=== PATIENT | male | born 1950 | race Caucasian/White ===

== ENCOUNTER 2018-01-01 08:24 | Day surgery (SDC) | payer OTHER ==
[~2018-01-01] VITALS: Ht 175.3 cm; Wt 87.3 kg
[~2018-01-01 08:24] MED LIST: LANSO15 PO
[2018-01-01 08:43] VITALS: BP 142/82; PULSE 63; RESP 20; TEMP 97.6; O2SAT 97
[2018-01-01] MEDS ORDERED: ceFAZolin 2 GM PREMIX 50 ML - implanted port/tunneled catheter insertion IV SCH (09:00)
[2018-01-01] MEDS ORDERED: SODIUM CHLORIDE 0.9% 1000 ML IV SCH (09:00)
[2018-01-01] MEDS ORDERED: VANCOMYCIN 1000 MG/NS 250 ML - implanted port/tunneled catheter IV SCH ×2 (09:00)
[2018-01-01] MEDS ORDERED: POVIDONE IODINE 5% (ANTISEPSIS KIT) 4 APPLICATIONS EACH NARE SCH (09:00)
[2018-01-01] MEDS ORDERED: CHLORHEXIDINE GLUCONATE 2 % 1 PACK (2 CLOTHS) TOPICAL SCH (09:00)
[2018-01-01] MEDS ORDERED: NAPR250T4 PO (09:07)
[2018-01-01] MEDS ORDERED: DEXT1LIQ15 PO (09:07)
[2018-01-01] MEDS ORDERED: HYDR1SOL20 PO (09:07)
[2018-01-01] MEDS ORDERED: NEXI20CA PO (09:07)
[2018-01-01] MEDS ORDERED: SIMV40TA PO (09:07)
[2018-01-01] MEDS ORDERED: BENZ100 PO (09:07)
[2018-01-01] MEDS ORDERED: fentaNYL CITRATE 250 MCG/5 ML AMP ONE (11:08)
[2018-01-01] MEDS ORDERED: MIDAZOLAM HCL 2 MG/2 ML VIAL ONE ×2 (11:08)
[2018-01-01 12:05] VITALS: BP 129/83; PULSE 63; RESP 20; TEMP 97.5; O2SAT 94
[2018-01-01 12:20] VITALS: BP 122/85; PULSE 62; RESP 20; O2SAT 93
[2018-01-01] MEDS ORDERED: SODIUM CHLORIDE 0.9% FLUSH 10 ML FLUSH IVF PRN (12:45)
--- NOTE | 2018-01-01 12:48 | PD.RAD ---
Post Procedure Progress Note Pre Procedure Diagnosis: (1) Lung cancer Post Procedure Diagnosis: (1) Lung cancer Procedure Date: Jan 01, 2018 Supervising Radiologist: Dao Castillo Proceduralist/Assist: RT Tamera(R)() Estimated blood loss: none Anesthesia: Local, Conscious Sedation Plan of Activity Patient to Unit: ROPU Patient Condition: Good See PACS Report for procedural detail/treatment Central Venous Access Device Procedure 1 Right Internal Jugular Infusaport Placement single lumen [place]: 8 Dao Castillo MD Jan 01, 2018 12:48
[2018-01-01 12:50] VITALS: BP 128/87; PULSE 57; RESP 20; O2SAT 95
[2018-01-01 13:20] VITALS: BP 128/83; PULSE 63; RESP 20; O2SAT 95
--- NOTE | 2018-01-01 13:24 | RADRPT ---
EXAM DATE/TIME: 01/01/2018 12:22 [facility] COMPARISON: No previous studies available for comparison. INDICATIONS : Patient with a histry of lung cancer needs [id number] MEDICAL HISTORY : Hypercholestermia GERD Anxiety Hemorrhoids SURGICAL HISTORY : Cataract removal Vasectomy ENCOUNTER: Initial ACUITY: 2 months PAIN SCORE: 0/10 FLUORO TIME: 1.2 minutes IMAGE SERIES: 1 SEDATION TIME: 30 minutes ACCESS: Right internal jugular vein SEDATION: 1.) 2 mg midazolam (Versed) IV 2.) 150 mcg fentanyl (Sublimaze) IV Prophylactic antibiotics were administered with appropriate pre-procedure timing. Vancomycin within 2 hours of procedure, Ancef (or alternative) within 1 hour of procedure. DEVICE: 1. 8 Citizen Of [place] single lumen [id number] PROCEDURE : 1. Continuous pulse oximetry and EKG monitoring. 2. Intravenous conscious sedation. 3. Ultrasound guidance for venous access. 4. Fluoroscopic guided implantable central venous port placement. The patient was placed supine. The neck was prepped in sterile fashion. Full sterile technique was u sed, including cap, mask, sterile gloves and gown, and a large sterile sheet. Hand hygiene and 2% ch lorhexidine Betadine was utilized per protocol for cutaneous antisepsis with appropriate dry time for site. Sterile gel and sterile probe cover were utilized for ultrasound guidance. The skin and sub cutaneous tissues were infiltrated with local anesthetic solution. Under direct ultrasound guidance, central venous access was accomplished in the targeted vessel. The ultrasound images depicting access guidance were stored and saved to PACS for permanent record. A s ubcutaneous pocket was created using blunt dissection. The port was introduced to the pocket. The c atheter tubing was fed through a subcutaneous tunnel to the venotomy site. The catheter tubing was c ut to a suitable length and then was introduced through a valved Peel-Away sheath and positioned with catheter tubing tip at the cavo-atrial junction level. The pocket incision was closed with subcutic ular Vicryl suture. Steri-Strips were applied. The port was flushed and locked with heparin solutio n per protocol. Sterile dressing was applied to the site. The patient tolerated the procedure well. Conscious sedation was performed with the prescribed dosages and duration as above in the presence of an independent trained radiology nurse to assist in the monitoring of the patient. EKG and oximetry remained stable throughout the procedure. The patient tolerated the procedure well and there were no complications. The patient was sent to post anesthesia recovery in stable condition. CONCLUSION: Uncomplicated ultrasound and fluoroscopic guided implanted central venous port catheter placement as described in detail above. An 8 Citizen Of [place] Power port was placed. Dao Castillo MD on January 01, 2018 at 13:22 Board Certified Radiologist. This report was verified electronically.
[2018-01-01 13:50] VITALS: BP 126/79; PULSE 58; RESP 20; O2SAT 95
== END 2018-01-01 14:20 | disposition home or self-care (01) ==
LOC: HROP 08:24 → HRIP 08:32 → HROP 14:20
PROVIDERS: ATTEND Internal Medicine
DX: Z45.2 Encounter for adjustment and management of vascular access device (principal); C34.90 Malignant neoplasm of unspecified part of unspecified bronchus or lung; K21.9 Gastro-esophageal reflux disease without esophagitis; F41.9 Anxiety disorder, unspecified; E78.00 Pure hypercholesterolemia, unspecified
CPT/HCPCS: 36561; 76937; 77001; 99152; 99153; C1788; J0690; J1642; J2250; J3010; J3370; J7030; J7050

== ENCOUNTER 2018-03-27 10:09 | Inpatient (IN) | payer OTHER, MEDICARE ==
[2018-03-27] VITALS (9 sets, daily range): BP systolic 105–127; BP diastolic 68–83; PULSE 74–115; RESP 16–18; TEMP 97.8–98.1; O2SAT 95–100
[~2018-03-27] VITALS: Ht 175.3 cm; Wt 69.5 kg
[~2018-03-27 10:09] MED LIST changes: +BENZ100 PO; +DEXT1LIQ15 PO; +HYDR1SOL20 PO; -LANSO15 PO; +NAPR250T4 PO; +NEXI20CA PO; +SIMV40TA PO
[2018-03-27] MEDS ORDERED: IOHEXOL 350 MG/ML 10 ML VIAL (for RAD DIAG) IVCONTRAST ONE (10:10)
[2018-03-27] MEDS ORDERED: OXYC-395 PO (10:28)
[2018-03-27] MEDS ORDERED: SODIUM CHLORIDE 0.9% FLUSH 10 ML FLUSH IVF PRN (10:30)
[2018-03-27] MEDS ORDERED: ASPIRIN 81 MG CHEW TAB PO ONE (10:30)
[2018-03-27] MEDS ORDERED: SODIUM CHLORID 0.9% 500 ML INJ 500 ML IV ONE (10:30)
--- NOTE | 2018-03-27 10:50 | PD ---
HPI Chief Complaint: Chest Pain Time Seen by Provider: 10:15 Travel History International Travel<30 days: No Contact w/Intl Traveler<30days: No Traveled to known affect area: No History of Present Illness HPI The patient is a 67-year-old male who presents to the emergency department for chest pain and shortness of breath. The patient was receiving radiation therapy earlier today when he developed chest pain, shortness of breath, and elevated heart rate. The patient states his symptoms started yesterday, have been intermittent, with no alleviating or exacerbating factors. He does complain of intermittent substernal sharp chest pain with shortness of breath without any nausea, vomiting, or diaphoresis. The patient was diagnosed with non-small cell lung carcinoma in November 2017 and has undergone 4 rounds of chemotherapy, last round of chemotherapy was last . The patient is followed by his medical oncologist, Dr. Driscoll. He is also followed by his radiation oncologist, Dr. Martin. The patient's primary physician is Dr. Star Unger. The patient denies any history of pulmonary embolism, DVT, recent surgery, recent hospitalizations, or recent prolonged travel. The patient does have a remote history of tobacco use, quit 20 years ago. Patient denies any known history of coronary artery disease, hypertension, or hyperlipidemia. No history of diabetes. The patient was noted to be in SVT at the oncology building, had an IV established by EMS and the patient was administered 1 dose of adenosine which brought his heart rate down from the 150s to the 120s. PFSH Past Medical History Cancer: Yes (LUNG W/METS) High Cholesterol: Yes Diminished Hearing: Yes Respiratory: Yes (LUNG CA) Immunizations Current: Yes Past Surgical History Eye Surgery: Yes (CATARACT) Genitourinary Surgery: Yes (vasectomy) Social History Alcohol Use: No Tobacco Use: No Substance Use: No Allergies-Medications (Allergen,Severity, Reaction): Coded Allergies: No Known Allergies (Verified Allergy, Unknown, 03/27/18) Reported Meds & Prescriptions Reported Meds & Active Scripts Active Reported Dexamethasone 4 Mg Tab 4 Mg PO BID Zantac (Ranitidine HCl) 300 Mg Tab 300 Mg PO HS Megestrol Liq (Megestrol Acetate) 40 Mg/Ml Susp 800 Mg PO DAILY Folic Acid 1 Mg Tablet 1 Mg PO DAILY Magic Mouthwash Adult Liq (Multi-Ingredient Mouthwash/Gargle) 120 Ml Susp 5-10 Ml SWISH-SWAL ACHS Each 5mL contains: Nystatin 200,000units, Diphenhydramine 4.25mg, Viscous Lidocaine 10mg, Sandoval syrup 0.8 mL Oxycodone (Oxycodone HCl) 5 Mg Tab 5 Mg PO Q4H PRN Nexium (Esomeprazole DR) 20 Mg Capdr 20 Mg PO DAILY Review of Systems Except as stated in HPI: all other systems reviewed are Neg General / Constitutional: No: Fever HENT: No: Lightheadedness Cardiovascular: Positive: Chest Pain or Discomfort, Tachycardia, No: Diaphoresis Respiratory: Positive: Shortness of Breath Gastrointestinal: No: Nausea, Vomiting, Abdominal Pain Musculoskeletal: No: Weakness, Edema Neurologic: No: Dizziness Physical Exam Narrative GENERAL: Awake, alert, pleasant 67-year-old male who appears his stated age and is in no acute respiratory distress. SKIN: Focused skin assessment warm/dry. HEAD: Atraumatic. Normocephalic. EYES: No injection or drainage. ENT: No nasal bleeding or discharge. Mucous membranes pink and moist. NECK: Trachea midline. No JVD. CARDIOVASCULAR: Regular, tachycardic with a heart rate in the 120s. Port in place right chest wall. RESPIRATORY: No accessory muscle use. Clear to auscultation. Breath sounds equal bilaterally. GASTROINTESTINAL: Abdomen soft, non-tender, nondistended. No rebound tenderness. MUSCULOSKELETAL: No obvious deformities. No clubbing. No cyanosis. No edema. Calves are soft bilaterally. NEUROLOGICAL: Awake and alert. No obvious cranial nerve deficits. Motor grossly within normal limits. Normal speech. PSYCHIATRIC: Appropriate mood and affect; insight and judgment normal. Data Data Last Documented VS Vital Signs Date Time Temp Pulse Resp B/P (MAP) Pulse Ox O2 Delivery O2 Flow Rate FiO2 03/27/18 10:34 109 16 115/74 (88) 99 Nasal Cannula 2.00 Orders Orders Electrocardiogram (03/27/18 10:24) B-Type Natriuretic Peptide (03/27/18 10:24) Ckmb (Isoenzyme) Profile (03/27/18 10:24) Complete Blood Count With Diff (03/27/18 10:24) Comprehensive Metabolic Panel (03/27/18 10:24) Magnesium (Mg) (03/27/18 10:24) Prothrombin Time / Inr (Pt) (03/27/18 10:24) Act Partial Throm Time (Ptt) (03/27/18 10:24) Troponin I (03/27/18 10:24) Lipase (03/27/18 10:24) Ecg Monitoring (03/27/18 10:24) Bilateral Bp Monitoring (03/27/18 10:24) Iv Access Insert/Monitor (03/27/18 10:24) Oximetry (03/27/18 10:24) Oxygen Administration (03/27/18 10:24) Aspirin Chew (Aspirin Chew) (03/27/18 10:30) Sodium Chloride 0.9% Flush (Ns Flush) (03/27/18 10:30) Sodium Chlorid 0.9% 500 Ml Inj (Ns 500 M (03/27/18 10:30) Ct Pulmonary Angiogram (03/27/18 10:24) Chest, Pa & Lat (03/27/18 10:24) Lactic Acid (03/27/18 10:24) Iohexol 350 Inj (Omnipaque 350 Inj) (03/27/18 10:10) Heparin Inj (Heparin Inj) (03/27/18 12:59) Heparin Inj (Heparin Inj) (03/27/18 19:00) Heparin Inj (Heparin Inj) (03/27/18 19:00) Heparin-D5w 25,000 U/250 Ml (Heparin-D5w (03/27/18 13:00) Act Partial Throm Time (Ptt) (03/27/18 12:59) Cbc No Diff, Includes Plts (03/27/18 12:59) Cbc No Diff, Includes Plts (03/30/18 06:00) Act Partial Throm Time (Ptt) (03/27/18 19:59) Occult Blood (Hemoccult) Stool (03/27/18 12:59) Admit Order (Ed Use Only) (03/27/18 13:39) Labs Laboratory Tests Test 03/27/18 10:20 03/27/18 10:40 White Blood Count 5.2 TH/MM3 Red Blood Count 3.99 MIL/MM3 Hemoglobin 11.6 GM/DL Hematocrit 33.3 % Mean Corpuscular Volume 83.4 FL Mean Corpuscular Hemoglobin 29.1 PG Mean Corpuscular Hemoglobin Concent 34.8 % Red Cell Distribution Width 20.5 % Platelet Count 99 TH/MM3 Mean Platelet Volume 7.8 FL Neutrophils (%) (Auto) 85.2 % Lymphocytes (%) (Auto) 2.3 % Monocytes (%) (Auto) 10.7 % Eosinophils (%) (Auto) 1.6 % Basophils (%) (Auto) 0.2 % Neutrophils # (Auto) 4.4 TH/MM3 Lymphocytes # (Auto) 0.1 TH/MM3 Monocytes # (Auto) 0.6 TH/MM3 Eosinophils # (Auto) 0.1 TH/MM3 Basophils # (Auto) 0.0 TH/MM3 CBC Comment AUTO DIFF Differential Comment AUTO DIFF CONFIRMED Platelet Estimate LOW Platelet Morphology Comment NORMAL Prothrombin Time 10.7 SEC Prothromb Time International Ratio 1.1 RATIO Activated Partial Thromboplast Time 24.4 SEC Blood Urea Nitrogen 14 MG/DL Creatinine 1.01 MG/DL Random Glucose 124 MG/DL Total Protein 6.5 GM/DL Albumin 2.9 GM/DL Calcium Level 7.9 MG/DL Magnesium Level 1.6 MG/DL Alkaline Phosphatase 79 U/L Aspartate Amino Transf (AST/SGOT) 33 U/L Alanine Aminotransferase (ALT/SGPT) 34 U/L Total Bilirubin 1.5 MG/DL Sodium Level 132 MEQ/L Potassium Level 3.9 MEQ/L Chloride Level 98 MEQ/L Carbon Dioxide Level 22.5 MEQ/L Anion Gap 12 MEQ/L Estimat Glomerular Filtration Rate 74 ML/MIN Total Creatine Kinase 48 U/L Troponin I LESS THAN 0.02 NG/ML B-Type Natriuretic Peptide 36 PG/ML Lipase 191 U/L Lactic Acid Level 1.2 mmol/L MDM Medical Decision Making Medical Screen Exam Complete: Yes Emergency Medical Condition: Yes Medical Record Reviewed: Yes Interpretation(s) EKG reveals sinus tachycardia with premature supraventricular complex. Heart rate 120. Last Impressions Chest X-Ray 03/27/18 1024 Signed Impressions: Service Date/Time: Tuesday, March 27, 2018 11:07 - CONCLUSION: There is left upper lobe and left lung base consolidation. Patient is currently scheduled for chest CT which will further characterize this finding. Dao Gamez MD CT Angiography 03/27/18 1024 Signed Impressions: Service Date/Time: Tuesday, March 27, 2018 12:19 - CONCLUSION: 1. Right lower lobe pulmonary embolism. 2. Large soft tissue mass in the left hilar region consistent with the known primary bronchogenic carcinoma. 3. Consolidation in the right lower lobe. Claudy Morrison MD Laboratory Tests Test 03/27/18 10:20 03/27/18 10:40 White Blood Count 5.2 TH/MM3 Red Blood Count 3.99 MIL/MM3 Hemoglobin 11.6 GM/DL Hematocrit 33.3 % Mean Corpuscular Volume 83.4 FL Mean Corpuscular Hemoglobin 29.1 PG Mean Corpuscular Hemoglobin Concent 34.8 % Red Cell Distribution Width 20.5 % Platelet Count 99 TH/MM3 Mean Platelet Volume 7.8 FL Neutrophils (%) (Auto) 85.2 % Lymphocytes (%) (Auto) 2.3 % Monocytes (%) (Auto) 10.7 % Eosinophils (%) (Auto) 1.6 % Basophils (%) (Auto) 0.2 % Neutrophils # (Auto) 4.4 TH/MM3 Lymphocytes # (Auto) 0.1 TH/MM3 Monocytes # (Auto) 0.6 TH/MM3 Eosinophils # (Auto) 0.1 TH/MM3 Basophils # (Auto) 0.0 TH/MM3 CBC Comment AUTO DIFF Differential Comment AUTO DIFF CONFIRMED Platelet Estimate LOW Platelet Morphology Comment NORMAL Prothrombin Time 10.7 SEC Prothromb Time International Ratio 1.1 RATIO Activated Partial Thromboplast Time 24.4 SEC Blood Urea Nitrogen 14 MG/DL Creatinine 1.01 MG/DL Random Glucose 124 MG/DL Total Protein 6.5 GM/DL Albumin 2.9 GM/DL Calcium Level 7.9 MG/DL Magnesium Level 1.6 MG/DL Alkaline Phosphatase 79 U/L Aspartate Amino Transf (AST/SGOT) 33 U/L Alanine Aminotransferase (ALT/SGPT) 34 U/L Total Bilirubin 1.5 MG/DL Sodium Level 132 MEQ/L Potassium Level 3.9 MEQ/L Chloride Level 98 MEQ/L Carbon Dioxide Level 22.5 MEQ/L Anion Gap 12 MEQ/L Estimat Glomerular Filtration Rate 74 ML/MIN Total Creatine Kinase 48 U/L Troponin I LESS THAN 0.02 NG/ML B-Type Natriuretic Peptide 36 PG/ML Lipase 191 U/L Lactic Acid Level 1.2 mmol/L Differential Diagnosis Differential diagnosis includes SVT, arrhythmia, electrolyte abnormality, pulmonary embolism, dehydration, sirs, sepsis. Narrative Course IV was established, labs are drawn and sent, and the patient was placed on cardiac telemetry monitoring and continuous pulse oximetry monitoring. EKG was ordered and interpreted. Chest x-ray was obtained. CT pulmonary angiogram was ordered to rule out pulmonary embolism with tachycardia, shortness of breath, and chest pain. The patient was administered IV fluids. Chest x-ray reveals mass in her pneumonia in the left upper lobe. Laboratory evaluation otherwise is unremarkable. However, the patient is tachycardic with pleuritic pain and shortness of breath, therefore, CT pulmonary angiogram was ordered. CT pulmonary angiogram was positive, the patient may have right ventricular strain as he does have elevated heart rate just with talking and moving in the bed. Therefore, the patient will be admitted to [facility], may benefit from echocardiogram and if there is significant right ventricular strain, eventually IV TPA. I discussed the patient with Dr. Fowler who agrees with admission. Critical Care Narrative Aggregate critical care time was 35 minutes. Time to perform other separately billable procedures was not included in the critical care time. My time did not include minutes spent treating any other patients simultaneously or on activities that did not directly contribute to the patient's treatment. The services I provided to this patient were to treat and/or prevent clinically significant deterioration that could result in: Anoxia, hypoxia, arrhythmia, right ventricular strain, . I provided critical care services requiring my management, as noted below: Chart data review, documentation time, medication orders and management, vital sign assessments/reviewing monitor data, ordering and reviewing lab tests, ordering and interpreting/reviewing x-rays and diagnostic studies, care of the patient and discussion of the patient with the admitting physicians. Physician Communication Physician Communication The patient has [employer], therefore, [facility] were paged for admission. I discussed the patient with Dr. Fowler who agrees with admission to [facility]. Diagnosis Primary Impression: Pulmonary embolism Qualified Codes: I26.99 - Other pulmonary embolism without acute cor pulmonale Admitting Information Admitting Physician Requests: Admit Condition: Stable Farzad Angeles MD March 27, 2018 10:50
--- NOTE | 2018-03-27 11:23 | RADRPT ---
EXAM DATE/TIME: 03/27/2018 11:07 [facility] COMPARISON: CT SIMULATION, March 01, 2018, 13:40. INDICATIONS : Shortness of breath and cough. MEDICAL HISTORY : Carcinoma, lung. SURGICAL HISTORY : Infusaport. ENCOUNTER: Initial ACUITY: 1 day PAIN SCORE: 0/10 LOCATION: Bilateral chest FINDINGS: Frontal and lateral views of the chest demonstrates a normal size cardiac silhouette. Right chest wal l [id number] is present with distal tip in the right atrium. There is a left upper lobe parenchyma l opacity and mild left lung base anterior brachial opacity. No pleural effusion or pneumothorax is i dentified. The bones and soft tissues demonstrate no acute finding. There are degenerative changes of the thoracic spine. CONCLUSION: There is left upper lobe and left lung base consolidation. Patient is currently scheduled for chest C T which will further characterize this finding. Dao Gamez MD on March 27, 2018 at 11:20 Board Certified Radiologist. This report was verified electronically.
[2018-03-27 11:24] LABS: AUTOMATED NEUTROPHIL # 4.4 TH/MM3 (1.8-7.7); BASOPHIL % 0.2 % (0.0-2.0); EOSINOPHIL # 0.1 TH/MM3 (0-0.4); EOSINOPHIL % 1.6 % (0.0-4.0); HEMATOCRIT 33.3 % (39.0-51.0); HEMOGLOBIN 11.6 GM/DL (13.0-17.0); LYMPH % 2.3 % (9.0-44.0); LYMPHOCYTE # 0.1 TH/MM3 (1.0-4.8); MEAN CELL VOLUME 83.4 FL (80.0-100.0); MEAN CORPUSCULAR HEMOGLOBIN 29.1 PG (27.0-34.0); MEAN CORPUSCULAR HGB CONC 34.8 % (32.0-36.0); MEAN PLATELET VOLUME 7.8 FL (7.0-11.0); MONO % 10.7 % (0.0-8.0); MONOCYTE # 0.6 TH/MM3 (0-0.9); NEUT % 85.2 % (16.0-70.0); PLATELET COUNT 99 TH/MM3 (150-450); RED BLOOD COUNT 3.99 MIL/MM3 (4.50-5.90); RED CELL DISTRIBUTION WIDTH 20.5 % (11.6-17.2); WHITE BLOOD COUNT 5.2 TH/MM3 (4.0-11.0)
[2018-03-27 11:26] LABS: INTERNATIONAL NORMALIZED RATIO 1.1 RATIO; PROTHROMBIN TIME - PATIENT 10.7 SEC (9.8-11.6)
[2018-03-27 11:48] LABS: ALBUMIN 2.9 GM/DL (3.4-5.0); AST (GOT) 33 U/L (15-37); BICARBONATE 22.5 MEQ/L (21.0-32.0); BLOOD UREA NITROGEN 14 MG/DL (7-18); CALCIUM 7.9 MG/DL (8.5-10.1); CHLORIDE 98 MEQ/L (98-107); CREATININE 1.01 MG/DL (0.60-1.30); GLOMERULAR FILTRATION RATE 74 ML/MIN (>89); GLUCOSE,RANDOM 124 MG/DL (74-106); MAGNESIUM 1.6 MG/DL (1.5-2.5); SODIUM (NA) 132 MEQ/L (136-145)
[2018-03-27 11:49] LABS: ALT (GPT) 34 U/L (12-78)
[2018-03-27 11:52] LABS: ALKALINE PHOSPHATASE 79 U/L (45-117); TOTAL BILIRUBIN ADULT 1.5 MG/DL (0.2-1.0); TOTAL PROTEIN 6.5 GM/DL (6.4-8.2); TROPONIN I LESS THAN 0.02 NG/ML (0.02-0.05)
[2018-03-27] MEDS ORDERED: FOLI1TAB6 PO (12:16)
[2018-03-27] MEDS ORDERED: DEXA4TAB PO (12:16)
[2018-03-27] MEDS ORDERED: OXYC-392 PO (12:16)
[2018-03-27] MEDS ORDERED: MAGICADU2 SWISH-SWAL (12:16)
[2018-03-27] MEDS ORDERED: ZANT300T PO (12:16)
[2018-03-27] MEDS ORDERED: MEGE40SU PO (12:16)
--- NOTE | 2018-03-27 12:54 | RADRPT ---
EXAM DATE/TIME: 03/27/2018 12:19 [facility] COMPARISON: CHEST PA & LAT, March 27, 2018, 11:07. INDICATIONS : Abnormal heart rate, chest pressure IV CONTRAST: 50 cc Omnipaque 350 (iohexol) IV RADIATION DOSE: 9.69 CTDIvol (mGy) MEDICAL HISTORY : Carcinoma, lung. SURGICAL HISTORY : None. ENCOUNTER: Initial ACUITY: 2 days PAIN SCALE: 0/10 LOCATION: chest TECHNIQUE: Volumetric scanning of the chest was performed using a pulmonary embolism protocol MIP images were re constructed. Using automated exposure control and adjustment of the mA and/or kV according to patien t size, radiation dose was kept as low as reasonably achievable to obtain optimal diagnostic quality images. DICOM format image data is available electronically for review and comparison. Follow-up recommendations for detected pulmonary nodules are based at a minimum on nodule size and pa tient risk factors according to Fleischner Society Guidelines. FINDINGS: PULMONARY ARTERIES: There are multiple filling defects in the left lower lobe pulmonary arteries. LUNGS: There is no pneumothorax . There is a large mass in the left perihilar region extending into the upp er lobe and lingula measuring up to 5.9 x 4.5 x 6.8 cm. This attenuates one of the right upper lobe p ulmonary arteries. Infiltrate is present in the right lower lobe. PLEURAE: There is no pleural thickening or pleural effusion. MEDIASTINUM: There is good visualization of the great vessels of the middle mediastinum. No evidence of mediastin al or hilar adenopathy/mass. MUSCULOSKELETAL: Within normal limits for patient age. MISCELLANEOUS: The visualized upper abdominal organs demonstrate no acute abnormality. CONCLUSION: 1. Right lower lobe pulmonary embolism. 2. Large soft tissue mass in the left hilar region consistent with the known primary bronchogenic car cinoma. 3. Consolidation in the right lower lobe. Claudy Morrison MD on March 27, 2018 at 12:46 Board Certified Radiologist. This report was verified electronically.
[2018-03-27] MEDS ORDERED: HEPARIN - 10,000 UNITS/ML IV ADDITIVE IV PUSH STA (12:59)
[2018-03-27] MEDS ORDERED: SODIUM CHLORIDE 0.9% FLUSH 10 ML FLUSH IV FLUSH PRN (13:45)
--- NOTE | 2018-03-27 13:59 | HHI.HP ---
HPI Service [facility] Primary Care Physician Bassam Unger M.D. 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 He follows with Dr. Driscoll and Dr. Martin. The patient was receiving chemotherapy treatment in the oncology clinic when he is shortness of breath got worse. EMS report he was in SVT and was given 1 dose of adenosine. On my evaluation in the emergency room, heart rate is in the 90s. He reports feeling better at rest. Workup in the emergency room revealed a right lower lobe pulmonary embolus. He has been started on a heparin drip. He denies any chest pressure. He does report a history of a small area of metastases in his brain that was treated with radiation. He does have a persistent and chronic cough. Denies any fevers or chills. He denies any calf pain. Review of Systems Constitutional: DENIES: Fever, Chills Respiratory: COMPLAINS OF: Cough, Shortness of breath, DENIES: Hemoptysis Cardiovascular: COMPLAINS OF: Dyspnea on Exertion, DENIES: Syncope Gastrointestinal: DENIES: Nausea, Vomiting Neurologic: DENIES: Abnormal gait, Headache Except as stated in HPI: all other systems reviewed are Neg Past Family Social History Past Medical History Metastatic lung adenocarcinoma to the spine and brain. Hyperlipidemia GERD Past Surgical History Lung biopsy Reported Medications Reported Meds & Active Scripts Active Reported Dexamethasone 4 Mg Tab 4 Mg PO BID Zantac (Ranitidine HCl) 300 Mg Tab 300 Mg PO HS Megestrol Liq (Megestrol Acetate) 40 Mg/Ml Susp 800 Mg PO DAILY Folic Acid 1 Mg Tablet 1 Mg PO DAILY Magic Mouthwash Adult Liq (Multi-Ingredient Mouthwash/Gargle) 120 Ml Susp 5-10 Ml SWISH-SWAL ACHS Each 5mL contains: Nystatin 200,000units, Diphenhydramine 4.25mg, Viscous Lidocaine 10mg, Sandoval syrup 0.8 mL Oxycodone (Oxycodone HCl) 5 Mg Tab 5 Mg PO Q4H PRN Nexium (Esomeprazole DR) 20 Mg Capdr 20 Mg PO DAILY Allergies: Coded Allergies: No Known Allergies (Verified Allergy, Unknown, 03/27/18) Family History Reviewed and is noncontributory. Social History Ex-smoker. Quit smoking about 15 years ago. He does drink alcohol occasionally. Denies illicit drug use. Physical Exam Vital Signs Vital Signs Date Time Temp Pulse Resp B/P (MAP) Pulse Ox O2 Delivery O2 Flow Rate FiO2 03/27/18 13:48 88 16 105/70 (82) 98 Nasal Cannula 2.00 03/27/18 10:34 109 16 115/74 (88) 99 Nasal Cannula 2.00 03/27/18 10:34 99 Nasal Cannula 2.00 03/27/18 10:34 109 16 127/83 (98) 99 Nasal Cannula 2.00 115/74 (88) 03/27/18 10:29 112 18 99 Nasal Cannula 2.00 03/27/18 10:23 115 18 127/83 (98) 99 Physical Exam GENERAL: This is a well-nourished, well-developed patient, in no acute distress. SKIN: No rashes, ecchymoses or lesions. Cool and dry. HEAD: Atraumatic. Normocephalic. No temporal or scalp tenderness. EYES: Pupils equal round and reactive. Extraocular motions intact. No scleral icterus. No injection or drainage. ENT: Nose without bleeding, purulent drainage or septal hematoma. Throat without erythema, tonsillar hypertrophy or exudate. Uvula midline. Airway patent. NECK: Trachea midline. No JVD or lymphadenopathy. Supple, nontender, no meningeal signs. CARDIOVASCULAR: Regular rate and rhythm without murmurs, gallops, or rubs. RESPIRATORY: Clear to auscultation. Breath sounds equal bilaterally. No wheezes , rales, or rhonchi. GASTROINTESTINAL: Abdomen soft, non-tender, nondistended. No hepato-splenomegaly , or palpable masses. No guarding. MUSCULOSKELETAL: Extremities without clubbing, cyanosis, or edema. No joint tenderness, effusion, or edema noted. No calf tenderness. Negative Homans sign bilaterally. NEUROLOGICAL: Awake and alert. Cranial nerves II through XII intact. Motor and sensory grossly within normal limits. Five out of 5 muscle strength in all muscle groups. Normal speech. Laboratory Laboratory Tests Test 03/27/18 10:20 03/27/18 10:40 White Blood Count 5.2 Red Blood Count 3.99 Hemoglobin 11.6 Hematocrit 33.3 Mean Corpuscular Volume 83.4 Mean Corpuscular Hemoglobin 29.1 Mean Corpuscular Hemoglobin Concent 34.8 Red Cell Distribution Width 20.5 Platelet Count 99 Mean Platelet Volume 7.8 Neutrophils (%) (Auto) 85.2 Lymphocytes (%) (Auto) 2.3 Monocytes (%) (Auto) 10.7 Eosinophils (%) (Auto) 1.6 Basophils (%) (Auto) 0.2 Neutrophils # (Auto) 4.4 Lymphocytes # (Auto) 0.1 Monocytes # (Auto) 0.6 Eosinophils # (Auto) 0.1 Basophils # (Auto) 0.0 CBC Comment AUTO DIFF Differential Comment AUTO DIFF CONFIRMED Platelet Estimate LOW Platelet Morphology Comment NORMAL Prothrombin Time 10.7 Prothromb Time International Ratio 1.1 Activated Partial Thromboplast Time 24.4 Blood Urea Nitrogen 14 Creatinine 1.01 Random Glucose 124 Total Protein 6.5 Albumin 2.9 Calcium Level 7.9 Magnesium Level 1.6 Alkaline Phosphatase 79 Aspartate Amino Transf (AST/SGOT) 33 Alanine Aminotransferase (ALT/SGPT) 34 Total Bilirubin 1.5 Sodium Level 132 Potassium Level 3.9 Chloride Level 98 Carbon Dioxide Level 22.5 Anion Gap 12 Estimat Glomerular Filtration Rate 74 Total Creatine Kinase 48 Troponin I LESS THAN 0.02 B-Type Natriuretic Peptide 36 Lipase 191 Lactic Acid Level 1.2 Result Diagram: 03/27/18 1020 03/27/18 1020 Imaging Last Impressions Chest X-Ray 03/27/18 1024 Signed Impressions: Service Date/Time: Tuesday, March 27, 2018 11:07 - CONCLUSION: There is left upper lobe and left lung base consolidation. Patient is currently scheduled for chest CT which will further characterize this finding. Dao Gamez MD CT Angiography 03/27/18 1024 Signed Impressions: Service Date/Time: Tuesday, March 27, 2018 12:19 - CONCLUSION: 1. Right lower lobe pulmonary embolism. 2. Large soft tissue mass in the left hilar region consistent with the known primary bronchogenic carcinoma. 3. Consolidation in the right lower lobe. MD Suad Bhat VTE Risk Assessment Caprini VTE Risk Assessment: Mod/High Risk (score >= 2) Caprini Risk Assessment Model Point Value = 1 Point Value = 2 Point Value = 3 Point Value = 5 Age 41-60 Minor surgery BMI > 25 kg/m2 Swollen legs Varicose veins or History of unexplained or recurrent spontaneous Oral contraceptives or hormone replacement Sepsis (< 1 month) Serious lung disease, including pneumonia (< 1 month) Abnormal pulmonary function Acute myocardial infarction Congestive heart failure (< 1 month) History of inflammatory bowel disease Medical patient at bed rest Age 61-74 Arthroscopic surgery Major open surgery (> 45 min) Laparoscopic surgery (> 45 min) Malignancy Confined to bed (> 72 hours) Immobilizing plaster cast Central venous access Age >= 75 History of VTE Family history of VTE Factor V Leiden Prothrombin [id number] Lupus anticoagulant Anticardiolipin antibodies Elevated serum homocysteine Heparin-induced thrombocytopenia Other congenital or acquired thrombophilia Stroke (< 1 month) Elective arthroplasty Hip, pelvis, or leg fracture Acute spinal cord injury (< 1 month) Prophylaxis Regimen Total Risk Factor Score Risk Level Prophylaxis Regimen 0-1 Low Early ambulation 2 Moderate Order ONE of the following: *Sequential Compression Device (SCD) *Heparin 5000 units SQ BID 3-4 Higher Order ONE of the following medications: *Heparin 5000 units SQ TID *Enoxaparin/Lovenox 40 mg SQ daily (WT < 150 kg, CrCl > 30 mL/min) *Enoxaparin/Lovenox 30 mg SQ daily (WT < 150 kg, CrCl > 10-29 mL/min) *Enoxaparin/Lovenox 30 mg SQ BID (WT < 150 kg, CrCl > 30 mL/min) AND/OR *Sequential Compression Device (SCD) 5 or more Highest Order ONE of the following medications: *Heparin 5000 units SQ TID (Preferred with Epidurals) *Enoxaparin/Lovenox 40 mg SQ daily (WT < 150 kg, CrCl > 30 mL/min) *Enoxaparin/Lovenox 30 mg SQ daily (WT < 150 kg, CrCl > 10-29 mL/min) *Enoxaparin/Lovenox 30 mg SQ BID (WT < 150 kg, CrCl > 30 mL/min) AND *Sequential Compression Device (SCD) Assessment and Plan Problem List: (1) Pulmonary embolism ICD Code: I26.99 - Other pulmonary embolism without acute cor pulmonale Status: Acute Plan: Patient has known lung cancer. Has been started on heparin drip. Continue Will obtain stat echocardiogram to rule out heart strain. Vital signs so far stable since he received adenosine. Further plans based on echocardiogram results. I am not convinced that he will need TPA at this time. Consult hematology/oncology Check lower extremity Doppler to rule out DVT. (2) SVT (supraventricular tachycardia) ICD Code: I47.1 - Supraventricular tachycardia Plan: Likely provoked by PE. Status post 1 dose of adenosine. Heart rate better controlled. Start low-dose Cardizem 30 mg every 6 hours. Monitor on telemetry. (3) Adenocarcinoma, lung ICD Code: C34.90 - Malignant neoplasm of unspecified part of unspecified bronchus or lung Plan: With metastatic to the spine and brain. Status post radiation. Receiving chemotherapy. Consult patient's oncologist. (4) GERD (gastroesophageal reflux disease) ICD Code: K21.9 - Gastro-esophageal reflux disease without esophagitis Plan: Continue antireflux medications. Assessment and Plan Admit to [facility]. Level 3 admit. Physician Certification 2 Midnight Certification Type: Admission for Inpatient Services Order for Inpatient Services The services are ordered in accordance with Medicare regulations or non- Medicare payer requirements, as applicable. In the case of services not specified as inpatient-only, they are appropriately provided as inpatient services in accordance with the 2-midnight benchmark. Estimated LOS (days): 4 days is the estimated time the patient will need to remain in the hospital, assuming treatment plan goals are met and no additional complications. Post-Hospital Plan: Not yet determined Problem Qualifiers (1) Pulmonary embolism: Qualified Codes: I26.99 - Other pulmonary embolism without acute cor pulmonale Gloria Fowler MD March 27, 2018 13:59
[2018-03-27] MEDS ORDERED: HEPARIN SODIUM - SQ 10,000 UNITS/ML VIAL ONE (14:18)
[2018-03-27] MEDS: HEPARIN-D5W 25,000 U/250 ML 250 ML IV PRN (14:28)
--- NOTE | 2018-03-27 15:20 | RADRPT ---
EXAM DATE/TIME: 03/27/2018 14:51 [facility] COMPARISON: No previous studies available for comparison. INDICATIONS : Bilateral leg swelling. MEDICAL HISTORY : Carcinoma, lung. Hearing loss. Metastaic cancer. SURGICAL HISTORY : Bilateral cataract surgery. Vasectomy. ENCOUNTER: Initial ACUITY: 1 day PAIN SCORE: 1/10 LOCATION: Bilateral legs. TECHNIQUE: Venous ultrasound of the left and right leg was performed from the inguinal ligament to the proximal calf. Real-time, color Doppler and spectral tracing, compression and augmentation techniques were us ed. FINDINGS: RIGHT LEG: There is normal compressibility of the deep venous system from the inguinal region to the proximal ca lf. No echogenic clot is seen in the lumen of the common femoral, femoral, popliteal, and posterior tibial veins. There is a normal response of the venous system to proximal and distal augmentation an d respiration. LEFT LEG: There is normal compressibility of the deep venous system from the inguinal region to the proximal ca lf. No echogenic clot is seen in the lumen of the common femoral, femoral, popliteal, and posterior tibial veins. There is a normal response of the venous system to proximal and distal augmentation an d respiration. CONCLUSION: 1. Negative for deep venous thrombosis bilateral lower extremity. Cody Muller MD on March 27, 2018 at 15:17 Board Certified Radiologist. This report was verified electronically.
--- NOTE | 2018-03-27 16:10 | ECHRPT ---
Indication: PULM EMBOLI CONCLUSIONS Normal left ventricular size. Mild concentric left ventricular hypertrophy. The left ventricular systolic function is normal with an estimated ejection fraction in the range of 55-60%. No regional wall motion abnormalities are present. Odtma-ri-qssu mitral valve regurgitation. There is trace tricuspid valve regurgitation. The estimated pulmonary arterial pressure is 23 mmHg. BP: 105 / 70 HR: 88 Rhythm: Sinus MEASUREMENTS (Male / Female) Normal Values Technical Quality:Fair 2D ECHO LV Diastolic Diameter PLAX 4.3 cm 4.2 - 5.9 / 3.9 - 5.3 cm LV Systolic Diameter PLAX 2.6 cm IVS Diastolic Thickness 1.1 cm 0.6 - 1.0 / 0.6 - 0.9 cm LVPW Diastolic Thickness 1.1 cm 0.6 - 1.0 / 0.6 - 0.9 cm LV Relative Wall Thickness 0.5 RV Internal Dim ED PLAX 2.0 cm LVOT Diameter 2.3 cm Aortic Root Diameter 3.6 cm LA Systolic Diameter LX 3.0 cm 3.0 - 4.0 / 2.7 - 3.8 cm M-MODE AV Cusp Separation MM 2.1 cm DOPPLER AV Peak Velocity 102.0 cm/s AV Peak Gradient 4.2 mmHg AV Mean Gradient 2.0 mmHg AV Velocity Time Integral 17.4 cm LVOT Peak Velocity 63.2 cm/s LVOT Peak Gradient 1.6 mmHg LVOT Velocity Time Integral 11.5 cm AV Area Cont Eq vti 2.7 cm AV Area Cont Eq pk 2.6 cm Mitral E Point Velocity 42.9 cm/s Mitral A Point Velocity 66.1 cm/s Mitral E to A Ratio 0.6 LV E' Lateral Velocity 11.0 cm/s Mitral E to LV E' Lateral Ratio 3.9 LV E' Septal Velocity 5.1 cm/s Mitral E to LV E' Septal Ratio 8.5 TR Peak Velocity 185.0 cm/s TR Peak Gradient 13.7 mmHg Right Atrial Pressure 10.0 mmHg Pulmonary Artery Systolic Pressu 23.7 mmHg Right Ventricular Systolic Press 23.7 mmHg PV Peak Velocity 81.2 cm/s PV Peak Gradient 2.6 mmHg FINDINGS LEFT VENTRICLE Normal left ventricular size. Mild concentric left ventricular hypertrophy. The left ventricular systolic function is normal with an estimated ejection fraction in the range of 55-60%. No regional wall motion abnormalities are present. RIGHT VENTRICLE Normal right ventricular size and systolic function. LEFT ATRIUM The left atrial size is normal. RIGHT ATRIUM The right atrial size is normal. ATRIAL SEPTUM The interatrial septum not well visualized. AORTA The aortic root and proximal ascending aorta are not well visualized. MITRAL VALVE Fpvzi-zk-[id number] mitral valve regurgitation. AORTIC VALVE Trileaflet aortic valve. No aortic valve stenosis or regurgitation. TRICUSPID VALVE There is trace tricuspid valve regurgitation. The estimated pulmonary arterial pressure is 23 mmHg. PULMONARY VALVE Trivial pulmonary valve regurgitation. VESSELS The inferior vena cava was not well visualized. PERICARDIUM No pericardial effusion. Lee Wyatt MD (Electronically Signed) Final Date:27 Mar 2018 16:09
[2018-03-27] MEDS: DILTIAZEM HCL 30 MG TAB PO SCH (16:48)
[2018-03-27] MEDS ORDERED: HEPARIN SODIUM - IV 10,000 UNITS/10 ML VIAL IV PRN (19:00)
[2018-03-27] MEDS ORDERED: HEPARIN - 10,000 UNITS/ML IV ADDITIVE IV PRN (19:00)
[2018-03-27] MEDS: DEXAMETHASONE 4 MG TAB PO SCH (20:39)
[2018-03-27] MEDS: FAMOTIDINE 20 MG TAB PO SCH (20:39)
[2018-03-27] MEDS: SODIUM CHLORIDE 0.9% FLUSH 10 ML FLUSH IV FLUSH SCH (20:45)
--- NOTE | 2018-03-27 20:48 | RADONCENDT ---
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, T3, N0, M1b, G3 Primary C34.92 - Malignant neoplasm of unspecified part of left bronchus or lung, Diagnosed 11/2017 (Active) , Secondary R05 - Cough, Diagnosed 12/27/2017 (Active) , Secondary R52 - Pain, unspecified, Diagnosed 01/10/2018 (Active) , Diagnosis Confirmed: Suspected Diagnosis Date: 02/26/2018 Diagnosis Laterality: Method of Diagnosis: Unknown PRESCRIPTION AND TREATMENT: Rt Pelvis (Plan ID - Rt Pelvis C1) - Rx Dose 2,000cGy (Status - Treatment Approved) - T_LSpine (Plan ID - T3-T8 c2a) - Rx Dose 3,000cGy (Status - Treatment Approved) - T_LSpine (Plan ID - T12-L1 c2b) - Rx Dose 3,000cGy (Status - Treatment Approved) - SRS 2018-02 (Plan ID - Iso frontal) - Rx Dose 2,000cGy (Status - Treatment Approved) - PLAN FRACTIONS AND DATES: Course: Rt Pelvis Plan IDFractionsFirst TreatmentLast TreatmentExpected End of TreatmentRt Pelvis C15 / 54/3/ Course: SRS 2017- Plan IDFractionsFirst TreatmentLast TreatmentExpected End of TreatmentIso frontal1 / 1 Course: T_LSpine Plan IDFractionsFirst TreatmentLast TreatmentExpected End of [id number] c2b10 T3-T8 c2a10 / TREATED PLANS: Course: Rt Pelvis Plan IDEnergyFractionsDose per Fraction (cGy)Dose Correction (cGy)Total Dose Delivered (cGy)Elapsed DaysRt Pelvis C115X5 / [id number] Course: SRS 2018-02 Plan IDEnergyFractionsDose per Fraction (cGy)Dose Correction (cGy)Total Dose Delivered (cGy)Elapsed DaysIso [id number] / [id number] Course: T_LSpine Plan IDEnergyFractionsDose per Fraction (cGy)Dose Correction (cGy)Total Dose Delivered (cGy)Elapsed [id number] [id number] / [id number] / [id number] TOLERANCE: SLIGHT DIFFICULTY SWALLOWING FOLLOW UP PLAN: 3 MONTHS Jose Crouch MD 03/27/2018 8:48:12 PM This report was verified electronicallyThis report was verified electronically
[2018-03-27 21:13] LABS: HEMATOCRIT 29.3 % (39.0-51.0); HEMOGLOBIN 10.4 GM/DL (13.0-17.0); MEAN CORPUSCULAR HEMOGLOBIN 29.4 PG (27.0-34.0); MEAN CORPUSCULAR HGB CONC 35.4 % (32.0-36.0); MEAN PLATELET VOLUME 7.7 FL (7.0-11.0); PLATELET COUNT 91 TH/MM3 (150-450); RED BLOOD COUNT 3.53 MIL/MM3 (4.50-5.90); RED CELL DISTRIBUTION WIDTH 20.4 % (11.6-17.2); WHITE BLOOD COUNT 3.7 TH/MM3 (4.0-11.0)
--- NOTE | 2018-03-27 21:18 | RC ---
cc: Jose Crouch MD, Alvaro R MD Khan, Awais M MD Patel, Kashyap DATE OF SERVICE: 03/27/2018 DIAGNOSIS: Metastatic lung carcinoma. STAGE: Stage IV. HISTORY OF PRESENT ILLNESS: This is a 67-year-old male well known to me as he has been treated to the brain for palliative radiation therapy as well as to the spine. The patient had his last radiation therapy to the spine today. On evaluation, the patient was noted to have increased shortness of breath, which the patient admits what happened since yesterday. The patient also did not feel well. On physical exam, the patient was noted to have decreased ventilatory inspiratory effort which was equal and bilateral. Heart was irregular in rate and rhythm. As a result of the condition, [facility] was called and the patient was transferred to the ER where he was evaluated and admitted. The patient was noted to have SVT as well as a pulmonary embolism. A consult has been placed for continuation of care. SUBJECTIVE: The patient says he feels much better since being admitted to the hospital. At the time of evaluation, the patient denied any cough. He says his shortness of breath had improved dramatically as well. The patient denied any neurological changes. No bone pain. Denies any side effects, complications related to radiotherapy. PHYSICAL EXAMINATION: GENERAL: The patient was alert and oriented x3 in acute distress and discomfort at time of evaluation. LUNGS: Clear to auscultation bilaterally with improved ventilatory respiratory effort. HEART: Regular rate and rhythm at this present time. ABDOMEN: Palpation of abdominal cavity reveals no hepatosplenomegaly, no or pain elicited. NECK: Palpation of bilateral neck reveals no lymph nodes. EXTREMITIES: No lower extremity edema detected. NEUROLOGIC: No neurological deficit suspected Cognitive function preserved. SKIN: No rash. RADIOLOGY: CT of the chest 03/27/2018. Impression: Right lower lobe pulmonary embolism. Large soft tissue mass in the left hilar region consistent with a known primary bronchogenic carcinoma. Consolidation in the right lower lobe. ASSESSMENT AND PLAN: A 67-year-old white male with aggressive metastatic lung carcinoma, status post palliative radiotherapy to the brain and to the spine as previously described. Patient with no side effects or complications related to radiotherapy. The patient being evaluated for continuation of care. I advised the patient and his that I will wait for discharge. At the present time, there is no emergent need for radiation therapy. He will be seen for followup in the outpatient setting. The patient is doing much better since admission. They were advised if I could be of any further assistance to please let me know. Otherwise, we will proceed as above. MD HELENA Calero/ , 08:45 PM , 09:17 PM MTDLobito
[2018-03-28] VITALS (12 sets, daily range): BP systolic 91–120; BP diastolic 58–75; PULSE 58–84; RESP 16–21; TEMP 97.5–98.3; O2SAT 98–100
[2018-03-28] MEDS: DILTIAZEM HCL 30 MG TAB PO SCH ×5 (01:46→23:30)
[2018-03-28 06:50] LABS: HEMATOCRIT 27.6 % (39.0-51.0); HEMOGLOBIN 9.7 GM/DL (13.0-17.0); MEAN CORPUSCULAR HEMOGLOBIN 29.3 PG (27.0-34.0); MEAN CORPUSCULAR HGB CONC 35.3 % (32.0-36.0); MEAN PLATELET VOLUME 7.9 FL (7.0-11.0); PLATELET COUNT 88 TH/MM3 (150-450); RED BLOOD COUNT 3.32 MIL/MM3 (4.50-5.90); RED CELL DISTRIBUTION WIDTH 20.7 % (11.6-17.2); WHITE BLOOD COUNT 3.2 TH/MM3 (4.0-11.0)
[2018-03-28 07:12] LABS: BICARBONATE 23.8 MEQ/L (21.0-32.0); CALCIUM 7.9 MG/DL (8.5-10.1); CREATININE 0.68 MG/DL (0.60-1.30)
[2018-03-28] MEDS: PANTOPRAZOLE SOD 20 MG DELAYED RELEASE TAB PO SCH (08:29)
[2018-03-28] MEDS: SODIUM CHLORIDE 0.9% FLUSH 10 ML FLUSH IV FLUSH SCH ×2 (08:29→20:07)
[2018-03-28] MEDS: FOLIC ACID 1 MG TAB PO SCH (08:29)
[2018-03-28] MEDS: FAMOTIDINE 20 MG TAB PO SCH ×2 (08:29→20:07)
[2018-03-28] MEDS: MEGESTROL ACETATE SUSP 400 MG/10 ML CUP PO SCH (08:29)
[2018-03-28] MEDS: DEXAMETHASONE 4 MG TAB PO SCH ×2 (08:29→20:06)
--- NOTE | 2018-03-28 08:51 | EKG ---
Date Performed: 03/27/2018 Time Performed: 10:19:12 PTAGE: 67 years EKG: SINUS TACHYCARDIA WITH FREQUENT SUPRAVENTRICULAR PREMATURE COMPLEXES ABNORMAL RHYTHM ECG NO PREVIOUS TRACING DOCTOR: Gus Bradshaw Interpretating Date/Time 03/28/2018 08:47:15
[2018-03-28] MEDS: HEPARIN-D5W 25,000 U/250 ML 250 ML IV PRN (09:48)
--- NOTE | 2018-03-28 10:08 | MB ---
cc: Gus Bradshaw MD DATE: 03/28/2018 REASON FOR CONSULTATION: Evaluation and treatment of SVT. HISTORY OF PRESENT ILLNESS: This is a 67-year-old man who had developed rapid heartbeat and abrupt onset of shortness of breath. This was yesterday morning. He was found to have SVT and he converted to sinus rhythm with IV adenosine. He is now on diltiazem. The patient has been diagnosed with a lower lobe pulmonary embolism. He also has metastatic lung cancer, well delineated in his records. The patient denies any acute complaints at the time that I am seeing him. PAST MEDICAL HISTORY: Notable for metastatic lung cancer to the adrenal glands, spine and brain, treated with radiation therapy and chemo. He has no prior history of heart disease. He has hyperlipidemia and gastroesophageal reflux disease. MEDICATIONS: Charted. He has been put on diltiazem 30 q.6 hours. ALLERGIES: NONE KNOWN. FAMILY HISTORY: Noncontributory. SOCIAL HISTORY: Quit smoking 15 years ago. PHYSICAL EXAMINATION: GENERAL: Well-developed, well-nourished man who is alert and oriented. VITAL SIGNS: Charted. HEENT: Unremarkable. NECK: No JVD or bruits. CHEST: Clear. CARDIAC: S1, S2. Regular rate and rhythm. No murmurs or gallops. ABDOMEN: Soft. EXTREMITIES: Reveal no peripheral edema. DIAGNOSTIC STUDIES: His EKG here showed a sinus tachycardia at 120, with atrial premature beats. No acute ST-T wave changes. CT scan results are noted. Troponin was less than 0.02 when measured yesterday. IMPRESSION: Paroxysmal supraventricular tachycardia, now on oral diltiazem. RECOMMENDATIONS: Continue diltiazem. He is on a fairly low dose, but runs a low blood pressure. As long as this keeps him out of SVT, I would continue it. Please call if there are any questions. I will be available as needed. MD MAIA Starks/TYLER , 09:51 AM , 10:07 AM
--- NOTE | 2018-03-28 10:22 | HHI.PR ---
Subjective Remarks Patient was evaluated earlier this morning Patient states that his shortness of breath is improved. He does complain of some chest pain which is chronic for him due to his cancer but says "not cardiac pain". He denies any nausea or vomiting. Eating breakfast. Objective Vitals Vital Signs Date Time Temp Pulse Resp B/P (MAP) Pulse Ox O2 Delivery O2 Flow Rate FiO2 03/28/18 08:00 63 03/28/18 06:00 58 03/28/18 04:00 98.0 84 120/58 (78) 100 03/28/18 04:00 84 03/28/18 02:00 68 03/28/18 00:00 79 03/28/18 00:00 98.2 79 109/69 (82) 98 03/27/18 22:45 100 21 03/27/18 22:00 74 03/27/18 21:44 16 03/27/18 20:00 91 03/27/18 20:00 97.8 91 120/68 (85) 99 03/27/18 18:00 96 03/27/18 16:00 98.1 86 106/71 (83) 95 03/27/18 16:00 86 03/27/18 15:09 03/27/18 14:29 97 Nasal Cannula 2.00 03/27/18 13:48 88 16 105/70 (82) 98 Nasal Cannula 2.00 03/27/18 10:34 109 16 115/74 (88) 99 Nasal Cannula 2.00 03/27/18 10:34 99 Nasal Cannula 2.00 03/27/18 10:34 109 16 127/83 (98) 99 Nasal Cannula 2.00 115/74 (88) 03/27/18 10:29 112 18 99 Nasal Cannula 2.00 03/27/18 10:23 115 18 127/83 (98) 99 I/O 03/27/18 03/27/18 03/27/18 03/28/18 03/28/18 03/28/18 07:00 15:00 23:00 07:00 15:00 23:00 Intake Total 500 ml 260 ml 240 ml Output Total 425 ml 550 ml Balance 500 ml -165 ml -310 ml Intake Oral 260 ml 240 ml IV Total 500 ml Output Urine Total 425 ml 550 ml # Voids 1 # Bowel Movements 0 0 Result Diagram: 03/28/18 0451 03/28/18 0457 Imaging Last Impressions Chest X-Ray 03/27/18 1024 Signed Impressions: Service Date/Time: Tuesday, March 27, 2018 11:07 - CONCLUSION: There is left upper lobe and left lung base consolidation. Patient is currently scheduled for chest CT which will further characterize this finding. Dao Gamez MD CT Angiography 03/27/18 1024 Signed Impressions: Service Date/Time: Tuesday, March 27, 2018 12:19 - CONCLUSION: 1. Right lower lobe pulmonary embolism. 2. Large soft tissue mass in the left hilar region consistent with the known primary bronchogenic carcinoma. 3. Consolidation in the right lower lobe. Claudy Morrison MD Lower Extremity Ultrasound 03/27/18 0000 Signed Impressions: Service Date/Time: Tuesday, March 27, 2018 14:51 - CONCLUSION: 1. Negative for deep venous thrombosis bilateral lower extremity. Cody Muller MD Objective Remarks GENERAL: Sitting up in bed eating breakfast CARDIOVASCULAR: Regular rate and rhythm without murmurs RESPIRATORY: Clear to auscultation. Breath sounds equal bilaterally. No wheezes GASTROINTESTINAL: Abdomen soft, non-tender, nondistended. MUSCULOSKELETAL: Extremities without edema. Moves extremities A/P Problem List: (1) Pulmonary embolism ICD Code: I26.99 - Other pulmonary embolism without acute cor pulmonale Status: Acute (2) SVT (supraventricular tachycardia) ICD Code: I47.1 - Supraventricular tachycardia (3) Adenocarcinoma, lung ICD Code: C34.90 - Malignant neoplasm of unspecified part of unspecified bronchus or lung (4) GERD (gastroesophageal reflux disease) ICD Code: K21.9 - Gastro-esophageal reflux disease without esophagitis Assessment and Plan (1) Pulmonary embolism Patient has known lung cancer. Has been started on heparin drip. Continue. Hematology has been consulted and will defer choice of po anticoagulation recommendation to hematology echocardiogram shows EF of 55-60%. Normal pulmonary artery pressure. Vital signs so far stable lower extremity Doppler negative for DVT. (2) SVT (supraventricular tachycardia) Likely provoked by PE. Status post 1 dose of adenosine however per RN apparently patient converted on his own. Heart rate better controlled. on low-dose Cardizem 30 mg every 6 hours. Monitor on telemetry. Cardiology has been consulted for further recommendations. Dr. Bradshaw evaluated the patient and recommends continuing the Cardizem for now. 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 Status post radiation. Receiving chemotherapy. Oncology consult (4) GERD (gastroesophageal reflux disease) Continue antireflux medications. Discharge Planning Transferred to oncology floor. Problem Qualifiers (1) Pulmonary embolism: Qualified Codes: I26.99 - Other pulmonary embolism without acute cor pulmonale Mirtha Hardin MD March 28, 2018 10:22
[2018-03-29] VITALS (12 sets, daily range): BP systolic 103–123; BP diastolic 60–75; PULSE 55–79; RESP 14–20; TEMP 97.3–98.3; O2SAT 98–100
[2018-03-29] MEDS: DILTIAZEM HCL 30 MG TAB PO SCH ×4 (06:31→23:55)
[2018-03-29 07:15] LABS: BASOPHIL % 0.4 % (0.0-2.0); EOSINOPHIL % 0.1 % (0.0-4.0); HEMATOCRIT 27.5 % (39.0-51.0); HEMOGLOBIN 9.9 GM/DL (13.0-17.0); LYMPH % 1.4 % (9.0-44.0); LYMPHOCYTE # 0.1 TH/MM3 (1.0-4.8); MEAN CELL VOLUME 82.6 FL (80.0-100.0); MEAN CORPUSCULAR HEMOGLOBIN 29.6 PG (27.0-34.0); MEAN CORPUSCULAR HGB CONC 35.8 % (32.0-36.0); MEAN PLATELET VOLUME 8.4 FL (7.0-11.0); MONO % 4.9 % (0.0-8.0); MONOCYTE # 0.3 TH/MM3 (0-0.9); NEUT % 93.2 % (16.0-70.0); PLATELET COUNT 100 TH/MM3 (150-450); RED BLOOD COUNT 3.33 MIL/MM3 (4.50-5.90); RED CELL DISTRIBUTION WIDTH 20.1 % (11.6-17.2); WHITE BLOOD COUNT 5.3 TH/MM3 (4.0-11.0)
[2018-03-29 07:35] LABS: BICARBONATE 23.6 MEQ/L (21.0-32.0); CALCIUM 8.3 MG/DL (8.5-10.1); CREATININE 0.59 MG/DL (0.60-1.30)
[2018-03-29] MEDS: DEXAMETHASONE 4 MG TAB PO SCH ×2 (08:10→21:44)
[2018-03-29] MEDS: FOLIC ACID 1 MG TAB PO SCH (08:10)
[2018-03-29] MEDS: SODIUM CHLORIDE 0.9% FLUSH 10 ML FLUSH IV FLUSH SCH ×2 (08:11→21:44)
[2018-03-29] MEDS: FAMOTIDINE 20 MG TAB PO SCH ×2 (08:11→21:44)
[2018-03-29] MEDS: PANTOPRAZOLE SOD 20 MG DELAYED RELEASE TAB PO SCH (08:11)
[2018-03-29] MEDS: MEGESTROL ACETATE SUSP 400 MG/10 ML CUP PO SCH (08:11)
[2018-03-29] MEDS: HEPARIN-D5W 25,000 U/250 ML 250 ML IV PRN (08:44)
--- NOTE | 2018-03-29 11:13 | HHI.PR ---
Subjective Remarks Patient complains of some shortness of breath however he is eating well on room air. He also has some cough nonproductive. No fever or chills. Denies having any chest pain. No nausea vomiting no diarrhea or constipation. Objective Vitals Vital Signs Date Time Temp Pulse Resp B/P (MAP) Pulse Ox O2 Delivery O2 Flow Rate FiO2 03/29/18 10:23 97.3 63 18 113/66 (82) 100 03/29/18 08:00 68 03/29/18 08:00 97.5 55 14 103/66 (78) 98 03/29/18 06:00 57 03/29/18 04:00 62 03/29/18 04:00 98.3 62 18 109/60 (76) 100 03/29/18 02:00 68 03/29/18 00:30 18 03/29/18 00:00 98.0 64 18 117/67 (84) 100 03/29/18 00:00 64 03/28/18 22:00 67 03/28/18 20:00 97.8 72 16 117/75 (89) 100 03/28/18 20:00 72 03/28/18 18:00 67 03/28/18 16:00 98.3 59 18 97/62 (74) 98 03/28/18 16:00 59 03/28/18 14:00 64 03/28/18 12:00 65 03/28/18 12:00 97.6 65 21 117/70 (86) 100 I/O 03/28/18 03/28/18 03/28/18 03/29/18 03/29/18 03/29/18 07:00 15:00 23:00 07:00 15:00 23:00 Intake Total 240 ml 425 ml 240 ml 250 ml Output Total 550 ml 700 ml 800 ml Balance -310 ml -275 ml -560 ml 250 ml Intake Oral 240 ml 425 ml 240 ml IV Total 250 ml Output Urine Total 550 ml 700 ml 800 ml # Bowel Movements 0 0 0 Result Diagram: 03/29/18 0440 03/29/18 0440 Imaging Last Impressions Chest X-Ray 03/27/18 1024 Signed Impressions: Service Date/Time: Tuesday, March 27, 2018 11:07 - CONCLUSION: There is left upper lobe and left lung base consolidation. Patient is currently scheduled for chest CT which will further characterize this finding. Dao Gamez MD CT Angiography 03/27/18 1024 Signed Impressions: Service Date/Time: Tuesday, March 27, 2018 12:19 - CONCLUSION: 1. Right lower lobe pulmonary embolism. 2. Large soft tissue mass in the left hilar region consistent with the known primary bronchogenic carcinoma. 3. Consolidation in the right lower lobe. Claudy Morrison MD Lower Extremity Ultrasound 03/27/18 0000 Signed Impressions: Service Date/Time: Tuesday, March 27, 2018 14:51 - CONCLUSION: 1. Negative for deep venous thrombosis bilateral lower extremity. Cody Muller MD Objective Remarks GENERAL: Sitting up in bed eating breakfast CARDIOVASCULAR: Regular rate and rhythm without murmurs RESPIRATORY: Clear to auscultation. Breath sounds equal bilaterally. No wheezes GASTROINTESTINAL: Abdomen soft, non-tender, nondistended. MUSCULOSKELETAL: Extremities without edema. Moves extremities A/P Problem List: (1) Pulmonary embolism ICD Code: I26.99 - Other pulmonary embolism without acute cor pulmonale Status: Acute (2) SVT (supraventricular tachycardia) ICD Code: I47.1 - Supraventricular tachycardia (3) Adenocarcinoma, lung ICD Code: C34.90 - Malignant neoplasm of unspecified part of unspecified bronchus or lung (4) GERD (gastroesophageal reflux disease) ICD Code: K21.9 - Gastro-esophageal reflux disease without esophagitis Assessment and Plan Pulmonary embolism Patient has known lung cancer. Has been started on heparin drip. Continue. Hematology has been consulted and will defer choice of po anticoagulation recommendation to hematology echocardiogram shows EF of 55-60%. Normal pulmonary artery pressure. Vital signs so far stable lower extremity Doppler negative for DVT. SVT (supraventricular tachycardia) Likely provoked by PE. Status post 1 dose of adenosine however per RN apparently patient converted on his own. Heart rate better controlled. on low-dose Cardizem 30 mg every 6 hours. Monitor on telemetry. Cardiology has been consulted for further recommendations. Dr. Bradshaw evaluated the patient and recommends continuing the Cardizem for now. 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 Status post radiation. Receiving chemotherapy. Oncology consult GERD (gastroesophageal reflux disease) Continue antireflux medications. Discharge Planning pending improvement and clearance by consultants. Problem Qualifiers (1) Pulmonary embolism: Qualified Codes: I26.99 - Other pulmonary embolism without acute cor pulmonale Anita Haas MD March 29, 2018 11:13
[2018-03-29] MEDS: ENOXAPARIN SODIUM 60 MG/0.6 ML SYRINGE SQ SCH (21:43)
[2018-03-30] VITALS: BP 124/80; PULSE 70; RESP 18; TEMP 98; O2SAT 98
--- NOTE | 2018-03-30 00:09 | MB ---
cc: Phan Driscoll MD DATE: 03/29/2018 REASON FOR CONSULTATION: The patient with a history of stage IV lung cancer, who presents with dyspnea and was found to have pulmonary embolism. HISTORY OF PRESENT ILLNESS: This is a 67-year-old male with a history of stage IV lung adenocarcinoma. He has metastasis to the adrenal gland and vertebral mass. He has also had brain METS. He is currently being treated with carboplatin and Alimta. This is a poorly differentiated adenocarcinoma. The patient has been tolerating his treatments without any major complications. His disease is PDL negative, negative, EGFR negative and ALK fusion negative. He now presents to the emergency room with increasing shortness of breath. He was brought to the emergency room via EMS. He was found to have a tachycardia with SVT. He was given 1 dose of adenosine with good response. In the emergency room, a CT angiogram of the chest was obtained, which showed a right lower lobe pulmonary embolism. The patient was started on heparin GTT. Doppler ultrasound of the lower extremities did not show any evidence of DVT. The patient reports significant improvement in his symptoms today. He is sitting up and eating his lunch. He denies any chest pain. No heart palpitations. No lower extremity edema or pain. REVIEW OF SYSTEMS: A comprehensive review of system was completed, which is negative except as stated in the HPI. 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 PAST SURGICAL HISTORY: History of lung biopsy. FAMILY HISTORY: Reviewed and is noncontributory to this admission. SOCIAL HISTORY: He is an ex-smoker, quit smoking 15 years ago. He rarely drinks alcohol. No illicit drug use. MEDICATIONS: Heparin GTT Folic acid 1 mg p.o. daily, Megace 800 mg p.o. daily, pantoprazole 20 mg p.o. daily, dexamethasone 4 mg p.o. b.i.d., 20 mg p.o. b.i.d., diltiazem 30 mg p.o. every 6 hours p.r.n., oxycodone 5 mg p.o. every 4 hours p.r.n. ALLERGIES: NO KNOWN DRUG ALLERGIES. PHYSICAL EXAMINATION: VITAL SIGNS: Blood pressure is 125/75, pulse is 60, temperature is 97.6, O2 saturations 100% on room air. GENERAL: Well-developed, well-nourished male, in no apparent distress. HEENT: Pupils equal, round, reactive to light. EOMI. No thrush or lesions. NECK: Supple. No JVD, no bruits, no lymphadenopathy. CHEST: Clear to auscultation bilaterally. HEART: S1, S2. Regular rate and rhythm. ABDOMEN: Soft, nontender, nondistended. Bowel sounds are present. EXTREMITIES: Without any edema, , cyanosis. SKIN: Without any petechial lesions or bruises. NEUROLOGIC: No focal deficits. PSYCHIATRIC: Mood and affect is appropriate. LABORATORY DATA: WBC 5.3, hemoglobin 9.9, MCV 82.6, platelet count is 100. Serum chemistry, sodium 136, potassium 2.9, chloride 102, BUN is 19, creatinine is 0.59, calcium is 8.3. IMAGING: CT angiogram, as well as chest x-ray was reviewed. Lower extremity Doppler ultrasound was also reviewed. ASSESSMENT AND PLAN: This is a 67-year-old male who has a diagnosis of poorly differentiated lung adenocarcinoma with metastasis to vertebral spine, as well as to the brain. He is currently being treated with carboplatin and Alimta. He has received radiation treatments to the brain, as well as to the spine. He now presents with acute dyspnea and was found to have pulmonary embolism based on a CT angiogram. 1. Pulmonary embolism involving the right lower lobe. Based on the CT angiogram, this has occurred in the setting of underlying malignancy. I would recommend transitioning to Lovenox. This is a preferred agent for anticoagulation in patients with malignancy. I discussed this with the patient at length. We will give him instructions how to self inject Lovenox. I would discontinue Megace since it can cause DVT and PE. 2. Anemia with a hemoglobin of 9.9, MCV is 82.6. This is secondary to chemotherapy. We will continue to monitor. If hemoglobin drops below 8.5, we will transfuse him 1 unit of packed red blood cells. 3. Thrombocytopenia secondary to chemotherapy. He is asymptomatic, no evidence of bleeding. Platelet count is 100,000. 4. Stage IV lung adenocarcinoma. The patient is scheduled to undergo PET scan outpatient for restaging purposes. Further management will continue outpatient. 5. If the patient remains stable tomorrow, he can be discharged from the hospital. He will have outpatient followup with me in 1 week. MD SHAKIRA Davila/PAULO , 11:39 PM , 12:08 AM
[2018-03-30 04:00] VITALS: BP 106/60; PULSE 73; PULSE 76; RESP 18; TEMP 98.3; O2SAT 98
[2018-03-30] MEDS: DILTIAZEM HCL 30 MG TAB PO SCH ×2 (04:35→13:13)
--- NOTE | 2018-03-30 08:02 | HHI.PR ---
Subjective Remarks In nad, no sob cp, sating well on room air. No fever or chills. No n/v/d/c. Objective Vitals Vital Signs Date Time Temp Pulse Resp B/P (MAP) Pulse Ox O2 Delivery O2 Flow Rate FiO2 03/30/18 04:00 73 03/30/18 04:00 98.3 76 18 106/60 (75) 98 03/30/18 00:00 70 03/30/18 00:00 98.0 70 18 124/80 (95) 98 03/29/18 20:35 100 03/29/18 20:00 97.8 68 20 123/73 (90) 99 03/29/18 20:00 72 03/29/18 18:34 79 03/29/18 17:30 73 03/29/18 16:23 97.6 62 16 120/75 (90) 100 03/29/18 13:53 71 03/29/18 10:23 97.3 63 18 113/66 (82) 100 I/O 03/29/18 03/29/18 03/29/18 03/30/18 03/30/18 03/30/18 07:00 15:00 23:00 07:00 15:00 23:00 Intake Total 240 ml 250 ml 798 ml 600 ml Output Total 800 ml 400 ml 1000 ml Balance -560 ml 250 ml 398 ml -400 ml Intake Oral 240 ml 720 ml 600 ml IV Total 250 ml 78 ml Output Urine Total 800 ml 400 ml 1000 ml # Bowel Movements 0 1 Result Diagram: 03/29/18 0440 03/29/18 0440 Imaging Last Impressions Chest X-Ray 03/27/18 1024 Signed Impressions: Service Date/Time: Tuesday, March 27, 2018 11:07 - CONCLUSION: There is left upper lobe and left lung base consolidation. Patient is currently scheduled for chest CT which will further characterize this finding. Dao Gamez MD CT Angiography 03/27/18 1024 Signed Impressions: Service Date/Time: Tuesday, March 27, 2018 12:19 - CONCLUSION: 1. Right lower lobe pulmonary embolism. 2. Large soft tissue mass in the left hilar region consistent with the known primary bronchogenic carcinoma. 3. Consolidation in the right lower lobe. Claudy Morrison MD Lower Extremity Ultrasound 03/27/18 0000 Signed Impressions: Service Date/Time: Tuesday, March 27, 2018 14:51 - CONCLUSION: 1. Negative for deep venous thrombosis bilateral lower extremity. Cody Muller MD Objective Remarks GENERAL: Sitting up in bed eating breakfast CARDIOVASCULAR: Regular rate and rhythm without murmurs RESPIRATORY: Clear to auscultation. Breath sounds equal bilaterally. No wheezes GASTROINTESTINAL: Abdomen soft, non-tender, nondistended. MUSCULOSKELETAL: Extremities without edema. Moves extremities A/P Problem List: (1) Pulmonary embolism ICD Code: I26.99 - Other pulmonary embolism without acute cor pulmonale Status: Acute (2) SVT (supraventricular tachycardia) ICD Code: I47.1 - Supraventricular tachycardia (3) Adenocarcinoma, lung ICD Code: C34.90 - Malignant neoplasm of unspecified part of unspecified bronchus or lung (4) GERD (gastroesophageal reflux disease) ICD Code: K21.9 - Gastro-esophageal reflux disease without esophagitis Assessment and Plan Pulmonary embolism Patient has known lung cancer. Has been started on heparin drip. Continue. Hematology has been consulted and will defer choice of po anticoagulation recommendation to hematology echocardiogram shows EF of 55-60%. Normal pulmonary artery pressure. Vital signs so far stable lower extremity Doppler negative for DVT. Per Dr Driscoll patient with h/o adeno ca lung and now with PE patient needs lovenox at DC 60 mg bid SQ SVT (supraventricular tachycardia) Likely provoked by PE. Status post 1 dose of adenosine however per RN apparently patient converted on his own. Heart rate better controlled. on low-dose Cardizem 30 mg every 6 hours. Monitor on telemetry. Cardiology has been consulted for further recommendations. Dr. Bradshaw evaluated the patient and recommends continuing the Cardizem for now. 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 Status post radiation. Receiving chemotherapy. Oncology consult GERD (gastroesophageal reflux disease) Continue antireflux medications. Discharge Planning Improved significantly. DC home in stable condition to follow up as OP with PCP and consultants. Problem Qualifiers (1) Pulmonary embolism: Qualified Codes: I26.99 - Other pulmonary embolism without acute cor pulmonale Anita Haas MD March 30, 2018 08:02
[2018-03-30] MEDS ORDERED: ENOX60P SQ (08:05)
[2018-03-30] MEDS ORDERED: DILT1TAB12 PO (08:05)
--- NOTE | 2018-03-30 08:05 | HHI.DS ---
Discharge Summary Admission Date March 27, 2018 at 13:42 Discharge Date: March 30, 2018 Admitting Diagnosis Pulmonary embolism rule out right ventricular strain (1) Pulmonary embolism ICD Code: I26.99 - Other pulmonary embolism without acute cor pulmonale Status: Acute (2) SVT (supraventricular tachycardia) ICD Code: I47.1 - Supraventricular tachycardia (3) Adenocarcinoma, lung ICD Code: C34.90 - Malignant neoplasm of unspecified part of unspecified bronchus or lung (4) GERD (gastroesophageal reflux disease) ICD Code: K21.9 - Gastro-esophageal reflux disease without esophagitis Procedures none Brief History - From Admission 67-year-old male with a medical history significant for stage IV lung adenocarcinoma with metastatic cyst to the adrenal gland, spine, and brain treated with radiation therapy and systemic chemotherapy who presented to the hospital with worsening shortness of breath. He follows with Dr. Driscoll and Dr. Martin. The patient was receiving chemotherapy treatment in the oncology clinic when he is shortness of breath got worse. EMS report he was in SVT and was given 1 dose of adenosine. On my evaluation in the emergency room, heart rate is in the 90s. He reports feeling better at rest. Workup in the emergency room revealed a right lower lobe pulmonary embolus. He has been started on a heparin drip. He denies any chest pressure. He does report a history of a small area of metastases in his brain that was treated with radiation. He does have a persistent and chronic cough. Denies any fevers or chills. He denies any calf pain. CBC/BMP: 03/29/18 0440 03/29/18 0440 Significant Findings Laboratory Tests Test 03/27/18 10:20 03/27/18 10:40 03/27/18 16:40 03/27/18 20:17 Red Blood Count 3.99 MIL/MM3 (4.50-5.90) 3.53 MIL/MM3 (4.50-5.90) Hemoglobin 11.6 GM/DL (13.0-17.0) 10.4 GM/DL (13.0-17.0) Hematocrit 33.3 % (39.0-51.0) 29.3 % (39.0-51.0) Red Cell Distribution Width 20.5 % (11.6-17.2) 20.4 % (11.6-17.2) Platelet Count 99 TH/MM3 (150-450) 91 TH/MM3 (150-450) Neutrophils (%) (Auto) 85.2 % (16.0-70.0) Lymphocytes (%) (Auto) 2.3 % (9.0-44.0) Monocytes (%) (Auto) 10.7 % (0.0-8.0) Lymphocytes # (Auto) 0.1 TH/MM3 (1.0-4.8) Platelet Estimate LOW (NORMAL) Random Glucose 124 MG/DL (74-106) Albumin 2.9 GM/DL (3.4-5.0) Calcium Level 7.9 MG/DL (8.5-10.1) Total Bilirubin 1.5 MG/DL (0.2-1.0) Sodium Level 132 MEQ/L (136-145) Estimat Glomerular Filtration Rate 74 ML/MIN (>89) Troponin I LESS THAN 0.02 NG/ML White Blood Count 3.7 TH/MM3 (4.0-11.0) Activated Partial Thromboplast Time 85.3 SEC (24.3-30.1) Test 03/28/18 04:51 03/28/18 04:57 03/28/18 12:29 03/29/18 04:40 White Blood Count 3.2 TH/MM3 (4.0-11.0) Red Blood Count 3.32 MIL/MM3 (4.50-5.90) 3.33 MIL/MM3 (4.50-5.90) Hemoglobin 9.7 GM/DL (13.0-17.0) 9.9 GM/DL (13.0-17.0) Hematocrit 27.6 % (39.0-51.0) 27.5 % (39.0-51.0) Red Cell Distribution Width 20.7 % (11.6-17.2) 20.1 % (11.6-17.2) Platelet Count 88 TH/MM3 (150-450) 100 TH/MM3 (150-450) Activated Partial Thromboplast Time 57.7 SEC (24.3-30.1) 48.6 SEC (24.3-30.1) Random Glucose 166 MG/DL (74-106) 178 MG/DL (74-106) Calcium Level 7.9 MG/DL (8.5-10.1) 8.3 MG/DL (8.5-10.1) Neutrophils (%) (Auto) 93.2 % (16.0-70.0) Lymphocytes (%) (Auto) 1.4 % (9.0-44.0) Lymphocytes # (Auto) 0.1 TH/MM3 (1.0-4.8) Blood Urea Nitrogen 19 MG/DL (7-18) Creatinine 0.59 MG/DL (0.60-1.30) Test 03/29/18 11:02 03/29/18 19:03 Activated Partial Thromboplast Time 35.0 SEC (24.3-30.1) 43.3 SEC (24.3-30.1) Imaging Last Impressions Chest X-Ray 03/27/18 1024 Signed Impressions: Service Date/Time: Tuesday, March 27, 2018 11:07 - CONCLUSION: There is left upper lobe and left lung base consolidation. Patient is currently scheduled for chest CT which will further characterize this finding. Dao Gamez MD CT Angiography 03/27/18 1024 Signed Impressions: Service Date/Time: Tuesday, March 27, 2018 12:19 - CONCLUSION: 1. Right lower lobe pulmonary embolism. 2. Large soft tissue mass in the left hilar region consistent with the known primary bronchogenic carcinoma. 3. Consolidation in the right lower lobe. Claudy Morrison MD Lower Extremity Ultrasound 03/27/18 0000 Signed Impressions: Service Date/Time: Tuesday, March 27, 2018 14:51 - CONCLUSION: 1. Negative for deep venous thrombosis bilateral lower extremity. Cody Muller MD PE at Discharge GENERAL: Sitting up in bed eating breakfast CARDIOVASCULAR: Regular rate and rhythm without murmurs RESPIRATORY: Clear to auscultation. Breath sounds equal bilaterally. No wheezes GASTROINTESTINAL: Abdomen soft, non-tender, nondistended. MUSCULOSKELETAL: Extremities without edema. Moves extremities Hospital Course Pulmonary embolism Patient has known lung cancer. Has been started on heparin drip. Continue. Hematology has been consulted and will defer choice of po anticoagulation recommendation to hematology echocardiogram shows EF of 55-60%. Normal pulmonary artery pressure. Vital signs so far stable lower extremity Doppler negative for DVT. Per Dr Driscoll patient with h/o adeno ca lung and now with PE patient needs lovenox at DC 60 mg bid SQ SVT (supraventricular tachycardia) Likely provoked by PE. Status post 1 dose of adenosine however per RN apparently patient converted on his own. Heart rate better controlled. on low-dose Cardizem 30 mg every 6 hours. Monitor on telemetry. Cardiology has been consulted for further recommendations. Dr. Bradshaw evaluated the patient and recommends continuing the Cardizem for now. 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 Status post radiation. Receiving chemotherapy. Oncology consult GERD (gastroesophageal reflux disease) Continue antireflux medications. Discharge Planning Improved significantly. DC home in stable condition to follow up as OP with PCP and consultants. Pt Condition on Discharge: Stable Discharge Disposition: Discharge Home Discharge Time: > 30 minutes Discharge Instructions DIET: Follow Instructions for: Heart Healthy Diet Activities you can perform: Regular-No Restrictions Follow up Referrals: Oncology - 1 Week with Phan Driscoll MD PCP Follow-up - 2-3 Days New Medications: Diltiazem ER 24 HR (Cardizem LA) 120 Mg Vicky 120 MG PO DAILY for svt, #30 TAB 0 Refills Enoxaparin Inj (Lovenox Inj) 60 Mg/0.6 Ml Syr 60 MG SQ Q12H for Blood Clot Prevention, #60 INJECTION Continued Medications: Dexamethasone (Dexamethasone) 4 Mg Tab 4 MG PO BID, #60 TAB [address] (Nexium) 20 Mg Capdr 20 MG PO DAILY, CAP 0 Refills Folic Acid (Folic Acid) 1 Mg Tablet 1 MG PO DAILY for Nutritional Supplement Megestrol Liq (Megestrol Liq) 40 Mg/Ml Susp 800 MG PO DAILY, #240 ML 0 Refills Ilkqzhpf-Qgnvvdkytmawihk-Xcnbovmph Liq (Magic Mouthwash Adult Liq) 120 Ml Susp 5-10 ML SWISH-SWAL ACHS for Mouth sores, #120 ML 0 Refills Each 5mL contains: Nystatin 200,000units, Diphenhydramine 4.25mg, Viscous Lidocaine 10mg, Sandoval syrup 0.8 mL Oxycodone (Oxycodone) 5 Mg Tab 5 MG PO Q4H PRN for PAIN, TAB 0 Refills Ranitidine (Zantac) 300 Mg Tab 300 MG PO HS for Reflux, TAB 0 Refills Anita Haas MD March 30, 2018 08:05
[2018-03-30 08:20] VITALS: PULSE 79
[2018-03-30 08:30] VITALS: BP 130/69; PULSE 62; RESP 18; TEMP 97.7; O2SAT 99
[2018-03-30] MEDS: SODIUM CHLORIDE 0.9% FLUSH 10 ML FLUSH IV FLUSH SCH (09:00)
[2018-03-30] MEDS: PANTOPRAZOLE SOD 20 MG DELAYED RELEASE TAB PO SCH (10:19)
[2018-03-30] MEDS: DEXAMETHASONE 4 MG TAB PO SCH (10:20)
[2018-03-30] MEDS: FAMOTIDINE 20 MG TAB PO SCH (10:20)
[2018-03-30] MEDS: FOLIC ACID 1 MG TAB PO SCH (10:20)
[2018-03-30] MEDS: ENOXAPARIN SODIUM 60 MG/0.6 ML SYRINGE SQ SCH (10:20)
[2018-03-30] MEDS: MEGESTROL ACETATE SUSP 400 MG/10 ML CUP PO SCH (10:22)
[2018-03-30 12:00] VITALS: BP 118/64; PULSE 70; RESP 18; TEMP 97.8; O2SAT 99
[2018-03-30 12:20] VITALS: PULSE 70
[2018-03-30] MEDS ORDERED: NYSTAT/DIPHENHY/LIDO MOUTHWASH (Adult) 120ML SWISH-SWAL SCH (13:00)
--- NOTE | 2018-03-30 13:38 | PD.ONC.PN ---
Subjective Subjective Remarks Afebrile Pt walking around his room in no obvious distress Looking forward to going home States he has feels comfortable giving himself the Lovenox injections Objective Data Date Time Temp Pulse Resp B/P (MAP) Pulse Ox O2 Delivery O2 Flow Rate FiO2 03/30/18 08:30 97.7 62 18 130/69 (89) 99 03/30/18 04:00 73 03/30/18 04:00 98.3 76 18 106/60 (75) 98 03/30/18 00:00 70 03/30/18 00:00 98.0 70 18 124/80 (95) 98 03/29/18 20:35 100 03/29/18 20:00 97.8 68 20 123/73 (90) 99 03/29/18 20:00 72 03/29/18 18:34 79 03/29/18 17:30 73 03/29/18 16:23 97.6 62 16 120/75 (90) 100 03/29/18 13:53 71 03/30/18 03/30/18 03/30/18 07:00 15:00 23:00 Intake Total 600 ml Output Total 1000 ml Balance -400 ml Result Diagram: 03/29/18 0440 03/29/18 0440 Laboratory Results Laboratory Tests Test 03/29/18 19:03 Activated Partial Thromboplast Time 43.3 SEC Administered Medications Medications (Trade) Dose Ordered Sig/Gigi Route PRN Reason Start Time Stop Time Status Last Admin Dose Admin Sodium Chloride (NS Flush) 2 ml UNSCH PRN IVF FLUSH AFTER USING IV ACCESS 03/27/18 10:30 03/27/18 10:42 Sodium Chloride (NS Flush) 2 ml BID IV FLUSH 03/27/18 21:00 03/30/18 09:00 Dexamethasone (Decadron) 4 mg BID PO 03/27/18 21:00 03/30/18 10:20 Folic Acid (Folate) 1 mg DAILY PO 03/28/18 09:00 03/30/18 10:20 Megestrol Acetate (Megace Liq) 800 mg DAILY PO 03/28/18 09:00 03/30/18 10:22 Oxycodone HCl (Roxicodone) 5 mg Q4H PRN PO PAIN 3-10 03/27/18 14:00 03/28/18 23:30 Pantoprazole Sodium (Protonix) 20 mg DAILY PO 03/28/18 09:00 03/30/18 10:19 Famotidine (Pepcid) 20 mg BID PO 03/27/18 21:00 03/30/18 10:20 Diltiazem HCl (Cardizem) 30 mg Q6HR PO 03/27/18 16:00 03/30/18 13:13 Enoxaparin Sodium (Lovenox Inj) 60 mg Q12H SQ 03/29/18 21:00 03/30/18 10:20 Multi-Ingredient Mouthwash/Gargle (Magic Mouthwash Adult Liq) 10 ml QID SWISH-SWAL 03/30/18 13:00 03/30/18 13:14 Objective Remarks GENERAL: Older male, walking around his room in no obvious distress SKIN: Warm and dry. HEAD: Normocephalic. EYES: No scleral icterus. No injection or drainage. NECK: Supple, trachea midline. No JVD or lymphadenopathy. CARDIOVASCULAR: Regular rate and rhythm without murmurs. RESPIRATORY: Clear posteriorly. Breathing unlabored with light ambulation. GASTROINTESTINAL: Abdomen soft, non-tender, nondistended. EXTREMITIES: No cyanosis, or edema. MUSCULOSKELETAL: Adequate muscle tone. NEUROLOGICAL: No obvious focal deficit. Awake, alert, and oriented x3. Assessment/Plan Problem List: (1) Pulmonary embolism ICD Codes: I26.99 - Other pulmonary embolism without acute cor pulmonale Status: Acute Plan: --Patient will be discharged home on 60 mg Lovenox twice daily (2) Adenocarcinoma, lung ICD Codes: C34.90 - Malignant neoplasm of unspecified part of unspecified bronchus or lung Assessment 67-year-old male with a history of lung adenocarcinoma admitted with shortness of breath found to have a pulmonary embolus Plan 1. Continue Lovenox injections at home 2. Discussed with patient he can call [facility] to reschedule his CAT scans that he missed 3. Follow-up in the clinic as scheduled on April 04 Attending Statement The exam, history, and the medical decision-making described in the above note were completed with the assistance of the mid-level provider. I reviewed and agree with the findings presented. I attest that I had a [id number] encounter with the patient on the same day, and personally performed and documented my assessment and findings in the medical record ok to d/c home with lovenox 60 mg bid f/u in clinic next wed in PO Problem Qualifiers (1) Pulmonary embolism: Qualified Codes: I26.99 - Other pulmonary embolism without acute cor pulmonale Leilani Zazueta March 30, 2018 13:38 Phan Driscoll MD March 30, 2018 21:25
[2018-03-30] MEDS ORDERED: XARE20TA PO (18:15)
[2018-03-30] MEDS ORDERED: XARE15TA PO (18:15)
== END 2018-03-30 14:52 | disposition home or self-care (01) | DRG 176 ==
LOC: NEPC 10:09 → NEDA 13:42 → HIME 15:45 → HCIN 03-29 09:56
PROVIDERS: ADMIT Hospitalist; ATTEND Hospitalist
DX: I26.99 Other pulmonary embolism without acute cor pulmonale (principal); C79.31 Secondary malignant neoplasm of brain; C79.51 Secondary malignant neoplasm of bone; C79.70 Secondary malignant neoplasm of unspecified adrenal gland; D69.59 Other secondary thrombocytopenia; I47.1 Supraventricular tachycardia; C34.92 Malignant neoplasm of unspecified part of left bronchus or lung; D64.81 Anemia due to antineoplastic chemotherapy; K21.9 Gastro-esophageal reflux disease without esophagitis; R07.9 Chest pain, unspecified; T45.1X5A Adverse effect of antineoplastic and immunosuppressive drugs, initial encounter; E78.5 Hyperlipidemia, unspecified; Z92.3 Personal history of irradiation; Z87.891 Personal history of nicotine dependence
CPT/HCPCS: 71046; 71275; 80048; 80053; 82550; 83605; 83690; 83735; 83880; 84484; 85025; 85027; 85610; 85730; 87641; 93005; 93306; 93970; 96360; J1644; J1650; J7040; J8540; Q9967

== ENCOUNTER 2018-04-26 15:25 | Inpatient (IN) | payer OTHER, MEDICARE ==
[2018-04-26] VITALS (15 sets, daily range): BP systolic 71–166; BP diastolic 46–97; PULSE 103–198; RESP 17–32; TEMP 98; O2SAT 89–100
[~2018-04-26] VITALS: Ht 172.7 cm; Wt 98.5 kg
[~2018-04-26 15:25] MED LIST changes: -BENZ100 PO; +DEXA4TAB PO; -DEXT1LIQ15 PO; +DILT1TAB12 PO; +ENOX60P SQ; +FOLI1TAB6 PO; -HYDR1SOL20 PO; +MAGICADU2 SWISH-SWAL; +MEGE40SU PO; -NAPR250T4 PO; +OXYC-392 PO; -SIMV40TA PO; +ZANT300T PO
[2018-04-26] MEDS ORDERED: ETOMIDATE 40 MG/20 ML VIAL ONE (15:42)
[2018-04-26] MEDS ORDERED: SODIUM CHLORIDE 0.9% FLUSH 10 ML FLUSH IVF PRN (16:00)
[2018-04-26] MEDS ORDERED: SUCCINYLCHOLINE CHLORIDE 200 MG/10 ML VIAL IV PUSH ONE (16:00)
[2018-04-26] MEDS ORDERED: ETOMIDATE 20 MG/10 ML VIAL IVP ONE (16:00)
[2018-04-26] MEDS ORDERED: PROPOFOL 500 MG/50 ML INJ 50 ML ONE (16:02)
[2018-04-26] MEDS ORDERED: PROPOFOL 1000 MG/100 ML INJ 100 ML IV PRN ×2 (16:15→17:45)
--- NOTE | 2018-04-26 16:27 | RADRPT ---
EXAM DATE: 04/26/2018 4:06 PM EDT AGE/SEX: 67 years / Male INDICATIONS: Post intubation CLINICAL DATA: This is the patient's initial encounter. Patient reports that signs and symptoms have been present for 1 day and indicates a pain score of Nonresponsive. MEDICAL/SURGICAL HISTORY: . metastatic lung cancer None. COMPARISON: [facility], CHEST PA & LAT, 03/27/2018. . FINDINGS: Stable right IJ [id number]. Patient has been intubated with ETT at the level of the clavicles. The re is a suction type NG tube in the stomach. Improved aeration of the left lung with persistent resid ual airspace disease in the left upper lobe. Progression of hazy opacities in the right mid to lower lung zones. Cardiothymic contours are stable. Remainder of the exam is unchanged.. CONCLUSION: 1. ETT and NGT in good position. 2. Improved aeration in the left upper lung zone. 3. Progressing airspace disease in the right mid to lower lung zones. Electronically signed by: Jude Sanchez MD 04/26/2018 4:26 PM EDT
--- NOTE | 2018-04-26 16:44 | PD ---
HPI Chief Complaint: Cardiac Complaint Time Seen by Provider: 15:32 Travel History International Travel<30 days: No Contact w/Intl Traveler<30days: No Traveled to known affect area: No History of Present Illness HPI This patient arrives critically ill. Paramedics found him with A. fib with RVR with a rate of 228 and a blood pressure of 50 systolic. He underwent cardioversion. He arrived 100% nonrebreather but still hypoxic. He is in sinus rhythm with ectopic beats. He complains of shortness of breath. Denies chest pain or productive cough or fever. Symptoms are severe. Duration 1 day. no Alleviating factors. No exacerbating factors. Patient was picked up at oncology Center and was about to get a chemotherapy dose for his lung cancer. PFSH Past Medical History Cancer: Yes (LUNG W/METS) Cardiovascular Problems: Yes High Cholesterol: Yes Chemotherapy: Yes Chest Pain: Yes Diminished Hearing: Yes Endocrine: No GERD: Yes (Barretts Esophagus ) Genitourinary: No Immune Disorder: No Musculoskeletal: No Neurologic: No Psychiatric: No Reproductive: No Respiratory: Yes (lung ca) Immunizations Current: Yes Radiation Therapy: Yes Past Surgical History Eye Surgery: Yes (CATARACT) Genitourinary Surgery: Yes (vasectomy) Social History Alcohol Use: No Tobacco Use: No Substance Use: No Allergies-Medications (Allergen,Severity, Reaction): Coded Allergies: No Known Allergies (Verified Allergy, Unknown, 04/26/18) Reported Meds & Prescriptions Reported Meds & Active Scripts Active Cardizem LA (Diltiazem ER 24 HR) 120 Mg Vicky 120 Mg PO DAILY Lovenox Inj (Enoxaparin Sodium) 60 Mg/0.6 Ml Syr 60 Mg SQ Q12H Reported Dexamethasone 4 Mg Tab 4 Mg PO BID Zantac (Ranitidine HCl) 300 Mg Tab 300 Mg PO HS Folic Acid 1 Mg Tablet 1 Mg PO DAILY Magic Mouthwash Adult Liq (Multi-Ingredient Mouthwash/Gargle) 120 Ml Susp 5-10 Ml SWISH-SWAL ACHS Each 5mL contains: Nystatin 200,000units, Diphenhydramine 4.25mg, Viscous Lidocaine 10mg, Sandoval syrup 0.8 mL Oxycodone (Oxycodone HCl) 5 Mg Tab 5 Mg PO Q4H PRN Nexium (Esomeprazole DR) 20 Mg Capdr 20 Mg PO DAILY Review of Systems General / Constitutional: No: Fever Eyes: No: Visual changes HENT: No: Headaches Cardiovascular: Positive: Palpitations, Irregular Rhythm, Tachycardia, No: Chest Pain or Discomfort Respiratory: Positive: Shortness of Breath Gastrointestinal: No: Abdominal Pain Genitourinary: No: Dysuria Musculoskeletal: Positive: Weakness, No: Pain Skin: No Rash Neurologic: Positive: Weakness Psychiatric: No: Depression Endocrine: No: Polydipsia Hematologic/Lymphatic: No: Easy Bruising Physical Exam Narrative GENERAL: Well-nourished, well-developed patient in profound respiratory distress. SKIN: Focused skin assessment reveals no rash and nodules. Skin is Warm and dry. HEAD: Atraumatic. Normocephalic. EYES: Pupils equal and round. No scleral icterus. No injection or drainage. ENT: No nasal bleeding or discharge. Mucous membranes pink and moist. NECK: Trachea midline. No JVD. CARDIOVASCULAR: Regular rate and rhythm with frequent ectopic beats. No murmur appreciated. Tachycardic at 120 RESPIRATORY: Positive accessory muscle use. Diminished breath sounds throughout with some rhonchi and wheeze. Breath sounds equal bilaterally. GASTROINTESTINAL: Abdomen soft, non-tender, nondistended. Hepatic and splenic margins not palpable. MUSCULOSKELETAL: No obvious deformities. No clubbing. No cyanosis. No edema. NEUROLOGICAL: Awake and alert. No obvious cranial nerve deficits. Motor grossly within normal limits. Normal speech. PSYCHIATRIC: Appropriate mood and affect; insight and judgment reasonable . Data Data Last Documented VS Vital Signs Date Time Temp Pulse Resp B/P (MAP) Pulse Ox O2 Delivery O2 Flow Rate FiO2 04/26/18 16:00 95 100 04/26/18 15:47 Ventilator 04/26/18 15:31 98.0 128 32 125/70 (88) Orders Orders Etomidate Inj (Amidate Inj) (04/26/18 15:42) Chest, Single Ap (04/26/18 ) Arterial Blood Gas (Abg) (04/26/18 15:52) Ecg Monitoring (04/26/18 15:52) Iv Access Insert/Monitor (04/26/18 15:52) Ng Gastric Tube Insert/Monitor (04/26/18 15:52) Urinary Catheter Insert/Apply (04/26/18 15:52) Oximetry (04/26/18 15:52) Oxygen Administration (04/26/18 15:52) Etomidate Inj (Amidate Inj) (04/26/18 16:00) Succinylcholine Inj (Quelicin Inj) (04/26/18 16:00) Sodium Chloride 0.9% Flush (Ns Flush) (04/26/18 16:00) Restraints Non-Violent ADI.Q3H (04/26/18 15:52) Electrocardiogram (04/26/18 ) Complete Blood Count With Diff (04/26/18 15:54) Comprehensive Metabolic Panel (04/26/18 15:54) Troponin I (04/26/18 15:54) Ckmb (Isoenzyme) Profile (04/26/18 15:54) Prothrombin Time / Inr (Pt) (04/26/18 15:54) Act Partial Throm Time (Ptt) (04/26/18 15:54) Propofol 500 Mg/50 Ml Inj (Diprivan 500 (04/26/18 16:02) Propofol 1000 Mg/100 Ml Inj (Diprivan 10 (04/26/18 16:15) Sodium Chlor 0.9% 1000 Ml Inj (Ns 1000 M (04/26/18 16:45) Albuterol-Ipratropium Neb (Duoneb Neb) (04/26/18 16:45) CKMB (04/26/18 16:00) CKMB% (04/26/18 16:00) Admit Order (Ed Use Only) (04/26/18 17:21) Labs Laboratory Tests Test 04/26/18 14:28 04/26/18 16:00 Blood Gas Puncture Site RT RADIAL Blood Gas Patient Temperature 98.6 Blood Gas HCO3 16 mmol/L Blood Gas Base Excess -7.6 mmol/L Blood Gas Oxygen Saturation 88 % Arterial Blood pH 7.40 Arterial Blood Partial Pressure CO2 27 mmHg Arterial Blood Partial Pressure O2 60 mmHG Arterial Blood Oxygen Content 15.3 Vol % Arterial Blood Carboxyhemoglobin 1.2 % Arterial Blood Methemoglobin 0.9 % Blood Gas Hemoglobin 12.4 G/DL Oxygen Delivery Device VENTILATOR Blood Gas Ventilator Setting 14/500/+5/100% Blood Gas Inspired Oxygen 100 % White Blood Count 0.5 TH/MM3 Red Blood Count 4.06 MIL/MM3 Hemoglobin 12.6 GM/DL Hematocrit 37.3 % Mean Corpuscular Volume 91.9 FL Mean Corpuscular Hemoglobin 30.9 PG Mean Corpuscular Hemoglobin Concent 33.6 % Red Cell Distribution Width 23.9 % Platelet Count 66 TH/MM3 Mean Platelet Volume 8.9 FL Neutrophils (%) (Auto) 88.7 % Lymphocytes (%) (Auto) 4.7 % Monocytes (%) (Auto) 5.9 % Eosinophils (%) (Auto) 0.3 % Basophils (%) (Auto) 0.4 % Neutrophils # (Auto) 0.5 TH/MM3 Lymphocytes # (Auto) 0.0 TH/MM3 Monocytes # (Auto) 0.0 TH/MM3 Eosinophils # (Auto) 0.0 TH/MM3 Basophils # (Auto) 0.0 TH/MM3 CBC Comment AUTO DIFF Differential Total Cells Counted 50 Neutrophils % (Manual) 66 % Band Neutrophils % 22 % Lymphocytes % 4 % Monocytes % 2 % Neutrophils # (Manual) 0.5 TH/MM3 Metamyelocytes 6 % Nucleated Red Blood Cells 2 /100 WBC Differential Comment FINAL DIFF MANUAL Platelet Estimate LOW Platelet Morphology Comment NORMAL Ovalocytes 1+ Keratocytes OCC Prothrombin Time 11.0 SEC Prothromb Time International Ratio 1.1 RATIO Activated Partial Thromboplast Time 26.6 SEC Blood Urea Nitrogen 30 MG/DL Creatinine 1.27 MG/DL Random Glucose 338 MG/DL Total Protein 5.6 GM/DL Albumin 2.8 GM/DL Calcium Level 8.2 MG/DL Alkaline Phosphatase 65 U/L Aspartate Amino Transf (AST/SGOT) 28 U/L Alanine Aminotransferase (ALT/SGPT) 89 U/L Total Bilirubin 0.9 MG/DL Sodium Level 138 MEQ/L Potassium Level 4.3 MEQ/L Chloride Level 100 MEQ/L Carbon Dioxide Level 17.6 MEQ/L Anion Gap 20 MEQ/L Estimat Glomerular Filtration Rate 57 ML/MIN Total Creatine Kinase 112 U/L Creatine Kinase MB 3.9 NG/ML Troponin I 0.11 NG/ML [facility] Medical Decision Making Medical Screen Exam Complete: Yes Emergency Medical Condition: Yes Medical Record Reviewed: Yes Differential Diagnosis Pneumonia, pneumothorax, pulmonary edema, PE Narrative Course I have reviewed the patient's electronic medical record. Patient was seen here March 27 and diagnosed with PE. Patient is critically ill. He desires full code and ventilation if need be After the risks and benefits were discussed the following procedure was performed: INTUBATION: The patient was put in optimal position for the procedure. Rapid sequence intubation was initiated by me using 20 milligrams of etomidate IV and 100 milligrams of succinylcholine IV. The patient was intubated with a 7.5 cuffed endotracheal tube. Tube placement was confirmed by visualization of the tube and balloon passing through the cords, capnometry and subsequent chest x- ray. Breath sounds were equal and well aerated bilaterally postintubation. No breath sounds over stomach. Patient tolerated procedure well. I started him on drip for sedation Extensive workup was ordered I reviewed his chest x-ray Given the profound distress and hypoxia I have ordered a CTA of the chest. Multiple IVs placed and IV fluid given and IV antibiotics given Patient is neutropenic on chemotherapy, has no fever now I reviewed the case with internal consultant Dr. Dias who will admit Critical Care Narrative Aggregate critical care time was 80 minutes. Time to perform other separately billable procedures was not included in the critical care time. My time did not include minutes spent treating any other patients simultaneously or on activities that did not directly contribute to the patient's treatment. The services I provided to this patient were to treat and/or prevent clinically significant deterioration that could result in: Cardiopulmonary arrest, complete respiratory collapse, cardiac arrhythmia I provided critical care services requiring my management, as noted below: Chart data review, documentation time, medication orders and management, vital sign assessments/reviewing monitor data, ordering and reviewing lab tests, ordering and interpreting/reviewing x-rays and diagnostic studies, care of the patient and discussion of the patient with the admitting physicians. Diagnosis Primary Impression: Acute respiratory failure with hypoxia Additional Impression: Atrial fibrillation with RVR Admitting Information Admitting Physician Requests: Myles Akers MD April 26, 2018 16:44
[2018-04-26] MEDS ORDERED: RESP: ALBUTEROL 2.5 MG/IPRATROPIUM 0.5 MG NEB (SCH) NEB ONE (16:45)
[2018-04-26] MEDS ORDERED: SODIUM CHLOR 0.9% 1000 ML INJ 1,000 ML IV ONE ×2 (16:45→17:30)
[2018-04-26 16:46] LABS: AUTOMATED NEUTROPHIL # 0.5 TH/MM3 (1.8-7.7); BASOPHIL % 0.4 % (0.0-2.0); EOSINOPHIL % 0.3 % (0.0-4.0); HEMATOCRIT 37.3 % (39.0-51.0); HEMOGLOBIN 12.6 GM/DL (13.0-17.0); LYMPH % 4.7 % (9.0-44.0); MEAN CELL VOLUME 91.9 FL (80.0-100.0); MEAN CORPUSCULAR HEMOGLOBIN 30.9 PG (27.0-34.0); MEAN CORPUSCULAR HGB CONC 33.6 % (32.0-36.0); MEAN PLATELET VOLUME 8.9 FL (7.0-11.0); MONO % 5.9 % (0.0-8.0); NEUT % 88.7 % (16.0-70.0); PLATELET COUNT 66 TH/MM3 (150-450); RED BLOOD COUNT 4.06 MIL/MM3 (4.50-5.90); RED CELL DISTRIBUTION WIDTH 23.9 % (11.6-17.2); WHITE BLOOD COUNT 0.5 TH/MM3 (4.0-11.0)
[2018-04-26 16:50] LABS: INTERNATIONAL NORMALIZED RATIO 1.1 RATIO
[2018-04-26 16:59] LABS: ALT (GPT) 89 U/L (12-78)
[2018-04-26 17:10] LABS: ALBUMIN 2.8 GM/DL (3.4-5.0); ALKALINE PHOSPHATASE 65 U/L (45-117); AST (GOT) 28 U/L (15-37); BICARBONATE 17.6 MEQ/L (21.0-32.0); BLOOD UREA NITROGEN 30 MG/DL (7-18); CALCIUM 8.2 MG/DL (8.5-10.1); CHLORIDE 100 MEQ/L (98-107); CREATININE 1.27 MG/DL (0.60-1.30); GLOMERULAR FILTRATION RATE 57 ML/MIN (>89); GLUCOSE,RANDOM 338 MG/DL (74-106); SODIUM (NA) 138 MEQ/L (136-145); TOTAL BILIRUBIN ADULT 0.9 MG/DL (0.2-1.0); TOTAL PROTEIN 5.6 GM/DL (6.4-8.2); TROPONIN I 0.11 NG/ML (0.02-0.05)
[2018-04-26 17:23] LABS: BANDS 22 % (0-6); CORRECTED NUCLEATED RBC 2 /100 WBC (0-0); LYMPHOCYTES 4 % (9-44); METAMYELOCYTES 6 % (0-1); MONOCYTES 2 % (0-8); NUCLEATED RED BLOOD CELL 1 (0-0); POLYS (SEG NEUTROPHILS) 66 % (16-70)
[2018-04-26 17:25] LABS: KERATOCYTES OCC (NORMAL); OVALOCYTES 1+ (NORMAL)
[2018-04-26] MEDS ORDERED: PIPERACIL-TAZO 3.375 GM PREMIX 50 ML IV ONE (17:30)
[2018-04-26] MEDS ORDERED: VANCOMYCIN INJ 1,000 MG in SODIUM CHLOR 0.9% 250 ML INJ 250 ML IV ONE (17:30)
[2018-04-26 17:36] LABS: NEUTROPHIL # MANUAL DIFF 0.5 TH/MM3 (1.8-7.7)
[2018-04-26] MEDS ORDERED: NURSING INFORMATION XX SCH (17:45)
[2018-04-26] MEDS ORDERED: fentaNYL DRIP 250 ML IV PRN ×2 (17:45→20:45)
[2018-04-26] MEDS ORDERED: SODIUM CHLORIDE 0.9% FLUSH 10 ML FLUSH IV FLUSH PRN (17:45)
[2018-04-26] MEDS ORDERED: DEXTROSE 50% IN WATER 50 ML VIAL(D50) IV PRN (17:45)
[2018-04-26] MEDS ORDERED: CHLORHEXIDINE GLUCONATE 2 % 1 PACK (2 CLOTHS) TOP PRN (17:45)
[2018-04-26] MEDS ORDERED: ACETAMINOPHEN 325 MG TAB PO PRN (17:45)
[2018-04-26] MEDS ORDERED: GLUCAGON 1 MG/ML VIAL IM/SQ PRN (17:45)
[2018-04-26] MEDS ORDERED: Vancomycin Consult Pharmacy 1 EA OTHER SCH (18:00)
[2018-04-26] MEDS ORDERED: VANCOMYCIN INJ 2,000 MG in SODIUM CHLORID 0.9% 500 ML INJ 500 ML IV ONE (18:15)
[2018-04-26] MEDS: SODIUM CHLOR 0.9% 1000 ML INJ 1,000 ML IV SCH ×2 (18:19→22:23)
[2018-04-26] MEDS ORDERED: TERBUTALINE INJ 1 MG/ML AMP SQ PRN ×2 (19:00→22:00)
--- NOTE | 2018-04-26 19:01 | HHI.HP ---
HPI Service Critical Care Medicine Primary Care Physician Bassam Unger M.D. 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 Patient was picked up at oncology Center and was about to get a chemotherapy dose for his lung cancer. Paramedics found him in A. fib with RVR with a rate of 228 and a blood pressure of 50 systolic. He underwent cardioversion. He arrived to emergency department on 100% nonrebreather but remained hypoxemic. The rhythm in the emergency department was a sinus with occasional ectopic beats. The patient was complaining of shortness of breath and despite of high oxygen delivery he remained severely hypoxemic. He was intubated by ED attending for an acute hypoxemic respiratory failure. Denies chest pain or productive cough or fever. 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 Hyperlipidemia GERD Past Surgical History Lung biopsy Reported Medications Reported Meds & Active Scripts Active Cardizem LA (Diltiazem ER 24 HR) 120 Mg Vicky 120 Mg PO DAILY Lovenox Inj (Enoxaparin Sodium) 60 Mg/0.6 Ml Syr 60 Mg SQ Q12H Reported Dexamethasone 4 Mg Tab 4 Mg PO BID Zantac (Ranitidine HCl) 300 Mg Tab 300 Mg PO HS Folic Acid 1 Mg Tablet 1 Mg PO DAILY Magic Mouthwash Adult Liq (Multi-Ingredient Mouthwash/Gargle) 120 Ml Susp 5-10 Ml SWISH-SWAL ACHS Each 5mL contains: Nystatin 200,000units, Diphenhydramine 4.25mg, Viscous Lidocaine 10mg, Sandoval syrup 0.8 mL Oxycodone (Oxycodone HCl) 5 Mg Tab 5 Mg PO Q4H PRN Nexium (Esomeprazole DR) 20 Mg Capdr 20 Mg PO DAILY Active Ordered Medications Current Medications Medications (Trade) Dose Ordered Sig/Gigi Route PRN Reason Start Time Stop Time Status Last Admin Dose Admin Sodium Chloride (NS Flush) 2 ml UNSCH PRN IVF FLUSH AFTER USING IV ACCESS 04/26/18 16:00 Sodium Chloride 1,000 ml @ 125 mls/hr Q8H IV 04/26/18 18:00 04/26/18 18:19 Sodium Chloride (NS Flush) 2 ml UNSCH PRN IV FLUSH FLUSH AFTER USING IV ACCESS 04/26/18 17:45 Sodium Chloride (NS Flush) 2 ml BID IV FLUSH 04/26/18 21:00 Acetaminophen (Tylenol) 650 mg Q6H PRN PO PAIN 1-10 AND/OR FEVER >101F 04/26/18 17:45 Albuterol/ Ipratropium (Duoneb Neb) 1 ampule Q6HR NEB NEB 04/26/18 22:00 Albuterol/ Ipratropium (Duoneb Neb) 1 ampule Q4HR NEB PRN INH SHORTNESS OF BREATH 04/26/18 17:45 Chlorhexidine Gluconate (Peridex 0.12% Liq) 15 ml BID@08,20 MT 04/26/18 20:00 Famotidine (Pepcid Inj) 20 mg Q12HR IV PUSH 04/26/18 21:00 Miscellaneous Information ([facility] Nursing Information) 1 [id number] XX 04/26/18 17:45 Chlorhexidine Gluconate (Chlorhexidine 2% Cloth) 3 pack Taper DAILY@04 TOP 04/27/18 04:00 04/23/19 03:59 Chlorhexidine Gluconate (Chlorhexidine 2% Cloth) 3 pack UNSCH PRN TOP HYGIENIC CARE 04/26/18 17:45 Propofol 100 ml @ 2.25 mls/hr TITRATE PRN IV SEDATION 04/26/18 17:45 Fentanyl Citrate 250 ml @ 5 mls/hr TITRATE PRN IV SEDATION 04/26/18 17:45 Insulin Aspart (NovoLOG SUPPLEMENTAL SCALE) 1 Q4HR SQ 04/26/18 20:00 Dextrose (D50w (Vial) Inj) 25 ml UNSCH PRN IV HYPOGLYCEMIA-SEE COMMENTS 04/26/18 17:45 Glucagon (Glucagon Inj) 1 mg UNSCH PRN IM/SQ HYPOGLYCEMIA-SEE COMMENTS 04/26/18 17:45 Piperacillin Sod/ Tazobactam Sod 100 ml @ 200 mls/hr Q6H IV 04/27/18 00:00 Pharmacy Profile Note 0 ml @ 0 mls/hr UNSCH OTHER 04/26/18 18:00 Vancomycin HCl 2000 mg/Sodium Chloride 520 ml @ 250 mls/hr ONCE ONCE IV 04/26/18 18:15 04/26/18 20:19 Norepinephrine Bitartrate 250 ml TITRATE PRN IV Blood pressure management 04/26/18 19:00 UNV Terbutaline Sulfate (Brethine Inj) 1 mg UNSCH PRN SQ For Extravasation 04/26/18 19:00 UNV Family History No family history significant of lung cancer Social History Ex-smoker. Quit smoking about 15 years ago. He does drink alcohol occasionally. Denies illicit drug use. Physical Exam Vital Signs Vital Signs Date Time Temp Pulse Resp B/P (MAP) Pulse Ox O2 Delivery O2 Flow Rate FiO2 04/26/18 16:00 95 100 04/26/18 15:47 94 Ventilator 100 04/26/18 15:31 98.0 128 32 125/70 (88) 89 Laboratory Laboratory Tests Test 04/26/18 14:28 04/26/18 16:00 04/26/18 18:30 Blood Gas Puncture Site RT RADIAL Blood Gas Patient Temperature 98.6 Blood Gas HCO3 16 Blood Gas Base Excess -7.6 Blood Gas Oxygen Saturation 88 Arterial Blood pH 7.40 Arterial Blood Partial Pressure CO2 27 Arterial Blood Partial Pressure O2 60 Arterial Blood Oxygen Content 15.3 Arterial Blood Carboxyhemoglobin 1.2 Arterial Blood Methemoglobin 0.9 Blood Gas Hemoglobin 12.4 Oxygen Delivery Device VENTILATOR Blood Gas Ventilator Setting 14/500/+5/100% Blood Gas Inspired Oxygen 100 White Blood Count 0.5 Red Blood Count 4.06 Hemoglobin 12.6 Hematocrit 37.3 Mean Corpuscular Volume 91.9 Mean Corpuscular Hemoglobin 30.9 Mean Corpuscular Hemoglobin Concent 33.6 Red Cell Distribution Width 23.9 Platelet Count 66 Mean Platelet Volume 8.9 Neutrophils (%) (Auto) 88.7 Lymphocytes (%) (Auto) 4.7 Monocytes (%) (Auto) 5.9 Eosinophils (%) (Auto) 0.3 Basophils (%) (Auto) 0.4 Neutrophils # (Auto) 0.5 Lymphocytes # (Auto) 0.0 Monocytes # (Auto) 0.0 Eosinophils # (Auto) 0.0 Basophils # (Auto) 0.0 CBC Comment AUTO DIFF Differential Total Cells Counted 50 Neutrophils % (Manual) 66 Band Neutrophils % 22 Lymphocytes % 4 Monocytes % 2 Neutrophils # (Manual) 0.5 Metamyelocytes 6 Nucleated Red Blood Cells 2 Differential Comment FINAL DIFF MANUAL Platelet Estimate LOW Platelet Morphology Comment NORMAL Ovalocytes 1+ Keratocytes OCC Prothrombin Time 11.0 Prothromb Time International Ratio 1.1 Activated Partial Thromboplast Time 26.6 Blood Urea Nitrogen 30 Creatinine 1.27 Random Glucose 338 Total Protein 5.6 Albumin 2.8 Calcium Level 8.2 Alkaline Phosphatase 65 Aspartate Amino Transf (AST/SGOT) 28 Alanine Aminotransferase (ALT/SGPT) 89 Total Bilirubin 0.9 Sodium Level 138 Potassium Level 4.3 Chloride Level 100 Carbon Dioxide Level 17.6 Anion Gap 20 Estimat Glomerular Filtration Rate 57 Total Creatine Kinase 112 Creatine Kinase MB 3.9 Troponin I 0.11 Date/Time Source Procedure Growth Status 04/26/18 18:30 Blood Peripheral Aerobic Blood Culture Pending Received 04/26/18 18:30 Blood Peripheral Anaerobic Blood Culture Pending Received Result Diagram: 04/26/18 1600 04/26/18 1600 Caprini VTE Risk Assessment Caprini VTE Risk Assessment: Mod/High Risk (score >= 2) Caprini Risk Assessment Model Point Value = 1 Point Value = 2 Point Value = 3 Point Value = 5 Age 41-60 Minor surgery BMI > 25 kg/m2 Swollen legs Varicose veins or History of unexplained or recurrent spontaneous Oral contraceptives or hormone replacement Sepsis (< 1 month) Serious lung disease, including pneumonia (< 1 month) Abnormal pulmonary function Acute myocardial infarction Congestive heart failure (< 1 month) History of inflammatory bowel disease Medical patient at bed rest Age 61-74 Arthroscopic surgery Major open surgery (> 45 min) Laparoscopic surgery (> 45 min) Malignancy Confined to bed (> 72 hours) Immobilizing plaster cast Central venous access Age >= 75 History of VTE Family history of VTE Factor V Leiden Prothrombin [id number] Lupus anticoagulant Anticardiolipin antibodies Elevated serum homocysteine Heparin-induced thrombocytopenia Other congenital or acquired thrombophilia Stroke (< 1 month) Elective arthroplasty Hip, pelvis, or leg fracture Acute spinal cord injury (< 1 month) Prophylaxis Regimen Total Risk Factor Score Risk Level Prophylaxis Regimen 0-1 Low Early ambulation 2 Moderate Order ONE of the following: *Sequential Compression Device (SCD) *Heparin 5000 units SQ BID 3-4 Higher Order ONE of the following medications: *Heparin 5000 units SQ TID *Enoxaparin/Lovenox 40 mg SQ daily (WT < 150 kg, CrCl > 30 mL/min) *Enoxaparin/Lovenox 30 mg SQ daily (WT < 150 kg, CrCl > 10-29 mL/min) *Enoxaparin/Lovenox 30 mg SQ BID (WT < 150 kg, CrCl > 30 mL/min) AND/OR *Sequential Compression Device (SCD) 5 or more Highest Order ONE of the following medications: *Heparin 5000 units SQ TID (Preferred with Epidurals) *Enoxaparin/Lovenox 40 mg SQ daily (WT < 150 kg, CrCl > 30 mL/min) *Enoxaparin/Lovenox 30 mg SQ daily (WT < 150 kg, CrCl > 10-29 mL/min) *Enoxaparin/Lovenox 30 mg SQ BID (WT < 150 kg, CrCl > 30 mL/min) AND *Sequential Compression Device (SCD) Assessment and Plan Assessment and Plan Respiratory failure -Severe sepsis -Broad-spectrum antibiotic -Panculture -Follow-up cultures and de-escalate per sensitivity -Vent bundle -Spontaneous breathing trials when hemodynamically improve Hypertension -Due to above -Aggressive IV fluid resuscitation -Levophed as needed to keep MAP above 65 Rapid A. fib with RVR -Status post successful cardioversion -Telemetry -Treat underlying sepsis Dyslipidemia -Resume home meds when appropriate Metastatic lung adenocarcinoma -Oncology consultation Hyperglycemia -Insulin sliding scale DVT GI prophylaxis -Rupert's and SCDs -Lovenox -IV Pepcid Critical Care: The total critical care time was 35 minutes. Time to perform other separately billable procedures was not included in the critical care time. Henok Castellon MD April 26, 2018 19:01
[2018-04-26 19:14] LABS: TROPONIN I 0.13 NG/ML (0.02-0.05)
[2018-04-26] MEDS: NOREPINEPHRINE-DEXTROSE DRIP 250 ML IV PRN (19:17)
[2018-04-26] MEDS ORDERED: FUROSEMIDE 20 MG/2 ML VIAL IV PUSH ONE (19:30)
[2018-04-26] MEDS: INSULIN ASPART SUPPLEMENTAL SCALE SQ SCH (20:00)
[2018-04-26] MEDS: CHLORHEXIDINE 0.12% (ORAL KIT) 15 ML CUP MT SCH (20:00)
[2018-04-26] MEDS ORDERED: IOHEXOL 350 MG/ML 10 ML VIAL (for RAD DIAG) IVCONTRAST ONE (20:07)
--- NOTE | 2018-04-26 20:11 | RADRPT ---
EXAM DATE: 04/26/2018 8:05 PM EDT AGE/SEX: 67 years / Male INDICATIONS: Syncopal episode, chemotherapy patient. Follow up metastatic disease. CLINICAL DATA: This is the patient's initial encounter. Patient reports that signs and symptoms have been present for 1 day and indicates a pain score of Nonresponsive. MEDICAL/SURGICAL HISTORY: Carcinoma, lung. Metastatic disease. Non-responsive. RADIATION DOSE: 29.18 CTDI (mGy) COMPARISON: [facility], MR BRAIN W AND W/O CONTRAST, 02/19/2018. [facility], MR BRAIN W AND W/O CONTRAST, 04/06. . TECHNIQUE: CT of the head without contrast. Using automated exposure control and adjustment of the mA and/or kV according to patient size, radiation dose was kept as low as reasonably achievable to ob tain optimal diagnostic quality images. FINDINGS: Cerebrum: There is mild generalized atrophy and ventricles are normal given the degree of atrophy. M ild periventricular white matter change is present. No midline shift, mass lesion, hemorrhage or acu te infarction. No extraaxial fluid collections are seen. The small enhancing lesions documented on t he prior outside MRI are too small to be visible with noncontrast CT imaging. Posterior Fossa: The cerebellum and brainstem demonstrate no acute abnormality. The 4th ventricle is midline. The cerebellopontine angle is within normal limits. Extracranial: The visualized sinuses are clear. Patient is intubated. Skull: The calvaria is intact. No skull fracture. CONCLUSION: 1. No acute intracranial abnormality is identified. The small enhancing lesions documented on the ou tside contrast enhanced brain MRI are too small to be visible with noncontrast CT imaging. 2. Chronic findings include mild generalized atrophy. Electronically signed by: Dao Gamez MD 04/26/2018 8:10 PM EDT
--- NOTE | 2018-04-26 20:14 | RADRPT ---
EXAM DATE: 04/26/2018 8:07 PM EDT AGE/SEX: 67 years / Male INDICATIONS: Syncopal episode, weakness following chemotherapy today. CLINICAL DATA: This is the patient's initial encounter. Patient reports that signs and symptoms have been present for 1 day and indicates a pain score of Nonresponsive. MEDICAL/SURGICAL HISTORY: Carcinoma, lung. Metastatic disease. Non-responsive. RADIATION DOSE: 10.62 CTDI (mGy) COMPARISON: CT pulmonary angiogram 03/27/2018. TECHNIQUE: Volumetric scanning was performed using a multi-row detector CT scanner during bolus infu sergio of 65 ml Omnipaque 350 (iohexol) nonionic water-soluble contrast as a single exam dose. The alejandro a was post processed with a variety of visualization algorithms including full volume maximum intensi ty projection and sliding thin slab reformation. Using automated exposure control and adjustment of the mA and/or kV according to patient size, radiation dose was kept as low as reasonably achievable t o obtain optimal diagnostic quality images. FINDINGS: Pulmonary Arteries: No filling defects are seen in the pulmonary arteries out to the subsegmental ve ssels. The left and right pulmonary arteries are normal in diameter. The previously seen thrombus wi thin the interlobar pulmonary artery on the right extending into the basilar segmental branches is no longer present. These vessels are free of thrombus. The left upper lobe pulmonary mass compresses th e left upper lobe pulmonary artery. This is unchanged. Lung: Significant consolidation is seen throughout the entire right lower lobe with relative sparing of the anterior basilar segment. This is a new finding from the prior study. There are some air bron chograms noted. The left upper lobe pulmonary mass is again seen and unchanged.. Effusion: None. Mediastinum: No evidence of mediastinal or hilar adenopathy. Other: The axilla is unremarkable. CONCLUSION: 1. The previously seen right-sided pulmonary embolus has resolved. No emboli seen on the current exa m. 2. Diffuse consolidation throughout the entire right lower lobe with sparing of the anterior basilar segment. This is a new finding. Infectious etiology suspected. 3. Left upper lobe pulmonary mass. Electronically signed by: Cody Orta MD 04/26/2018 8:13 PM EDT
[2018-04-26 20:35] LABS: LACTIC ACID SEPSIS PROTOCOL 5.2 mmol/L (0.4-2.0)
[2018-04-26] MEDS: DEXAMETHASONE 4 MG TAB PO SCH (21:00)
[2018-04-26] MEDS ORDERED: ADENOSINE IV SOLN 3 MG/ML 2 ML VIAL ONE (21:59)
[2018-04-26] MEDS ORDERED: ADENOSINE IV SOLN 3 MG/ML 2 ML VIAL IV PUSH ONE ×2 (22:00)
[2018-04-26] MEDS ORDERED: DIGOXIN 0.5 MG/2 ML VIAL IV PUSH ONE (22:00)
[2018-04-26] MEDS: RESP: ALBUTEROL 2.5 MG/IPRATROPIUM 0.5 MG NEB (SCH) NEB (22:00)
[2018-04-26] MEDS: PHENYLEPHRINE INJ 40 MG in DEXTROSE 5% IN WATE 500 ML INJ 496 ML IV PRN ×2 (22:22)
[2018-04-26] MEDS: SODIUM CHLORIDE 0.9% FLUSH 10 ML FLUSH IV FLUSH SCH (22:23)
[2018-04-26] MEDS ORDERED: MIDAZOLAM HCL 5 MG/ML VIAL (1 ML) ONE (22:24)
[2018-04-26] MEDS ORDERED: ALBUMIN 5% INJ 500 ML IV ONE (22:30)
[2018-04-26] MEDS ORDERED: ESMOLOL DRIP INJ PREMIX 250 ML IV PRN (22:30)
[2018-04-26] MEDS: PIPERACIL-TAZO 4.5 GM PREMIX 100 ML IV SCH (23:34)
[2018-04-26] MEDS: FAMOTIDINE 20 MG/2 ML VIAL IV PUSH SCH (23:35)
[2018-04-27] VITALS (19 sets, daily range): BP systolic 77–113; BP diastolic 49–80; PULSE 94–119; RESP 16–22; TEMP 97.9–100.3; O2SAT 92–100
[2018-04-27 00:56] LABS: TROPONIN I 0.27 NG/ML (0.02-0.05)
[2018-04-27] MEDS: INSULIN ASPART SUPPLEMENTAL SCALE SQ SCH ×6 (04:00→20:00)
[2018-04-27] MEDS: CHLORHEXIDINE GLUCONATE 2 % 1 PACK (2 CLOTHS) TOP SCH (04:00)
[2018-04-27] MEDS: PHENYLEPHRINE INJ 40 MG in DEXTROSE 5% IN WATE 500 ML INJ 496 ML IV PRN ×4 (04:11→06:44)
[2018-04-27] MEDS: RESP: ALBUTEROL 2.5 MG/IPRATROPIUM 0.5 MG NEB (SCH) NEB ×4 (04:38→20:22)
[2018-04-27] MEDS: PIPERACIL-TAZO 4.5 GM PREMIX 100 ML IV SCH ×2 (05:03→11:05)
[2018-04-27] MEDS: NOREPINEPHRINE-DEXTROSE DRIP 250 ML IV PRN ×5 (07:30→20:16)
[2018-04-27] MEDS ORDERED: LORazepam 2 MG/ML VIAL ONE (08:10)
[2018-04-27 08:11] LABS: HEMATOCRIT 31.7 % (39.0-51.0); HEMOGLOBIN 10.8 GM/DL (13.0-17.0); MEAN CELL VOLUME 92.2 FL (80.0-100.0); MEAN CORPUSCULAR HEMOGLOBIN 31.3 PG (27.0-34.0); PLATELET COUNT 42 TH/MM3 (150-450); RED BLOOD COUNT 3.43 MIL/MM3 (4.50-5.90); WHITE BLOOD COUNT 0.2 TH/MM3 (4.0-11.0)
[2018-04-27] MEDS ORDERED: SODIUM CHLOR 0.9% 1000 ML INJ 1,000 ML IV ONE (08:15)
[2018-04-27 08:31] LABS: HEMATOCRIT 26.6 % (39.0-51.0); HEMOGLOBIN 9.2 GM/DL (13.0-17.0); MEAN CELL VOLUME 91.3 FL (80.0-100.0); MEAN CORPUSCULAR HEMOGLOBIN 31.5 PG (27.0-34.0); MEAN CORPUSCULAR HGB CONC 34.5 % (32.0-36.0); MEAN PLATELET VOLUME 8.5 FL (7.0-11.0); PLATELET COUNT 41 TH/MM3 (150-450); RED BLOOD COUNT 2.91 MIL/MM3 (4.50-5.90); RED CELL DISTRIBUTION WIDTH 23.5 % (11.6-17.2); WHITE BLOOD COUNT 0.2 TH/MM3 (4.0-11.0)
[2018-04-27] MEDS: VASOPRESSIN INJ 40 UNITS in DEXTROSE 5% IN WATER 100ML INJ 98 ML IV SCH ×4 (08:33→23:00)
[2018-04-27 08:34] LABS: ALBUMIN 2.4 GM/DL (3.4-5.0); BICARBONATE 16.5 MEQ/L (21.0-32.0); CALCIUM 6.2 MG/DL (8.5-10.1); CREATININE 1.08 MG/DL (0.60-1.30); TOTAL BILIRUBIN ADULT 0.8 MG/DL (0.2-1.0); TOTAL PROTEIN 4.6 GM/DL (6.4-8.2)
[2018-04-27] MEDS ORDERED: TERBUTALINE INJ 1 MG/ML AMP SQ PRN (08:45)
[2018-04-27] MEDS ORDERED: DIGOXIN 0.5 MG/2 ML VIAL IV PUSH STA (08:45)
[2018-04-27 08:59] LABS: CALCIUM-PROTEIN CORRECTED 7.4 MG/DL (8.5-10.1)
[2018-04-27] MEDS: FOLIC ACID 1 MG TAB PO SCH (09:00)
[2018-04-27] MEDS: DEXAMETHASONE 4 MG TAB PO SCH (09:00)
[2018-04-27] MEDS: ENOXAPARIN SODIUM 60 MG/0.6 ML SYRINGE SQ SCH ×2 (09:11→21:00)
[2018-04-27] MEDS: FAMOTIDINE 20 MG/2 ML VIAL IV PUSH SCH ×2 (09:12→20:16)
[2018-04-27] MEDS: SODIUM CHLORIDE 0.9% FLUSH 10 ML FLUSH IV FLUSH SCH ×2 (09:12→20:16)
[2018-04-27] MEDS: CHLORHEXIDINE 0.12% (ORAL KIT) 15 ML CUP MT SCH ×2 (09:12→20:17)
[2018-04-27] MEDS: SODIUM CHLOR 0.9% 1000 ML INJ 1,000 ML IV SCH (09:13)
[2018-04-27] MEDS: HYDROCORTISONE SOD SUCCINATE 100 MG VIAL IV PUSH SCH ×3 (09:15→20:16)
[2018-04-27] MEDS: PHENYLEPHRINE INJ 160 MG in DEXTROSE 5% IN WATE 500 ML INJ 484 ML IV PRN ×6 (09:17→20:17)
[2018-04-27 09:31] LABS: BANDS 60 % (0-6); CALCIUM 5.9 MG/DL (8.5-10.1); CORRECTED NUCLEATED RBC 20 /100 WBC (0-0); CREATININE 1.1 MG/DL (0.60-1.30); LYMPHOCYTES 20 % (9-44); MAGNESIUM 1.1 MG/DL (1.5-2.5); METAMYELOCYTES 10 % (0-1); MYELOCYTES 5 % (0-0); NUCLEATED RED BLOOD CELL 4 (0-0); PHOSPHORUS 3.6 MG/DL (2.5-4.9); POLYS (SEG NEUTROPHILS) 5 % (16-70); TOTAL BILIRUBIN ADULT 0.8 MG/DL (0.2-1.0)
[2018-04-27 09:34] LABS: ACANTHOCYTES OCC (NORMAL); DOHLE BODIES PRESENT (NONE SEEN); NEUTROPHIL # MANUAL DIFF 0.2 TH/MM3 (1.8-7.7)
[2018-04-27 09:35] LABS: CALCIUM-PROTEIN CORRECTED 7.4 MG/DL (8.5-10.1)
[2018-04-27] MEDS ORDERED: VECURONIUM BROMIDE 10 MG VIAL IV PUSH ONE (09:45)
[2018-04-27 09:46] LABS: BANDS 45 % (0-6); CORRECTED NUCLEATED RBC 5 /100 WBC (0-0); LYMPHOCYTES 5 % (9-44); METAMYELOCYTES 10 % (0-1); MYELOCYTES 15 % (0-0); NUCLEATED RED BLOOD CELL 1 (0-0); POLYS (SEG NEUTROPHILS) 25 % (16-70)
[2018-04-27 09:47] LABS: ACANTHOCYTES 1+ (NORMAL); DOHLE BODIES PRESENT (NONE SEEN); NEUTROPHIL # MANUAL DIFF 0.2 TH/MM3 (1.8-7.7); OVALOCYTES 1+ (NORMAL)
[2018-04-27 09:58] LABS: AMORPHOUS SEDIMENT, URINE RARE; BACTERIA, URINE MANY /hpf; BILIRUBIN, URINE NEG (NEG); BLOOD, URINE SMALL (NEG); GLUCOSE,URINE TRACE mg/dL (NEG); KETONE, URINE NEG (NEG); MUCUS URINE FEW /lpf (OCC); NITRITE,URINE NEG (NEG); PH, URINE 5.5 (5.0-8.5); URINE COLOR YELLOW (YELLW/STRAW); URINE LEUKOCYTE ESTERASE NEG (NEG)
[2018-04-27] MEDS: SODIUM BICARBONATE 8.4% INJ 150 MEQ in WATER STERILE FOR INJ 850 ML IV SCH ×2 (10:54→18:16)
--- NOTE | 2018-04-27 10:57 | HHI.CCPN ---
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 Patient was picked up at oncology Center and was about to get a chemotherapy dose for his lung cancer. Paramedics found him in A. fib with RVR with a rate of 228 and a blood pressure of 50 systolic. He underwent cardioversion. He arrived to emergency department on 100% nonrebreather but remained hypoxemic. The rhythm in the emergency department was a sinus with occasional ectopic beats. The patient was complaining of shortness of breath and despite of high oxygen delivery he remained severely hypoxemic. He was intubated by ED attending for an acute hypoxemic respiratory failure. Denies chest pain or productive cough or fever. 04/27: Sedated, orally intubated on mechanical ventilation. Had runs of SVT/ rapid A. fib last night from which he was cardioverted. Hypotensive on pressors. Objective Vital Signs Date Time Temp Pulse Resp B/P (MAP) Pulse Ox O2 Delivery O2 Flow Rate FiO2 04/27/18 10:18 93 70 04/27/18 10:00 111 04/27/18 09:17 88/56 04/27/18 08:00 99.8 19 04/26/18 19:00 Ventilator Intake and Output 04/27/18 04/27/18 04/28/18 08:00 16:00 00:00 Intake Total 1884 ml 2500 ml Output Total 550 ml Balance 1334 ml 2500 ml Result Diagram: 04/27/18 0744 04/27/18 0744 Other Results Laboratory Tests Test 04/26/18 14:28 Blood Gas Puncture Site RT RADIAL Blood Gas Patient Temperature 98.6 Blood Gas HCO3 16 mmol/L (22-26) Blood Gas Base Excess -7.6 mmol/L (-2-2) Blood Gas Oxygen Saturation 88 % (90-100) Arterial Blood pH 7.40 (7.380-7.420) Arterial Blood Partial Pressure CO2 27 mmHg (38-42) Arterial Blood Partial Pressure O2 60 mmHG (61-120) Arterial Blood Oxygen Content 15.3 Vol % (12.0-20.0) Arterial Blood Carboxyhemoglobin 1.2 % (0-4) Arterial Blood Methemoglobin 0.9 % (0-2) Blood Gas Hemoglobin 12.4 G/DL (12.0-16.0) Oxygen Delivery Device VENTILATOR Blood Gas Ventilator Setting 14/500/+5/100% Blood Gas Inspired Oxygen 100 % Objective Remarks HEENT/ Neuro: Sedated, orally intubated, Pallor present, no icterus, tongue/ mucosa moist Neck: No JVD Chest/Pulm: on mech vent, good air entry decreased over right lung field, no wheezing or crackles. Scattered rhonchi CVS: S1-S2 regular, no murmur GI/abdomen: soft, nontender, bowel sounds sluggish Extremities: warm bilaterally, no edema A/P Assessment and Plan Respiratory failure -Neutropenic sepsis -Broad-spectrum antibiotic. On IV vancomycin/Zosyn. Added micafungin for antifungal coverage. -Consult ID -Panculture -Follow-up cultures and de-escalate per sensitivity -Vent bundle -Spontaneous breathing trials when hemodynamically improve Hypotension -Suspect septic shock/neutropenic sepsis -Due to above -Aggressive IV fluid resuscitation -Levophed/Barrett-Synephrine as needed to keep MAP above 65 -Added low-dose vasopressin gtt., stress dose steroids with hydrocortisone 100 mg IV every 8 hourly. Hold p.o. Decadron -Add bicarb drip for metabolic/lactic acidosis Rapid A. fib with RVR -Status post successful cardioversion -Telemetry -Treat underlying sepsis -Cardiology consulted Dyslipidemia -Resume home meds when appropriate Metastatic lung adenocarcinoma with brain/bone metastases -Oncology consultation Neutropenia Thrombocytopenia -Possibly secondary to metastatic CA, chemotherapy, sepsis -Deferred to oncology regarding using Neulasta Hyperglycemia -Insulin sliding scale DVT GI prophylaxis -Rupert's and SCDs -Lovenox -IV Pepcid Discussed with patient's daughter at bedside regarding critical condition and plan of care and she voiced understanding and was agreeable. Critical Care: The total critical care time was 35 minutes. Time to perform other separately billable procedures was not included in the critical care time. Franco Dias MD Apr 27, 2018 10:57
[2018-04-27] MEDS: MAGNESIUM SULFATE 1 GM PREMIX 100 ML IV SCH ×2 (11:30→12:20)
[2018-04-27] MEDS: MICAFUNGIN INJ 150 MG in SODIUM CHLORIDE 0.9% INJ 100 ML IV SCH (11:49)
--- NOTE | 2018-04-27 13:48 | PD.CONS ---
Consult Service Palliative Care Consult Requested By Dr. Cristy Dias Primary Care Physician Bassam Unger M.D. Reason for Consultation a. To assist with evaluation and management of symptoms including: Shortness of breath, debility b. To assist medical decision maker(s) with: better understanding of current medical conditions; weighing benefits/burdens of medical treatment options; making medical treatment decisions. HPI History of Present Illness Mr. 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 Patient was brought by paramedics on 04/26/18 from an oncology center where he was about to receive chemotherapy for his lung cancer. When paramedics arrived patient was in atrial fibrillation with RVR with a rate of 228 and systolic blood pressure in the 50s. Patient was also found to be hyperglycemic with blood glucose in the 600s. Patient underwent cardioversion and was placed on 100% nonrebreather. Upon arrival to the emergency room patient was found to be hypoxic. Code status was addressed in the ER, per documentation patient expressed that he wanted to be a full code and wants to be intubated if need be. Patient was initially diagnosed with poorly differentiated adenocarcinoma of the lung in November 2017. Patient was seen by Dr. Driscoll in December, at that time patient appeared to have metastatic disease to the bone and was referred to radiation oncology. PET scan results showed stage V lung adenocarcinoma with metastatic disease to the left adrenals, bulky lymphadenopathy and lytic lesions involving the right iliac vein, left posterior L2 vertebral body, anterior L1 vertebral body, right blair-lateral T12 vertebral body, right posterior T11 vertebral body, with distraction of the posterior right cortex and right T9 vertebral body. Patient was treated with carboplatin and Alimta. Patient was recently started on Keytruda. Per family patient has received radiation to the brain and follow-up MRI showed 4 new brain lesions and there were discussions of starting salvage radiation therapy to the brain. ER course: * Vital signs: Temperature 98.0, pulse 128, respirations 32, blood pressure 125/ 70, O2 saturation 95% * Laboratory workup revealed WBC 0.5, hemoglobin 12.6, hematocrit 37.3, platelet count 66, sodium 138, potassium 4.3, BUN/creatinine 30/1.27, lactic acid 5.2, calcium 8.2, AST 28, ALT 89, troponin 0 0.11, total protein 5.6, albumin 2.8, PT 11.0, INR 1.6. * Chest x-ray revealed progressing airspace disease in the right mid to lower lung sounds. * Head CT revealed no acute intracranial abnormality. Chronic findings include mild generalized atrophy * CT angiography revealed diffuse consolidation throughout the entire right lower lobe with sparing of the anterior basilar segment, infectious etiology suspected and left upper lobe pulmonary mass. * Urinalysis negative * Blood cultures collected-preliminary results showing no growth in 24 hours * EKG showed sinus rhythm with occasional ectopic beats. * Patient intubated in the ER. * Patient admitted for further evaluation and treatment under the critical care management physician Infectious disease Dr. Hensley consulted on 04/26/18 for evaluation and management of patient with neutropenic septic shock. Oncology Dr. Driscoll consulted to evaluate and manage patient with stage IV lung cancer with brain metastasis in neutropenic septic shock. Palliative care consulted to assist with symptom management and establishment of goals of care. Chest x-ray today revealing interval increase in opacity in the left upper lobe and right lung base and right costophrenic angle blunted consistent with an effusion. Patient seen and examined in MICU in the presence of his significant other Sophiagregory Adamson. Patient is intubated on mechanical ventilation and sedated sedated. Vent settings currently PRVC/AC 16/550/IT 1.0 S/8/70% with O2 saturation in the low 90s. Respiratory therapist just increased PEEP to 12 per physician orders. Patient is currently on Levophed infusion at 12 mcg/min, vasopressin infusion at 0.04 U/min, Barrett-Synephrine infusion at 300 mcg/min and fentanyl infusion at 100 mcg/hr. patient's current blood pressure on left radial arterial line is 104/59, heart rate 103. Cardiac output 5.2 and cardiac index 2.9. Obtained psychosocial, past medical history and events leading to this hospitalization. Discussed at length patient's trajectory of decline since he was diagnosed with cancer in November 2017. Patient`s significant other Sophia does not remember patient is ever completing advanced directives but requested that we call his oncologist's office to check. Telephone call to Dr. Driscoll's office and patient never completed advanced directives with them. Patient has 3 adult children, 2 daughters and 1 son- Dez Perez Jr and Belén Hines. Explained to Sophia, that according to [place] statute, patient's adult children will save as his healthcare proxys and that they have a choice to opt out if they do not want to participate in decision-making. 3 separate phone calls to all 3 children, updated them on patient's current medical status. Expressed concern regarding patient's current condition in relation to his medical history. Explained to all 3 children that patient is critically ill at this time. Addressed code status with all 3 children separately, discussed complications, limitations and benefits of CPR and they all elected full code at this time. They all want aggressive treatment at this time. Belén and Ambika expressed that they know that their father would not want to live if he is in " a vegetative state". Patient`s daughters mentioned that if patient would end up in a vegetative state, then they may reconsider the code status. Explained to them that unfortunately medical team is not able to determine how patient will do until after they have been resuscitated the patient. Encouraged all 3 children to continue discussions regarding decisions they may be faced with in the near future. Patient`s significant other expressed concern regarding how patient has been progressively declining despite the fact that he was responding to chemotherapy, that if patient is to be resuscitated he most likely will not do very well. Case discussed with Dr. Dias. Patient`s respiratory status worsening and will be transferred to a Roto-Prone bed. . Function/Cognitive Trajectory Patient was diagnosed with stage IV adenocarcinoma of the lung and he has been hospitalized 5 times since December,.Per his significant other, Sophia, patient has been progressively declining since December when he started radiation and chemotherapy. Patient has lost approximately 46 pounds in a 3 months period. Patient his had increased fatigue and and weakness. He has required assistance with most of his ADLs. Patient has been very weak and on the day he was hospitalized, his significant other had to find a walker for him to use for ambulation. Patient has been recently having difficulty with getting in and out of the care per his significant other. Per significant other, he has had problems recently with oral thrush and leukocytosis, nausea, pain and severe lower extremity weakness. . Review of Systems ROS Limitations: Intubated Constitutional: COMPLAINS OF: Fatigue, Weight loss, Generalized weakness Eyes: DENIES: Eye inflammation Ears, nose, mouth, throat: DENIES: Nasal discharge Respiratory: COMPLAINS OF: Cough, Shortness of breath Cardiovascular: DENIES: Lower Extremity Edema Gastrointestinal: DENIES: Bloody stools, Constipation, Nausea, Vomiting Musculoskeletal: COMPLAINS OF: Back pain Hematologic/Lymphatics: COMPLAINS OF: Bruising Psychiatric: DENIES: Agitation Other ROS: Review of system obtained from EMR, significant other and clinical observation . Past Family Social History Coded Allergies: No Known Allergies (Verified Allergy, Unknown, 04/26/18) Past Medical History Poorly differentiated adenocarcinoma of the lung Anxiety Hypercholesterolemia Hyperlipidemia Gastroesophageal reflux disease Hemorrhoids . Past Surgical History Cataract removal Left upper lung biopsy 2018 Vasectomy Port placement . Reported Medications Cardizem LA (Diltiazem ER 24 HR) 120 Mg Vicky 120 Mg PO DAILY Lovenox Inj (Enoxaparin Sodium) 60 Mg/0.6 Ml Syr 60 Mg SQ Q12H Dexamethasone 4 Mg Tab 4 Mg PO BID Zantac (Ranitidine HCl) 300 Mg Tab 300 Mg PO HS Folic Acid 1 Mg Tablet 1 Mg PO DAILY Magic Mouthwash Adult Liq (Multi-Ingredient Mouthwash/Gargle) 120 Ml Susp 5-10 Ml SWISH-SWAL ACHS Oxycodone (Oxycodone HCl) 5 Mg Tab 5 Mg PO Q4H PRN Nexium (Esomeprazole DR) 20 Mg Capdr 20 Mg PO DAILY . Current Medications Medications (Trade) Dose Ordered Sig/Gigi Route Start Time Stop Time Status Last Admin (NS Flush) 2 ml UNSCH PRN IV FLUSH 04/26/18 17:45 (NS Flush) 2 ml BID IV FLUSH 04/26/18 21:00 04/27/18 09:12 (Tylenol) 650 mg Q6H PRN PO 04/26/18 17:45 (Duoneb Neb) 1 ampule Q6HR NEB NEB 04/26/18 22:00 04/27/18 10:17 (Duoneb Neb) 1 ampule Q4HR NEB PRN INH 04/26/18 17:45 (Peridex 0.12% Liq) 15 ml BID@08,20 MT 04/26/18 20:00 04/27/18 09:12 (Pepcid Inj) 20 mg Q12HR IV PUSH 04/26/18 21:00 04/27/18 09:12 ([facility] 1 Q361D XX 04/26/18 17:45 (Chlorhexidine 2% Cloth) 3 pack Taper DAILY@04 TOP 04/27/18 04:00 04/23/19 03:59 04/27/18 04:00 (Chlorhexidine 2% Cloth) 3 pack UNSCH PRN TOP 04/26/18 17:45 Propofol 100 ml @ 2.25 mls/hr TITRATE PRN IV 04/26/18 17:45 (NovoLOG SUPPLEMENTAL SCALE) 1 Q4HR SQ 04/26/18 20:00 04/27/18 11:05 (D50w (Vial) Inj) 25 ml UNSCH PRN IV 04/26/18 17:45 (Glucagon Inj) 1 mg UNSCH PRN IM/SQ 04/26/18 17:45 Piperacillin Sod/ Tazobactam Sod 100 ml @ 200 mls/hr Q6H IV 04/27/18 00:00 04/27/18 11:05 Pharmacy Profile Note 0 ml @ 0 mls/hr UNSCH OTHER 04/26/18 18:00 Norepinephrine Bitartrate 250 ml @ 7.5 mls/hr TITRATE PRN IV 04/26/18 19:00 04/27/18 11:06 (Decadron) 4 mg BID PO 04/26/18 21:00 Future Hold (Lovenox Inj) 60 mg Q12HR SQ 04/26/18 19:15 04/27/18 09:11 (Folate) 1 mg DAILY PO 04/27/18 09:00 Fentanyl Citrate 250 ml @ 5 mls/hr TITRATE PRN IV 04/26/18 20:45 04/26/18 20:44 Esmolol HCl/ Sodium Chloride 250 ml @ 22.5 mls/hr TITRATE PRN IV 04/26/18 22:30 04/26/18 22:39 (SoluCORTEF INJ) 100 mg Q8HR IV PUSH 04/27/18 08:45 04/27/18 09:15 Vasopressin 40 units/Dextrose 100 ml @ 6 mls/hr [id number] IV 04/27/18 08:33 04/27/18 08:33 Phenylephrine HCl 160 mg/Dextrose 500 ml @ 7.5 mls/hr TITRATE PRN IV 04/27/18 08:45 04/27/18 11:06 (Brethine Inj) 1 mg UNSCH PRN SQ 04/27/18 08:45 Vancomycin HCl 1250 mg/Sodium Chloride 262.5 ml @ 262.5 mls/ hr Q18H IV 04/28/18 00:00 ([facility] Ordered Lab Info) SPECIFIC LAB TO BE ... ONCE ONCE .XX 04/29/18 11:45 04/29/18 11:46 Sodium Bicarbonate 150 meq/Sterile Water 1,000 ml @ 150 mls/hr Q6H40M IV 04/27/18 12:00 04/27/18 10:54 Micafungin Sodium 150 mg/Sodium Chloride 100 ml @ 100 mls/hr Q24H IV 04/27/18 12:00 04/27/18 11:49 Family History Mother- in the 80s from heart failure Father is still living-he is in his 90s-he has history of cataracts . Substance Use Tobacco: History of smoking greater than 25 pack years. Quit 15 years ago. Alcohol: Drinks alcohol occasionally. Prescription med abuse: None reported Illicits: None reported . Psychosocial History Patient was born in [place], [place] and he lived most of his life in [place]. Patient moved to [place] in 2006. Patient has been 4 times and 3 times. His fourth many years ago. Patient has a significant other, whom he has lived with for the past 27 years. Patient his 3 adult children, 2 daughters and 1 son, Dez Perez Jr and Belén Hines. 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 Patient to use to wake for [employer] until beginning of 2016. He was recently working part-time in [place] [employer] until November 2016. No experience. . Spiritual/Cultural Factors Patient is [place] . Living Will: Never completed Health Care Surrogate: Never completed Durable Power of Wool Broker: Never completed Health Care Surrogate(s): All 3 children want to save is healthcare proxy's Daughter-Ambika MartiKrixo-[phone] Son-Dez Fang Jr-[phone] Daughter- Belén Hines- [phone] . Family/friends goals: Family hoping that patient will get better, they all want aggressive treatment. . Ethical and Legal Issues None identified at this time . Physical Exam Vital Signs Date Time Temp Pulse Resp B/P (MAP) Pulse Ox O2 Delivery O2 Flow Rate FiO2 04/27/18 11:06 106 108/53 04/27/18 11:06 106 108/53 04/27/18 11:00 107 108/65 (79) 113/55 (74) 04/27/18 10:18 93 70 04/27/18 10:00 111 04/27/18 09:17 118 88/56 04/27/18 08:33 118 81/52 04/27/18 08:15 118 89/51 04/27/18 08:00 99.8 119 19 86/49 (61) 95 04/27/18 08:00 119 04/27/18 08:00 90 04/27/18 07:30 117 66/49 04/27/18 07:00 116 82/46 04/27/18 06:44 111 64/46 04/27/18 06:20 116 91/57 04/27/18 06:15 119 86/55 04/27/18 06:05 118 81/58 04/27/18 06:00 119 04/27/18 06:00 119 91/60 04/27/18 05:00 115 87/54 04/27/18 04:37 100 90 04/27/18 04:11 113 96/60 04/27/18 04:00 95 04/27/18 04:00 99.6 115 22 108/69 (82) 100 04/27/18 04:00 100 04/27/18 02:40 96 79/52 04/27/18 02:40 96 79/52 04/27/18 02:35 96 79/52 04/27/18 02:30 96 84/54 18 02:25 96 77/59 04/27/18 02:20 96 77/50 04/27/18 02:10 96 79/52 04/27/18 02:00 95 76/52 04/27/18 02:00 95 04/27/18 01:50 94 77/51 04/27/18 01:42 100.3 94 20 77/50 (59) 95 04/27/18 01:40 94 77/50 04/27/18 01:30 94 79/54 04/27/18 01:15 94 79/54 04/27/18 01:00 96 79/53 04/27/18 00:39 99 100 04/27/18 00:00 100 04/27/18 00:00 101 04/26/18 22:39 115 100/54 04/26/18 22:22 223 97/55 04/26/18 22:00 198 04/26/18 20:15 100 100 04/26/18 20:15 107 14 86/53 (64) 95 04/26/18 20:15 109 04/26/18 20:15 100 04/26/18 20:00 100 100 04/26/18 19:28 103 18 80/54 (63) 97 04/26/18 19:17 108 75/53 04/26/18 19:00 106 18 71/51 (58) 99 Ventilator 100 04/26/18 18:45 106 18 75/52 (60) 98 Ventilator 100 04/26/18 18:30 114 26 85/56 (66) 90 Ventilator 100 04/26/18 18:15 108 17 74/46 (55) 94 Ventilator 100 04/26/18 17:45 108 21 97/73 (81) 97 Ventilator 100 04/26/18 17:15 104 24 95/55 (68) 99 Ventilator 100 04/26/18 16:45 120 27 96/60 (72) 90 Ventilator 100 04/26/18 16:23 122 32 166/68 (100) 96 Ventilator 100 04/26/18 16:11 123 18 153/97 (115) 95 Ventilator 100 04/26/18 16:00 95 100 04/26/18 15:47 94 Ventilator 100 04/26/18 15:31 98.0 128 32 125/70 (88) 89 04/27/18 04/28/18 19:00 07:00 Intake Total 3477 ml Balance 3477 ml IV Total 3477 ml Exam CONSTITUTIONAL/GENERAL: This is an adequately nourished patient intubated and sedated TUBES/LINES/DRAINS: ETT, Parrish catheter, SCDs, bilateral upper extremity soft restraints, PIV, OG tube, [id number] right chest wall accessed SKIN: No jaundice, rashes, or lesions. Ecchymoses on upper extremities. Dry scabs to bilateral knees. Skin cool to touch. Not diaphoretic. HEAD: Atraumatic. Normocephalic. EYES: Pupils equal and round and reactive. Extraocular motions intact. No scleral icterus. Fundi not examined. ENT: Unable to assess hearing. No drainage noted to both nares. Moist oral mucosa. ETT in place NECK: Trachea midline. Supple, nontender. CARDIOVASCULAR: Irregular rhythm, heart rate 103. no murmur, no JVD. Peripheral pulses symmetric. RESPIRATORY/CHEST: Symmetric, unlabored respirations. Diminished breath sounds in the bases. No wheezes, rales, or rhonchi. GASTROINTESTINAL: Abdomen soft, non-tender, nondistended. Hypoactive bowel sounds. Old G-tube clamped GENITOURINARY: Without palpable bladder distension. Parrish catheter in place. MUSCULOSKELETAL: Extremities without clubbing, cyanosis, or edema. No joint tenderness or effusion noted. No calf tenderness. No mottling or clubbing. NEUROLOGICAL: Intubated, sedated, currently on fentanyl infusion PSYCHIATRIC: Unable to assess at this time. Diagnostic Tests Laboratory Laboratory Tests Test 04/26/18 14:28 04/26/18 16:00 04/26/18 18:30 04/26/18 19:11 Blood Gas Puncture Site RT RADIAL Blood Gas Patient Temperature 98.6 Blood Gas HCO3 16 mmol/L (22-26) Blood Gas Base Excess -7.6 mmol/L (-2-2) Blood Gas Oxygen Saturation 88 % (90-100) Arterial Blood pH 7.40 (7.380-7.420) Arterial Blood Partial Pressure CO2 27 mmHg (38-42) Arterial Blood Partial Pressure O2 60 mmHG (61-120) Arterial Blood Oxygen Content 15.3 Vol % (12.0-20.0) Arterial Blood Carboxyhemoglobin 1.2 % (0-4) Arterial Blood Methemoglobin 0.9 % (0-2) Blood Gas Hemoglobin 12.4 G/DL (12.0-16.0) Oxygen Delivery Device VENTILATOR Blood Gas Ventilator Setting 14/500/+5/100% Blood Gas Inspired Oxygen 100 % White Blood Count 0.5 TH/MM3 (4.0-11.0) Red Blood Count 4.06 MIL/MM3 (4.50-5.90) Hemoglobin 12.6 GM/DL (13.0-17.0) Hematocrit 37.3 % (39.0-51.0) Mean Corpuscular Volume 91.9 FL (80.0-100.0) Mean Corpuscular Hemoglobin 30.9 PG (27.0-34.0) Mean Corpuscular Hemoglobin Concent 33.6 % (32.0-36.0) Red Cell Distribution Width 23.9 % (11.6-17.2) Platelet Count 66 TH/MM3 (150-450) Mean Platelet Volume 8.9 FL (7.0-11.0) Neutrophils (%) (Auto) 88.7 % (16.0-70.0) Lymphocytes (%) (Auto) 4.7 % (9.0-44.0) Monocytes (%) (Auto) 5.9 % (0.0-8.0) Eosinophils (%) (Auto) 0.3 % (0.0-4.0) Basophils (%) (Auto) 0.4 % (0.0-2.0) Neutrophils # (Auto) 0.5 TH/MM3 (1.8-7.7) Lymphocytes # (Auto) 0.0 TH/MM3 (1.0-4.8) Monocytes # (Auto) 0.0 TH/MM3 (0-0.9) Eosinophils # (Auto) 0.0 TH/MM3 (0-0.4) Basophils # (Auto) 0.0 TH/MM3 (0-0.2) CBC Comment AUTO DIFF Differential Total Cells Counted 50 Neutrophils % (Manual) 66 % (16-70) Band Neutrophils % 22 % (0-6) Lymphocytes % 4 % (9-44) Monocytes % 2 % (0-8) Neutrophils # (Manual) 0.5 TH/MM3 (1.8-7.7) Metamyelocytes 6 % (0-1) Nucleated Red Blood Cells 2 /100 WBC (0-0) Differential Comment FINAL DIFF MANUAL Platelet Estimate LOW (NORMAL) Platelet Morphology Comment NORMAL (NORMAL) Ovalocytes 1+ (NORMAL) Keratocytes OCC (NORMAL) Prothrombin Time 11.0 SEC (9.8-11.6) Prothromb Time International Ratio 1.1 RATIO Activated Partial Thromboplast Time 26.6 SEC (24.3-30.1) Blood Urea Nitrogen 30 MG/DL (7-18) Creatinine 1.27 MG/DL (0.60-1.30) Random Glucose 338 MG/DL (74-106) Total Protein 5.6 GM/DL (6.4-8.2) Albumin 2.8 GM/DL (3.4-5.0) Calcium Level 8.2 MG/DL (8.5-10.1) Alkaline Phosphatase 65 U/L (45-117) Aspartate Amino Transf (AST/SGOT) 28 U/L (15-37) Alanine Aminotransferase (ALT/SGPT) 89 U/L (12-78) Total Bilirubin 0.9 MG/DL (0.2-1.0) Sodium Level 138 MEQ/L (136-145) Potassium Level 4.3 MEQ/L (3.5-5.1) Chloride Level 100 MEQ/L (98-107) Carbon Dioxide Level 17.6 MEQ/L (21.0-32.0) Anion Gap 20 MEQ/L (5-15) Estimat Glomerular Filtration Rate 57 ML/MIN (>89) Total Creatine Kinase 112 U/L (39-308) 87 U/L (39-308) Creatine Kinase MB 3.9 NG/ML (0.5-3.6) Troponin I 0.11 NG/ML (0.02-0.05) 0.13 NG/ML (0.02-0.05) Lactic Acid Level 5.2 mmol/L (0.4-2.0) Test 04/26/18 20:30 04/26/18 21:35 04/27/18 00:15 04/27/18 06:33 Nasal Screen MRSA (PCR) MRSA NOT DETECTED (NOT Lactic Acid Level 5.4 mmol/L (0.4-2.0) Total Creatine Kinase 106 U/L (39-308) Troponin I 0.27 NG/ML (0.02-0.05) White Blood Count 0.2 TH/MM3 (4.0-11.0) Red Blood Count 3.43 MIL/MM3 (4.50-5.90) Hemoglobin 10.8 GM/DL (13.0-17.0) Hematocrit 31.7 % (39.0-51.0) Mean Corpuscular Volume 92.2 FL (80.0-100.0) Mean Corpuscular Hemoglobin 31.3 PG (27.0-34.0) Mean Corpuscular Hemoglobin Concent 34.0 % (32.0-36.0) Red Cell Distribution Width 24.0 % (11.6-17.2) Platelet Count 42 TH/MM3 (150-450) Mean Platelet Volume 9.0 FL (7.0-11.0) CBC Comment AUTO DIFF Differential Total Cells Counted 20 Neutrophils % (Manual) 25 % (16-70) Band Neutrophils % 45 % (0-6) Lymphocytes % 5 % (9-44) Neutrophils # (Manual) 0.2 TH/MM3 (1.8-7.7) Metamyelocytes 10 % (0-1) Myelocytes 15 % (0-0) Nucleated Red Blood Cells 5 /100 WBC (0-0) Differential Comment FINAL DIFF MANUAL Dohle Bodies PRESENT (NONE SEEN) Platelet Estimate LOW (NORMAL) Platelet Morphology Comment NORMAL (NORMAL) Ovalocytes 1+ (NORMAL) Acanthocytes 1+ (NORMAL) Hematology Comments Blood Urea Nitrogen 25 MG/DL (7-18) Creatinine 1.08 MG/DL (0.60-1.30) Random Glucose 185 MG/DL (74-106) Total Protein 4.6 GM/DL (6.4-8.2) Albumin 2.4 GM/DL (3.4-5.0) Calcium Level 6.2 MG/DL (8.5-10.1) Alkaline Phosphatase 37 U/L (45-117) Aspartate Amino Transf (AST/SGOT) 28 U/L (15-37) Alanine Aminotransferase (ALT/SGPT) 52 U/L (12-78) Total Bilirubin 0.8 MG/DL (0.2-1.0) Sodium Level 141 MEQ/L (136-145) Potassium Level 3.8 MEQ/L (3.5-5.1) Chloride Level 110 MEQ/L (98-107) Carbon Dioxide Level 16.5 MEQ/L (21.0-32.0) Anion Gap 15 MEQ/L (5-15) Estimat Glomerular Filtration Rate 69 ML/MIN (>89) Protein Corrected Calcium 7.4 MG/DL (8.5-10.1) Test 04/27/18 07:44 04/27/18 08:30 White Blood Count 0.2 TH/MM3 (4.0-11.0) Red Blood Count 2.91 MIL/MM3 (4.50-5.90) Hemoglobin 9.2 GM/DL (13.0-17.0) Hematocrit 26.6 % (39.0-51.0) Mean Corpuscular Volume 91.3 FL (80.0-100.0) Mean Corpuscular Hemoglobin 31.5 PG (27.0-34.0) Mean Corpuscular Hemoglobin Concent 34.5 % (32.0-36.0) Red Cell Distribution Width 23.5 % (11.6-17.2) Platelet Count 41 TH/MM3 (150-450) Mean Platelet Volume 8.5 FL (7.0-11.0) CBC Comment AUTO DIFF Differential Total Cells Counted 20 Neutrophils % (Manual) 5 % (16-70) Band Neutrophils % 60 % (0-6) Lymphocytes % 20 % (9-44) Neutrophils # (Manual) 0.2 TH/MM3 (1.8-7.7) Metamyelocytes 10 % (0-1) Myelocytes 5 % (0-0) Nucleated Red Blood Cells 20 /100 WBC (0-0) Differential Comment FINAL DIFF MANUAL Dohle Bodies PRESENT (NONE SEEN) Platelet Estimate LOW (NORMAL) Platelet Morphology Comment NORMAL (NORMAL) Acanthocytes OCC (NORMAL) Blood Urea Nitrogen 27 MG/DL (7-18) Creatinine 1.10 MG/DL (0.60-1.30) Random Glucose 221 MG/DL (74-106) Total Protein 4.0 GM/DL (6.4-8.2) Albumin 2.0 GM/DL (3.4-5.0) Calcium Level 5.9 MG/DL (8.5-10.1) Phosphorus Level 3.6 MG/DL (2.5-4.9) Magnesium Level 1.1 MG/DL (1.5-2.5) Alkaline Phosphatase 33 U/L (45-117) Aspartate Amino Transf (AST/SGOT) 27 U/L (15-37) Alanine Aminotransferase (ALT/SGPT) 48 U/L (12-78) Total Bilirubin 0.8 MG/DL (0.2-1.0) Sodium Level 139 MEQ/L (136-145) Potassium Level 4.4 MEQ/L (3.5-5.1) Chloride Level 109 MEQ/L (98-107) Carbon Dioxide Level 14.0 MEQ/L (21.0-32.0) Anion Gap 16 MEQ/L (5-15) Estimat Glomerular Filtration Rate 67 ML/MIN (>89) Lactic Acid Level 4.4 mmol/L (0.4-2.0) Protein Corrected Calcium 7.4 MG/DL (8.5-10.1) Urine Color YELLOW (YELLW/STRAW) Urine Turbidity CLOUDY (CLEAR) Urine pH 5.5 (5.0-8.5) Urine Specific Clyde 1.037 (1.002-1.035) Urine Protein 30 mg/dL (NEG-TRACE) Urine Glucose (UA) TRACE mg/dL (NEG) Urine Ketones NEG mg/dL (NEG) Urine Occult Blood SMALL (NEG) Urine Nitrite NEG (NEG) Urine Bilirubin NEG (NEG) Urine Urobilinogen LESS THAN 2.0 MG/DL (LESS Urine Leukocyte Esterase NEG (NEG) Urine RBC 5 /hpf (0-3) Urine WBC 2 /hpf (0-5) Urine Amorphous Sediment RARE Urine Bacteria MANY /hpf (NONE) Urine Mucus FEW /lpf (OCC) Microscopic Urinalysis Comment CATH Result Diagram: 04/27/18 0744 04/27/18 0744 Microbiology Microbiology Date/Time Source Procedure Growth Status 04/26/18 18:30 Blood Peripheral Aerobic Blood Culture - Preliminary NO GROWTH IN 1 DAY Resulted 04/26/18 18:30 Blood Peripheral Anaerobic Blood Culture - Preliminary NO GROWTH IN 1 DAY Resulted 04/26/18 18:25 Blood Peripheral Aerobic Blood Culture - Preliminary NO GROWTH IN 1 DAY Resulted 04/26/18 18:25 Blood Peripheral Anaerobic Blood Culture - Preliminary NO GROWTH IN 1 DAY Resulted 04/27/18 08:34 Sputum Endotracheal Gram Stain Pending Received 04/27/18 08:34 Sputum Endotracheal Sputum Culture Pending Received Imaging Last Impressions Head CT 04/26/18 0000 Signed Impressions: CONCLUSION: 1. No acute intracranial abnormality is identified. The small enhancing lesion s documented on the outside contrast enhanced brain MRI are too small to be vis ible with noncontrast CT imaging. 2. Chronic findings include mild generalized atrophy. Chest X-Ray 04/26/18 0000 Signed Impressions: CONCLUSION: 1. ETT and NGT in good position. 2. Improved aeration in the left upper lung zone. 3. Progressing airspace disease in the right mid to lower lung zones. CT Angiography 04/26/18 0000 Signed Impressions: CONCLUSION: 1. The previously seen right-sided pulmonary embolus has resolved. No emboli s een on the current exam. 2. Diffuse consolidation throughout the entire right lower lobe with sparing o f the anterior basilar segment. This is a new finding. Infectious etiology susp ected. 3. Left upper lobe pulmonary mass. Procedures 04/26/18-intubation . Patient/Family Conference Family Conference Location: Bedside, Consult Room, Telephone Issues Discussed: * Palliative care role, purpose, approach * Additional medical, psychosocial, and spiritual history * Patients general health, functional status, and cognitive changes in the months leading up to the current hospitalization * Patient/family understanding of the current medical problems * Patient/family understanding of prognosis * Patients goals of care as best understood from advance directives and/or conversations and/or values * Current medical treatment options and benefits/burdens of those options * Likely scenarios comparing ongoing aggressive care with a transition to comfort measures only * Questions answered to the best of my ability * Palliative care contact information provided Assessment and Plan Disease Oriented Problem List: (1) Acute respiratory failure with hypoxia (2) Pneumonia (3) Adenocarcinoma, lung (4) Atrial fibrillation with RVR (5) GERD (gastroesophageal reflux disease) Symptom Scale: (1) Shortness of breath 0-10 Scale: Unable to quantify Comment: Patient has history of lung adenocarcinoma. Chest x-ray showing pneumonia. Currently intubated . 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 (3) Debility 0-10 Scale: Unable to quantify Comment: Progressive. . Pertinent Non-Medical Issues Psychosocial: Patient was born in [place], [place] and he lived most of his life in [place]. Patient moved to [place] in 2006. Patient has been 4 times and 3 times. His fourth many years ago. Patient has a significant other, whom he has lived with for the past 27 years. Patient his 3 adult children, 2 daughters and 1 son, Ambika Kaia Dez Fang Jr and Belén Hines. 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 Patient to use to wake for [employer] until beginning of 2016. He was recently working part-time in [place] [employer] until November 2016. No experience. Spiritual: Patient is [place] Legal: Patient never completed advanced directives Ethical issues impacting care: No issues identified at this time. . Important Contacts Daughter-Ambika MartiCqzvi-[phone] Son-Dez Leoncio TalleyOz-[phone] Daughter- Belén Hines- [phone] Stepdaughter-Maryjane Mooney- [phone] Significant other-Sayda Adamson-[phone] . Prognosis Mr. 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 Patient was brought by paramedics on 04/26/18 from an oncology center where he was about to receive chemotherapy for his lung cancer. When paramedics arrived patient was in atrial fibrillation with RVR with a rate of 228 and systolic blood pressure in the 50s. Patient was also found to be hyperglycemic with blood glucose in the 600s. Patient underwent cardioversion and was placed on 100% nonrebreather. Upon arrival to the emergency room patient was found to be hypoxic and was intubated and placed on mechanical ventilation. Patient is currently in neutropenic shock. Given multiple ongoing comorbidities, patient remains at very high risk for further complications and decline. . Code Status: Full Code Plan PLAN: Legal decision maker: Patient is currently intubated on mechanical ventilation and sedated. According to [facility] statute, patient's adult children, Ambika Kaia Dezmanuel Fang Jr and Belén Hines who will save is his healthcare proxys. Goals: Aggressive CODE STATUS: Full code Patient has 3 adult children, 2 daughters and 1 son- Ambika KaiaStepanmanuel Fang Jr and Belén Hines. 3 separate phone calls to all 3 children, updated them on patient's current medical status. Expressed concern regarding patient's current condition in relation to his medical history. Explained to all 3 children that patient is critically ill at this time. Addressed code status with all 3 children separately, discussed complications, limitations and benefits of CPR and they all elected full code at this time. They all want aggressive treatment at this time. Belén and Ambika expressed that they know that their father would not want to live if he is in "a vegetative state". Patient`s daughters mentioned that if patient would end up in a vegetative state , then they may reconsider the code status. Explained to them that unfortunately medical team is not able to determine how patient will do until after they have been resuscitated the patient. Encouraged all 3 children to continue discussions regarding decisions they may be faced with in the near future. Patient`s significant other expressed concern regarding how patient has been progressively declining despite the fact that he was responding to chemotherapy, that if patient is to be resuscitated he most likely will not do very well. SYMPTOMS: * Shortness of breath: Patient has stage IV adenocarcinoma of the lung. Chest x -ray 04/27/18 showing worsening pneumonia. Patient is currently on a PEEP of 12 and FiO2 70% with O2 saturation in the low 90s. [facility] started patient on Flolan and planning on transferring patient onto a Roto prone bed. Patient is on antibiotics, duo nebs. * Pain: Patient has stage IV adenocarcinoma of the lung with metastasis to the bone and brain. Patient currently receiving radiation therapy to the spine. Patient is currently on fentanyl infusion at 100 mcg/hour * Debility: Progressive. According to family, patient has been progressively deteriorating in the past few months. Per his significant other, he has significantly showed decline in his physical condition since he started chemotherapy and radiation therapy. He has been very weak and has had x 2 falls in the past 2 months due to weakness. Patient has been spending more time sleeping due to fatigue and has required assistance with his ADLs in the past couple of months. Patient started to ambulate with a walker on the day 04/26/18. If goals remain aggressive patient may benefit from PT, OT therapy. Palliative care will continue to follow the patient during hospital course as condition evolves, to assist patient/decision-maker with understanding of their medical conditions, weighing benefits/burdens of treatment options, for clarification of goals of treatment. Additionally will assist with any symptoms of palliative concern Thank you for the opportunity to participate in the care of Mr. Fang. Attestation To help prompt me to consider important information that might be impacting today's encounter and assessment, information from prior notes written by myself or my colleagues may have been "brought forward" into today's note. My signature on this note, however, is an attestation that I personally performed the exam, history, and/or decision-making noted today, and, unless otherwise indicated, the interactions with patient, family, and staff as well as the review of records all occurred today. I also attest that the listed assessment and stated plan reflect my best clinical judgment today based on the combination of historical information, prior notes, and today's exam/ interactions. When time spent is documented, it refers only to time spent today by the signer, or if indicated, combined time spent today by collaborating physician/nurse practitioner. Narayan Jeff Apr 27, 2018 13:48
--- NOTE | 2018-04-27 14:48 | EKG ---
Date Performed: 04/26/2018 Time Performed: 15:34:40 PTAGE: 67 years EKG: SINUS TACHYCARDIA WITH SHORT MI INTERVAL WITH OCCASIONAL SUPRAVENTRICULAR PREMATURE COMPLEX ES NONSPECIFIC ST & T-WAVE ABNORMALITY ABNORMAL RHYTHM ECG Compared to PREVIOUS TRACING , nonspecific changes are slightly more prominent. PREVIOUS TRACIN03/27/2018 10.19.12 DOCTOR: Chucho Wise Interpretating Date/Time 04/27/2018 14:47:53
[2018-04-27] MEDS: FILGRASTIM 480 MCG/1.6 ML VIAL SQ SCH (15:05)
[2018-04-27] MEDS: EPOPROSTENOL NEB SOLUTION 20 NG/KG/MIN 100 ML NEB SCH ×2 (15:05)
--- NOTE | 2018-04-27 15:37 | PD.CONS ---
History of Present Illness Service Infectious Disease Consult Requested By Dr Ajit Dias Reason for Consult Evaluate patient with sepsis, shock and neutropenia Primary Care Physician Bassam Unger M.D. Diagnoses: History of Present Illness Patient seen and examined. records reviewed. Patient is a 67-year-old male with underlying metastatic lung cancer, adenocarcinoma, with metastases to the spine in the brain, brought into the hospital for evaluation of shortness of breath. He apparently was in the oncology center, and was scheduled to get chemotherapy when he became really short of breath. Paramedics was called and he was found to be in atrial fibrillation with RVR, and he was hypotensive. He underwent cardioversion, and remained hypoxic. He has now been intubated, and patient is currently hypotensive on multiple pressors including Barrett-Synephrine, Levophed, and vasopressin. He has had low-grade temps. He is neutropenic. His chest x-ray showing significant infiltrate on the right lung. Patient was recently hospitalized the first week of March and was diagnosed to have pulmonary embolism. He underwent CT on this admission and it showed resolution of the pulmonary embolism. Patient currently is intubated, on sedation, on the vent with FiO2 of 100%. He is currently in atrial fibrillation with a controlled rate. Patient has received vancomycin, Zosyn, and micafungin. I do not have any other information, but there was no mention of any GI or urinary complaints prior to admission. Infectious disease consultation has been requested to evaluate patient with sepsis, shock, and neutropenia from chemotherapy. Review of Systems ROS Limitations: Clinical Condition, Intubated Constitutional: COMPLAINS OF: Fever Respiratory: COMPLAINS OF: Shortness of breath Past Family Social History Allergies: Coded Allergies: No Known Allergies (Verified Allergy, Unknown, 04/26/18) Past Medical History Metastatic lung adenocarcinoma to the spine and brain. Hyperlipidemia GERD PE Past Surgical History Lung biopsy Port placement Active Ordered Medications Current Medications Medications (Trade) Dose Ordered Sig/Gigi Route Start Time Stop Time Status Last Admin (NS Flush) 2 ml UNSCH PRN IV FLUSH 04/26/18 17:45 (NS Flush) 2 ml BID IV FLUSH 04/26/18 21:00 04/27/18 09:12 (Tylenol) 650 mg Q6H PRN PO 04/26/18 17:45 (Duoneb Neb) 1 ampule Q6HR NEB NEB 04/26/18 22:00 04/27/18 14:49 (Duoneb Neb) 1 ampule Q4HR NEB PRN INH 04/26/18 17:45 (Peridex 0.12% Liq) 15 ml BID@08,20 MT 04/26/18 20:00 04/27/18 09:12 (Pepcid Inj) 20 mg Q12HR IV PUSH 04/26/18 21:00 04/27/18 09:12 ([facility] Information) 1 Q361D XX 04/26/18 17:45 (Chlorhexidine 2% Cloth) 3 pack Taper DAILY@04 TOP 04/27/18 04:00 04/23/19 03:59 04/27/18 04:00 (Chlorhexidine 2% Cloth) 3 pack UNSCH PRN TOP 04/26/18 17:45 Propofol 100 ml @ 2.25 mls/hr TITRATE PRN IV 04/26/18 17:45 (NovoLOG SUPPLEMENTAL SCALE) 1 Q4HR SQ 04/26/18 20:00 04/27/18 15:05 (D50w (Vial) Inj) 25 ml UNSCH PRN IV 04/26/18 17:45 (Glucagon Inj) 1 mg UNSCH PRN IM/SQ 04/26/18 17:45 Piperacillin Sod/ Tazobactam Sod 100 ml @ 200 mls/hr Q6H IV 04/27/18 00:00 04/27/18 11:05 Pharmacy Profile Note 0 ml @ 0 mls/hr UNSCH OTHER 04/26/18 18:00 Norepinephrine Bitartrate 250 ml @ 7.5 mls/hr TITRATE PRN IV 04/26/18 19:00 04/27/18 11:06 (Decadron) 4 mg BID PO 04/26/18 21:00 Future Hold (Lovenox Inj) 60 mg Q12HR SQ 04/26/18 19:15 04/27/18 09:11 (Folate) 1 mg DAILY PO 04/27/18 09:00 Fentanyl Citrate 250 ml @ 5 mls/hr TITRATE PRN IV 04/26/18 20:45 04/26/18 20:44 Esmolol HCl/ Sodium Chloride 250 ml @ 22.5 mls/hr TITRATE PRN IV 04/26/18 22:30 04/26/18 22:39 (SoluCORTEF INJ) 100 mg Q8HR IV PUSH 04/27/18 08:45 04/27/18 15:05 Vasopressin 40 units/Dextrose 100 ml @ 6 mls/hr [id number] IV 04/27/18 08:33 04/27/18 08:33 Phenylephrine HCl 160 mg/Dextrose 500 ml @ 7.5 mls/hr TITRATE PRN IV 04/27/18 08:45 04/27/18 11:06 (Brethine Inj) 1 mg UNSCH PRN SQ 04/27/18 08:45 Vancomycin HCl 1250 mg/Sodium Chloride 262.5 ml @ 262.5 mls/ hr Q18H IV 04/28/18 00:00 ([facility] Ordered Lab Info) SPECIFIC LAB TO BE ... ONCE ONCE .XX 04/29/18 11:45 04/29/18 11:46 Sodium Bicarbonate 150 meq/Sterile Water 1,000 ml @ 150 mls/hr Q6H40M IV 04/27/18 12:00 04/27/18 10:54 Micafungin Sodium 150 mg/Sodium Chloride 100 ml @ 100 mls/hr Q24H IV 04/27/18 12:00 04/27/18 11:49 (Neupogen Inj) 480 mcg DAILY@14 SQ 04/27/18 14:00 04/27/18 15:05 Epoprostenol Sodium 35 ml/ Sodium Chloride 100 ml @ 5 mls/hr Q8H NEB 04/27/18 16:00 04/27/18 15:05 Family History Unremarkable Social History Ex-smoker. Quit smoking about 15 years ago. He does drink alcohol occasionally. Denies illicit drug use. Physical Exam Vital Signs Vital Signs Date Time Temp Pulse Resp B/P (MAP) Pulse Ox O2 Delivery O2 Flow Rate FiO2 04/27/18 14:33 90 04/27/18 14:06 93 70 04/27/18 14:00 102 04/27/18 14:00 102 04/27/18 12:00 103 04/27/18 12:00 90 04/27/18 12:00 99.5 103 16 108/66 (80) 92 105/56 (72) 04/27/18 11:06 106 108/53 04/27/18 11:06 106 108/53 04/27/18 11:00 107 108/65 (79) 113/55 (74) 04/27/18 10:18 93 70 04/27/18 10:00 111 04/27/18 09:17 118 88/56 04/27/18 08:33 118 81/52 04/27/18 08:15 118 89/51 04/27/18 08:00 99.8 119 19 86/49 (61) 95 04/27/18 08:00 119 04/27/18 08:00 90 04/27/18 07:30 117 66/49 04/27/18 07:00 116 82/46 04/27/18 06:44 111 64/46 04/27/18 06:20 116 91/57 04/27/18 06:15 119 86/55 04/27/18 06:05 118 81/58 04/27/18 06:00 119 04/27/18 06:00 119 91/60 04/27/18 05:00 115 87/54 04/27/18 04:37 100 90 04/27/18 04:11 113 96/60 04/27/18 04:00 95 04/27/18 04:00 99.6 115 22 108/69 (82) 100 04/27/18 04:00 100 04/27/18 02:40 96 79/52 04/27/18 02:40 96 79/52 04/27/18 02:35 96 79/52 04/27/18 02:30 96 84/54 04/27/18 02:25 96 77/59 04/27/18 02:20 96 77/50 04/27/18 02:10 96 79/52 04/27/18 02:00 95 76/52 04/27/18 02:00 95 04/27/18 01:50 94 77/51 04/27/18 01:42 100.3 94 20 77/50 (59) 95 04/27/18 01:40 94 77/50 04/27/18 01:30 94 79/54 04/27/18 01:15 94 79/54 04/27/18 01:00 96 79/53 04/27/18 00:39 99 100 04/27/18 00:00 100 04/27/18 00:00 101 04/26/18 22:39 115 100/54 04/26/18 22:22 223 97/55 04/26/18 22:00 198 04/26/18 20:15 100 100 04/26/18 20:15 107 14 86/53 (64) 95 04/26/18 20:15 109 04/26/18 20:15 100 04/26/18 20:00 100 100 04/26/18 19:28 103 18 80/54 (63) 97 04/26/18 19:17 108 75/53 04/26/18 19:00 106 18 71/51 (58) 99 Ventilator 100 04/26/18 18:45 106 18 75/52 (60) 98 Ventilator 100 04/26/18 18:30 114 26 85/56 (66) 90 Ventilator 100 04/26/18 18:15 108 17 74/46 (55) 94 Ventilator 100 04/26/18 17:45 108 21 97/73 (81) 97 Ventilator 100 04/26/18 17:15 104 24 95/55 (68) 99 Ventilator 100 04/26/18 16:45 120 27 96/60 (72) 90 Ventilator 100 04/26/18 16:23 122 32 166/68 (100) 96 Ventilator 100 04/26/18 16:11 123 18 153/97 (115) 95 Ventilator 100 04/26/18 16:00 95 100 04/26/18 15:47 94 Ventilator 100 Physical Exam GENERAL: Patient is a well-nourished, well-developed male, sedated on the vent, with mottling of both LE and lower trunk. Not in respiratory distress. SKIN: Cool and dry. Has mottling in BLE, cool feet. Has ecchymoses on his anterior abdominal wall and shoulder area. HEAD: Atraumatic. Normocephalic. No temporal wasting, or tenderness. EYES: [place] conjunctiva. No petechia or hemorrhage. Pupils equal, round and reactive to light. Has beginning scleral edema. No injection or drainage. EARS, NOSE AND THROAT: Nose without bleeding or purulent nasal discharge. He is orally intubated. NECK: Trachea midline. Supple and not tender, no meningeal signs CARDIOVASCULAR: Irregular rate and rhythm. No murmurs, rubs or gallops heard RESPIRATORY: He has diffuse rhonchi bilaterally, seems to be worse on the left than on the right. Decreased breath sounds on the right base. Port looks okay. ABDOMEN: Soft, nondistended, no reaction to deep palpation.. Bowel sounds present and normoactive. No guarding. EXTREMITIES: No clubbing, or edema. Has mottling in both lower extremity especially in the thigh area. Cool feet. NEUROLOGICAL: Sedated, no Babinski or clonus PSYCHIATRIC: Unable to assess LINE: Port no evidence of infection Laboratory Laboratory Tests Test 04/26/18 16:00 04/26/18 18:30 04/26/18 19:11 04/26/18 20:30 White Blood Count 0.5 Red Blood Count 4.06 Hemoglobin 12.6 Hematocrit 37.3 Mean Corpuscular Volume 91.9 Mean Corpuscular Hemoglobin 30.9 Mean Corpuscular Hemoglobin Concent 33.6 Red Cell Distribution Width 23.9 Platelet Count 66 Mean Platelet Volume 8.9 Neutrophils (%) (Auto) 88.7 Lymphocytes (%) (Auto) 4.7 Monocytes (%) (Auto) 5.9 Eosinophils (%) (Auto) 0.3 Basophils (%) (Auto) 0.4 Neutrophils # (Auto) 0.5 Lymphocytes # (Auto) 0.0 Monocytes # (Auto) 0.0 Eosinophils # (Auto) 0.0 Basophils # (Auto) 0.0 CBC Comment AUTO DIFF Differential Total Cells Counted 50 Neutrophils % (Manual) 66 Band Neutrophils % 22 Lymphocytes % 4 Monocytes % 2 Neutrophils # (Manual) 0.5 Metamyelocytes 6 Nucleated Red Blood Cells 2 Differential Comment FINAL DIFF MANUAL Platelet Estimate LOW Platelet Morphology Comment NORMAL Ovalocytes 1+ Keratocytes OCC Prothrombin Time 11.0 Prothromb Time International Ratio 1.1 Activated Partial Thromboplast Time 26.6 Blood Urea Nitrogen 30 Creatinine 1.27 Random Glucose 338 Total Protein 5.6 Albumin 2.8 Calcium Level 8.2 Alkaline Phosphatase 65 Aspartate Amino Transf (AST/SGOT) 28 Alanine Aminotransferase (ALT/SGPT) 89 Total Bilirubin 0.9 Sodium Level 138 Potassium Level 4.3 Chloride Level 100 Carbon Dioxide Level 17.6 Anion Gap 20 Estimat Glomerular Filtration Rate 57 Total Creatine Kinase 112 87 Creatine Kinase MB 3.9 Troponin I 0.11 0.13 Lactic Acid Level 5.2 Nasal Screen MRSA (PCR) MRSA NOT DETECTED Test 04/26/18 21:35 04/27/18 00:15 6/1/18 06:33 04/27/18 07:44 Lactic Acid Level 5.4 4.4 Total Creatine Kinase 106 Troponin I 0.27 White Blood Count 0.2 0.2 Red Blood Count 3.43 2.91 Hemoglobin 10.8 9.2 Hematocrit 31.7 26.6 Mean Corpuscular Volume 92.2 91.3 Mean Corpuscular Hemoglobin 31.3 31.5 Mean Corpuscular Hemoglobin Concent 34.0 34.5 Red Cell Distribution Width 24.0 23.5 Platelet Count 42 41 Mean Platelet Volume 9.0 8.5 CBC Comment AUTO DIFF AUTO DIFF Differential Total Cells Counted 20 20 Neutrophils % (Manual) 25 5 Band Neutrophils % 45 60 Lymphocytes % 5 20 Neutrophils # (Manual) 0.2 0.2 Metamyelocytes 10 10 Myelocytes 15 5 Nucleated Red Blood Cells 5 20 Differential Comment FINAL DIFF MANUAL FINAL DIFF MANUAL Dohle Bodies PRESENT PRESENT Platelet Estimate LOW LOW Platelet Morphology Comment NORMAL NORMAL Ovalocytes 1+ Acanthocytes 1+ OCC Hematology Comments Blood Urea Nitrogen 25 27 Creatinine 1.08 1.10 Random Glucose 185 221 Total Protein 4.6 4.0 Albumin 2.4 2.0 Calcium Level 6.2 5.9 Alkaline Phosphatase 37 33 Aspartate Amino Transf (AST/SGOT) 28 27 Alanine Aminotransferase (ALT/SGPT) 52 48 Total Bilirubin 0.8 0.8 Sodium Level 141 139 Potassium Level 3.8 4.4 Chloride Level 110 109 Carbon Dioxide Level 16.5 14.0 Anion Gap 15 16 Estimat Glomerular Filtration Rate 69 67 Protein Corrected Calcium 7.4 7.4 Phosphorus Level 3.6 Magnesium Level 1.1 Test 04/27/18 08:30 Urine Color YELLOW Urine Turbidity CLOUDY Urine pH 5.5 Urine Specific Hurricane 1.037 Urine Protein 30 Urine Glucose (UA) TRACE Urine Ketones NEG Urine Occult Blood SMALL Urine Nitrite NEG Urine Bilirubin NEG Urine Urobilinogen LESS THAN 2.0 Urine Leukocyte Esterase NEG Urine RBC 5 Urine WBC 2 Urine Amorphous Sediment RARE Urine Bacteria MANY Urine Mucus FEW Microscopic Urinalysis Comment CATH Date/Time Source Procedure Growth Status 04/26/18 18:30 Blood Peripheral Aerobic Blood Culture - Preliminary NO GROWTH IN 1 DAY Resulted 04/26/18 18:30 Blood Peripheral Anaerobic Blood Culture - Preliminary NO GROWTH IN 1 DAY Resulted 04/27/18 08:34 Sputum Endotracheal Gram Stain Pending Received 04/27/18 08:34 Sputum Endotracheal Sputum Culture Pending Received Result Diagram: 04/27/18 0744 04/27/18 0744 Imaging Last Impressions Head CT 04/26/18 0000 Signed Impressions: CONCLUSION: 1. No acute intracranial abnormality is identified. The small enhancing lesion s documented on the outside contrast enhanced brain MRI are too small to be vis ible with noncontrast CT imaging. 2. Chronic findings include mild generalized atrophy. Chest X-Ray 04/26/18 Signed Impressions: CONCLUSION: 1. ETT and NGT in good position. 2. Improved aeration in the left upper lung zone. 3. Progressing airspace disease in the right mid to lower lung zones. CT Angiography 04/26/18 Signed Impressions: CONCLUSION: 1. The previously seen right-sided pulmonary embolus has resolved. No emboli s een on the current exam. 2. Diffuse consolidation throughout the entire right lower lobe with sparing o f the anterior basilar segment. This is a new finding. Infectious etiology susp ected. 3. Left upper lobe pulmonary mass. Assessment and Plan Assessment and Plan IMPRESSION Severe sepsis, present on admission, with severe shock - source PNA, UTI - on 3 pressors - neutropenic post chemo Pneumonia, R UTI Neutropenia post chemo Metastatic lung CA, adeno CA to brain and spine Atrial fib, RVR, S/P cardioversion, has controlled rate RECOMMENDATION Check urine for Legionella and pneumococcal antigen We will also send urine culture Follow cultures and adjust antibiotics Continue vancomycin Continue micafungin Add Zithromax Change Zosyn to meropenem I will adjust antibiotic once cultures are available Patient severely ill, and on multiple pressors Follow temp Follow counts Monitor progress I will follow along with you Thank you for this consultation Discussed Condition With D/W Heather Burroughs MD Apr 27, 2018 15:37
--- NOTE | 2018-04-27 15:48 | RADRPT ---
EXAM DATE: 04/27/2018 3:43 PM EDT AGE/SEX: 67 years / Male INDICATIONS: Shortness of breath. CLINICAL DATA: This is the patient's subsequent encounter. Patient reports that signs and symptoms h ave been present for 1 week and indicates a pain score of Nonresponsive. MEDICAL/SURGICAL HISTORY: Carcinoma, lung. None. COMPARISON: [facility], CHEST SINGLE AP, 04/26/2018. . FINDINGS: A single AP portable semierect view of the chest was obtained. This again demonstrates the endotrache al tube in place with the tip approximately 5 cm above the mone. The nasogastric tube and right-brody ed central venous line remain in place. There is been interval increase in the hazy opacity in the le ft upper lobe and right lung base. The heart size remains within normal limits. The right costophreni c angle appears blunted on the current study which is new. The bony thorax remains intact. CONCLUSION: 1. Interval increase in opacity in the left upper lobe and right lung base. 2. The right costophrenic angle is now blunted consistent with an effusion. Electronically signed by: Claudy Morrsion MD 04/27/2018 3:46 PM EDT
[2018-04-27] MEDS ORDERED: PHARMACY INFORMATION XX PRN (16:00)
[2018-04-27] MEDS ORDERED: ASP: Other exception documentation: ( ) PRN (16:00)
[2018-04-27] MEDS ORDERED: CISATRACURIUM BESYLATE 20 MG/10 ML VIAL IV PUSH ONE (16:45)
[2018-04-27] MEDS: AZITHROMYCIN INJ 500 MG in SODIUM CHLOR 0.9% 250 ML INJ 250 ML IV SCH (17:08)
[2018-04-27] MEDS: MEROPENEM INJ 1,000 MG in SODIUM CHLORIDE 0.9% INJ 100 ML IV SCH (17:08)
[2018-04-27] MEDS: CISATRACURIUM INJ 100 MG in SODIUM CHLOR 0.9% 250 ML INJ 250 ML IV PRN (17:10)
[2018-04-27 17:35] LABS: HEMATOCRIT 29.2 % (39.0-51.0); MEAN CELL VOLUME 92.8 FL (80.0-100.0); MEAN CORPUSCULAR HEMOGLOBIN 31.6 PG (27.0-34.0); MEAN CORPUSCULAR HGB CONC 34.1 % (32.0-36.0); MEAN PLATELET VOLUME 9.3 FL (7.0-11.0); PLATELET COUNT 33 TH/MM3 (150-450); RED BLOOD COUNT 3.15 MIL/MM3 (4.50-5.90); RED CELL DISTRIBUTION WIDTH 23.7 % (11.6-17.2); WHITE BLOOD COUNT 0.2 TH/MM3 (4.0-11.0)
[2018-04-27 17:41] LABS: INTERNATIONAL NORMALIZED RATIO 1.7 RATIO; PROTHROMBIN TIME - PATIENT 16.7 SEC (9.8-11.6)
[2018-04-27] MEDS ORDERED: SODIUM BICARBONATE 8.4% INJ 50 MEQ/50 ML SYR IV PUSH ONE (17:45)
[2018-04-27 17:46] LABS: ALBUMIN 1.8 GM/DL (3.4-5.0); BICARBONATE 16.1 MEQ/L (21.0-32.0); CALCIUM 5.7 MG/DL (8.5-10.1); CREATININE 1.16 MG/DL (0.60-1.30); MAGNESIUM 1.7 MG/DL (1.5-2.5); PHOSPHORUS 5.6 MG/DL (2.5-4.9); TOTAL BILIRUBIN ADULT 1.1 MG/DL (0.2-1.0); TOTAL PROTEIN 4.3 GM/DL (6.4-8.2)
--- NOTE | 2018-04-27 17:50 | RADRPT ---
EXAM DATE: 04/27/2018 5:40 PM EDT AGE/SEX: 67 years / Male INDICATIONS: Right sided central line placement. CLINICAL DATA: This is the patient's initial encounter. Patient reports that signs and symptoms have been present for 1 day and indicates a pain score of Nonresponsive. MEDICAL/SURGICAL HISTORY: Carcinoma, lung. None. COMPARISON: [facility] – [place] CHEST SINGLE AP, 04/27/2018. . FINDINGS: A single AP portable semierect view of the chest was obtained and again demonstrates the endotracheal tube in place with the tip at the level of thoracic inlet. There has been interval placement of a ri t internal jugular central venous line with tip projected over the superior vena cava. There is no pneumothorax. The right subclavian central venous line remains in place. A nasogastric tube is again seen coursing through the esophagus and stomach. Bilateral hazy opacity is noted in both lungs greate st in the left upper lobe and right lung base. The right costophrenic angle remains blunted. CONCLUSION: 1. Interval placement of right internal jugular central venous line with no pneumothorax. 2. Hazy opacity remains in both lungs with apparent right effusion. Electronically signed by: Claudy Morrison MD 04/27/2018 5:49 PM EDT
[2018-04-27] MEDS ORDERED: FUROSEMIDE 20 MG/2 ML VIAL IV PUSH ONE (18:00)
[2018-04-27] MEDS: fentaNYL DRIP 250 ML IV PRN (18:03)
[2018-04-27 18:58] LABS: BANDS 44 % (0-6); CORRECTED NUCLEATED RBC 36 /100 WBC (0-0); LYMPHOCYTES 12 % (9-44); METAMYELOCYTES 20 % (0-1); MONOCYTES 8 % (0-8); MYELOCYTES 4 % (0-0); NUCLEATED RED BLOOD CELL 9 (0-0); POLYS (SEG NEUTROPHILS) 12 % (16-70)
[2018-04-27 18:59] LABS: OVALOCYTES 1+ (NORMAL)
[2018-04-27 19:00] LABS: BURR CELLS 1+ (NORMAL)
[2018-04-27] MEDS ORDERED: ENOXAPARIN SODIUM 40 MG/0.4 ML SYRINGE SQ SCH (19:00)
[2018-04-27] MEDS ORDERED: CALCIUM GLUCONATE INJ 1 GM in SODIUM CHLORIDE 0.9% INJ 100 ML IV ONE (19:00)
[2018-04-27 19:04] LABS: NEUTROPHIL # MANUAL DIFF 0.2 TH/MM3 (1.8-7.7)
--- NOTE | 2018-04-27 19:20 | PD.PROCEDR ---
Central Line Procedure REASON FOR PROCEDURE Central venous access PROCEDURE PERFORMED Central line placement: RIJ vein CONSENT Informed consent for procedure was obtained from family and document on chart. ANESTHESIA Local injection of 1% Lidocaine DESCRIPTION OF THE PROCEDURE The patient was placed in supine, mild Trendelenburg position. The area was exposed and cleansed with ChloraPrep, times two. Large sterile drape was used to cover the patient, with the site exposed, under sterile conditions including cap, face mask, sterile gown, and sterile gloves. On single attempt, the introducer needle was inserted with negative pressure in syringe and venous flash was obtained. The guide wire was then advanced without any restriction and the needle was removed. The dilator was used without any complications. Using Seldinger technique, a 20 cm antimicrobial coated triple-lumen catheter was advanced over the guide wire to a depth of 19 centimeters. The guide wire was removed. All ports were aspirated with dark venous blood return and flushed easily with sterile saline. All ports were capped. Antibiotic disc was placed around central line at puncture site. The central line was secured to the skin with a statlock. The area was bandaged with sterile see-through central line bandage. RADIOLOGICAL DATA Ultrasound guidance was used to locate RIJ vein. COMPLICATIONS: No apparent complications ESTIMATED BLOOD LOSS: Less than 1 cc. Franco Dias MD Apr 27, 2018 19:20
[2018-04-27] MEDS ORDERED: MAGNESIUM SULFATE 1 GM PREMIX 100 ML IV ONE (20:00)
[2018-04-28] VITALS (20 sets, daily range): BP systolic 84–120; BP diastolic 55–87; PULSE 96–108; RESP 6–22; TEMP 96.8–98; O2SAT 94–100
[2018-04-28] MEDS: MEROPENEM INJ 1,000 MG in SODIUM CHLORIDE 0.9% INJ 100 ML IV SCH ×3 (00:02→17:03)
[2018-04-28] MEDS: VANCOMYCIN INJ 1,250 MG in SODIUM CHLOR 0.9% 250 ML INJ 250 ML IV SCH ×2 (00:02→17:27)
[2018-04-28] MEDS: EPOPROSTENOL NEB SOLUTION 20 NG/KG/MIN 100 ML NEB SCH ×6 (00:13→23:52)
[2018-04-28] MEDS: NOREPINEPHRINE-DEXTROSE DRIP 250 ML IV PRN ×6 (00:40→19:17)
[2018-04-28] MEDS: CISATRACURIUM INJ 100 MG in SODIUM CHLOR 0.9% 250 ML INJ 250 ML IV PRN ×3 (01:44→19:16)
[2018-04-28] MEDS: CHLORHEXIDINE GLUCONATE 2 % 1 PACK (2 CLOTHS) TOP SCH (03:09)
[2018-04-28 03:40] LABS: HEMATOCRIT 27.1 % (39.0-51.0); HEMOGLOBIN 9.4 GM/DL (13.0-17.0); MEAN CELL VOLUME 90.7 FL (80.0-100.0); MEAN CORPUSCULAR HEMOGLOBIN 31.4 PG (27.0-34.0); MEAN CORPUSCULAR HGB CONC 34.7 % (32.0-36.0); MEAN PLATELET VOLUME 8.9 FL (7.0-11.0); RED BLOOD COUNT 2.98 MIL/MM3 (4.50-5.90); RED CELL DISTRIBUTION WIDTH 23.7 % (11.6-17.2); WHITE BLOOD COUNT 0.3 TH/MM3 (4.0-11.0)
[2018-04-28 03:50] LABS: PLATELET COUNT 13 TH/MM3 (150-450)
[2018-04-28] MEDS: RESP: ALBUTEROL 2.5 MG/IPRATROPIUM 0.5 MG NEB (SCH) NEB ×4 (03:58→20:58)
[2018-04-28] MEDS: INSULIN ASPART SUPPLEMENTAL SCALE SQ SCH ×5 (04:00→21:21)
[2018-04-28 04:13] LABS: ALBUMIN 1.5 GM/DL (3.4-5.0); BICARBONATE 15.2 MEQ/L (21.0-32.0); CALCIUM 5.7 MG/DL (8.5-10.1); CREATININE 1.31 MG/DL (0.60-1.30); MAGNESIUM 1.8 MG/DL (1.5-2.5); PHOSPHORUS 5.5 MG/DL (2.5-4.9); TOTAL BILIRUBIN ADULT 1.3 MG/DL (0.2-1.0); TOTAL PROTEIN 4.1 GM/DL (6.4-8.2)
[2018-04-28 04:14] LABS: CALCIUM-PROTEIN CORRECTED 7.1 MG/DL (8.5-10.1)
[2018-04-28] MEDS: HYDROCORTISONE SOD SUCCINATE 100 MG VIAL IV PUSH SCH ×3 (04:44→21:21)
[2018-04-28 05:07] LABS: BANDS 28 % (0-6); CORRECTED NUCLEATED RBC 4 /100 WBC (0-0); LYMPHOCYTES 4 % (9-44); MONOCYTES 4 % (0-8); MYELOCYTES 4 % (0-0); NUCLEATED RED BLOOD CELL 1 (0-0); POLYS (SEG NEUTROPHILS) 60 % (16-70)
[2018-04-28 05:08] LABS: DOHLE BODIES PRESENT (NONE SEEN); OVALOCYTES 1+ (NORMAL); TOXIC VACUOLATION PRESENT (NONE SEEN)
[2018-04-28 05:09] LABS: BURR CELLS 1+ (NORMAL)
[2018-04-28] MEDS: PHENYLEPHRINE INJ 160 MG in DEXTROSE 5% IN WATE 500 ML INJ 484 ML IV PRN ×2 (05:21)
[2018-04-28 05:45] LABS: NEUTROPHIL # MANUAL DIFF 0.3 TH/MM3 (1.8-7.7)
[2018-04-28] MEDS ORDERED: FUROSEMIDE 100 MG/10 ML VIAL IV PUSH STA (06:53)
--- NOTE | 2018-04-28 07:28 | RADRPT ---
EXAM DATE: 04/28/2018 7:22 AM EDT AGE/SEX: 67 years / Male INDICATIONS: Shortness of breath and follow up respiratory failure. CLINICAL DATA: This is the patient's subsequent encounter. Patient reports that signs and symptoms h ave been present for 4 - 6 days and indicates a pain score of Nonresponsive. MEDICAL/SURGICAL HISTORY: Non-responsive. Non-responsive. [place] [facility] [place] . FINDINGS: AP semiupright portable view of the chest demonstrates endotracheal tube with the tip just above the level of the clavicles. Recommend advancement 3 cm. There is a right-sided central line with the tip overlying the mid SVC, stable. Stable appearance of right basilar airspace density and bilateral uppe r lobe patchy airspace consolidation. The heart size appears grossly normal. Nasogastric tubing exten ding beyond the imaged portion of the film. CONCLUSION: Stable exam. Recommend advancing the endotracheal tube approximately 3 cm. Electronically signed by: Corinne Meyers MD 04/28/2018 7:27 AM EDT
[2018-04-28] MEDS: FOLIC ACID 1 MG TAB PO SCH (07:52)
[2018-04-28] MEDS: FAMOTIDINE 20 MG/2 ML VIAL IV PUSH SCH ×2 (07:52→21:21)
[2018-04-28] MEDS: MIDAZOLAM 50 MG/50 ML INJ 50 ML IV PRN (07:53)
[2018-04-28] MEDS: CHLORHEXIDINE 0.12% (ORAL KIT) 15 ML CUP MT SCH ×2 (07:54→21:22)
[2018-04-28] MEDS: SODIUM CHLORIDE 0.9% FLUSH 10 ML FLUSH IV FLUSH SCH ×2 (07:54→21:21)
[2018-04-28] MEDS: SODIUM BICARBONATE 8.4% INJ 150 MEQ in WATER STERILE FOR INJ 850 ML IV SCH ×2 (07:54→21:21)
[2018-04-28] MEDS: ENOXAPARIN SODIUM 60 MG/0.6 ML SYRINGE SQ SCH ×2 (07:55→21:00)
[2018-04-28] MEDS ORDERED: SODIUM CHLOR 0.9% 250 ML INJ 250 ML IV ONE (08:45)
[2018-04-28] MEDS ORDERED: SODIUM BICARBONATE 8.4% SOLN 50 MEQ/50 ML VIAL IV ONE (09:15)
--- NOTE | 2018-04-28 09:39 | HHI.CCPN ---
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 Patient was picked up at oncology Center and was about to get a chemotherapy dose for his lung cancer. Paramedics found him in A. fib with RVR with a rate of 228 and a blood pressure of 50 systolic. He underwent cardioversion. He arrived to emergency department on 100% nonrebreather but remained hypoxemic. The rhythm in the emergency department was a sinus with occasional ectopic beats. The patient was complaining of shortness of breath and despite of high oxygen delivery he remained severely hypoxemic. He was intubated by ED attending for an acute hypoxemic respiratory failure. Denies chest pain or productive cough or fever. 04/27: Sedated, orally intubated on mechanical ventilation. Had runs of SVT/ rapid A. fib last night from which he was cardioverted. Hypotensive on pressors. 04/28: Remains sedated, orally intubated on mechanical ventilation on neuromuscular blockade. On Barrett-Synephrine/Levophed/low-dose vasopressin for pressor support. On fentanyl/Nimbex GTT and being started on Versed in preparation for prone ventilation. Platelet count dropped to 13,000. 2 units pheresed platelets ordered. Significantly positive fluid balance. Starting Lasix to attempt to keep an even fluid balance. Continues on inhaled Flolan. Objective Vital Signs Date Time Temp Pulse Resp B/P (MAP) Pulse Ox O2 Delivery O2 Flow Rate FiO2 04/28/18 07:53 107 110/72 04/28/18 07:33 97 80 04/28/18 04:00 97.9 22 04/26/18 19:00 Ventilator Intake and Output 04/28/18 04/28/18 04/29/18 08:00 16:00 00:00 Intake Total 3177.5 ml Output Total 625 ml Balance 2552.5 ml Result Diagram: 04/28/18 0325 04/28/18 0325 Other Results Microbiology Date/Time Source Procedure Growth Status 04/27/18 08:30 Urine Catheterized Urine Legionella Antigen - Final PRESUMPTIVE NEGATIVE FOR LEGIONELLA P... Complete 04/27/18 08:30 Urine Catheterized Urine Streptococcus pneumoniae Antigen (M - Final PRESUMPTIVE NEGATIVE FOR STREPTOCOCCU... Complete Laboratory Tests Test 04/27/18 17:28 04/28/18 05:29 Blood Gas Puncture Site ART LINE JOSEPH Blood Gas Patient Temperature 98.6 98.6 Blood Gas HCO3 15 mmol/L (22-26) 13 mmol/L (22-26) Blood Gas Base Excess -11.8 mmol/L (-2-2) -11.8 mmol/L (-2-2) Blood Gas Oxygen Saturation 89 % (90-100) 95 % (90-100) Arterial Blood pH 7.17 (7.380-7.420) 7.30 (7.380-7.420) Arterial Blood Partial Pressure CO2 44 mmHg (38-42) 28 mmHg (38-42) Arterial Blood Partial Pressure O2 64 mmHg (61-120) 89 mmHg (61-120) Arterial Blood Oxygen Content 12.1 Vol % (12.0-20.0) 15.8 Vol % (12.0-20.0) Arterial Blood Carboxyhemoglobin 0.8 % (0-4) 0.6 % (0-4) Arterial Blood Methemoglobin 1.4 % (0-2) 1.3 % (0-2) Blood Gas Hemoglobin 9.6 G/DL (12.0-16.0) 11.8 G/DL (12.0-16.0) Oxygen Delivery Device VENTILATOR VENT Blood Gas Ventilator Setting SEE COMMENTS Blood Gas Inspired Oxygen 80 % Imaging Last Impressions Chest X-Ray 04/28/18 0000 Signed Impressions: CONCLUSION: Stable exam. Recommend advancing the endotracheal tube approximately [address] 04/26/18 0000 Signed Impressions: CONCLUSION: 1. No acute intracranial abnormality is identified. The small enhancing lesion s documented on the outside contrast enhanced brain MRI are too small to be vis ible with noncontrast CT imaging. 2. Chronic findings include mild generalized atrophy. CT Angiography 04/26/18 0000 Signed Impressions: CONCLUSION: 1. The previously seen right-sided pulmonary embolus has resolved. No emboli s een on the current exam. 2. Diffuse consolidation throughout the entire right lower lobe with sparing o f the anterior basilar segment. This is a new finding. Infectious etiology susp ected. 3. Left upper lobe pulmonary mass. Objective Remarks VEnt: Switched from PRVC to pressure control ventilation inspiratory pressure + 17, PEEP +12, rate 22 FiO2 80%, I time 1 second (I:E 1:1.7) HEENT/ Neuro: Sedated, orally intubated, on neuromuscular blockade pallor present, no icterus, tongue/ mucosa moist. Conjunctival edema noted. Neck: Right IJ central line in place Chest/Pulm: on mech vent, good air entry decreased over right lung field, no wheezing or crackles. Scattered rhonchi CVS: S1-S2 regular, no murmur GI/abdomen: soft, nontender, bowel sounds sluggish Extremities: warm bilaterally, bilateral edema Skin: Areas of ecchymosis over chest and abdominal wall noted. A/P Assessment and Plan Acute Respiratory failure on mechanical ventilation Pneumonia ARDS Neutropenic sepsis -Broad-spectrum antibiotic. On IV vancomycin/Meropenem/azithromycin/ micafungin. -Consulted ID - Dr. Hensley following -Pancultured-all cultures negative so far -Follow-up cultures and de-escalate per sensitivity -On mechanical ventilation. Started on inhaled Flolan on 04/27 for worsening respiratory status. Started on neuromuscular blockade with Pneumovax on 04/27. Being initiated on prone ventilation on 04/28. -Vent bundle -Spontaneous breathing trials following percutaneous nephrostomy placement Hypotension Suspect septic shock/neutropenic sepsis Lactic acidosis -Due to above -s/p Aggressive IV fluid resuscitation, now with significant positive fluid balance and starting Lasix to keep an even fluid balance -Levophed/Barrett-Synephrine as needed to keep MAP above 65 - low-dose vasopressin gtt., stress dose steroids with hydrocortisone 100 mg IV every 8 hourly. Hold p.o. Decadron -bicarb drip @ 75cc/hr for metabolic/lactic acidosis -Flowtrack for hemodynamic monitoring. SVV 9, cardiac index 2.9 SANAZ -Strict intake output, monitor and replete electrolyte, follow BUN/creatinine. Starting Lasix to attempt even fluid balance in the office significantly positive fluid balance over the last 48 hours A. fib with RVR -Status post successful cardioversion -Telemetry -Treat underlying sepsis Dyslipidemia -Resume home meds when appropriate Metastatic lung adenocarcinoma with brain/bone metastases -Oncology consulted and following Neutropenia Thrombocytopenia -Possibly secondary to metastatic CA, chemotherapy, sepsis -On Neulasta -Transfusing 2 units pheresed platelets on 04/28 for worsening thrombocytopenia follow CBC Hyperglycemia -Insulin sliding scale DVT GI prophylaxis -Rupert's and SCDs -Lovenox held due to worsening thrombocytopenia -IV Pepcid Discussed with patient's daughter at bedside on 04/27 regarding critical condition and plan of care and she voiced understanding and was agreeable. Condition remains critical. Palliative care following. Patient remains full CODE STATUS at this time her discussion with family. Critical Care: The total critical care time was 45 minutes. Time to perform other separately billable procedures was not included in the critical care time. Franco Dias MD Apr 28, 2018 09:39
--- NOTE | 2018-04-28 10:34 | PD.ONC.PN ---
Subjective Subjective Remarks Afebrile overnight. Patient intubated, sedated. The critical care nurses are working on getting him into a rotabed. He is on 3 pressors and FiO2 is at 80%. Objective Data Date Time Temp Pulse Resp B/P (MAP) Pulse Ox O2 Delivery O2 Flow Rate FiO2 04/28/18 09:32 96 80 04/28/18 09:32 100 100 04/28/18 07:53 107 110/72 04/28/18 07:33 97 80 04/28/18 06:00 108 04/28/18 05:21 104 118/77 04/28/18 04:06 105 124/79 04/28/18 04:00 104 120/87 (98) 100/73 (82) 04/28/18 04:00 97.9 104 22 120/87 (98) 97 100/73 (82) 04/28/18 04:00 80 04/28/18 04:00 104 04/28/18 03:55 97 80 04/28/18 02:00 101 04/28/18 00:40 100 110/69 04/28/18 00:34 96 80 04/28/18 00:00 102 04/28/18 00:00 97.8 102 22 109/81 (90) 94 105/68 (80) 04/28/18 00:00 80 04/28/18 00:00 102 109/81 (90) 105/68 (80) 04/27/18 23:00 103 105/67 04/27/18 22:00 104 04/27/18 20:23 94 80 04/27/18 20:17 108 106/64 04/27/18 20:16 107 103/63 04/27/18 20:00 109 94/73 (80) 95/60 (72) 04/27/18 20:00 97.9 109 22 94/73 (80) 93 95/60 (72) 04/27/18 20:00 80 04/27/18 20:00 109 04/27/18 19:00 109 90/61 04/27/18 19:00 109 90/61 04/27/18 19:00 109 90/61 04/27/18 18:02 109 86/58 04/27/18 18:00 109 93/63 (73) 84/58 (67) 04/27/18 18:00 109 04/27/18 17:56 109 85/57 04/27/18 17:56 109 85/57 04/27/18 17:55 80 04/27/18 17:43 107 81/54 04/27/18 17:43 107 81/54 18 17:43 107 81/54 04/27/18 17:43 107 81/54 04/27/18 17:43 107 81/54 04/27/18 17:43 107 81/54 04/27/18 17:43 107 81/54 04/27/18 17:43 107 81/54 04/27/18 17:43 108 82/56 04/27/18 17:43 108 82/56 04/27/18 17:43 108 82/56 04/27/18 17:43 108 82/56 04/27/18 17:37 75 04/27/18 17:10 106 105/63 04/27/18 17:00 50 04/27/18 16:50 80 04/27/18 16:00 104 04/27/18 16:00 99.1 104 16 106/80 (89) 99 101/62 (75) 04/27/18 15:57 90 04/27/18 14:45 100 04/27/18 14:33 90 04/27/18 14:06 93 70 04/27/18 14:00 102 04/27/18 14:00 102 04/27/18 12:00 103 04/27/18 12:00 90 04/27/18 12:00 99.5 103 16 108/66 (80) 92 105/56 (72) 04/27/18 11:06 106 108/53 04/27/18 11:06 106 108/53 04/27/18 11:00 107 108/65 (79) 113/55 (74) 04/28/18 04/28/18 04/28/18 07:00 15:00 23:00 Intake Total 3177.5 ml Output Total 625 ml Balance 2552.5 ml Result Diagram: 04/28/18 0325 04/28/18 0325 Laboratory Results Laboratory Tests Test 04/27/18 16:52 04/27/18 17:28 04/28/18 03:24 04/28/18 03:25 White Blood Count 0.2 TH/MM3 0.3 TH/MM3 Red Blood Count 3.15 MIL/MM3 2.98 MIL/MM3 Hemoglobin 10.0 GM/DL 9.4 GM/DL Hematocrit 29.2 % 27.1 % Mean Corpuscular Volume 92.8 FL 90.7 FL Mean Corpuscular Hemoglobin 31.6 PG 31.4 PG Mean Corpuscular Hemoglobin Concent 34.1 % 34.7 % Red Cell Distribution Width 23.7 % 23.7 % Platelet Count 33 TH/MM3 13 TH/MM3 Mean Platelet Volume 9.3 FL 8.9 FL CBC Comment AUTO DIFF AUTO DIFF Differential Total Cells Counted 25 25 Neutrophils % (Manual) 12 % 60 % Band Neutrophils % 44 % 28 % Lymphocytes % 12 % 4 % Monocytes % 8 % 4 % Neutrophils # (Manual) 0.2 TH/MM3 0.3 TH/MM3 Metamyelocytes 20 % Myelocytes 4 % 4 % Nucleated Red Blood Cells 36 /100 WBC 4 /100 WBC Differential Comment FINAL DIFF MANUAL FINAL DIFF MANUAL Platelet Estimate LOW RARE Platelet Morphology Comment NORMAL NORMAL Ovalocytes 1+ 1+ Rome Cells 1+ 1+ Prothrombin Time 16.7 SEC Prothromb Time International Ratio 1.7 RATIO Activated Partial Thromboplast Time 41.7 SEC Fibrinogen 499 mg/dL Blood Urea Nitrogen 28 MG/DL 29 MG/DL Creatinine 1.16 MG/DL 1.31 MG/DL Random Glucose 216 MG/DL 255 MG/DL Total Protein 4.3 GM/DL 4.1 GM/DL Albumin 1.8 GM/DL 1.5 GM/DL Calcium Level 5.7 MG/DL 5.7 MG/DL Phosphorus Level 5.6 MG/DL 5.5 MG/DL Magnesium Level 1.7 MG/DL 1.8 MG/DL Alkaline Phosphatase 48 U/L 61 U/L Aspartate Amino Transf (AST/SGOT) 47 U/L 53 U/L Alanine Aminotransferase (ALT/SGPT) 59 U/L 64 U/L Total Bilirubin 1.1 MG/DL 1.3 MG/DL Sodium Level 135 MEQ/L 131 MEQ/L Potassium Level 4.4 MEQ/L 3.9 MEQ/L Chloride Level 103 MEQ/L 98 MEQ/L Carbon Dioxide Level 16.1 MEQ/L 15.2 MEQ/L Anion Gap 16 MEQ/L 18 MEQ/L Estimat Glomerular Filtration Rate 63 ML/MIN 55 ML/MIN Lactic Acid Level 3.0 mmol/L 3.6 mmol/L Protein Corrected Calcium 7.0 MG/DL 7.1 MG/DL Blood Gas Puncture Site ART LINE Blood Gas Patient Temperature 98.6 Blood Gas HCO3 15 mmol/L Blood Gas Base Excess -11.8 mmol/L Blood Gas Oxygen Saturation 89 % Arterial Blood pH 7.17 Arterial Blood Partial Pressure CO2 44 mmHg Arterial Blood Partial Pressure O2 64 mmHg Arterial Blood Oxygen Content 12.1 Vol % Arterial Blood Carboxyhemoglobin 0.8 % Arterial Blood Methemoglobin 1.4 % Blood Gas Hemoglobin 9.6 G/DL Oxygen Delivery Device VENTILATOR Blood Gas Ventilator Setting Toxic Vacuolation PRESENT Dohle Bodies PRESENT Lipase 27 U/L Test 04/28/18 05:29 Blood Gas Puncture Site JOSEPH Blood Gas Patient Temperature 98.6 Blood Gas HCO3 13 mmol/L Blood Gas Base Excess -11.8 mmol/L Blood Gas Oxygen Saturation 95 % Arterial Blood pH 7.30 Arterial Blood Partial Pressure CO2 28 mmHg Arterial Blood Partial Pressure O2 89 mmHg Arterial Blood Oxygen Content 15.8 Vol % Arterial Blood Carboxyhemoglobin 0.6 % Arterial Blood Methemoglobin 1.3 % Blood Gas Hemoglobin 11.8 G/DL Oxygen Delivery Device VENT Blood Gas Ventilator Setting SEE COMMENTS Blood Gas Inspired Oxygen 80 % Culture Results Microbiology Date/Time Source Procedure Growth Status 04/26/18 18:30 Blood Peripheral Aerobic Blood Culture - Preliminary NO GROWTH IN 1 DAY Resulted 04/26/18 18:30 Blood Peripheral Anaerobic Blood Culture - Preliminary NO GROWTH IN 1 DAY Resulted 04/26/18 18:25 Blood Peripheral Aerobic Blood Culture - Preliminary NO GROWTH IN 1 DAY Resulted 04/26/18 18:25 Blood Peripheral Anaerobic Blood Culture - Preliminary NO GROWTH IN 1 DAY Resulted 04/27/18 08:34 Sputum Endotracheal Gram Stain - Final Resulted 04/27/18 08:34 Sputum Endotracheal Sputum Culture Pending Resulted 04/27/18 08:30 Urine Catheterized Urine Legionella Antigen - Final PRESUMPTIVE NEGATIVE FOR LEGIONELLA P... Complete 04/27/18 08:30 Urine Catheterized Urine Streptococcus pneumoniae Antigen (M - Final PRESUMPTIVE NEGATIVE FOR STREPTOCOCCU... Complete 04/27/18 08:30 Urine Catheterized Urine Urine Culture Pending Received Imaging Studies Last 24 hours Impressions Chest X-Ray 04/28/18 0000 Signed Impressions: CONCLUSION: Stable exam. Recommend advancing the endotracheal tube approximately 3 cm. Administered Medications Medications (Trade) Dose Ordered Sig/Gigi Route PRN Reason Start Time Stop Time Status Last Admin Dose Admin Sodium Chloride (NS Flush) 2 ml BID IV FLUSH 04/26/18 21:00 04/27/18 20:16 Albuterol/ Ipratropium (Duoneb Neb) 1 ampule Q6HR NEB NEB 04/26/18 22:00 04/28/18 07:41 Chlorhexidine Gluconate (Peridex 0.12% Liq) 15 ml BID@08,20 MT 04/26/18 20:00 04/28/18 07:54 Famotidine (Pepcid Inj) 20 mg Q12HR IV PUSH 04/26/18 21:00 04/28/18 07:52 Chlorhexidine Gluconate (Chlorhexidine 2% Cloth) 3 pack Taper DAILY@04 TOP 04/27/18 04:00 04/23/19 03:59 04/28/18 03:09 Insulin Aspart (NovoLOG SUPPLEMENTAL SCALE) 1 Q4HR SQ 04/26/18 20:00 04/28/18 04:00 Enoxaparin Sodium (Lovenox Inj) 60 mg Q12HR SQ 04/26/18 19:15 04/27/18 09:11 Folic Acid (Folate) 1 mg DAILY PO 04/27/18 09:00 04/28/18 07:52 Esmolol HCl/ Sodium Chloride 250 ml @ 22.5 mls/hr TITRATE PRN IV Blood Pressure Management 04/26/18 22:30 Future Hold 04/26/18 22:39 Hydrocortisone Sodium Succinate (SoluCORTEF INJ) 100 mg Q8HR IV PUSH 04/27/18 08:45 04/28/18 04:44 Vasopressin 40 units/Dextrose 100 ml @ 6 mls/hr [id number] IV 04/27/18 08:33 04/27/18 23:00 Phenylephrine HCl 160 mg/Dextrose 500 ml @ 7.5 mls/hr TITRATE PRN IV Blood pressure management 04/27/18 08:45 04/28/18 05:21 Vancomycin HCl 1250 mg/Sodium Chloride 262.5 ml @ 262.5 mls/ hr Q18H IV 04/28/18 00:00 04/28/18 00:02 Sodium Bicarbonate 150 meq/Sterile Water 1,000 ml @ 75 mls/hr [id number] IV 04/27/18 12:00 04/28/18 07:54 Micafungin Sodium 150 mg/Sodium Chloride 100 ml @ 100 mls/hr Q24H IV 04/27/18 12:00 04/27/18 11:49 Filgrastim (Neupogen Inj) 480 mcg DAILY@14 SQ 04/27/18 14:00 04/27/18 15:05 Epoprostenol Sodium 35 ml/ Sodium Chloride 100 ml @ 5 mls/hr Q8H NEB 04/27/18 16:00 04/28/18 00:13 Azithromycin 500 mg/Sodium Chloride 250 ml @ 250 mls/hr Q24H IV 04/27/18 16:00 04/27/18 17:08 Meropenem 1000 mg/ Sodium Chloride 100 ml @ 200 mls/hr Q8H IV 04/27/18 16:00 04/28/18 07:53 Cisatracurium Besylate 100 mg/ Sodium Chloride 260 ml @ 10.6 mls/hr TITRATE PRN IV TOF /04/27/18 16:45 04/28/18 01:44 Norepinephrine Bitartrate 250 ml @ 7.5 mls/hr TITRATE PRN IV Blood pressure management 04/27/18 17:45 04/28/18 07:53 Fentanyl Citrate 250 ml @ 5 mls/hr TITRATE PRN IV SEDATION 04/27/18 17:45 04/27/18 18:03 Midazolam HCl 50 ml @ 2 mls/hr TITRATE PRN IV SEDATION 04/27/18 17:45 04/28/18 07:53 Objective Remarks GENERAL: intubated, sedated male, supine in bed SKIN: Warm and dry. HEAD: Normocephalic. OT intubated. EYES: No injection NECK: Supple, trachea midline. CARDIOVASCULAR: IRR RESPIRATORY: scattered rhonchi. on mechanical ventilation GASTROINTESTINAL: Abdomen soft, non-tender, nondistended. EXTREMITIES: cold extremities. NEUROLOGICAL: intubated, sedated. Assessment/Plan Assessment 67y/o with metastatic lung cancer, admitted with neutropenic fever, critically ill in [facility] [place]. Plan 1. metastatic lung cancer: treated with Keytruda as well as chemotherapy. 2. respiratory failure: CTA showed diffuse consolidation throughout the right lower lobe. patient is being placed in a rota-bed today. continue antibiotics. 3. pancytopenia: continue Neupogen until WBC>5K. monitor hgb and platelets and transfuse as needed to maintain platelet count greater than 20K and hgb >7.5mg/ dL. 4. hold Lovenox Attending Statement The exam, history, and the medical decision-making described in the above note were completed with the assistance of the mid-level provider. I reviewed and agree with the findings presented. I attest that I had a [id number] encounter with the patient on the same day, and personally performed and documented my assessment and findings in the medical record. on maximum support prognosis is poor discussed with Chelsie Heath Apr 28, 2018 10:34 Phan Driscoll MD Apr 29, 2018 08:48
--- NOTE | 2018-04-28 10:45 | MB ---
cc: Phan Driscoll MD DATE: 04/27/2018 REASON FOR CONSULTATION: The patient with stage IV non-small cell lung cancer who presents to the emergency room with dyspnea. CHIEF COMPLAINT: The patient is currently sedated and intubated. HISTORY OF PRESENT ILLNESS: This is a 67-year-old male who has diagnosis of metastatic non-small cell lung cancer with adenocarcinoma histology. He has metastatic disease to the brain. He is currently receiving chemotherapy consisting of carboplatin and Alimta. Recently treatment with immunotherapy was added to his treatment regimen. The patient recently developed new metastatic lesions to the brain. A recent MRI of the brain showed 2 new additional lesions within the deep huang matter of the right cerebral hemisphere. One was located in the head of the caudate nucleus, and the second one within the thalamus. The patient is currently being evaluated by Dr. Martin in radiation oncology for stereotactic radiation to these lesions. The patient has a history of pulmonary embolism and he is currently on Lovenox. The patient presented to the oncology clinic on to receive his chemotherapy. He was found to be significantly hyperglycemic with a glucose in the 500s. He was given insulin and IV fluids. Subsequently, he developed shortness of breath and felt unwell. He also developed rapid heart rate. EMS was called. The patient was found to be in atrial fibrillation with RVR and a rate of 248. He became hypotensive with a systolic blood pressure in the 50s. Repeat check of his blood glucose showed a level in the 600s. The patient underwent cardioversion and he was placed on 100% nonrebreather. He was brought to the emergency room. I am being told that the patient was cardioverted a second time in the emergency room. Labs showed severe neutropenia with a WBC of 0.2, hemoglobin was 10 and a platelet count of 33,000. His anion gap was 16. Chest x-ray on admission showed progressive airspace disease in the right mid lung zones. A CT angiogram was also completed, which did not show any new emboli. The previously seen right-sided pulmonary emboli had completely resolved. There was diffuse consolidation throughout the entire right lung. Left upper lobe pulmonary mass was visualized. The patient is currently on maximum number of vasopressors. He is sedated and he is on mechanical ventilation. His is present at bedside. REVIEW OF SYSTEMS: Could not be completed due to the patient's clinical status. 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 PAST SURGICAL HISTORY: Port placement, cataract removal, left upper lung biopsy, history of vasectomy. FAMILY HISTORY: Noncontributory to this admission, and this was reviewed. SOCIAL HISTORY: He quit smoking 15 years ago. He has more than 25 pack years of smoking history. He occasionally drinks alcohol. No illicit drug use. MEDICATIONS: Lasix 40 mg IV b.i.d., vancomycin 1250 mg q.18 hours IV, norepinephrine, fentanyl drip, azithromycin, meropenem, Neupogen folic acid, Solu-Cortef, vasopressin, GTT, DuoNebs, famotidine, insulin sliding scale, Lovenox 60 q.12 hours. ALLERGIES: NO KNOWN DRUG ALLERGIES. PHYSICAL EXAMINATION: VITAL SIGNS: Blood pressure is 80/54, pulse is in the 100s, O2 saturations are 94% on 8 liters of FiO2. GENERAL: Acutely-ill patient who is currently sedated and intubated. HEENT: Pupils are sluggish. NECK: Supple. No JVD. CHEST: Bilateral coarse sounds. CARDIAC: S1, S2, tachycardic. ABDOMEN: Soft, mildly distended. Bowel sounds are decreased. EXTREMITIES: Without any edema, erythema or cyanosis. SKIN: Without any petechia, lesion or bruises. NEUROLOGIC: The patient is sedated. LYMPH NODE: No lymphadenopathy on exam. LABORATORY DATA: WBC is 0.2, hemoglobin is 10.8, platelet count is 42. Serum chemistries: Sodium 141, potassium 3.8, chloride 110, BUN is 25, creatinine is 1.08, GFR 69. Lactic acid is 5.4, magnesium is 1.1, AST is 27, ALT is 48. BNP is 36. Lipase is 27. IMAGING STUDIES: Reviewed in the EMR and discussed in the HPI. ASSESSMENT AND PLAN: This is a 67-year-old male who has a diagnosis of stage IV non-small cell lung cancer with adenocarcinoma histology. He has metastasis to the brain. He was brought to the emergency room with dyspnea. He is currently in respiratory failure. He is septic. He is hypotensive with multiple pressors on board. 1. Acute respiratory failure with sepsis. The patient's lactic acid was elevated at 5. I agree with maximum support. He is currently on multiple antibiotics. He is on multiple vasopressors. Blood cultures are pending. I had a discussion with his . I did explain to her that given underlying stage IV lung cancer, his prognosis is poor. She wants to continue with full support. 2. Rapid atrial fibrillation with rapid ventricular response. He is status post cardioversion. Cardiology is following this patient. 3. Severe neutropenia. We will start him on daily Neupogen injections. 4. Thrombocytopenia. If his platelet counts drop below 30,000; we will stop Lovenox. Transfuse to keep platelet count greater than 20,000. 5. Anemia. Hemoglobin is 10. We will continue to monitor. 6. Hyperglycemia with anion gap in the 16 range. Agree with current management. Patient is currently on insulin. 7. Stage IV lung adenocarcinoma with brain metastasis. Most recent scans show treatment response in the chest. He does have 2 very small lesions in his brain. No further treatment will be given at this time. Thank you for allowing me to participate in the care of this patient. I will continue to follow this patient along. MD SHAKIRA Davila/TYLER , 09:30 AM , 10:45 AM
[2018-04-28] MEDS ORDERED: CALCIUM GLUCONATE INJ 2 GM in DEXTROSE 5% IN WATER 100ML INJ 100 ML IV ONE ×2 (11:00)
[2018-04-28] MEDS: MICAFUNGIN INJ 150 MG in SODIUM CHLORIDE 0.9% INJ 100 ML IV SCH (11:54)
[2018-04-28] MEDS: FUROSEMIDE 40 MG/4 ML VIAL IV PUSH SCH ×2 (12:21→17:47)
[2018-04-28] MEDS ORDERED: FILGRASTIM INJ 480 MCG in DEXTROSE 5% IN WATER INJ 50 ML IV SCH ×2 (14:00)
[2018-04-28] MEDS: FILGRASTIM 480 MCG/1.6 ML VIAL SQ SCH (14:53)
[2018-04-28 17:01] LABS: HEMATOCRIT 23.3 % (39.0-51.0); MEAN CELL VOLUME 90.4 FL (80.0-100.0); MEAN CORPUSCULAR HEMOGLOBIN 30.9 PG (27.0-34.0); MEAN CORPUSCULAR HGB CONC 34.2 % (32.0-36.0); MEAN PLATELET VOLUME 7.2 FL (7.0-11.0); PLATELET COUNT 27 TH/MM3 (150-450); RED BLOOD COUNT 2.58 MIL/MM3 (4.50-5.90); WHITE BLOOD COUNT 0.2 TH/MM3 (4.0-11.0)
[2018-04-28] MEDS: fentaNYL DRIP 250 ML IV PRN (17:04)
[2018-04-28] MEDS: VASOPRESSIN INJ 40 UNITS in DEXTROSE 5% IN WATER 100ML INJ 98 ML IV SCH ×2 (17:10)
[2018-04-28] MEDS: AZITHROMYCIN INJ 500 MG in SODIUM CHLOR 0.9% 250 ML INJ 250 ML IV SCH (17:27)
[2018-04-28 17:37] LABS: BICARBONATE 18.3 MEQ/L (21.0-32.0); CALCIUM 5.8 MG/DL (8.5-10.1); CREATININE 1.48 MG/DL (0.60-1.30)
[2018-04-28 17:51] LABS: TOTAL PROTEIN 4.2 GM/DL (6.4-8.2)
[2018-04-28 17:59] LABS: CALCIUM-PROTEIN CORRECTED 7.1 MG/DL (8.5-10.1)
[2018-04-29] VITALS (27 sets, daily range): BP systolic 89–125; BP diastolic 51–88; PULSE 90–108; RESP 0–22; TEMP 96.6–99.8; O2SAT 94–100
[2018-04-29] MEDS: MEROPENEM INJ 1,000 MG in SODIUM CHLORIDE 0.9% INJ 100 ML IV SCH ×3 (00:50→17:45)
[2018-04-29] MEDS: MIDAZOLAM 50 MG/50 ML INJ 50 ML IV PRN (00:50)
[2018-04-29] MEDS: NOREPINEPHRINE-DEXTROSE DRIP 250 ML IV PRN ×3 (02:40→19:29)
[2018-04-29] MEDS: CISATRACURIUM INJ 100 MG in SODIUM CHLOR 0.9% 250 ML INJ 250 ML IV PRN ×3 (03:51→20:58)
[2018-04-29] MEDS: INSULIN ASPART SUPPLEMENTAL SCALE SQ SCH ×6 (04:00→20:00)
[2018-04-29] MEDS: RESP: ALBUTEROL 2.5 MG/IPRATROPIUM 0.5 MG NEB (SCH) NEB ×4 (04:54→21:04)
[2018-04-29 05:12] LABS: HEMATOCRIT 21.1 % (39.0-51.0); HEMOGLOBIN 7.5 GM/DL (13.0-17.0); MEAN CELL VOLUME 88.5 FL (80.0-100.0); MEAN CORPUSCULAR HEMOGLOBIN 31.3 PG (27.0-34.0); MEAN CORPUSCULAR HGB CONC 35.4 % (32.0-36.0); MEAN PLATELET VOLUME 8.2 FL (7.0-11.0); RED BLOOD COUNT 2.38 MIL/MM3 (4.50-5.90); WHITE BLOOD COUNT 0.4 TH/MM3 (4.0-11.0)
[2018-04-29 05:48] LABS: ALBUMIN 1.4 GM/DL (3.4-5.0); BICARBONATE 17.4 MEQ/L (21.0-32.0); CALCIUM 5.5 MG/DL (8.5-10.1); CREATININE 1.53 MG/DL (0.60-1.30); MAGNESIUM 1.6 MG/DL (1.5-2.5); PHOSPHORUS 5.3 MG/DL (2.5-4.9); TOTAL BILIRUBIN ADULT 1.5 MG/DL (0.2-1.0); TOTAL PROTEIN 3.9 GM/DL (6.4-8.2)
[2018-04-29 05:51] LABS: PLATELET COUNT 12 TH/MM3 (150-450)
[2018-04-29 05:52] LABS: CALCIUM-PROTEIN CORRECTED 6.9 MG/DL (8.5-10.1)
[2018-04-29] MEDS ORDERED: CALCIUM GLUCONATE INJ 2 GM in SODIUM CHLORIDE 0.9% INJ 100 ML IV ONE (06:00)
[2018-04-29] MEDS: POTASSIUM CHLOR 40 MEQ PREMIX 100 ML IV SCH ×2 (06:00→10:00)
--- NOTE | 2018-04-29 06:05 | RADRPT ---
EXAM DATE: 04/29/2018 6:02 AM EDT AGE/SEX: 67 years / Male INDICATIONS: Shortness of breath, possible pulmonary disease. CLINICAL DATA: This is the patient's subsequent encounter. Patient reports that signs and symptoms h ave been present for 4 - 6 days and indicates a pain score of Nonresponsive. MEDICAL/SURGICAL HISTORY: Carcinoma, lung. Metastatic disease. Non-responsive. COMPARISON: [facility] [place], CHEST SINGLE AP, 04/28/2018. . FINDINGS: The ET tube, NG tube, right internal jugular Aentib-s-Hezs and right internal jugular central line ar e in good position. The heart size is normal. There is increased density at the left upper lung and a t the right base. There is hazy density at the right lung and increased density of the right apex lik lamont from right effusion. Overall, the aeration of the lungs has improved. CONCLUSION: Tubes and lines in good position. Persistent consolidation or atelectasis in the left upper lung and right base. Right effusion. Electronically signed by: Dao Bates MD 04/29/2018 6:04 AM EDT
[2018-04-29] MEDS ORDERED: POTASSIUM CHLOR 20 MEQ PREMIX 100 ML IV PRN ×2 (06:15)
[2018-04-29] MEDS ORDERED: POTASSIUM PHOSPHATE INJ 30 MMOL in SODIUM CHLOR 0.9% 250 ML INJ 250 ML IV PRN (06:15)
[2018-04-29] MEDS ORDERED: MAGNESIUM SULFATE INJ 4 GM in SODIUM CHLORIDE 0.9% INJ 92 ML IV PRN (06:15)
[2018-04-29] MEDS ORDERED: POTASSIUM PHOSPHATE MONOBASIC 500 MG TAB PO/TUBE PRN (06:15)
[2018-04-29] MEDS ORDERED: SODIUM PHOSPHATE INJ 30 MMOL in SODIUM CHLOR 0.9% 250 ML INJ 240 ML IV PRN (06:15)
[2018-04-29] MEDS ORDERED: MAGNESIUM SULFATE 1 GM PREMIX 100 ML IV ONE (06:15)
[2018-04-29] MEDS ORDERED: POTASSIUM CHLORIDE 25 MEQ EFFERVESCENT TAB PO PRN (06:15)
[2018-04-29] MEDS ORDERED: MAGNESIUM OXIDE 400 MG TAB PO PRN (06:15)
[2018-04-29] MEDS ORDERED: MAGNESIUM SULFATE INJ 2 GM in SODIUM CHLORIDE 0.9% INJ 96 ML IV PRN (06:15)
[2018-04-29] MEDS ORDERED: POTASSIUM CHLOR 40 MEQ PREMIX 100 ML IV PRN ×2 (06:15)
[2018-04-29] MEDS ORDERED: POTASSIUM PHOSPHATE MONOBASIC 500 MG TAB PO PRN (06:15)
[2018-04-29] MEDS: HYDROCORTISONE SOD SUCCINATE 100 MG VIAL IV PUSH SCH ×3 (06:28→20:58)
[2018-04-29] MEDS: CHLORHEXIDINE GLUCONATE 2 % 1 PACK (2 CLOTHS) TOP SCH (06:30)
[2018-04-29] MEDS: ENOXAPARIN SODIUM 60 MG/0.6 ML SYRINGE SQ SCH ×2 (07:31→20:59)
[2018-04-29] MEDS: FOLIC ACID 1 MG TAB PO SCH (08:16)
[2018-04-29] MEDS: FAMOTIDINE 20 MG/2 ML VIAL IV PUSH SCH ×2 (08:17→20:58)
[2018-04-29] MEDS: FUROSEMIDE 40 MG/4 ML VIAL IV PUSH SCH ×2 (08:17→17:46)
[2018-04-29] MEDS: CHLORHEXIDINE 0.12% (ORAL KIT) 15 ML CUP MT SCH ×2 (08:18→19:30)
[2018-04-29] MEDS: SODIUM CHLORIDE 0.9% FLUSH 10 ML FLUSH IV FLUSH SCH ×2 (08:18→20:58)
--- NOTE | 2018-04-29 09:21 | PD.ONC.PN ---
Subjective Subjective Remarks Afebrile overnight. patient intubated, sedated and in rotabed. on 2 pressors. Objective Data Date Time Temp Pulse Resp B/P (MAP) Pulse Ox O2 Delivery O2 Flow Rate FiO2 04/29/18 07:55 100 55 04/29/18 06:00 108 04/29/18 06:00 108 22 106/70 (82) 103/53 (70) 04/29/18 05:30 104 101/57 04/29/18 05:00 100 8 102/64 (77) 100 04/29/18 05:00 100 102/64 04/29/18 05:00 100 04/29/18 04:56 100 55 04/29/18 04:30 102 93/59 04/29/18 04:00 104 99/68 (78) 95/52 (66) 04/29/18 04:00 104 04/29/18 04:00 104 95/52 04/29/18 04:00 104 95/52 04/29/18 04:00 104 95/52 04/29/18 04:00 97.4 104 12 99/68 (78) 100 95/52 (66) 04/29/18 04:00 55 04/29/18 03:00 100 0 95/59 (71) 100 04/29/18 03:00 100 04/29/18 03:00 100 95/59 04/29/18 02:40 98 93/58 04/29/18 02:00 98 04/29/18 02:00 98 22 98/73 (81) 91/55 (67) 04/29/18 02:00 98 91/55 04/29/18 02:00 98 91/55 04/29/18 00:00 55 04/29/18 00:00 97.8 99 17 95/72 (80) 96 89/53 (65) 04/29/18 00:00 99 04/29/18 00:00 100 55 04/29/18 00:00 99 89/53 04/29/18 00:00 99 89/53 04/29/18 00:00 99 89/53 04/29/18 00:00 99 95/72 (80) 89/53 (65) 04/28/18 22:00 102 04/28/18 21:00 60 04/28/18 21:00 104 99/61 6/2/18 20:58 100 65 04/28/18 20:00 107 04/28/18 20:00 96.8 107 6 94 102/57 (72) 04/28/18 20:00 65 04/28/18 20:00 107 102/57 04/28/18 20:00 107 102/57 04/28/18 20:00 107 102/57 04/28/18 20:00 107 101/60 (74) 102/57 (72) 04/28/18 19:17 107 103/58 04/28/18 18:00 96 04/28/18 17:10 97 81/53 04/28/18 17:10 97 81/53 04/28/18 16:27 100 65 04/28/18 16:00 102 04/28/18 16:00 97.6 102 22 90/71 (77) 96 85/57 (66) 04/28/18 16:00 106 90/71 (77) 87/57 (67) 04/28/18 16:00 65 04/28/18 14:59 100 65 04/28/18 14:00 102 04/28/18 13:57 65 04/28/18 12:00 97.8 106 22 84/55 (65) 99 111/79 (90) 04/28/18 12:00 106 04/28/18 12:00 106 84/55 (65) 101/69 (80) 04/28/18 11:59 100 75 04/28/18 11:54 105 116/80 04/28/18 11:30 75 04/28/18 10:00 90 04/28/18 10:00 108 04/28/18 09:32 96 80 04/28/18 09:32 100 100 04/29/18 04/29/18 04/29/18 07:00 15:00 23:00 Intake Total 604 ml 100 ml Output Total 350 ml Balance 254 ml 100 ml Result Diagram: 04/29/18 0445 04/29/18 0445 Laboratory Results Laboratory Tests Test 04/28/18 11:07 04/28/18 16:45 04/29/18 04:45 Blood Gas Puncture Site ART LINE Blood Gas Patient Temperature 98.6 Blood Gas HCO3 16 mmol/L Blood Gas Base Excess -10.2 mmol/L Blood Gas Oxygen Saturation 97 % Arterial Blood pH 7.24 Arterial Blood Partial Pressure CO2 39 mmHg Arterial Blood Partial Pressure O2 137 mmHg Arterial Blood Oxygen Content 15.1 Vol % Arterial Blood Carboxyhemoglobin 0.5 % Arterial Blood Methemoglobin 1.2 % Blood Gas Hemoglobin 10.9 G/DL Oxygen Delivery Device VENTILATOR Blood Gas Ventilator Setting Blood Gas Inspired Oxygen 90 % White Blood Count 0.2 TH/MM3 0.4 TH/MM3 Red Blood Count 2.58 MIL/MM3 2.38 MIL/MM3 Hemoglobin 8.0 GM/DL 7.5 GM/DL Hematocrit 23.3 % 21.1 % Mean Corpuscular Volume 90.4 FL 88.5 FL Mean Corpuscular Hemoglobin 30.9 PG 31.3 PG Mean Corpuscular Hemoglobin Concent 34.2 % 35.4 % Red Cell Distribution Width 24.0 % 24.0 % Platelet Count 27 TH/MM3 12 TH/MM3 Mean Platelet Volume 7.2 FL 8.2 FL Blood Urea Nitrogen 32 MG/DL 33 MG/DL Creatinine 1.48 MG/DL 1.53 MG/DL Random Glucose 191 MG/DL 104 MG/DL Total Protein 4.2 GM/DL 3.9 GM/DL Calcium Level 5.8 MG/DL 5.5 MG/DL Sodium Level 129 MEQ/L 127 MEQ/L Potassium Level 3.7 MEQ/L 3.4 MEQ/L Chloride Level 92 MEQ/L 91 MEQ/L Carbon Dioxide Level 18.3 MEQ/L 17.4 MEQ/L Anion Gap 19 MEQ/L 19 MEQ/L Estimat Glomerular Filtration Rate 48 ML/MIN 46 ML/MIN Lactic Acid Level 4.8 mmol/L 4.4 mmol/L Protein Corrected Calcium 7.1 MG/DL 6.9 MG/DL CBC Comment AUTO DIFF Albumin 1.4 GM/DL Phosphorus Level 5.3 MG/DL Magnesium Level 1.6 MG/DL Alkaline Phosphatase 79 U/L Aspartate Amino Transf (AST/SGOT) 46 U/L Alanine Aminotransferase (ALT/SGPT) 60 U/L Total Bilirubin 1.5 MG/DL Culture Results Microbiology Date/Time Source Procedure Growth Status 04/26/18 18:30 Blood Peripheral Aerobic Blood Culture - Preliminary NO GROWTH IN 2 DAYS Resulted 04/26/18 18:30 Blood Peripheral Anaerobic Blood Culture - Preliminary NO GROWTH IN 2 DAYS Resulted 04/26/18 18:25 Blood Peripheral Aerobic Blood Culture - Preliminary NO GROWTH IN 2 DAYS Resulted 04/26/18 18:25 Blood Peripheral Anaerobic Blood Culture - Preliminary NO GROWTH IN 2 DAYS Resulted 04/27/18 08:34 Sputum Endotracheal Gram Stain - Final Resulted 04/27/18 08:34 Sputum Culture - Preliminary Gram Negative Ric Resulted 04/27/18 08:30 Urine Catheterized Urine Legionella Antigen - Final PRESUMPTIVE NEGATIVE FOR LEGIONELLA P... Complete 04/27/18 08:30 Urine Catheterized Urine Streptococcus pneumoniae Antigen (M - Final PRESUMPTIVE NEGATIVE FOR STREPTOCOCCU... Complete 04/27/18 08:30 Urine Catheterized Urine Urine Culture - Preliminary NO GROWTH IN 24 HOURS. Resulted Imaging Studies Last 24 hours Impressions Chest X-Ray 04/29/18 0000 Signed Impressions: CONCLUSION: Tubes and lines in good position. Persistent consolidation or atelectasis in the left upper lung and right base. Right effusion. Administered Medications Medications (Trade) Dose Ordered Sig/Gigi Route PRN Reason Start Time Stop Time Status Last Admin Dose Admin Sodium Chloride (NS Flush) 2 ml BID IV FLUSH 04/26/18 21:00 04/29/18 08:18 Albuterol/ Ipratropium (Duoneb Neb) 1 ampule Q6HR NEB NEB 04/26/18 22:00 04/29/18 08:01 Chlorhexidine Gluconate (Peridex 0.12% Liq) 15 ml BID@08,20 MT 04/26/18 20:00 04/29/18 08:18 Famotidine (Pepcid Inj) 20 mg Q12HR IV PUSH 04/26/18 21:00 04/29/18 08:17 Chlorhexidine Gluconate (Chlorhexidine 2% Cloth) 3 pack Taper DAILY@04 TOP 04/27/18 04:00 04/23/19 03:59 04/29/18 06:30 Insulin Aspart (NovoLOG SUPPLEMENTAL SCALE) 1 Q4HR SQ 04/26/18 20:00 04/28/18 21:21 Enoxaparin Sodium (Lovenox Inj) 60 mg Q12HR SQ 04/26/18 19:15 04/27/18 09:11 Folic Acid (Folate) 1 mg DAILY PO 04/27/18 09:00 04/29/18 08:16 Esmolol HCl/ Sodium Chloride 250 ml @ 22.5 mls/hr TITRATE PRN IV Blood Pressure Management 04/26/18 22:30 Future Hold 04/26/18 22:39 Hydrocortisone Sodium Succinate (SoluCORTEF INJ) 100 mg Q8HR IV PUSH 04/27/18 08:45 04/29/18 06:28 Vasopressin 40 units/Dextrose 100 ml @ 6 mls/hr [id number] IV 04/27/18 08:33 04/28/18 17:10 Phenylephrine HCl 160 mg/Dextrose 500 ml @ 7.5 mls/hr TITRATE PRN IV Blood pressure management 04/27/18 08:45 04/28/18 05:21 Vancomycin HCl 1250 mg/Sodium Chloride 262.5 ml @ 262.5 mls/ hr Q18H IV 04/28/18 00:00 04/28/18 17:27 Sodium Bicarbonate 150 meq/Sterile Water 1,000 ml @ 75 mls/hr [id number] IV 04/27/18 12:00 04/28/18 21:21 Micafungin Sodium 150 mg/Sodium Chloride 100 ml @ 100 mls/hr Q24H IV 04/27/18 12:00 04/28/18 11:54 Filgrastim (Neupogen Inj) 480 mcg DAILY@14 SQ 04/27/18 14:00 04/28/18 14:53 Epoprostenol Sodium 35 ml/ Sodium Chloride 100 ml @ 5 mls/hr Q8H NEB 04/27/18 16:00 04/28/18 23:52 Azithromycin 500 mg/Sodium Chloride 250 ml @ 250 mls/hr Q24H IV 04/27/18 16:00 04/28/18 17:27 Meropenem 1000 mg/ Sodium Chloride 100 ml @ 200 mls/hr Q8H IV 04/27/18 16:00 04/29/18 08:18 Cisatracurium Besylate 100 mg/ Sodium Chloride 260 ml @ 10.6 mls/hr TITRATE PRN IV TOF /04/27/18 16:45 04/29/18 03:51 Norepinephrine Bitartrate 250 ml @ 7.5 mls/hr TITRATE PRN IV Blood pressure management 04/27/18 17:45 04/29/18 02:40 Fentanyl Citrate 250 ml @ 5 mls/hr TITRATE PRN IV SEDATION 04/27/18 17:45 04/28/18 17:04 Midazolam HCl 50 ml @ 2 mls/hr TITRATE PRN IV SEDATION 04/27/18 17:45 04/29/18 00:50 Furosemide (Lasix Inj) 40 mg BID@,18 IV PUSH 04/28/18 12:00 04/29/18 08:17 Potassium Chloride 100 ml @ 25 mls/hr UNSCH PRN IV For Potassium 3.3 - 3.5 mEq/L 04/29/18 06:15 04/29/18 08:17 Objective Remarks GENERAL: intubated, sedated male, prone in rotabed. exam is precluded somewhat by rotabed SKIN: Warm and dry. HEAD: Normocephalic. RESPIRATORY: on mechanical ventilation. posterior keys with scattered rhonchi. EXTREMITIES: cold extremities. NEUROLOGICAL: intubated, sedated. Assessment/Plan Assessment 67y/o with metastatic lung cancer, admitted with neutropenic fever, critically ill in C on pressor support. Plan 1. metastatic lung cancer: s/p treatment with carbo/alimta. recently started on immunotherapy as well. --metastatic brain lesions--[facility] 2. respiratory failure: CTA showed diffuse consolidation throughout the right lower lobe. OT intubated, in rotabed. 3. pancytopenia: continue Neupogen until WBC>5K. monitor hgb and platelets and transfuse as needed to maintain platelet count greater than 20K and hgb >7.5mg/ dL. receiving 2 units platelets today. 4. history of pulmonary embolism: hold Lovenox until platelet count>50K Attending Statement The exam, history, and the medical decision-making described in the above note were completed with the assistance of the mid-level provider. I reviewed and agree with the findings presented. I attest that I had a [id number] encounter with the patient on the same day, and personally performed and documented my assessment and findings in the medical record Platelet transfusion 2units this am on pressors on ventilator supportive care poor prognosis Chelsie Luis Apr 29, 2018 09:21 Phan Driscoll MD Apr 29, 2018 11:21
[2018-04-29] MEDS: EPOPROSTENOL NEB SOLUTION 20 NG/KG/MIN 100 ML NEB SCH ×4 (10:26→19:28)
[2018-04-29] MEDS: SODIUM BICARBONATE 8.4% INJ 150 MEQ in WATER STERILE FOR INJ 850 ML IV SCH ×2 (10:27→20:58)
[2018-04-29 10:55] LABS: BANDS 20 % (0-6); CORRECTED NUCLEATED RBC 4 /100 WBC (0-0); LYMPHOCYTES 4 % (9-44); MONOCYTES 5 % (0-8); MYELOCYTES 3 % (0-0); NUCLEATED RED BLOOD CELL 3 (0-0); POLYS (SEG NEUTROPHILS) 68 % (16-70)
[2018-04-29 10:56] LABS: DOHLE BODIES PRESENT (NONE SEEN)
[2018-04-29 11:06] LABS: NEUTROPHIL # MANUAL DIFF 0.4 TH/MM3 (1.8-7.7)
[2018-04-29] MEDS ORDERED: PHARMACY ORDERED LAB ONE (11:45)
--- NOTE | 2018-04-29 11:45 | HHI.IDPN ---
Subjective Subjective Remarks ID [facility] for Patient is a 67-year-old male with underlying metastatic lung cancer, adenocarcinoma, with metastases to the spine in the brain, brought into the hospital for evaluation of shortness of breath. He apparently was in the oncology center, and was scheduled to get chemotherapy when he became really short of breath. Paramedics was called and he was found to be in atrial fibrillation with RVR, and he was hypotensive. He underwent cardioversion, and remained hypoxic. He has now been intubated, and patient is currently hypotensive on multiple pressors including Barrett-Synephrine, Levophed, and vasopressin. He has had low-grade temps. He is neutropenic. His chest x-ray showing significant infiltrate on the right lung. Patient was recently hospitalized the first week of March and was diagnosed to have pulmonary embolism. He underwent CT on this admission and it showed resolution of the pulmonary embolism. Patient currently is intubated, on sedation, on the vent with FiO2 of 100%. He is currently in atrial fibrillation with a controlled rate. Patient has received vancomycin, Zosyn, and micafungin. I do not have any other information, but there was no mention of any GI or urinary complaints prior to admission. Infectious disease consultation has been requested to evaluate patient with sepsis, shock, and neutropenia from chemotherapy. Overnight events reviewed with RN. On Rotaprone bed. Secretions yellow small to moderate amounts. No fevers but hypothermic. Exam limited but RN reports mottling of skin. On Levophed 7 mics decreased requirements, on lower dose of Vasopressin Receiving platelet transfusion. No obvious bleeding from urine or stool. Some blood noted on suctioning by RN. UO low. No diarrrhea. [place] in while on Rotaprone bed and being flushed. Sedated and paralyzed. Antibiotics Azithro IV Meropenem IV Micafungin IV Vanco IV dosing per pharmacy Lines Line sites ok Port in place not accessed. 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 Hyperlipidemia GERD PE Lung biopsy Port placement Allergies: Coded Allergies: No Known Allergies (Verified Allergy, Unknown, 04/26/18) Objective . Vital Signs Date Time Temp Pulse Resp B/P (MAP) Pulse Ox O2 Delivery O2 Flow Rate FiO2 04/29/18 11:28 103 22 97/56 100 04/29/18 10:26 99 98/56 18 09:55 100 55 618 08:00 55 6/18 08:00 96.6 101 22 105/73 (84) 96/58 (71) 18 08:00 101 105/73 (84) 96/58 (71) 18 07:55 100 55 18 06:00 108 18 06:00 108 22 106/70 (82) 103/53 (70) 04/29/18 05:30 104 101/57 04/29/18 05:00 100 8 102/64 (77) 100 04/29/18 05:00 100 102/64 04/29/18 05:00 100 04/29/18 04:56 100 55 04/29/18 04:30 102 93/59 04/29/18 04:00 104 99/68 (78) 95/52 (66) 04/29/18 04:00 104 04/29/18 04:00 104 95/52 04/29/18 04:00 104 95/52 04/29/18 04:00 104 95/52 04/29/18 04:00 97.4 104 12 99/68 (78) 100 95/52 (66) 04/29/18 04:00 55 04/29/18 03:00 100 0 95/59 (71) 100 04/29/18 03:00 100 18 03:00 100 95/59 18 02:40 98 93/58 18 02:00 98 18 02:00 98 22 98/73 (81) 91/55 (67) 04/29/18 02:00 98 91/55 18 02:00 98 91/55 18 00:00 55 18 00:00 97.8 99 17 95/72 (80) 96 89/53 (65) 04/29/18 00:00 99 18 00:00 100 55 18 00:00 99 89/53 18 00:00 99 89/53 18 00:00 99 89/53 18 00:00 99 95/72 (80) 89/53 (65) 04/28/18 22:00 102 04/28/18 21:00 60 04/28/18 21:00 104 99/61 04/28/18 20:58 100 65 04/28/18 20:00 107 04/28/18 20:00 96.8 107 6 94 102/57 (72) 04/28/18 20:00 65 04/28/18 20:00 107 102/57 04/28/18 20:00 107 102/57 04/28/18 20:00 107 102/57 04/28/18 20:00 107 101/60 (74) 102/57 (72) 04/28/18 19:17 107 103/58 04/28/18 18:00 96 04/28/18 17:10 97 81/53 04/28/18 17:10 97 81/53 04/28/18 16:27 100 65 04/28/18 16:00 102 04/28/18 16:00 97.6 102 22 90/71 (77) 96 85/57 (66) 04/28/18 16:00 106 90/71 (77) 87/57 (67) 04/28/18 16:00 65 04/28/18 14:59 100 65 04/28/18 14:00 102 04/28/18 13:57 65 04/28/18 12:00 97.8 106 22 84/55 (65) 99 111/79 (90) 04/28/18 12:00 106 04/28/18 12:00 106 84/55 (65) 101/69 (80) 04/28/18 11:59 100 75 04/28/18 11:54 105 116/80 04/29/18 04/29/18 04/30/18 15:00 23:00 07:00 Intake Total 110 ml Balance 110 ml IV Total 100 ml Blood Product IV Normal Saline Flush 10 ml . Laboratory Tests Test 04/27/18 16:52 04/28/18 03:25 04/28/18 16:45 04/29/18 04:45 White Blood Count 0.2 TH/MM3 0.3 TH/MM3 0.2 TH/MM3 0.4 TH/MM3 Red Blood Count 3.15 MIL/MM3 2.98 MIL/MM3 2.58 MIL/MM3 2.38 MIL/MM3 Hemoglobin 10.0 GM/DL 9.4 GM/DL 8.0 GM/DL 7.5 GM/DL Hematocrit 29.2 % 27.1 % 23.3 % 21.1 % Mean Corpuscular Volume 92.8 FL 90.7 FL 90.4 FL 88.5 FL Mean Corpuscular Hemoglobin 31.6 PG 31.4 PG 30.9 PG 31.3 PG Mean Corpuscular Hemoglobin Concent 34.1 % 34.7 % 34.2 % 35.4 % Red Cell Distribution Width 23.7 % 23.7 % 24.0 % 24.0 % Platelet Count 33 TH/MM3 13 TH/MM3 27 TH/MM3 12 TH/MM3 Mean Platelet Volume 9.3 FL 8.9 FL 7.2 FL 8.2 FL CBC Comment AUTO DIFF AUTO DIFF AUTO DIFF Differential Total Cells Counted 25 25 75 Neutrophils % (Manual) 12 % 60 % 68 % Band Neutrophils % 44 % 28 % 20 % Lymphocytes % 12 % 4 % 4 % Monocytes % 8 % 4 % 5 % Neutrophils # (Manual) 0.2 TH/MM3 0.3 TH/MM3 0.4 TH/MM3 Metamyelocytes 20 % Myelocytes 4 % 4 % 3 % Nucleated Red Blood Cells 36 /100 WBC 4 /100 WBC 4 /100 WBC Differential Comment FINAL DIFF MANUAL FINAL DIFF MANUAL FINAL DIFF MANUAL Platelet Estimate LOW RARE RARE Platelet Morphology Comment NORMAL NORMAL NORMAL Ovalocytes 1+ 1+ Logan Cells 1+ 1+ Toxic Vacuolation PRESENT Dohle Bodies PRESENT PRESENT Laboratory Tests Test 04/27/18 16:52 04/28/18 03:24 04/28/18 03:25 04/28/18 16:45 Blood Urea Nitrogen 28 MG/DL 29 MG/DL 32 MG/DL Creatinine 1.16 MG/DL 1.31 MG/DL 1.48 MG/DL Random Glucose 216 MG/DL 255 MG/DL 191 MG/DL Total Protein 4.3 GM/DL 4.1 GM/DL 4.2 GM/DL Albumin 1.8 GM/DL 1.5 GM/DL Calcium Level 5.7 MG/DL 5.7 MG/DL 5.8 MG/DL Phosphorus Level 5.6 MG/DL 5.5 MG/DL Magnesium Level 1.7 MG/DL 1.8 MG/DL Alkaline Phosphatase 48 U/L 61 U/L Aspartate Amino Transf (AST/SGOT) 47 U/L 53 U/L Alanine Aminotransferase (ALT/SGPT) 59 U/L 64 U/L Total Bilirubin 1.1 MG/DL 1.3 MG/DL Sodium Level 135 MEQ/L 131 MEQ/L 129 MEQ/L Potassium Level 4.4 MEQ/L 3.9 MEQ/L 3.7 MEQ/L Chloride Level 103 MEQ/L 98 MEQ/L 92 MEQ/L Carbon Dioxide Level 16.1 MEQ/L 15.2 MEQ/L 18.3 MEQ/L Anion Gap 16 MEQ/L 18 MEQ/L 19 MEQ/L Estimat Glomerular Filtration Rate 63 ML/MIN 55 ML/MIN 48 ML/MIN Lactic Acid Level 3.0 mmol/L 3.6 mmol/L 4.8 mmol/L Protein Corrected Calcium 7.0 MG/DL 7.1 MG/DL 7.1 MG/DL Lipase 27 U/L Test 04/29/18 04:45 Blood Urea Nitrogen 33 MG/DL Creatinine 1.53 MG/DL Random Glucose 104 MG/DL Total Protein 3.9 GM/DL Albumin 1.4 GM/DL Calcium Level 5.5 MG/DL Phosphorus Level 5.3 MG/DL Magnesium Level 1.6 MG/DL Alkaline Phosphatase 79 U/L Aspartate Amino Transf (AST/SGOT) 46 U/L Alanine Aminotransferase (ALT/SGPT) 60 U/L Total Bilirubin 1.5 MG/DL Sodium Level 127 MEQ/L Potassium Level 3.4 MEQ/L Chloride Level 91 MEQ/L Carbon Dioxide Level 17.4 MEQ/L Anion Gap 19 MEQ/L Estimat Glomerular Filtration Rate 46 ML/MIN Lactic Acid Level 4.4 mmol/L Protein Corrected Calcium 6.9 MG/DL Microbiology Date/Time Source Procedure Growth Status 04/26/18 18:30 Blood Peripheral Aerobic Blood Culture - Preliminary NO GROWTH IN 3 DAYS Resulted 04/26/18 18:30 Blood Peripheral Anaerobic Blood Culture - Preliminary NO GROWTH IN 3 DAYS Resulted 04/26/18 18:25 Blood Peripheral Aerobic Blood Culture - Preliminary NO GROWTH IN 3 DAYS Resulted 04/26/18 18:25 Blood Peripheral Anaerobic Blood Culture - Preliminary NO GROWTH IN 3 DAYS Resulted 04/27/18 08:34 Sputum Endotracheal Gram Stain - Final Resulted 04/27/18 08:34 Sputum Culture - Preliminary Gram Negative Ric Resulted 04/27/18 08:30 Urine Catheterized Urine Legionella Antigen - Final PRESUMPTIVE NEGATIVE FOR LEGIONELLA P... Complete 04/27/18 08:30 Urine Catheterized Urine Streptococcus pneumoniae Antigen (M - Final PRESUMPTIVE NEGATIVE FOR STREPTOCOCCU... Complete 04/27/18 08:30 Urine Catheterized Urine Urine Culture - Final NO GROWTH IN 48 HOURS. Complete Imaging Last Impressions Chest X-Ray 04/29/18 0000 Signed Impressions: CONCLUSION: Tubes and lines in good position. Persistent consolidation or atelectasis in the left upper lung and right base. Right effusion. Head CT 04/26/18 0000 Signed Impressions: CONCLUSION: 1. No acute intracranial abnormality is identified. The small enhancing lesion s documented on the outside contrast enhanced brain MRI are too small to be vis ible with noncontrast CT imaging. 2. Chronic findings include mild generalized atrophy. CT Angiography 04/26/18 0000 Signed Impressions: CONCLUSION: 1. The previously seen right-sided pulmonary embolus has resolved. No emboli s een on the current exam. 2. Diffuse consolidation throughout the entire right lower lobe with sparing o f the anterior basilar segment. This is a new finding. Infectious etiology susp ected. 3. Left upper lobe pulmonary mass. Physical Exam Exam limited as patient on rotaprone. GENERAL: On Rotaprone not in distress. SKIN: Cool and dry. HEAD: limited EYES: [place] conjunctiva. EARS, NOSE AND THROAT: He is orally intubated. CVS, Abd, Neuro reviewed with RN no new findings. RS: CTA BL, Decreased AE in bases. PSYCHIATRIC: Unable to assess LINE: Port no evidence of infection Assessment & Plan Remarks Severe sepsis, present on admission, with septic shock on 2 pressors but requirements decreasing. Pneumonia, R (CAP, HCAP, Atypical) GNR pneumonia ID susceptibility pending. Acute resp failure on vent. Acute renal failure: sepsis, prerenal, meds Neutropenia post chemo Metastatic lung CA, adeno CA to brain and spine Atrial fib, RVR, S/P cardioversion, has controlled rate RECOMMENDATION Negative urine for Legionella and pneumococcal antigen Continue vancomycin IV follow Cr and UO. Continue micafungin IV (Immunecompromised s.p recent chemo with septic shock) Continue Zithromax IV for now pending ID of Gram negative. Continue Meropenem IV (adjust ABX based on GNR susceptibilities) Consider bronch when stable and if not improving clinically. Patient severely ill, and on multiple pressors Follow temp Follow counts Monitor progress Critically ill. Guarded prognosis. At risk for spontaneous bleed in brain, retroperitoneum etc. ana RN. MAR reviewed. Imaging reviewed and Compared. ana VELASQUEZ MD. ana Tucker in pharmacy to dose based on levels for Vanco as UO decreasing. Cannot use Zyvox due to low platelets or Dapto IV due to PNA. to resume care in am. Olena Dias MD Apr 29, 2018 11:45
[2018-04-29] MEDS: MICAFUNGIN INJ 150 MG in SODIUM CHLORIDE 0.9% INJ 100 ML IV SCH (12:46)
[2018-04-29] MEDS: VANCOMYCIN INJ 1,250 MG in SODIUM CHLOR 0.9% 250 ML INJ 250 ML IV SCH (12:46)
[2018-04-29] MEDS: VASOPRESSIN INJ 40 UNITS in DEXTROSE 5% IN WATER 100ML INJ 98 ML IV SCH ×2 (12:47)
[2018-04-29] MEDS: FILGRASTIM 480 MCG/1.6 ML VIAL SQ SCH (16:14)
--- NOTE | 2018-04-29 16:27 | HHI.CCPN ---
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 Patient was picked up at oncology Center and was about to get a chemotherapy dose for his lung cancer. Paramedics found him in A. fib with RVR with a rate of 228 and a blood pressure of 50 systolic. He underwent cardioversion. He arrived to emergency department on 100% nonrebreather but remained hypoxemic. The rhythm in the emergency department was a sinus with occasional ectopic beats. The patient was complaining of shortness of breath and despite of high oxygen delivery he remained severely hypoxemic. He was intubated by ED attending for an acute hypoxemic respiratory failure. Denies chest pain or productive cough or fever. 04/27: Sedated, orally intubated on mechanical ventilation. Had runs of SVT/ rapid A. fib last night from which he was cardioverted. Hypotensive on pressors. 04/28: Remains sedated, orally intubated on mechanical ventilation on neuromuscular blockade. On Barrett-Synephrine/Levophed/low-dose vasopressin for pressor support. On fentanyl/Nimbex GTT and being started on Versed in preparation for prone ventilation. Platelet count dropped to 13,000. 2 units pheresed platelets ordered. Significantly positive fluid balance. Starting Lasix to attempt to keep an even fluid balance. Continues on inhaled Flolan. 04/29: remains in shock on vasopressors. prone. fio2 slightly improved. remains pancytopenic. Objective Vital Signs Date Time Temp Pulse Resp B/P (MAP) Pulse Ox O2 Delivery O2 Flow Rate FiO2 04/29/18 13:31 100 55 04/29/18 13:12 96.9 100 22 107/59 04/26/18 19:00 Ventilator Intake and Output 04/29/18 04/29/18 04/29/18 07:59 15:59 23:59 Intake Total 604 ml 436 ml Output Total 350 ml Balance 254 ml 436 ml Result Diagram: 04/29/18 0445 04/29/18 0445 Other Results Microbiology Date/Time Source Procedure Growth Status 04/27/18 08:30 Urine Catheterized Urine Legionella Antigen - Final PRESUMPTIVE NEGATIVE FOR LEGIONELLA P... Complete 04/27/18 08:30 Urine Catheterized Urine Streptococcus pneumoniae Antigen (M - Final PRESUMPTIVE NEGATIVE FOR STREPTOCOCCU... Complete 04/27/18 08:30 Urine Catheterized Urine Urine Culture - Final NO GROWTH IN 48 HOURS. Complete Laboratory Tests Test 04/29/18 10:05 Blood Gas Puncture Site ART LINE Blood Gas Patient Temperature 98.6 Blood Gas HCO3 20 mmol/L (22-26) Blood Gas Base Excess -3.4 mmol/L (-2-2) Blood Gas Oxygen Saturation 97 % (90-100) Arterial Blood pH 7.43 (7.380-7.420) Arterial Blood Partial Pressure CO2 31 mmHg (38-42) Arterial Blood Partial Pressure O2 162 mmHg (61-120) Arterial Blood Oxygen Content 12.9 Vol % (12.0-20.0) Arterial Blood Carboxyhemoglobin 0.9 % (0-4) Arterial Blood Methemoglobin 1.3 % (0-2) Blood Gas Hemoglobin 9.2 G/DL (12.0-16.0) Oxygen Delivery Device VENTILATOR Blood Gas Ventilator Setting PC/AC Blood Gas Inspired Oxygen 55 % Imaging Last Impressions Chest X-Ray 04/28/18 0000 Signed Impressions: CONCLUSION: Stable exam. Recommend advancing the endotracheal tube approximately [address] 04/26/18 0000 Signed Impressions: CONCLUSION: 1. No acute intracranial abnormality is identified. The small enhancing lesion s documented on the outside contrast enhanced brain MRI are too small to be vis ible with noncontrast CT imaging. 2. Chronic findings include mild generalized atrophy. CT Angiography 04/26/18 0000 Signed Impressions: CONCLUSION: 1. The previously seen right-sided pulmonary embolus has resolved. No emboli s een on the current exam. 2. Diffuse consolidation throughout the entire right lower lobe with sparing o f the anterior basilar segment. This is a new finding. Infectious etiology susp ected. 3. Left upper lobe pulmonary mass. Objective Remarks Vent: PC/AC, PEEP +14, rate 22 FiO2 50%, prone therapy, inhaled flolan, neuromuscular blockade. HEENT/ Neuro: Sedated, orally intubated, on neuromuscular blockade pallor present, no icterus, tongue/ mucosa moist. Conjunctival edema noted. Neck: Right IJ central line in place Chest/Pulm: on mech vent, difficult to assess lung keys due to prone therapy. equal chest rise. CVS: muffled heart sounds. tachycardic rate, regular rhythm. sinus. GI/abdomen: soft, nontender, nondistended. no guarding. rectal tube in place with brown stool. Extremities: warm bilaterally, bilateral edema Skin: Areas of ecchymosis over chest and abdominal wall noted. A/P Assessment and Plan Acute Respiratory failure on mechanical ventilation Pneumonia ARDS Neutropenic sepsis -Broad-spectrum antibiotic. On IV vancomycin/Meropenem/azithromycin/ micafungin. -Consulted ID - Dr. Hensley following -Pancultured: sputum growing acinetobacter -Follow-up cultures and de-escalate per sensitivity -On mechanical ventilation. Started on inhaled Flolan on 04/27 for worsening respiratory status. Started on neuromuscular blockade with Pneumovax on 04/27. prone ventilation on 04/28. -Vent bundle -will start supination therapy and see if he can tolerated un-proning. septic shock- persistent neutropenic sepsis Lactic acidosis -Due to above -s/p Aggressive IV fluid resuscitation - continue forced diuresis. -Levophed as needed to keep MAP above 65 - low-dose vasopressin gtt., stress dose steroids with hydrocortisone 100 mg IV every 8 hourly. Hold p.o. Decadron -bicarb drip @ 75cc/hr for metabolic/lactic acidosis -Flowtrack for hemodynamic monitoring. SANAZ -Strict intake output, monitor and replete electrolyte, follow BUN/creatinine. continue lasix. A. fib with RVR- s/p conversion to NSR -Status post successful cardioversion -Telemetry -Treat underlying sepsis Dyslipidemia -Resume home meds when appropriate Metastatic lung adenocarcinoma with brain/bone metastases -Oncology consulted and following Neutropenia Thrombocytopenia -Possibly secondary to metastatic CA, chemotherapy, sepsis -On Neulasta -Transfused 2 units pheresed platelets on 04/28 for worsening thrombocytopenia follow CBC Hyperglycemia -Insulin sliding scale DVT GI prophylaxis -Rupert's and SCDs -Lovenox held due to worsening thrombocytopenia -IV Pepcid Discussed with patient's daughter at bedside on 04/27 regarding critical condition and plan of care and she voiced understanding and was agreeable. Condition remains critical. Palliative care following. Patient remains full CODE STATUS at this time her discussion with family. OVERALL IMPRESSION: remains with maximal ventilatory support and in shock. minimal improvements in 24h. overall grim prognosis. family presses for aggressive care. remains critically ill. Critical Care: The total critical care time was 38 minutes. Time to perform other separately billable procedures was not included in the critical care time. Calos Sheridan MD Apr 29, 2018 16:27
[2018-04-29] MEDS: fentaNYL DRIP 250 ML IV PRN (17:45)
[2018-04-29] MEDS: AZITHROMYCIN INJ 500 MG in SODIUM CHLOR 0.9% 250 ML INJ 250 ML IV SCH (17:46)
[2018-04-29] MEDS ORDERED: DEXTROSE 10% INJ 1,000 ML IV SCH (20:00)
[2018-04-29 20:15] LABS: MEAN CELL VOLUME 88.2 FL (80.0-100.0); MEAN CORPUSCULAR HEMOGLOBIN 31.4 PG (27.0-34.0); MEAN CORPUSCULAR HGB CONC 35.6 % (32.0-36.0); MEAN PLATELET VOLUME 8.6 FL (7.0-11.0); PLATELET COUNT 22 TH/MM3 (150-450); RED CELL DISTRIBUTION WIDTH 23.7 % (11.6-17.2); WHITE BLOOD COUNT 0.6 TH/MM3 (4.0-11.0)
[2018-04-29 20:18] LABS: HEMATOCRIT 18.5 % (39.0-51.0); HEMOGLOBIN 6.6 GM/DL (13.0-17.0)
[2018-04-30] VITALS (27 sets, daily range): BP systolic 80–140; BP diastolic 52–85; PULSE 82–96; RESP 0–22; TEMP 98–99.7; O2SAT 97–100
[2018-04-30] MEDS: MEROPENEM INJ 1,000 MG in SODIUM CHLORIDE 0.9% INJ 100 ML IV SCH ×2 (00:30→08:27)
[2018-04-30] MEDS: VASOPRESSIN INJ 40 UNITS in DEXTROSE 5% IN WATER 100ML INJ 98 ML IV SCH ×4 (02:31→17:40)
[2018-04-30] MEDS: MIDAZOLAM 50 MG/50 ML INJ 50 ML IV PRN (02:31)
[2018-04-30] MEDS: RESP: ALBUTEROL 2.5 MG/IPRATROPIUM 0.5 MG NEB (SCH) NEB ×4 (03:55→21:15)
[2018-04-30] MEDS: INSULIN ASPART SUPPLEMENTAL SCALE SQ SCH ×6 (04:00→20:00)
[2018-04-30 04:51] LABS: HEMATOCRIT 24.9 % (39.0-51.0); HEMOGLOBIN 8.8 GM/DL (13.0-17.0); MEAN CELL VOLUME 86.4 FL (80.0-100.0); MEAN CORPUSCULAR HEMOGLOBIN 30.5 PG (27.0-34.0); MEAN CORPUSCULAR HGB CONC 35.3 % (32.0-36.0); MEAN PLATELET VOLUME 7.7 FL (7.0-11.0); RED BLOOD COUNT 2.88 MIL/MM3 (4.50-5.90); RED CELL DISTRIBUTION WIDTH 20.1 % (11.6-17.2); WHITE BLOOD COUNT 1.3 TH/MM3 (4.0-11.0)
--- NOTE | 2018-04-30 04:55 | RADRPT ---
EXAM DATE: 04/30/2018 4:51 AM EDT AGE/SEX: 67 years / Male INDICATIONS: Shortness of breath, possible pulmonary disease. CLINICAL DATA: This is the patient's subsequent encounter. Patient reports that signs and symptoms h ave been present for 1 week and indicates a pain score of Nonresponsive. MEDICAL/SURGICAL HISTORY: Carcinoma, lung. Metastatic disease. Non-responsive. COMPARISON: C, CHEST SINGLE AP, 04/29/2018. . FINDINGS: The support devices remain in place. There is no pneumothorax. There is continues to be infiltrates i n both lung keys without significant change. The heart size is stable. The bony structures are stab le. CONCLUSION: No significant interval change. Electronically signed by: Alberto Durand MD 04/30/2018 4:54 AM EDT
[2018-04-30 04:57] LABS: PLATELET COUNT 16 TH/MM3 (150-450)
[2018-04-30 05:26] LABS: ALBUMIN 1.4 GM/DL (3.4-5.0); BICARBONATE 19.7 MEQ/L (21.0-32.0); CALCIUM 5.3 MG/DL (8.5-10.1); CREATININE 1.72 MG/DL (0.60-1.30); TOTAL BILIRUBIN ADULT 1.8 MG/DL (0.2-1.0); TOTAL PROTEIN 4.1 GM/DL (6.4-8.2)
[2018-04-30 05:30] LABS: CALCIUM-PROTEIN CORRECTED 6.6 MG/DL (8.5-10.1)
[2018-04-30] MEDS ORDERED: CALCIUM GLUCONATE INJ 2 GM in SODIUM CHLORIDE 0.9% INJ 100 ML IV ONE (05:45)
[2018-04-30] MEDS: CISATRACURIUM INJ 100 MG in SODIUM CHLOR 0.9% 250 ML INJ 250 ML IV PRN (05:46)
[2018-04-30] MEDS: HYDROCORTISONE SOD SUCCINATE 100 MG VIAL IV PUSH SCH ×3 (05:46→22:00)
[2018-04-30] MEDS: CHLORHEXIDINE GLUCONATE 2 % 1 PACK (2 CLOTHS) TOP SCH (05:46)
[2018-04-30] MEDS ORDERED: BUMETANIDE INJ 100 ML IV SCH (07:39)
--- NOTE | 2018-04-30 08:05 | HHI.CCPN ---
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 Patient was picked up at oncology Center and was about to get a chemotherapy dose for his lung cancer. Paramedics found him in A. fib with RVR with a rate of 228 and a blood pressure of 50 systolic. He underwent cardioversion. He arrived to emergency department on 100% nonrebreather but remained hypoxemic. The rhythm in the emergency department was a sinus with occasional ectopic beats. The patient was complaining of shortness of breath and despite of high oxygen delivery he remained severely hypoxemic. He was intubated by ED attending for an acute hypoxemic respiratory failure. Denies chest pain or productive cough or fever. 04/27: Sedated, orally intubated on mechanical ventilation. Had runs of SVT/ rapid A. fib last night from which he was cardioverted. Hypotensive on pressors. 04/28: Remains sedated, orally intubated on mechanical ventilation on neuromuscular blockade. On Barrett-Synephrine/Levophed/low-dose vasopressin for pressor support. On fentanyl/Nimbex GTT and being started on Versed in preparation for prone ventilation. Platelet count dropped to 13,000. 2 units pheresed platelets ordered. Significantly positive fluid balance. Starting Lasix to attempt to keep an even fluid balance. Continues on inhaled Flolan. 04/29: remains in shock on vasopressors. prone. fio2 slightly improved. remains pancytopenic. 04/30 Patient remains on rotoprone bed. Off Levophed remains on Vasopressin 0.04, Sedated with Versed, Fentanyl infusions in addition he is on Nimbex drip. s/p transfusion 2u PRBC last night and 2u PLT during day yesterday. Objective Vital Signs Date Time Temp Pulse Resp B/P (MAP) Pulse Ox O2 Delivery O2 Flow Rate FiO2 04/30/18 06:00 84 22 109/57 (74) 100 04/30/18 04:00 98.4 04/30/18 04:00 55 04/26/18 19:00 Ventilator Intake and Output 04/30/18 04/30/18 05/01/18 08:00 16:00 00:00 Intake Total 1000 ml Output Total 300 ml Balance 700 ml Result Diagram: 04/30/18 0440 04/30/18 0440 Other Results Laboratory Tests Test 04/29/18 10:05 04/29/18 12:20 04/29/18 16:45 04/29/18 19:00 Blood Gas Puncture Site ART LINE Blood Gas Patient Temperature 98.6 Blood Gas HCO3 20 mmol/L Blood Gas Base Excess -3.4 mmol/L Blood Gas Oxygen Saturation 97 % Arterial Blood pH 7.43 Arterial Blood Partial Pressure CO2 31 mmHg Arterial Blood Partial Pressure O2 162 mmHg Arterial Blood Oxygen Content 12.9 Vol % Arterial Blood Carboxyhemoglobin 0.9 % Arterial Blood Methemoglobin 1.3 % Blood Gas Hemoglobin 9.2 G/DL Oxygen Delivery Device VENTILATOR Blood Gas Ventilator Setting PC/AC Blood Gas Inspired Oxygen 55 % Vancomycin Level Trough 34.2 MCG/ML Potassium Level 4.2 MEQ/L White Blood Count 0.6 TH/MM3 Red Blood Count 2.10 MIL/MM3 Hemoglobin 6.6 GM/DL Hematocrit 18.5 % Mean Corpuscular Volume 88.2 FL Mean Corpuscular Hemoglobin 31.4 PG Mean Corpuscular Hemoglobin Concent 35.6 % Red Cell Distribution Width 23.7 % Platelet Count 22 TH/MM3 Mean Platelet Volume 8.6 FL Lactic Acid Level 2.9 mmol/L Test 04/30/18 04:40 White Blood Count 1.3 TH/MM3 Red Blood Count 2.88 MIL/MM3 Hemoglobin 8.8 GM/DL Hematocrit 24.9 % Mean Corpuscular Volume 86.4 FL Mean Corpuscular Hemoglobin 30.5 PG Mean Corpuscular Hemoglobin Concent 35.3 % Red Cell Distribution Width 20.1 % Platelet Count 16 TH/MM3 Mean Platelet Volume 7.7 FL Blood Urea Nitrogen 37 MG/DL Creatinine 1.72 MG/DL Random Glucose 156 MG/DL Total Protein 4.1 GM/DL Albumin 1.4 GM/DL Calcium Level 5.3 MG/DL Alkaline Phosphatase 137 U/L Aspartate Amino Transf (AST/SGOT) 53 U/L Alanine Aminotransferase (ALT/SGPT) 53 U/L Total Bilirubin 1.8 MG/DL Sodium Level 126 MEQ/L Potassium Level 4.2 MEQ/L Chloride Level 86 MEQ/L Carbon Dioxide Level 19.7 MEQ/L Anion Gap 20 MEQ/L Estimat Glomerular Filtration Rate 40 ML/MIN Lactic Acid Level 3.1 mmol/L Protein Corrected Calcium 6.6 MG/DL Imaging Last Impressions Chest X-Ray 04/30/18 0500 Signed Impressions: CONCLUSION: No significant interval change. Head CT 04/26/18 0000 Signed Impressions: CONCLUSION: 1. No acute intracranial abnormality is identified. The small enhancing lesion s documented on the outside contrast enhanced brain MRI are too small to be vis ible with noncontrast CT imaging. 2. Chronic findings include mild generalized atrophy. CT Angiography 04/26/18 0000 Signed Impressions: CONCLUSION: 1. The previously seen right-sided pulmonary embolus has resolved. No emboli s een on the current exam. 2. Diffuse consolidation throughout the entire right lower lobe with sparing o f the anterior basilar segment. This is a new finding. Infectious etiology susp ected. 3. Left upper lobe pulmonary mass. Objective Remarks Patient is 67 yo critically ill intubated and sedated HEENT/ Neuro: Sedated, orally intubated, on neuromuscular blockade pallor present, no icterus, tongue/ mucosa moist. Conjunctival edema noted. Neck: Right IJ central line in place Chest/Pulm: on mech vent, difficult to assess lung keys due to prone therapy. equal chest rise. CVS: muffled heart sounds. tachycardic rate, regular rhythm. sinus. GI/abdomen: soft, nontender, nondistended. no guarding. rectal tube in place with brown stool. Extremities: warm bilaterally, bilateral edema Skin: Areas of ecchymosis over chest and abdominal wall noted. Neuro: Intubated A/P Assessment and Plan Acute Respiratory failure on mechanical ventilation Pneumonia ARDS Neutropenic sepsis Neuro: On Fentanyl and Versed infusion for sedation in addition patient is on Nimbex. Monitor train of 4. Daily sedation vacation when clinically appropriate. CV: Afib RVR s/p cardioversion Off Levophed drip, on vasopressin. Monitor HR and BP keep MAP>65mmHg For 2D echo to eval LV function On HC 100mg IV Q8 Pulm: Continue with vent support keep sats >92% On PC/AC RR 22, IP:17, IT:1.0, PEEP:12, FIO2: 55%. decrease FIO2: 45% as teresita. Check ABG Bronchodilators, ICU vent bundle. CXR: B/l pulm infiltrates On Flolan 30,000ng/ml at 5ml/hr. Prone ventilation started 6/2 SANAZ Monitor renal function, I/O's, avoid nephrotoxins Will give Bumex 1mg x1 and place on Bumex drip 0.5mg/hr d/c bicarb drip GI: Start tube feeds- Glucerna 1.5 with goal rate 45ml/hr On Pepcid 20mg IV Q12 for GI prophylaxis ID: Septic shock Neutropenic sepsis Sputum 04/27: Acinetobacter Abx per ID on IV vancomycin/Meropenem/azithromycin/ micafungin. -Consulted ID - Dr. Hensley following Monitor for signs of infections ( Fever, WBC) recheck sputum cx Heme: Metastatic lung adenocarcinoma with brain/bone metastases Anemia, thrombocytopenia Monitor CBC, coags s/p transfusion 2U PRBC and 2U PLT yesterday. Will transfuse 1u PLT pheresis for PLT: 16 this morning Heme is following, on Neupogen Endo: Hyperglycemia -Insulin sliding scale DVT GI prophylaxis -Rupert's and SCDs -Lovenox held due to worsening thrombocytopenia -IV Pepcid Condition remains critical. Palliative care following. Patient remains full CODE STATUS at this time Critical Care: The total critical care time was 30minutes. Time to perform other separately billable procedures was not included in the critical care time. Carito Kinsey MD Apr 30, 2018 08:05
[2018-04-30] MEDS: FAMOTIDINE 20 MG/2 ML VIAL IV PUSH SCH (08:27)
[2018-04-30] MEDS: SODIUM CHLORIDE 0.9% FLUSH 10 ML FLUSH IV FLUSH SCH (08:28)
[2018-04-30] MEDS: FOLIC ACID 1 MG TAB PO SCH (08:28)
[2018-04-30] MEDS: CHLORHEXIDINE 0.12% (ORAL KIT) 15 ML CUP MT SCH ×2 (08:28→20:00)
[2018-04-30] MEDS: EPOPROSTENOL NEB SOLUTION 20 NG/KG/MIN 100 ML NEB SCH ×4 (08:55→16:00)
--- NOTE | 2018-04-30 11:36 | HHI.IDPN ---
Subjective Subjective Remarks Patient is a 67-year-old male with underlying metastatic lung cancer, adenocarcinoma, with metastases to the spine in the brain, brought into the hospital for evaluation of shortness of breath. He apparently was in the oncology center, and was scheduled to get chemotherapy when he became really short of breath. Paramedics was called and he was found to be in atrial fibrillation with RVR, and he was hypotensive. He underwent cardioversion, and remained hypoxic. He has now been intubated, and patient is currently hypotensive on multiple pressors including Barrett-Synephrine, Levophed, and vasopressin. He has had low-grade temps. He is neutropenic. His chest x-ray showing significant infiltrate on the right lung. Patient was recently hospitalized the first week of March and was diagnosed to have pulmonary embolism. He underwent CT on this admission and it showed resolution of the pulmonary embolism. Patient currently is intubated, on sedation, on the vent with FiO2 of 100%. He is currently in atrial fibrillation with a controlled rate. Patient has received vancomycin, Zosyn, and micafungin. I do not have any other information, but there was no mention of any GI or urinary complaints prior to admission. Infectious disease consultation has been requested to evaluate patient with sepsis, shock, and neutropenia from chemotherapy. Notes reviewed On rotaprone since weekend - has been on supine since last night Last pressor stopped this morning Sedated on the vent, FiO2 at .45 Was on nimbex before Temps ok WBC up to 1.3 BC negative Sputum with pansensitive Acinetobacter Platelets at 16, no bleeding Antibiotics Azithro IV Meropenem IV Micafungin IV Vanco IV dosing per pharmacy Current Medications Medications (Trade) Dose Ordered Sig/Gigi Route Start Time Stop Time Status Last Admin (NS Flush) 2 ml UNSCH PRN IV FLUSH 04/26/18 17:45 04/29/18 20:59 (NS Flush) 2 ml BID IV FLUSH 04/26/18 21:00 04/30/18 08:28 (Tylenol) 650 mg Q6H PRN PO 04/26/18 17:45 (Duoneb Neb) 1 ampule Q6HR NEB NEB 04/26/18 22:00 04/30/18 08:16 (Duoneb Neb) 1 ampule Q4HR NEB PRN INH 04/26/18 17:45 (Peridex 0.12% Liq) 15 ml BID@08,20 MT 04/26/18 20:00 04/30/18 08:28 (Pepcid Inj) 20 mg Q12HR IV PUSH 04/26/18 21:00 04/30/18 08:27 ([facility] [place] [facility] [place] 1 [id number] XX 04/26/18 17:45 (Chlorhexidine 2% Cloth) 3 pack Taper DAILY@04 TOP 04/27/18 04:00 04/23/19 03:59 04/30/18 05:46 (Chlorhexidine 2% Cloth) 3 pack UNSCH PRN TOP 04/26/18 17:45 (NovoLOG SUPPLEMENTAL SCALE) 1 Q4HR SQ 04/26/18 20:00 04/30/18 08:00 (D50w (Vial) Inj) 25 ml UNSCH PRN IV 04/26/18 17:45 (Glucagon Inj) 1 mg UNSCH PRN IM/SQ 04/26/18 17:45 Pharmacy Profile Note 0 ml @ 0 mls/hr UNSCH OTHER 04/26/18 18:00 (Decadron) 4 mg BID PO 04/26/18 21:00 Future Hold (Folate) 1 mg DAILY PO 04/27/18 09:00 04/30/18 08:28 (SoluCORTEF INJ) 100 mg Q8HR IV PUSH 04/27/18 08:45 04/30/18 05:46 Vasopressin 40 units/Dextrose 100 ml @ 6 mls/hr [id number] IV 04/27/18 08:33 04/30/18 02:31 (Brethine Inj) 1 mg UNSCH PRN SQ 04/27/18 08:45 Vancomycin HCl 1250 mg/Sodium Chloride 262.5 ml @ 262.5 mls/ hr Q18H IV 04/28/18 00:00 Future Hold 04/29/18 12:46 Micafungin Sodium 150 mg/Sodium Chloride 100 ml @ 100 mls/hr Q24H IV 04/27/18 12:00 04/29/18 12:46 (Neupogen Inj) 480 mcg DAILY@14 SQ 04/27/18 14:00 04/29/18 16:14 Epoprostenol Sodium 35 ml/ Sodium Chloride 100 ml @ 5 mls/hr Q8H NEB 04/27/18 16:00 6/4/18 08:55 Azithromycin 500 mg/Sodium Chloride 250 ml @ 250 mls/hr Q24H IV 04/27/18 16:00 04/29/18 17:46 Meropenem 1000 mg/ Sodium Chloride 100 ml @ 200 mls/hr Q8H IV 04/27/18 16:00 04/30/18 08:27 Cisatracurium Besylate 100 mg/ Sodium Chloride 260 ml @ 10.6 mls/hr TITRATE PRN IV 04/27/18 16:45 04/30/18 05:46 Norepinephrine Bitartrate 250 ml @ 7.5 mls/hr TITRATE PRN IV 04/27/18 17:45 04/29/18 19:29 Fentanyl Citrate 250 ml @ 5 mls/hr TITRATE PRN IV 04/27/18 17:45 04/29/18 17:45 Midazolam HCl 50 ml @ 2 mls/hr TITRATE PRN IV 04/27/18 17:45 04/30/18 02:31 Potassium Chloride 100 ml @ 50 mls/hr Q2H PRN IV 04/29/18 06:15 Potassium Chloride 100 ml @ 50 mls/hr Q2H PRN IV 04/29/18 06:15 (K-Lyte Cl Eff) 50 meq UNSCH PRN PO 04/29/18 06:15 Potassium Chloride 100 ml @ 25 mls/hr UNSCH PRN IV 04/29/18 06:15 04/29/18 08:17 Potassium Chloride 100 ml @ 50 mls/hr Q2H PRN IV 04/29/18 06:15 Magnesium Sulfate 4 gm/Sodium Chloride 100 ml @ 50 mls/hr UNSCH PRN IV 04/29/18 06:15 (Mag-Ox) 800 mg UNSCH PRN PO 04/29/18 06:15 Magnesium Sulfate 2 gm/Sodium Chloride 100 ml @ 50 mls/hr UNSCH PRN IV 04/29/18 06:15 (K-Phos) 2,000 mg Q4H PRN PO 04/29/18 06:15 Sodium Phosphate 30 mmol/Sodium Chloride 250 ml @ 42 mls/hr UNSCH PRN IV 04/29/18 06:15 (K-Phos) 2,000 mg UNSCH PRN PO/TUBE 04/29/18 06:15 Potassium Phosphate 30 mmol/ Sodium Chloride 260 ml @ 42 mls/hr UNSCH PRN IV 04/29/18 06:15 Bumetanide 100 ml @ 2 mls/hr Q24H IV 04/30/18 07:39 04/30/18 08:56 Lines Line sites ok Port in place not accessed. 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 Hyperlipidemia GERD PE Lung biopsy Port placement Allergies: Coded Allergies: No Known Allergies (Verified Allergy, Unknown, 04/26/18) Objective . Vital Signs Date Time Temp Pulse Resp B/P (MAP) Pulse Ox O2 Delivery O2 Flow Rate FiO2 04/30/18 11:13 97 46 04/30/18 10:00 88 101/62 (75) 90/70 (77) 04/30/18 10:00 88 04/30/18 09:50 40 04/30/18 09:40 45 04/30/18 09:35 99 40 04/30/18 09:00 98.6 86 22 97/52 100 04/30/18 08:27 100 45 04/30/18 08:00 82 04/30/18 08:00 98.6 82 22 118/85 (96) 100 113/57 (75) 04/30/18 08:00 55 04/30/18 06:00 84 22 109/57 (74) 100 04/30/18 06:00 84 04/30/18 05:00 84 04/30/18 05:00 84 0 100 107/58 (74) 04/30/18 04:00 98.4 100 131/79 (96) 04/30/18 04:00 55 04/30/18 04:00 131/79 (96) 04/30/18 03:55 100 55 04/30/18 03:00 85 22 100 100/68 (79) 04/30/18 03:00 85 04/30/18 02:31 85 104/67 04/30/18 02:00 85 0 95/63 (74) 100 113/62 (79) 04/30/18 02:00 85 04/30/18 01:00 100 65 04/30/18 01:00 85 22 100 113/65 (81) 04/30/18 01:00 85 04/30/18 00:39 99.5 86 22 102/66 100 6/4/18 00:00 65 6/18 00:00 88 6/18 00:00 99.7 88 0 97/65 (76) 100 103/58 (73) 618 00:00 88 103/58 618 00:00 88 97/65 (76) 103/58 (73) 18 22:57 99.5 90 22 95/57 100 04/29/18 22:43 98.5 91 22 95/51 100 18 22:00 92 18 22:00 92 5 98/62 (74) 100 100/54 (69) 04/29/18 22:00 92 100/54 04/29/18 21:04 100 65 04/29/18 21:00 93 04/29/18 21:00 93 0 100 105/58 (74) 18 21:00 93 105/58 04/29/18 20:00 65 04/29/18 20:00 95 04/29/18 20:00 99.8 95 0 125/88 (100) 100 110/56 (74) 18 20:00 95 125/88 (100) 110/56 (74) 18 20:00 95 110/56 04/29/18 19:29 97 108/60 04/29/18 18:00 102 04/29/18 17:19 94 60 18 16:30 100 80 18 16:00 97.7 103 22 93/69 (77) 96 04/29/18 16:00 65 04/29/18 16:00 103 18 16:00 103 93/69 (77) 18 14:30 97.0 101 22 117/62 99 04/29/18 14:00 99 18 13:31 100 55 18 13:12 96.9 100 22 107/59 100 18 12:47 100 109/61 18 12:00 55 18 12:00 97.2 97 22 108/81 (90) 99 113/65 (81) 04/29/18 12:00 97 04/29/18 12:00 97 108/81 (90) 113/65 (81) 04/29/18 11:28 103 22 97/56 100 04/30/18 04/30/18 05/01/18 15:00 23:00 07:00 Intake Total 1017 ml Balance 1017 ml IV Total 1017 ml . Laboratory Tests Test 04/28/18 16:45 04/29/18 04:45 04/29/18 19:00 04/30/18 00:00 White Blood Count 0.2 TH/MM3 0.4 TH/MM3 0.6 TH/MM3 Red Blood Count 2.58 MIL/MM3 2.38 MIL/MM3 2.10 MIL/MM3 Hemoglobin 8.0 GM/DL 7.5 GM/DL 6.6 GM/DL Hematocrit 23.3 % 21.1 % 18.5 % Mean Corpuscular Volume 90.4 FL 88.5 FL 88.2 FL Mean Corpuscular Hemoglobin 30.9 PG 31.3 PG 31.4 PG Mean Corpuscular Hemoglobin Concent 34.2 % 35.4 % 35.6 % Red Cell Distribution Width 24.0 % 24.0 % 23.7 % Platelet Count 27 TH/MM3 12 TH/MM3 22 TH/MM3 Mean Platelet Volume 7.2 FL 8.2 FL 8.6 FL CBC Comment AUTO DIFF Differential Total Cells Counted 75 Neutrophils % (Manual) 68 % Band Neutrophils % 20 % Lymphocytes % 4 % Monocytes % 5 % Neutrophils # (Manual) 0.4 TH/MM3 Myelocytes 3 % Nucleated Red Blood Cells 4 /100 WBC Differential Comment FINAL DIFF MANUAL Dohle Bodies PRESENT Platelet Estimate RARE Platelet Morphology Comment NORMAL Test 04/30/18 04:40 White Blood Count 1.3 TH/MM3 Red Blood Count 2.88 MIL/MM3 Hemoglobin 8.8 GM/DL Hematocrit 24.9 % Mean Corpuscular Volume 86.4 FL Mean Corpuscular Hemoglobin 30.5 PG Mean Corpuscular Hemoglobin Concent 35.3 % Red Cell Distribution Width 20.1 % Platelet Count 16 TH/MM3 Mean Platelet Volume 7.7 FL Laboratory Tests Test 04/28/18 16:45 04/29/18 04:45 04/29/18 16:45 04/29/18 19:00 Blood Urea Nitrogen 32 MG/DL 33 MG/DL Creatinine 1.48 MG/DL 1.53 MG/DL Random Glucose 191 MG/DL 104 MG/DL Total Protein 4.2 GM/DL 3.9 GM/DL Calcium Level 5.8 MG/DL 5.5 MG/DL Sodium Level 129 MEQ/L 127 MEQ/L Potassium Level 3.7 MEQ/L 3.4 MEQ/L 4.2 MEQ/L Chloride Level 92 MEQ/L 91 MEQ/L Carbon Dioxide Level 18.3 MEQ/L 17.4 MEQ/L Anion Gap 19 MEQ/L 19 MEQ/L Estimat Glomerular Filtration Rate 48 ML/MIN 46 ML/MIN Lactic Acid Level 4.8 mmol/L 4.4 mmol/L 2.9 mmol/L Protein Corrected Calcium 7.1 MG/DL 6.9 MG/DL Albumin 1.4 GM/DL Phosphorus Level 5.3 MG/DL Magnesium Level 1.6 MG/DL Alkaline Phosphatase 79 U/L Aspartate Amino Transf (AST/SGOT) 46 U/L Alanine Aminotransferase (ALT/SGPT) 60 U/L Total Bilirubin 1.5 MG/DL Test 04/30/18 04:40 Blood Urea Nitrogen 37 MG/DL Creatinine 1.72 MG/DL Random Glucose 156 MG/DL Total Protein 4.1 GM/DL Albumin 1.4 GM/DL Calcium Level 5.3 MG/DL Alkaline Phosphatase 137 U/L Aspartate Amino Transf (AST/SGOT) 53 U/L Alanine Aminotransferase (ALT/SGPT) 53 U/L Total Bilirubin 1.8 MG/DL Sodium Level 126 MEQ/L Potassium Level 4.2 MEQ/L Chloride Level 86 MEQ/L Carbon Dioxide Level 19.7 MEQ/L Anion Gap 20 MEQ/L Estimat Glomerular Filtration Rate 40 ML/MIN Lactic Acid Level 3.1 mmol/L Protein Corrected Calcium 6.6 MG/DL Imaging Last Impressions Chest X-Ray 04/29/18 Signed Impressions: CONCLUSION: Tubes and lines in good position. Persistent consolidation or atelectasis in the left upper lung and right base. Right effusion. Head CT 04/26/18 Signed Impressions: CONCLUSION: 1. No acute intracranial abnormality is identified. The small enhancing lesion s documented on the outside contrast enhanced brain MRI are too small to be vis ible with noncontrast CT imaging. 2. Chronic findings include mild generalized atrophy. CT Angiography 04/26/18 Signed Impressions: CONCLUSION: 1. The previously seen right-sided pulmonary embolus has resolved. No emboli s een on the current exam. 2. Diffuse consolidation throughout the entire right lower lobe with sparing o f the anterior basilar segment. This is a new finding. Infectious etiology susp ected. 3. Left upper lobe pulmonary mass. Physical Exam GENERAL: sedated on the vent, supine on rotaprone bed. Not in respiratory distress. SKIN: Cool and dry. Cool extremities - limited, hands, feet and upper chest examined. HEAD: Atraumatic. Normocephalic. No temporal wasting, or tenderness. EYES: [place] conjunctiva. No petechia or hemorrhage. Pupils equal, round and reactive to light. Has scleral edema. EARS, NOSE AND THROAT: Nose without bleeding or purulent nasal discharge. He is orally intubated. NECK: Trachea midline. Supple and not tender, no meningeal signs CARDIOVASCULAR: Irregular rate and rhythm. No murmurs, rubs or gallops heard RESPIRATORY: Decreased breath sounds ashley. Port ok, not accessed ABDOMEN: Not examined, coverd by the rotaprone contraption EXTREMITIES: Edema hands NEUROLOGICAL: Sedated PSYCHIATRIC: Unable to assess LINE: Port no evidence of infection. PIV ok Assessment & Plan Remarks Severe sepsis, present on admission, with septic shock - off pressors - FiO2 at .45 Pneumonia, R, C/S ACinetobacter (CAP, HCAP, Atypical) Acute resp failure on vent. Acute renal failure: sepsis, prerenal, meds Neutropenia post chemo, improving Thrombocytopenia, post chemo Metastatic lung CA, adeno CA to brain and spine Atrial fib, RVR, S/P cardioversion, has controlled rate RECOMMENDATION Continue vancomycin IV follow Cr and UO. Continue micafungin IV (Immunocompromised s.p recent chemo with septic shock) Stop Zithromax IV Change Meropenem IV to Cefepime Patient severely ill Follow temp Follow counts - will be able to deescalate Abx further once counts up Monitor progress Critically ill. Guarded prognosis. At risk for spontaneous bleed in brain, retroperitoneum etc. D/W RN Spoke with daughter and significant other Heather Hensley MD Apr 30, 2018 11:36
[2018-04-30] MEDS: MICAFUNGIN INJ 150 MG in SODIUM CHLORIDE 0.9% INJ 100 ML IV SCH (12:00)
[2018-04-30] MEDS: CEFEPIME INJ 1,000 MG in SODIUM CHLORIDE 0.9% INJ 100 ML IV SCH (13:23)
[2018-04-30] MEDS: FILGRASTIM 480 MCG/1.6 ML VIAL SQ SCH (14:05)
[2018-04-30] MEDS: fentaNYL DRIP 250 ML IV PRN (17:23)
--- NOTE | 2018-04-30 17:24 | HHI.HCPN ---
Reason for visit a. To assist with evaluation and management of symptoms including: Shortness of breath, debility b. To assist medical decision maker(s) with: better understanding of current medical conditions; weighing benefits/burdens of medical treatment options; making medical treatment decisions. Subjective/Interval History Patient seen and examined in ICU. No family present. Discussed with nurseAnthony. Patient remains on Roto-prone bed, will likely be transitioned to another bed later today. Now off Levophed and Nimbex. Patient continues to require frequent blood and platelet transfusions. WBC 1.3, hemoglobin 8.8, platelets 16 this morning. Repeat platelets post transfusion 37. Remains on trihealthh vent 46% FiO2, PEEP 8. Daughter called nurse for medical update, offered to speak with family if they have additional questions. Will attempt to call 05/01/18. . Family/friend interactions No family present. Advance Directives Living Will: Never completed Health Care Surrogate: Never completed Durable Power of Insurance Application Investigator: Never completed Advance Directive Specifics Health Care Surrogate(s): Patient is not capacitated to make his own health care decisions. No written advanced directives. Not legally . According to [place] statutes, health care proxy decision making falls to the majority of adult children, he has 3 children (2 daughters and 1 son). All 3 children want to serve as healthcare proxy decision makers: * DaughterMichelle MartiNdhzu-[phone] * Son-Dez Fang [phone] * Daughter- Belén Hines- [phone] . Significant change in goals: Patient is not capacitated to make his own health care decisions. No written advanced directives. Not legally . According to [place] statutes, health care proxy decision making falls to the majority of adult children, he has 3 children (2 daughters and 1 son). All 3 children want to serve as healthcare proxy decision makers: * DaughterMichelle MartiJpjyf-[phone] * Son-Dez Fang Qi-[phone] * Daughter- Belén Hines- [phone] Objective Vital Signs Date Time Temp Pulse Resp B/P (MAP) Pulse Ox O2 Delivery O2 Flow Rate FiO2 04/30/18 15:20 100 46 04/30/18 14:00 92 04/30/18 12:00 90 04/30/18 12:00 55 04/30/18 12:00 98.6 90 18 102/63 (76) 98 89/81 (84) 04/30/18 12:00 98.6 90 18 89/81 98 04/30/18 12:00 90 102/63 (76) 89/81 (84) 04/30/18 11:13 97 46 04/30/18 10:00 88 101/62 (75) 90/70 (77) 04/30/18 10:00 88 04/30/18 09:50 40 04/30/18 09:40 45 04/30/18 09:35 99 40 04/30/18 09:15 98.6 86 22 80/63 98 04/30/18 09:00 98.6 86 22 97/52 100 04/30/18 08:27 100 45 04/30/18 08:00 82 04/30/18 08:00 98.6 82 22 118/85 (96) 100 113/57 (75) 04/30/18 08:00 55 04/30/18 06:00 84 22 109/57 (74) 100 04/30/18 06:00 84 04/30/18 05:00 84 04/30/18 05:00 84 0 100 107/58 (74) 04/30/18 04:00 98.4 100 131/79 (96) 04/30/18 04:00 55 04/30/18 04:00 131/79 (96) 04/30/18 03:55 100 55 04/30/18 03:00 85 22 100 100/68 (79) 04/30/18 03:00 85 04/30/18 02:31 85 104/67 04/30/18 02:00 85 0 95/63 (74) 100 113/62 (79) 04/30/18 02:00 85 04/30/18 01:00 100 65 04/30/18 01:00 85 22 100 113/65 (81) 04/30/18 01:00 85 04/30/18 00:39 99.5 86 22 102/66 100 04/30/18 00:00 65 04/30/18 00:00 88 04/30/18 00:00 99.7 88 0 97/65 (76) 100 103/58 (73) 04/30/18 00:00 88 103/58 04/30/18 00:00 88 97/65 (76) 103/58 (73) 04/29/18 22:57 99.5 90 22 95/57 100 04/29/18 22:43 98.5 91 22 95/51 100 04/29/18 22:00 92 04/29/18 22:00 92 5 98/62 (74) 100 100/54 (69) 04/29/18 22:00 92 100/54 04/29/18 21:04 100 65 04/29/18 21:00 93 04/29/18 21:00 93 0 100 105/58 (74) 04/29/18 21:00 93 105/58 04/29/18 20:00 65 04/29/18 20:00 95 04/29/18 20:00 99.8 95 0 125/88 (100) 100 110/56 (74) 04/29/18 20:00 95 125/88 (100) 110/56 (74) 04/29/18 20:00 95 110/56 04/29/18 19:29 97 108/60 04/29/18 18:00 102 04/29/18 17:19 94 60 Intake & Output 04/30/18 04/30/18 07:00 19:00 Intake Total 2010 ml 1282 ml Output Total 300 ml Balance 1710 ml 1282 ml IV Total 1200 ml 1017 ml Tube Feeding 0 ml Packed Cells 800 ml Platelets 205 ml Blood Product IV Normal Saline Flush 10 ml 60 ml Output Urine Total 300 ml Stool Total 0 ml Physical Exam CONSTITUTIONAL/GENERAL: This is an adequately nourished patient intubated and sedated TUBES/LINES/DRAINS: ETT, Parrish catheter, SCDs, bilateral upper extremity soft restraints, PIV, OG tube, [id number] right chest wall accessed SKIN: No jaundice, rashes, or lesions. Ecchymoses on upper extremities. Dry scabs to bilateral knees. Skin cool to touch. Not diaphoretic. HEAD: Atraumatic. Normocephalic. EYES: Pupils equal and round and reactive. Extraocular motions intact. No scleral icterus. Fundi not examined. ENT: Unable to assess hearing. No drainage noted to both nares. Moist oral mucosa. ETT in place NECK: Trachea midline. Supple, nontender. CARDIOVASCULAR: Irregular rhythm, heart rate 103. no murmur, no JVD. Peripheral pulses symmetric. RESPIRATORY/CHEST: Symmetric, unlabored respirations. Diminished breath sounds in the bases. No wheezes, rales, or rhonchi. GASTROINTESTINAL: Abdomen soft, non-tender, nondistended. Hypoactive bowel sounds. Old G-tube clamped GENITOURINARY: Without palpable bladder distension. Parrish catheter in place. MUSCULOSKELETAL: Extremities without clubbing, cyanosis, or edema. No joint tenderness or effusion noted. No calf tenderness. No mottling or clubbing. NEUROLOGICAL: Intubated, sedated, currently on fentanyl infusion PSYCHIATRIC: Unable to assess at this time. Diagnostic Tests Laboratory Laboratory Tests Test 04/27/18 17:28 04/28/18 03:24 04/28/18 03:25 04/28/18 05:29 Blood Gas Puncture Site ART LINE JOSEPH Blood Gas Patient Temperature 98.6 98.6 Blood Gas HCO3 15 mmol/L (22-26) 13 mmol/L (22-26) Blood Gas Base Excess -11.8 mmol/L (-2-2) -11.8 mmol/L (-2-2) Blood Gas Oxygen Saturation 89 % (90-100) 95 % (90-100) Arterial Blood pH 7.17 (7.380-7.420) 7.30 (7.380-7.420) Arterial Blood Partial Pressure CO2 44 mmHg (38-42) 28 mmHg (38-42) Arterial Blood Partial Pressure O2 64 mmHg (61-120) 89 mmHg (61-120) Arterial Blood Oxygen Content 12.1 Vol % (12.0-20.0) 15.8 Vol % (12.0-20.0) Arterial Blood Carboxyhemoglobin 0.8 % (0-4) 0.6 % (0-4) Arterial Blood Methemoglobin 1.4 % (0-2) 1.3 % (0-2) Blood Gas Hemoglobin 9.6 G/DL (12.0-16.0) 11.8 G/DL (12.0-16.0) Oxygen Delivery Device VENTILATOR VENT Blood Gas Ventilator Setting SEE COMMENTS Lactic Acid Level 3.6 mmol/L (0.4-2.0) White Blood Count 0.3 TH/MM3 (4.0-11.0) Red Blood Count 2.98 MIL/MM3 (4.50-5.90) Hemoglobin 9.4 GM/DL (13.0-17.0) Hematocrit 27.1 % (39.0-51.0) Mean Corpuscular Volume 90.7 FL (80.0-100.0) Mean Corpuscular Hemoglobin 31.4 PG (27.0-34.0) Mean Corpuscular Hemoglobin Concent 34.7 % (32.0-36.0) Red Cell Distribution Width 23.7 % (11.6-17.2) Platelet Count 13 TH/MM3 (150-450) Mean Platelet Volume 8.9 FL (7.0-11.0) CBC Comment AUTO DIFF Differential Total Cells Counted 25 Neutrophils % (Manual) 60 % (16-70) Band Neutrophils % 28 % (0-6) Lymphocytes % 4 % (9-44) Monocytes % 4 % (0-8) Neutrophils # (Manual) 0.3 TH/MM3 (1.8-7.7) Myelocytes 4 % (0-0) Nucleated Red Blood Cells 4 /100 WBC (0-0) Differential Comment FINAL DIFF MANUAL Toxic Vacuolation PRESENT (NONE SEEN) Dohle Bodies PRESENT (NONE SEEN) Platelet Estimate RARE (NORMAL) Platelet Morphology Comment NORMAL (NORMAL) Ovalocytes 1+ (NORMAL) Melrude Cells 1+ (NORMAL) Blood Urea Nitrogen 29 MG/DL (7-18) Creatinine 1.31 MG/DL (0.60-1.30) Random Glucose 255 MG/DL (74-106) Total Protein 4.1 GM/DL (6.4-8.2) Albumin 1.5 GM/DL (3.4-5.0) Calcium Level 5.7 MG/DL (8.5-10.1) Phosphorus Level 5.5 MG/DL (2.5-4.9) Magnesium Level 1.8 MG/DL (1.5-2.5) Alkaline Phosphatase 61 U/L (45-117) Aspartate Amino Transf (AST/SGOT) 53 U/L (15-37) Alanine Aminotransferase (ALT/SGPT) 64 U/L (12-78) Total Bilirubin 1.3 MG/DL (0.2-1.0) Sodium Level 131 MEQ/L (136-145) Potassium Level 3.9 MEQ/L (3.5-5.1) Chloride Level 98 MEQ/L (98-107) Carbon Dioxide Level 15.2 MEQ/L (21.0-32.0) Anion Gap 18 MEQ/L (5-15) Estimat Glomerular Filtration Rate 55 ML/MIN (>89) Protein Corrected Calcium 7.1 MG/DL (8.5-10.1) Lipase 27 U/L (73-393) Blood Gas Inspired Oxygen 80 % Test 04/28/18 11:07 04/28/18 16:45 04/29/18 04:45 04/29/18 10:05 Blood Gas Puncture Site ART LINE ART LINE Blood Gas Patient Temperature 98.6 98.6 Blood Gas HCO3 16 mmol/L (22-26) 20 mmol/L (22-26) Blood Gas Base Excess -10.2 mmol/L (-2-2) -3.4 mmol/L (-2-2) Blood Gas Oxygen Saturation 97 % (90-100) 97 % (90-100) Arterial Blood pH 7.24 (7.380-7.420) 7.43 (7.380-7.420) Arterial Blood Partial Pressure CO2 39 mmHg (38-42) 31 mmHg (38-42) Arterial Blood Partial Pressure O2 137 mmHg (61-120) 162 mmHg (61-120) Arterial Blood Oxygen Content 15.1 Vol % (12.0-20.0) 12.9 Vol % (12.0-20.0) Arterial Blood Carboxyhemoglobin 0.5 % (0-4) 0.9 % (0-4) Arterial Blood Methemoglobin 1.2 % (0-2) 1.3 % (0-2) Blood Gas Hemoglobin 10.9 G/DL (12.0-16.0) 9.2 G/DL (12.0-16.0) Oxygen Delivery Device VENTILATOR VENTILATOR Blood Gas Ventilator Setting PC/AC Blood Gas Inspired Oxygen 90 % 55 % White Blood Count 0.2 TH/MM3 (4.0-11.0) 0.4 TH/MM3 (4.0-11.0) Red Blood Count 2.58 MIL/MM3 (4.50-5.90) 2.38 MIL/MM3 (4.50-5.90) Hemoglobin 8.0 GM/DL (13.0-17.0) 7.5 GM/DL (13.0-17.0) Hematocrit 23.3 % (39.0-51.0) 21.1 % (39.0-51.0) Mean Corpuscular Volume 90.4 FL (80.0-100.0) 88.5 FL (80.0-100.0) Mean Corpuscular Hemoglobin 30.9 PG (27.0-34.0) 31.3 PG (27.0-34.0) Mean Corpuscular Hemoglobin Concent 34.2 % (32.0-36.0) 35.4 % (32.0-36.0) Red Cell Distribution Width 24.0 % (11.6-17.2) 24.0 % (11.6-17.2) Platelet Count 27 TH/MM3 (150-450) 12 TH/MM3 (150-450) Mean Platelet Volume 7.2 FL (7.0-11.0) 8.2 FL (7.0-11.0) Blood Urea Nitrogen 32 MG/DL (7-18) 33 MG/DL (7-18) Creatinine 1.48 MG/DL (0.60-1.30) 1.53 MG/DL (0.60-1.30) Random Glucose 191 MG/DL (74-106) 104 MG/DL (74-106) Total Protein 4.2 GM/DL (6.4-8.2) 3.9 GM/DL (6.4-8.2) Calcium Level 5.8 MG/DL (8.5-10.1) 5.5 MG/DL (8.5-10.1) Sodium Level 129 MEQ/L (136-145) 127 MEQ/L (136-145) Potassium Level 3.7 MEQ/L (3.5-5.1) 3.4 MEQ/L (3.5-5.1) Chloride Level 92 MEQ/L (98-107) 91 MEQ/L (98-107) Carbon Dioxide Level 18.3 MEQ/L (21.0-32.0) 17.4 MEQ/L (21.0-32.0) Anion Gap 19 MEQ/L (5-15) 19 MEQ/L (5-15) Estimat Glomerular Filtration Rate 48 ML/MIN (>89) 46 ML/MIN (>89) Lactic Acid Level 4.8 mmol/L (0.4-2.0) 4.4 mmol/L (0.4-2.0) Protein Corrected Calcium 7.1 MG/DL (8.5-10.1) 6.9 MG/DL (8.5-10.1) CBC Comment AUTO DIFF Differential Total Cells Counted 75 Neutrophils % (Manual) 68 % (16-70) Band Neutrophils % 20 % (0-6) Lymphocytes % 4 % (9-44) Monocytes % 5 % (0-8) Neutrophils # (Manual) 0.4 TH/MM3 (1.8-7.7) Myelocytes 3 % (0-0) Nucleated Red Blood Cells 4 /100 WBC (0-0) Differential Comment FINAL DIFF MANUAL Dohle Bodies PRESENT (NONE SEEN) Platelet Estimate RARE (NORMAL) Platelet Morphology Comment NORMAL (NORMAL) Albumin 1.4 GM/DL (3.4-5.0) Phosphorus Level 5.3 MG/DL (2.5-4.9) Magnesium Level 1.6 MG/DL (1.5-2.5) Alkaline Phosphatase 79 U/L (45-117) Aspartate Amino Transf (AST/SGOT) 46 U/L (15-37) Alanine Aminotransferase (ALT/SGPT) 60 U/L (12-78) Total Bilirubin 1.5 MG/DL (0.2-1.0) Test 04/29/18 12:20 04/29/18 16:45 04/29/18 19:00 04/30/18 04:40 Vancomycin Level Trough 34.2 MCG/ML (5.0-10.0) Potassium Level 4.2 MEQ/L (3.5-5.1) 4.2 MEQ/L (3.5-5.1) White Blood Count 0.6 TH/MM3 (4.0-11.0) 1.3 TH/MM3 (4.0-11.0) Red Blood Count 2.10 MIL/MM3 (4.50-5.90) 2.88 MIL/MM3 (4.50-5.90) Hemoglobin 6.6 GM/DL (13.0-17.0) 8.8 GM/DL (13.0-17.0) Hematocrit 18.5 % (39.0-51.0) 24.9 % (39.0-51.0) Mean Corpuscular Volume 88.2 FL (80.0-100.0) 86.4 FL (80.0-100.0) Mean Corpuscular Hemoglobin 31.4 PG (27.0-34.0) 30.5 PG (27.0-34.0) Mean Corpuscular Hemoglobin Concent 35.6 % (32.0-36.0) 35.3 % (32.0-36.0) Red Cell Distribution Width 23.7 % (11.6-17.2) 20.1 % (11.6-17.2) Platelet Count 22 TH/MM3 (150-450) 16 TH/MM3 (150-450) Mean Platelet Volume 8.6 FL (7.0-11.0) 7.7 FL (7.0-11.0) Lactic Acid Level 2.9 mmol/L (0.4-2.0) 3.1 mmol/L (0.4-2.0) Blood Urea Nitrogen 37 MG/DL (7-18) Creatinine 1.72 MG/DL (0.60-1.30) Random Glucose 156 MG/DL (74-106) Total Protein 4.1 GM/DL (6.4-8.2) Albumin 1.4 GM/DL (3.4-5.0) Calcium Level 5.3 MG/DL (8.5-10.1) Alkaline Phosphatase 137 U/L (45-117) Aspartate Amino Transf (AST/SGOT) 53 U/L (15-37) Alanine Aminotransferase (ALT/SGPT) 53 U/L (12-78) Total Bilirubin 1.8 MG/DL (0.2-1.0) Sodium Level 126 MEQ/L (136-145) Chloride Level 86 MEQ/L (98-107) Carbon Dioxide Level 19.7 MEQ/L (21.0-32.0) Anion Gap 20 MEQ/L (5-15) Estimat Glomerular Filtration Rate 40 ML/MIN (>89) Protein Corrected Calcium 6.6 MG/DL (8.5-10.1) Random Vancomycin Level 34.1 COMMENT Test 04/30/18 09:20 04/30/18 13:05 Blood Gas Puncture Site ART LINE Blood Gas Patient Temperature 98.6 Blood Gas HCO3 21 mmol/L (22-26) Blood Gas Base Excess -2.5 mmol/L (-2-2) Blood Gas Oxygen Saturation 96 % (90-100) Arterial Blood pH 7.46 (7.380-7.420) Arterial Blood Partial Pressure CO2 30 mmHg (38-42) Arterial Blood Partial Pressure O2 113 mmHg (61-120) Arterial Blood Oxygen Content 12.6 Vol % (12.0-20.0) Arterial Blood Carboxyhemoglobin 0.9 % (0-4) Arterial Blood Methemoglobin 1.4 % (0-2) Blood Gas Hemoglobin 9.1 G/DL (12.0-16.0) Oxygen Delivery Device VENTILATOR Blood Gas Ventilator Setting [id number]/AC22IP/17RATE Blood Gas Inspired Oxygen 45 % Platelet Count 37 TH/MM3 (150-450) Result Diagram: 04/30/18 1305 04/30/18 0440 Microbiology Microbiology Date/Time Source Procedure Growth Status 04/26/18 18:30 Blood Peripheral Aerobic Blood Culture - Preliminary NO GROWTH IN 4 DAYS Resulted 04/26/18 18:30 Blood Peripheral Anaerobic Blood Culture - Preliminary NO GROWTH IN 4 DAYS Resulted 04/27/18 08:34 Sputum Endotracheal Gram Stain - Final Complete 04/27/18 08:34 Sputum Culture - Final Acinetobacter Baumannii/Haemol Complete 04/27/18 08:30 Urine Catheterized Urine Legionella Antigen - Final PRESUMPTIVE NEGATIVE FOR LEGIONELLA P... Complete 04/27/18 08:30 Urine Catheterized Urine Streptococcus pneumoniae Antigen (M - Final PRESUMPTIVE NEGATIVE FOR STREPTOCOCCU... Complete Imaging Last Impressions Chest X-Ray 04/30/18 0500 Signed Impressions: CONCLUSION: No significant interval change. Head CT 04/26/18 0000 Signed Impressions: CONCLUSION: 1. No acute intracranial abnormality is identified. The small enhancing lesion s documented on the outside contrast enhanced brain MRI are too small to be vis ible with noncontrast CT imaging. 2. Chronic findings include mild generalized atrophy. CT Angiography 04/26/18 0000 Signed Impressions: CONCLUSION: 1. The previously seen right-sided pulmonary embolus has resolved. No emboli s een on the current exam. 2. Diffuse consolidation throughout the entire right lower lobe with sparing o f the anterior basilar segment. This is a new finding. Infectious etiology susp ected. 3. Left upper lobe pulmonary mass. Procedures 04/26/18-intubation . Assessment and Plan Disease Oriented Problem List: (1) Acute respiratory failure with hypoxia (2) Pneumonia (3) Adenocarcinoma, lung (4) Atrial fibrillation with RVR (5) GERD (gastroesophageal reflux disease) Symptom Scale: (1) Shortness of breath 0-10 Scale: Unable to quantify Comment: Patient has history of lung adenocarcinoma. Chest x-ray showing pneumonia. Currently intubated . 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 (3) Debility 0-10 Scale: Unable to quantify Comment: Progressive. . Pertinent Non-Medical Issues Psychosocial: Patient was born in [place], [place] and he lived most of his life in [place]. Patient moved to [place] in 2006. Patient has been 4 times and 3 times. His fourth many years ago. Patient has a significant other, whom he has lived with for the past 27 years. Patient his 3 adult children, 2 daughters and 1 son, Dez Perez Jr and Belén Hines. 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 Patient to use to [employer] for [employer] until beginning of 2016. He was recently working part-time [place] [employer] until November 2016. No experience. Spiritual: Patient is [place] Legal: Patient never completed advanced directives Ethical issues impacting care: No issues identified at this time. . Important Contacts * Daughter-Ambika MartiUqjfi-[phone] * Son-Dez Fang Jr-[phone] * Daughter- Belén Hines- [phone] * Stepdaughter-Maryjane Mooney- [phone] * Significant other-Sayda Adamson-[phone] . Prognosis Mr. 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 Patient was brought by paramedics on 04/26/18 from an oncology center where he was about to receive chemotherapy for his lung cancer. When paramedics arrived patient was in atrial fibrillation with RVR with a rate of 228 and systolic blood pressure in the 50s. Patient was also found to be hyperglycemic with blood glucose in the 600s. Patient underwent cardioversion and was placed on 100% nonrebreather. Upon arrival to the emergency room patient was found to be hypoxic and was intubated and placed on mechanical ventilation. Patient is currently in neutropenic shock. Given multiple ongoing comorbidities, patient remains at very high risk for further complications and decline. . Code Status: Full Code Plan * Legal decision maker: Patient is not capacitated to make his own health care decisions. No written advanced directives. Not legally . According to [place] statutes, health care proxy decision making falls to the majority of adult children. He has 2 daughters, Belén Hines and Ambika Marti and 1 son, Dez Fang, all 3 children want to serve as healthcare proxy decision makers. * FULL CODE * Goals remain aggressive at this time including FULL CODE. Family previously reported he would not want to live in a "vegetative state" and may consider changing of goals if he might be left in such a condition. SYMPTOMS: * Shortness of breath: Patient has stage IV adenocarcinoma of the lung. [facility] started patient on Flolan and planning on transferring patient onto a Roto prone bed. Patient is on antibiotics, Duonebs. * Pain: Patient has stage IV adenocarcinoma of the lung with metastasis to the bone and brain post radiation. On Fentanyl. * Debility: Progressive. According to family, patient has been progressively deteriorating in the past few months. Per his significant other, he has significantly showed decline in his physical condition since he started chemotherapy and radiation therapy. He has been very weak and has had x 2 falls in the past 2 months due to weakness. Patient has been spending more time sleeping due to fatigue and has required assistance with his ADLs in the past couple of months. Patient started to ambulate with a walker on the day 04/26/18. If goals remain aggressive patient may benefit from PT, OT therapy. Palliative care will continue to follow the patient during hospital course as condition evolves, to assist patient/decision-maker with understanding of their medical conditions, weighing benefits/burdens of treatment options, for clarification of goals of treatment. Additionally will assist with any symptoms of palliative concern Attestation To help prompt me to consider important information that might be impacting today's encounter and assessment, information from prior notes written by myself or my colleagues may have been "brought forward" into today's note. My signature on this note, however, is an attestation that I personally performed the exam, history, and/or decision-making noted today, and, unless otherwise indicated, the interactions with patient, family, and staff as well as the review of records all occurred today. I also attest that the listed assessment and stated plan reflect my best clinical judgment today based on the combination of historical information, prior notes, and today's exam/ interactions. When time spent is documented, it refers only to time spent today by the signer, or if indicated, combined time spent today by collaborating physician/nurse practitioner. Latanya Persaud Apr 30, 2018 17:24
[2018-04-30 19:52] LABS: CALCIUM 5.1 MG/DL (8.5-10.1); CREATININE 1.9 MG/DL (0.60-1.30)
[2018-04-30 20:04] LABS: TOTAL PROTEIN 4.4 GM/DL (6.4-8.2)
[2018-04-30 20:06] LABS: CALCIUM-PROTEIN CORRECTED 6.2 MG/DL (8.5-10.1)
[2018-04-30 20:50] LABS: HEMOGLOBIN 8.8 GM/DL (13.0-17.0); MEAN CELL VOLUME 86.5 FL (80.0-100.0); MEAN CORPUSCULAR HEMOGLOBIN 30.5 PG (27.0-34.0); MEAN CORPUSCULAR HGB CONC 35.2 % (32.0-36.0); MEAN PLATELET VOLUME 8.3 FL (7.0-11.0); PLATELET COUNT 23 TH/MM3 (150-450); RED BLOOD COUNT 2.88 MIL/MM3 (4.50-5.90); RED CELL DISTRIBUTION WIDTH 20.4 % (11.6-17.2); WHITE BLOOD COUNT 2.6 TH/MM3 (4.0-11.0)
[2018-04-30] MEDS: FAMOTIDINE 20 MG TAB PO SCH (21:00)
[2018-05-01] VITALS (29 sets, daily range): BP systolic 87–138; BP diastolic 50–85; PULSE 12–155; RESP 10–18; TEMP 98–99; O2SAT 95–100
[2018-05-01] MEDS: EPOPROSTENOL NEB SOLUTION 20 NG/KG/MIN 100 ML NEB SCH ×4 (00:06→08:00)
[2018-05-01] MEDS: SODIUM CHLORIDE 0.9% FLUSH 10 ML FLUSH IV FLUSH SCH ×3 (00:06→21:07)
[2018-05-01] MEDS: CEFEPIME INJ 1,000 MG in SODIUM CHLORIDE 0.9% INJ 100 ML IV SCH ×2 (00:07→14:10)
[2018-05-01] MEDS: INSULIN ASPART SUPPLEMENTAL SCALE SQ SCH ×7 (03:40→23:46)
[2018-05-01] MEDS: CHLORHEXIDINE GLUCONATE 2 % 1 PACK (2 CLOTHS) TOP SCH (03:40)
[2018-05-01] MEDS: HYDROCORTISONE SOD SUCCINATE 100 MG VIAL IV PUSH SCH ×3 (05:35→21:05)
[2018-05-01 05:52] LABS: HEMATOCRIT 25.1 % (39.0-51.0); HEMOGLOBIN 8.9 GM/DL (13.0-17.0); MEAN CORPUSCULAR HEMOGLOBIN 30.9 PG (27.0-34.0); MEAN CORPUSCULAR HGB CONC 35.5 % (32.0-36.0); MEAN PLATELET VOLUME 7.7 FL (7.0-11.0); RED BLOOD COUNT 2.88 MIL/MM3 (4.50-5.90); RED CELL DISTRIBUTION WIDTH 20.1 % (11.6-17.2); WHITE BLOOD COUNT 2.6 TH/MM3 (4.0-11.0)
[2018-05-01 05:57] LABS: PLATELET COUNT 15 TH/MM3 (150-450)
[2018-05-01 06:14] LABS: ALBUMIN 1.4 GM/DL (3.4-5.0); CALCIUM 5.2 MG/DL (8.5-10.1); CREATININE 1.99 MG/DL (0.60-1.30); RANDOM VANCOMYCIN 31.2 COMMENT; TOTAL BILIRUBIN ADULT 2.4 MG/DL (0.2-1.0); TOTAL PROTEIN 4.5 GM/DL (6.4-8.2)
[2018-05-01 07:04] LABS: CALCIUM-PROTEIN CORRECTED 6.3 MG/DL (8.5-10.1)
[2018-05-01] MEDS: RESP: ALBUTEROL 2.5 MG/IPRATROPIUM 0.5 MG NEB (PRN) INH ×2 (08:09→23:55)
[2018-05-01] MEDS: FAMOTIDINE 20 MG TAB PO SCH ×2 (08:25→21:06)
[2018-05-01] MEDS: FOLIC ACID 1 MG TAB PO SCH (08:25)
[2018-05-01 08:29] LABS: BANDS 7 % (0-6); CORRECTED NUCLEATED RBC 1 /100 WBC (0-0); DOHLE BODIES PRESENT (NONE SEEN); LYMPHOCYTES 1 % (9-44); METAMYELOCYTES 1 % (0-1); MONOCYTES 5 % (0-8); NEUTROPHIL # MANUAL DIFF 2.4 TH/MM3 (1.8-7.7); NUCLEATED RED BLOOD CELL 1 (0-0); POLYS (SEG NEUTROPHILS) 86 % (16-70)
[2018-05-01] MEDS: CHLORHEXIDINE 0.12% (ORAL KIT) 15 ML CUP MT SCH ×2 (08:31→21:07)
--- NOTE | 2018-05-01 09:00 | HHI.CCPN ---
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 Patient was picked up at oncology Center and was about to get a chemotherapy dose for his lung cancer. Paramedics found him in A. fib with RVR with a rate of 228 and a blood pressure of 50 systolic. He underwent cardioversion. He arrived to emergency department on 100% nonrebreather but remained hypoxemic. The rhythm in the emergency department was a sinus with occasional ectopic beats. The patient was complaining of shortness of breath and despite of high oxygen delivery he remained severely hypoxemic. He was intubated by ED attending for an acute hypoxemic respiratory failure. Denies chest pain or productive cough or fever. 04/27: Sedated, orally intubated on mechanical ventilation. Had runs of SVT/ rapid A. fib last night from which he was cardioverted. Hypotensive on pressors. 04/28: Remains sedated, orally intubated on mechanical ventilation on neuromuscular blockade. On Barrett-Synephrine/Levophed/low-dose vasopressin for pressor support. On fentanyl/Nimbex GTT and being started on Versed in preparation for prone ventilation. Platelet count dropped to 13,000. 2 units pheresed platelets ordered. Significantly positive fluid balance. Starting Lasix to attempt to keep an even fluid balance. Continues on inhaled Flolan. 04/29: remains in shock on vasopressors. prone. fio2 slightly improved. remains pancytopenic. 04/30 Patient remains on rotoprone bed. Off Levophed remains on Vasopressin 0.04, Sedated with Versed, Fentanyl infusions in addition he is on Nimbex drip. s/p transfusion 2u PRBC last night and 2u PLT during day yesterday. 05/01 Patient is off rotoprone bed. Sedated and intubated. On PRVC RR 18, TV 500, PEEP:8 and FIO2: 40%. s/p transfusion 1u PLT pheresis yesterday. Objective Vital Signs Date Time Temp Pulse Resp B/P (MAP) Pulse Ox O2 Delivery O2 Flow Rate FiO2 05/01/18 08:30 100 40 05/01/18 04:00 98.0 100 18 125/76 (92) 138/74 (95) Intake and Output 6/04/1305/01/18 05/02/18 08:00 16:00 00:00 Intake Total 862 ml Output Total 200 ml Balance 662 ml Result Diagram: 05/01/18 0500 05/01/18 0500 Other Results Laboratory Tests Test 04/30/18 09:20 04/30/18 13:05 04/30/18 18:35 04/30/18 19:50 Blood Gas Puncture Site ART LINE Blood Gas Patient Temperature 98.6 Blood Gas HCO3 21 mmol/L Blood Gas Base Excess -2.5 mmol/L Blood Gas Oxygen Saturation 96 % Arterial Blood pH 7.46 Arterial Blood Partial Pressure CO2 30 mmHg Arterial Blood Partial Pressure O2 113 mmHg Arterial Blood Oxygen Content 12.6 Vol % Arterial Blood Carboxyhemoglobin 0.9 % Arterial Blood Methemoglobin 1.4 % Blood Gas Hemoglobin 9.1 G/DL Oxygen Delivery Device VENTILATOR Blood Gas Ventilator Setting [id number]/[id number] Blood Gas Inspired Oxygen 45 % Platelet Count 37 TH/MM3 23 TH/MM3 Blood Urea Nitrogen 41 MG/DL Creatinine 1.90 MG/DL Random Glucose 167 MG/DL Total Protein 4.4 GM/DL Calcium Level 5.1 MG/DL Sodium Level 127 MEQ/L Potassium Level 4.1 MEQ/L Chloride Level 88 MEQ/L Carbon Dioxide Level 19.0 MEQ/L Anion Gap 20 MEQ/L Estimat Glomerular Filtration Rate 36 ML/MIN Protein Corrected Calcium 6.2 MG/DL White Blood Count 2.6 TH/MM3 Red Blood Count 2.88 MIL/MM3 Hemoglobin 8.8 GM/DL Hematocrit 25.0 % Mean Corpuscular Volume 86.5 FL Mean Corpuscular Hemoglobin 30.5 PG Mean Corpuscular Hemoglobin Concent 35.2 % Red Cell Distribution Width 20.4 % Mean Platelet Volume 8.3 FL Test 05/01/18 05:00 White Blood Count 2.6 TH/MM3 Red Blood Count 2.88 MIL/MM3 Hemoglobin 8.9 GM/DL Hematocrit 25.1 % Mean Corpuscular Volume 87.0 FL Mean Corpuscular Hemoglobin 30.9 PG Mean Corpuscular Hemoglobin Concent 35.5 % Red Cell Distribution Width 20.1 % Platelet Count 15 TH/MM3 Mean Platelet Volume 7.7 FL CBC Comment AUTO DIFF Differential Total Cells Counted 100 Neutrophils % (Manual) 86 % Band Neutrophils % 7 % Lymphocytes % 1 % Monocytes % 5 % Neutrophils # (Manual) 2.4 TH/MM3 Metamyelocytes 1 % Nucleated Red Blood Cells 1 /100 WBC Differential Comment FINAL DIFF MANUAL Dohle Bodies PRESENT Platelet Estimate RARE Platelet Morphology Comment NORMAL Ovalocytes Blood Urea Nitrogen 47 MG/DL Creatinine 1.99 MG/DL Random Glucose 165 MG/DL Total Protein 4.5 GM/DL Albumin 1.4 GM/DL Calcium Level 5.2 MG/DL Alkaline Phosphatase 232 U/L Aspartate Amino Transf (AST/SGOT) 69 U/L Alanine Aminotransferase (ALT/SGPT) 58 U/L Total Bilirubin 2.4 MG/DL Sodium Level 127 MEQ/L Potassium Level 4.1 MEQ/L Chloride Level 86 MEQ/L Carbon Dioxide Level 20.0 MEQ/L Anion Gap 21 MEQ/L Estimat Glomerular Filtration Rate 34 ML/MIN Protein Corrected Calcium 6.3 MG/DL Random Vancomycin Level 31.2 COMMENT Imaging Last Impressions Chest X-Ray 04/30/18 0500 Signed Impressions: CONCLUSION: No significant interval change. Head CT 04/26/18 0000 Signed Impressions: CONCLUSION: 1. No acute intracranial abnormality is identified. The small enhancing lesion s documented on the outside contrast enhanced brain MRI are too small to be vis ible with noncontrast CT imaging. 2. Chronic findings include mild generalized atrophy. CT Angiography 04/26/18 0000 Signed Impressions: CONCLUSION: 1. The previously seen right-sided pulmonary embolus has resolved. No emboli s een on the current exam. 2. Diffuse consolidation throughout the entire right lower lobe with sparing o f the anterior basilar segment. This is a new finding. Infectious etiology susp ected. 3. Left upper lobe pulmonary mass. Objective Remarks Patient is 67 yo critically ill intubated and sedated HEENT/ Neuro: Sedated, orally intubated, on neuromuscular blockade pallor present, no icterus, tongue/ mucosa moist. Conjunctival edema noted. Neck: Right IJ central line in place Chest/Pulm: on mech vent, difficult to assess lung keys due to prone therapy. equal chest rise. CVS: muffled heart sounds. tachycardic rate, regular rhythm. sinus. GI/abdomen: soft, nontender, nondistended. no guarding. rectal tube in place with brown stool. Extremities: warm bilaterally, bilateral edema Skin: Areas of ecchymosis over chest and abdominal wall noted. Neuro: Intubated A/P Assessment and Plan Acute Respiratory failure on mechanical ventilation Pneumonia ARDS Neutropenic sepsis Neuro: On Fentanyl and Versed infusion for sedation. Daily sedation vacation CV: Afib RVR s/p cardioversion Monitor HR and BP keep MAP>65mmHg For 2D echo to eval LV function Taper steroids- decrease HC 50mg IV Q8 Pulm: Continue with vent support keep sats >92% On PRVC RR 18, TV 500, IT:1.0, PEEP:8, FIO2: 40% Bronchodilators, ICU vent bundle. Taper Flolan 30,000ng/ml at 5ml/hr. SBT daily as teresita SANAZ Monitor renal function, I/O's, avoid nephrotoxins Off Bumex drip. Consult renal , check renal US Cr:1.99 from 1.90, UOP:175ml in 12 hrs GI: Change tube feeds- Nepro with goal rate 40ml/hr On Pepcid 20mg IV Q12 for GI prophylaxis ID: s/p Septic shock Neutropenic sepsis Sputum 04/27: Acinetobacter Abx per ID on IV vancomycin/Meropenem/ micafungin. -Consulted ID - Dr. Hensley following Monitor for signs of infections ( Fever, WBC) recheck sputum cx Heme: Metastatic lung adenocarcinoma with brain/bone metastases Anemia, thrombocytopenia Monitor CBC, coags s/p transfusion 2U PRBC and 2U PLT /. s/p transfusion 1u PLT pheresis 04/30 Will transfuse 2u PLT pheresis today for PLT 15 Heme is following, on Neupogen Endo: Hyperglycemia -Insulin sliding scale DVT GI prophylaxis -Rupert's and SCDs -IV Pepcid Palliative care is following Condition remains critical. Palliative care following. Patient remains full CODE STATUS at this time Critical Care: The total critical care time was 30minutes. Time to perform other separately billable procedures was not included in the critical care time. Carito Kinsey MD May 01, 2018 09:00
--- NOTE | 2018-05-01 09:41 | HHI.IDPN ---
Subjective Subjective Remarks Patient is a 67-year-old male with underlying metastatic lung cancer, adenocarcinoma, with metastases to the spine in the brain, brought into the hospital for evaluation of shortness of breath. He apparently was in the oncology center, and was scheduled to get chemotherapy when he became really short of breath. Paramedics was called and he was found to be in atrial fibrillation with RVR, and he was hypotensive. He underwent cardioversion, and remained hypoxic. He has now been intubated, and patient is currently hypotensive on multiple pressors including Barrett-Synephrine, Levophed, and vasopressin. He has had low-grade temps. He is neutropenic. His chest x-ray showing significant infiltrate on the right lung. Patient was recently hospitalized the first week of March and was diagnosed to have pulmonary embolism. He underwent CT on this admission and it showed resolution of the pulmonary embolism. Patient currently is intubated, on sedation, on the vent with FiO2 of 100%. He is currently in atrial fibrillation with a controlled rate. Patient has received vancomycin, Zosyn, and micafungin. I do not have any other information, but there was no mention of any GI or urinary complaints prior to admission. Infectious disease consultation has been requested to evaluate patient with sepsis, shock, and neutropenia from chemotherapy. Notes reviewed D/W RN He is off rotaprone bed Sedated on the vent, FiO2 at 0.4 WBC up to 2.6, ANC >2000 Platelets 15K this morning He is afebrile BP ok BC negative Sputum with pansensitive Acinetobacter Antibiotics Azithro IV Meropenem IV Micafungin IV Vanco IV dosing per pharmacy Current Medications Medications (Trade) Dose Ordered Sig/Gigi Route Start Time Stop Time Status Last Admin (NS Flush) 2 ml UNSCH PRN IV FLUSH 04/26/18 17:45 04/29/18 20:59 (NS Flush) 2 ml BID IV FLUSH 04/26/18 21:00 05/01/18 08:29 (Tylenol) 650 mg Q6H PRN PO 04/26/18 17:45 (Duoneb Neb) 1 ampule Q4HR NEB PRN INH 04/26/18 17:45 05/01/18 08:09 (Peridex 0.12% Liq) 15 ml BID@08,20 MT 04/26/18 20:00 05/01/18 08:31 ([facility] 1 [id number] XX 04/26/18 17:45 (Chlorhexidine 2% Cloth) 3 pack Taper DAILY@04 TOP 04/27/18 04:00 04/23/19 03:59 05/01/18 03:40 (Chlorhexidine 2% Cloth) 3 pack UNSCH PRN TOP 04/26/18 17:45 (NovoLOG SUPPLEMENTAL SCALE) 1 Q4HR SQ 04/26/18 20:00 05/01/18 08:00 (D50w (Vial) Inj) 25 ml UNSCH PRN IV 04/26/18 17:45 (Glucagon Inj) 1 mg UNSCH PRN IM/SQ 04/26/18 17:45 Pharmacy Profile Note 0 ml @ 0 mls/hr UNSCH OTHER 04/26/18 18:00 (Decadron) 4 mg BID PO 04/26/18 21:00 Future Hold (Folate) 1 mg DAILY PO 04/27/18 09:00 05/01/18 08:25 (Brethine Inj) 1 mg UNSCH PRN SQ 04/27/18 08:45 Vancomycin HCl 1250 mg/Sodium Chloride 262.5 ml @ 262.5 mls/ hr Q18H IV 04/28/18 00:00 Future Hold 04/29/18 12:46 Micafungin Sodium 150 mg/Sodium Chloride 100 ml @ 100 mls/hr Q24H IV 04/27/18 12:00 04/30/18 12:00 (Neupogen Inj) 480 mcg DAILY@14 SQ 04/27/18 14:00 04/30/18 14:05 Fentanyl Citrate 250 ml @ 5 mls/hr TITRATE PRN IV 04/27/18 17:45 04/30/18 17:23 Midazolam HCl 50 ml @ 2 mls/hr TITRATE PRN IV 04/27/18 17:45 04/30/18 02:31 Potassium Chloride 100 ml @ 50 mls/hr Q2H PRN IV 04/29/18 06:15 Potassium Chloride 100 ml @ 50 mls/hr Q2H PRN IV 04/29/18 06:15 (K-Lyte Cl Eff) 50 meq UNSCH PRN PO 04/29/18 06:15 Potassium Chloride 100 ml @ 25 mls/hr UNSCH PRN IV 04/29/18 06:15 04/29/18 08:17 Potassium Chloride 100 ml @ 50 mls/hr Q2H PRN IV 04/29/18 06:15 Magnesium Sulfate 4 gm/Sodium Chloride 100 ml @ 50 mls/hr UNSCH PRN IV 04/29/18 06:15 (Mag-Ox) 800 mg UNSCH PRN PO 04/29/18 06:15 Magnesium Sulfate 2 gm/Sodium Chloride 100 ml @ 50 mls/hr UNSCH PRN IV 04/29/18 06:15 (K-Phos) 2,000 mg Q4H PRN PO 04/29/18 06:15 Sodium Phosphate 30 mmol/Sodium Chloride 250 ml @ 42 mls/hr UNSCH PRN IV 04/29/18 06:15 (K-Phos) 2,000 mg UNSCH PRN PO/TUBE 04/29/18 06:15 Potassium Phosphate 30 mmol/ Sodium Chloride 260 ml @ 42 mls/hr UNSCH PRN IV 04/29/18 06:15 Cefepime HCl 1000 mg/Sodium Chloride 100 ml @ 200 mls/hr Q12H IV 04/30/18 13:00 05/01/18 00:07 (Pepcid) 10 mg BID PO 04/30/18 21:00 05/01/18 08:25 Calcium Gluconate 1 gm/Sodium Chloride 110 ml @ 110 mls/hr ONCE ONCE IV 05/01/18 11:00 05/01/18 11:59 (SoluCORTEF INJ) 50 mg Q8HR IV PUSH 05/01/18 14:00 Epoprostenol Sodium 17.5 ml/ Sodium Chloride 100 ml @ 5 mls/hr Q8H NEB 05/01/18 10:00 05/01/18 17:59 Epoprostenol Sodium 8.75 ml/ Sodium Chloride 100 ml @ 5 mls/hr Q8H NEB 05/01/18 18:00 05/02/18 01:59 Lines Line sites ok Port in place not accessed. 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 Hyperlipidemia GERD PE Lung biopsy Port placement Allergies: Coded Allergies: No Known Allergies (Verified Allergy, Unknown, 04/26/18) Objective . Vital Signs Date Time Temp Pulse Resp B/P (MAP) Pulse Ox O2 Delivery O2 Flow Rate FiO2 05/01/18 08:30 100 40 05/01/18 04:00 40 05/01/18 04:00 98.0 100 18 125/76 (92) 97 138/74 (95) 05/01/18 03:58 97 40 05/01/18 00:00 45 05/01/18 00:00 98.3 96 18 126/85 (99) 98 133/70 (91) 04/30/18 23:52 98 40 04/30/18 23:00 96 18 133/69 (90) 99 04/30/18 22:00 94 18 133/70 (91) 98 04/30/18 21:00 93 18 135/71 (92) 99 04/30/18 20:02 99 40 04/30/18 20:00 98.0 93 18 125/80 (95) 99 137/73 (94) 04/30/18 20:00 93 137/73 (94) 04/30/18 20:00 55 04/30/18 18:00 96 04/30/18 16:00 98.8 94 18 140/73 (95) 100 04/30/18 16:00 94 140/73 (95) 04/30/18 16:00 55 04/30/18 16:00 94 04/30/18 15:20 100 46 04/30/18 14:00 92 04/30/18 12:00 90 04/30/18 12:00 55 04/30/18 12:00 98.6 90 18 102/63 (76) 98 89/81 (84) 04/30/18 12:00 98.6 90 18 89/81 98 04/30/18 12:00 90 102/63 (76) 89/81 (84) 04/30/18 11:13 97 46 04/30/18 10:00 88 101/62 (75) 90/70 (77) 04/30/18 10:00 88 04/30/18 09:50 40 04/30/18 09:40 45 . Laboratory Tests Test 04/29/18 19:00 04/30/18 04:40 04/30/18 13:05 04/30/18 19:50 White Blood Count 0.6 TH/MM3 1.3 TH/MM3 2.6 TH/MM3 Red Blood Count 2.10 MIL/MM3 2.88 MIL/MM3 2.88 MIL/MM3 Hemoglobin 6.6 GM/DL 8.8 GM/DL 8.8 GM/DL Hematocrit 18.5 % 24.9 % 25.0 % Mean Corpuscular Volume 88.2 FL 86.4 FL 86.5 FL Mean Corpuscular Hemoglobin 31.4 PG 30.5 PG 30.5 PG Mean Corpuscular Hemoglobin Concent 35.6 % 35.3 % 35.2 % Red Cell Distribution Width 23.7 % 20.1 % 20.4 % Platelet Count 22 TH/MM3 16 TH/MM3 37 TH/MM3 23 TH/MM3 Mean Platelet Volume 8.6 FL 7.7 FL 8.3 FL Test 05/01/18 05:00 White Blood Count 2.6 TH/MM3 Red Blood Count 2.88 MIL/MM3 Hemoglobin 8.9 GM/DL Hematocrit 25.1 % Mean Corpuscular Volume 87.0 FL Mean Corpuscular Hemoglobin 30.9 PG Mean Corpuscular Hemoglobin Concent 35.5 % Red Cell Distribution Width 20.1 % Platelet Count 15 TH/MM3 Mean Platelet Volume 7.7 FL CBC Comment AUTO DIFF Differential Total Cells Counted 100 Neutrophils % (Manual) 86 % Band Neutrophils % 7 % Lymphocytes % 1 % Monocytes % 5 % Neutrophils # (Manual) 2.4 TH/MM3 Metamyelocytes 1 % Nucleated Red Blood Cells 1 /100 WBC Differential Comment FINAL DIFF MANUAL Dohle Bodies PRESENT Platelet Estimate RARE Platelet Morphology Comment NORMAL Ovalocytes Laboratory Tests Test 04/29/18 16:45 04/29/18 19:00 04/30/18 04:40 04/30/18 18:35 Potassium Level 4.2 MEQ/L 4.2 MEQ/L 4.1 MEQ/L Lactic Acid Level 2.9 mmol/L 3.1 mmol/L Blood Urea Nitrogen 37 MG/DL 41 MG/DL Creatinine 1.72 MG/DL 1.90 MG/DL Random Glucose 156 MG/DL 167 MG/DL Total Protein 4.1 GM/DL 4.4 GM/DL Albumin 1.4 GM/DL Calcium Level 5.3 MG/DL 5.1 MG/DL Alkaline Phosphatase 137 U/L Aspartate Amino Transf (AST/SGOT) 53 U/L Alanine Aminotransferase (ALT/SGPT) 53 U/L Total Bilirubin 1.8 MG/DL Sodium Level 126 MEQ/L 127 MEQ/L Chloride Level 86 MEQ/L 88 MEQ/L Carbon Dioxide Level 19.7 MEQ/L 19.0 MEQ/L Anion Gap 20 MEQ/L 20 MEQ/L Estimat Glomerular Filtration Rate 40 ML/MIN 36 ML/MIN Protein Corrected Calcium 6.6 MG/DL 6.2 MG/DL Test 05/01/18 05:00 Blood Urea Nitrogen 47 MG/DL Creatinine 1.99 MG/DL Random Glucose 165 MG/DL Total Protein 4.5 GM/DL Albumin 1.4 GM/DL Calcium Level 5.2 MG/DL Alkaline Phosphatase 232 U/L Aspartate Amino Transf (AST/SGOT) 69 U/L Alanine Aminotransferase (ALT/SGPT) 58 U/L Total Bilirubin 2.4 MG/DL Sodium Level 127 MEQ/L Potassium Level 4.1 MEQ/L Chloride Level 86 MEQ/L Carbon Dioxide Level 20.0 MEQ/L Anion Gap 21 MEQ/L Estimat Glomerular Filtration Rate 34 ML/MIN Protein Corrected Calcium 6.3 MG/DL Imaging Last Impressions Chest X-Ray 04/29/18 0000 Signed Impressions: CONCLUSION: Tubes and lines in good position. Persistent consolidation or atelectasis in the left upper lung and right base. Right effusion. Head CT 04/26/18 0000 Signed Impressions: CONCLUSION: 1. No acute intracranial abnormality is identified. The small enhancing lesion s documented on the outside contrast enhanced brain MRI are too small to be vis ible with noncontrast CT imaging. 2. Chronic findings include mild generalized atrophy. CT Angiography 04/26/18 0000 Signed Impressions: CONCLUSION: 1. The previously seen right-sided pulmonary embolus has resolved. No emboli s een on the current exam. 2. Diffuse consolidation throughout the entire right lower lobe with sparing o f the anterior basilar segment. This is a new finding. Infectious etiology susp ected. 3. Left upper lobe pulmonary mass. Physical Exam GENERAL: sedated on the vent, not in respiratory distress. SKIN: Cool and dry. Scattered ecchymoses and purpuric areas HEAD: Atraumatic. Normocephalic. No temporal wasting, or tenderness. EYES: [place] conjunctiva. No petechia or hemorrhage. Pupils equal, round and reactive to light. Has scleral edema. EARS, NOSE AND THROAT: Nose without bleeding or purulent nasal discharge. He is orally intubated. NECK: Trachea midline. Supple and not tender, no meningeal signs CARDIOVASCULAR: Irregular rate and rhythm. No murmurs, rubs or gallops heard RESPIRATORY: Has diffuse rhonchi. Port ok, not accessed ABDOMEN: Slightly distended, no reaction to palpation EXTREMITIES: Edematous. Purpuric areas and ecchymoses noted NEUROLOGICAL: Sedated PSYCHIATRIC: Unable to assess LINE: Port no evidence of infection. PIV ok Assessment & Plan Remarks Severe sepsis, present on admission, with septic shock - off pressors - FiO2 at .45 Pneumonia, R, C/S Acinetobacter (CAP, HCAP, Atypical) Acute resp failure on vent. Acute renal failure: sepsis, prerenal, meds Neutropenia post chemo, resolved Thrombocytopenia, post chemo Metastatic lung CA, adeno CA to brain and spine Atrial fib, RVR, S/P cardioversion, has controlled rate RECOMMENDATION Stop vancomycin IV Stop micafungin IV Stop Zithromax IV Continue IV Cefepime Follow temp Monitor progress D/C neutropenic precautions Critically ill. Guarded prognosis. At risk for spontaneous bleed in brain, retroperitoneum etc. D/W Heather Burroughs MD May 01, 2018 09:41
[2018-05-01] MEDS ORDERED: EPOPROSTENOL NEB SOLUTION 10 NG/KG/MIN 100 ML NEB SCH ×2 (10:00)
[2018-05-01] MEDS ORDERED: METOPROLOL TARTRATE 5 MG/5 ML VIAL IV PUSH ONE ×2 (10:00→17:10)
[2018-05-01 10:27] LABS: PROTHROMBIN TIME - PATIENT 10.6 SEC (9.8-11.6)
--- NOTE | 2018-05-01 10:49 | PD.CONS ---
HPI Service Nephrology Consult Requested By Dr. Kinsey Reason for Consult Acute renal failure Primary Care Physician Bassam Unger M.D. 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 Review of Systems ROS Limitations: Clinical Condition Past Family Social History Allergies: Coded Allergies: No Known Allergies (Verified Allergy, Unknown, 04/26/18) Past Medical History Poorly differentiated adenocarcinoma of the lung Anxiety Hypercholesterolemia Hyperlipidemia Gastroesophageal reflux disease Hemorrhoids . Past Surgical History Cataract removal Left upper lung biopsy 2018 Vasectomy Port placement Reported Medications Reported Meds & Active Scripts Active Cardizem LA (Diltiazem ER 24 HR) 120 Mg Vicky 120 Mg PO DAILY Lovenox Inj (Enoxaparin Sodium) 60 Mg/0.6 Ml Syr 60 Mg SQ Q12H Reported Dexamethasone 4 Mg Tab 4 Mg PO BID Zantac (Ranitidine HCl) 300 Mg Tab 300 Mg PO HS Folic Acid 1 Mg Tablet 1 Mg PO DAILY Magic Mouthwash Adult Liq (Multi-Ingredient Mouthwash/Gargle) 120 Ml Susp 5-10 Ml SWISH-SWAL ACHS Each 5mL contains: Nystatin 200,000units, Diphenhydramine 4.25mg, Viscous Lidocaine 10mg, Sandoval syrup 0.8 mL Oxycodone (Oxycodone HCl) 5 Mg Tab 5 Mg PO Q4H PRN Nexium (Esomeprazole DR) 20 Mg Capdr 20 Mg PO DAILY Active Ordered Medications Current Medications Medications (Trade) Dose Ordered Sig/Gigi Route Start Time Stop Time Status Last Admin (NS Flush) 2 ml UNSCH PRN IV FLUSH 04/26/18 17:45 04/29/18 20:59 (NS Flush) 2 ml BID IV FLUSH 04/26/18 21:00 05/01/18 08:29 (Tylenol) 650 mg Q6H PRN PO 04/26/18 17:45 (Duoneb Neb) 1 ampule Q4HR NEB PRN INH 04/26/18 17:45 05/01/18 08:09 (Peridex 0.12% Liq) 15 ml BID@08,20 MT 04/26/18 20:00 05/01/18 08:31 ([facility] Nursing Information) 1 Q361D XX 04/26/18 17:45 (Chlorhexidine 2% Cloth) 3 pack Taper DAILY@04 TOP 04/27/18 04:00 04/23/19 03:59 05/01/18 03:40 (Chlorhexidine 2% Cloth) 3 pack UNSCH PRN TOP 04/26/18 17:45 (NovoLOG SUPPLEMENTAL SCALE) 1 Q4HR SQ 04/26/18 20:00 05/01/18 08:00 (D50w (Vial) Inj) 25 ml UNSCH PRN IV 04/26/18 17:45 (Glucagon Inj) 1 mg UNSCH PRN IM/SQ 04/26/18 17:45 (Decadron) 4 mg BID PO 04/26/18 21:00 Future Hold (Folate) 1 mg DAILY PO 04/27/18 09:00 05/01/18 08:25 (Brethine Inj) 1 mg UNSCH PRN SQ 04/27/18 08:45 (Neupogen Inj) 480 mcg DAILY@14 SQ 04/27/18 14:00 04/30/18 14:05 Fentanyl Citrate 250 ml @ 5 mls/hr TITRATE PRN IV 04/27/18 17:45 04/30/18 17:23 Midazolam HCl 50 ml @ 2 mls/hr TITRATE PRN IV 04/27/18 17:45 04/30/18 02:31 Potassium Chloride 100 ml @ 50 mls/hr Q2H PRN IV 04/29/18 06:15 Potassium Chloride 100 ml @ 50 mls/hr Q2H PRN IV 04/29/18 06:15 (K-Lyte Cl Eff) 50 meq UNSCH PRN PO 04/29/18 06:15 Potassium Chloride 100 ml @ 25 mls/hr UNSCH PRN IV 04/29/18 06:15 04/29/18 08:17 Potassium Chloride 100 ml @ 50 mls/hr Q2H PRN IV 04/29/18 06:15 Magnesium Sulfate 4 gm/Sodium Chloride 100 ml @ 50 mls/hr UNSCH PRN IV 04/29/18 06:15 (Mag-Ox) 800 mg UNSCH PRN PO 04/29/18 06:15 Magnesium Sulfate 2 gm/Sodium Chloride 100 ml @ 50 mls/hr UNSCH PRN IV 04/29/18 06:15 (K-Phos) 2,000 mg Q4H PRN PO 04/29/18 06:15 Sodium Phosphate 30 mmol/Sodium Chloride 250 ml @ 42 mls/hr UNSCH PRN IV 04/29/18 06:15 (K-Phos) 2,000 mg UNSCH PRN PO/TUBE 04/29/18 06:15 Potassium Phosphate 30 mmol/ Sodium Chloride 260 ml @ 42 mls/hr UNSCH PRN IV 04/29/18 06:15 Cefepime HCl 1000 mg/Sodium Chloride 100 ml @ 200 mls/hr Q12H IV 04/30/18 13:00 05/01/18 00:07 (Pepcid) 10 mg BID PO 04/30/18 21:00 05/01/18 08:25 Calcium Gluconate 1 gm/Sodium Chloride 110 ml @ 110 mls/hr ONCE ONCE IV 05/01/18 11:00 05/01/18 11:59 (SoluCORTEF INJ) 50 mg Q8HR IV PUSH 05/01/18 14:00 Epoprostenol Sodium 17.5 ml/ Sodium Chloride 100 ml @ 5 mls/hr Q8H NEB 05/01/18 10:00 05/01/18 17:59 Epoprostenol Sodium 8.75 ml/ Sodium Chloride 100 ml @ 5 mls/hr Q8H NEB 05/01/18 18:00 05/02/18 01:59 (Lopressor) 25 mg Q12HR PO 05/01/18 12:00 Family History Mother of congestive heart failure in her 80s Father is alive and has 90 Social History He smoked about [id number] and quit about 15 years ago Alcohol use social Physical Exam Vital Signs Vital Signs Date Time Temp Pulse Resp B/P (MAP) Pulse Ox O2 Delivery O2 Flow Rate FiO2 05/01/18 10:05 98.9 90 18 129/67 99 05/01/18 08:30 100 40 05/01/18 04:00 40 05/01/18 04:00 98.0 100 18 125/76 (92) 97 138/74 (95) 05/01/18 03:58 97 40 05/01/18 00:00 45 05/01/18 00:00 98.3 96 18 126/85 (99) 98 133/70 (91) 04/30/18 23:52 98 40 04/30/18 23:00 96 18 133/69 (90) 99 04/30/18 22:00 94 18 133/70 (91) 98 04/30/18 21:00 93 18 135/71 (92) 99 04/30/18 20:02 99 40 04/30/18 20:00 98.0 93 18 125/80 (95) 99 137/73 (94) 04/30/18 20:00 93 137/73 (94) 04/30/18 20:00 55 04/30/18 18:00 96 04/30/18 16:00 98.8 94 18 140/73 (95) 100 04/30/18 16:00 94 140/73 (95) 04/30/18 16:00 55 04/30/18 16:00 94 04/30/18 15:20 100 46 04/30/18 14:00 92 04/30/18 12:00 90 04/30/18 12:00 55 04/30/18 12:00 98.6 90 18 102/63 (76) 98 89/81 (84) 04/30/18 12:00 98.6 90 18 89/81 98 04/30/18 12:00 90 102/63 (76) 89/81 (84) 04/30/18 11:13 97 46 Physical Exam GENERAL: Well-nourished, well-developed intubated patient. SKIN: Warm and dry. HEAD: Normocephalic. EYES: No scleral icterus. No injection or drainage. NECK: Supple, intubated. CARDIOVASCULAR: S1-S2 regular RESPIRATORY: Breath sounds equal bilaterally. No accessory muscle use. GASTROINTESTINAL: Abdomen soft, non-tender, nondistended. EXTREMITIES: No cyanosis, 3-4+ weeping edema. Blisters in lower extremity NEUROLOGICAL: Intubated Laboratory Laboratory Tests Test 04/30/18 13:05 04/30/18 18:35 04/30/18 19:50 05/01/18 05:00 Platelet Count 37 23 15 Blood Urea Nitrogen 41 47 Creatinine 1.90 1.99 Random Glucose 167 165 Total Protein 4.4 4.5 Calcium Level 5.1 5.2 Sodium Level 127 127 Potassium Level 4.1 4.1 Chloride Level 88 86 Carbon Dioxide Level 19.0 20.0 Anion Gap 20 21 Estimat Glomerular Filtration Rate 36 34 Protein Corrected Calcium 6.2 6.3 White Blood Count 2.6 2.6 Red Blood Count 2.88 2.88 Hemoglobin 8.8 8.9 Hematocrit 25.0 25.1 Mean Corpuscular Volume 86.5 87.0 Mean Corpuscular Hemoglobin 30.5 30.9 Mean Corpuscular Hemoglobin Concent 35.2 35.5 Red Cell Distribution Width 20.4 20.1 Mean Platelet Volume 8.3 7.7 CBC Comment AUTO DIFF Differential Total Cells Counted 100 Neutrophils % (Manual) 86 Band Neutrophils % 7 Lymphocytes % 1 Monocytes % 5 Neutrophils # (Manual) 2.4 Metamyelocytes 1 Nucleated Red Blood Cells 1 Differential Comment FINAL DIFF MANUAL Dohle Bodies PRESENT Platelet Estimate RARE Platelet Morphology Comment NORMAL Ovalocytes Albumin 1.4 Alkaline Phosphatase 232 Aspartate Amino Transf (AST/SGOT) 69 Alanine Aminotransferase (ALT/SGPT) 58 Total Bilirubin 2.4 Random Vancomycin Level 31.2 Test 05/01/18 09:52 Prothrombin Time 10.6 Prothromb Time International Ratio 1.0 Date/Time Source Procedure Growth Status 04/26/18 18:30 Blood Peripheral Aerobic Blood Culture - Preliminary NO GROWTH IN 4 DAYS Resulted 04/26/18 18:30 Blood Peripheral Anaerobic Blood Culture - Preliminary NO GROWTH IN 4 DAYS Resulted 04/27/18 08:34 Sputum Endotracheal Gram Stain - Final Complete 04/27/18 08:34 Sputum Culture - Final Acinetobacter Baumannii/Haemol Complete 04/27/18 08:30 Urine Catheterized Urine Legionella Antigen - Final PRESUMPTIVE NEGATIVE FOR LEGIONELLA P... Complete 04/27/18 08:30 Urine Catheterized Urine Streptococcus pneumoniae Antigen (M - Final PRESUMPTIVE NEGATIVE FOR STREPTOCOCCU... Complete Result Diagram: 05/01/18 0500 05/01/18 0500 Imaging Last Impressions Chest X-Ray 04/30/18 0500 Signed Impressions: CONCLUSION: No significant interval change. Head CT 04/26/18 0000 Signed Impressions: CONCLUSION: 1. No acute intracranial abnormality is identified. The small enhancing lesion s documented on the outside contrast enhanced brain MRI are too small to be vis ible with noncontrast CT imaging. 2. Chronic findings include mild generalized atrophy. CT Angiography 04/26/18 0000 Signed Impressions: CONCLUSION: 1. The previously seen right-sided pulmonary embolus has resolved. No emboli s een on the current exam. 2. Diffuse consolidation throughout the entire right lower lobe with sparing o f the anterior basilar segment. This is a new finding. Infectious etiology susp ected. 3. Left upper lobe pulmonary mass. Assessment and Plan Problem List: (1) Acute renal failure ICD Codes: N17.9 - Acute kidney failure, unspecified Plan: It appears the patient was septic and was in shock from which he recovered off vasopressors, he is with acute kidney injury can be related to underlying sepsis, low blood pressure leading to acute tubular necrosis he also received dye study CT angiogram of the chest was done He does have critically low platelets, this may be related to underlying sepsis we should consider HUS/TTP I will check for haptoglobin, peripheral smear for schistocytes, d-dimer Hematology is already on the case and he had pancytopenia related to his chemotherapy Avoid nephrotoxic agent Dye study. Try albumin with Lasix for diuresis. Given the advanced stage of lung cancer his prognosis is very poor. (2) Thrombocytopenia ICD Codes: D69.6 - Thrombocytopenia, unspecified Plan: Patient has side effects of chemo/immunotherapy (3) Pneumonia ICD Codes: J18.9 - Pneumonia, unspecified organism Plan: Acinetobacter infection on cefepime (4) Adenocarcinoma, lung ICD Codes: C34.90 - Malignant neoplasm of unspecified part of unspecified bronchus or lung Plan: Advanced stage II with brain metastatic lesions (5) Acute respiratory failure with hypoxia ICD Codes: J96.01 - Acute respiratory failure with hypoxia Status: Acute Problem Qualifiers (1) Acute renal failure: Qualified Codes: N17.0 - Acute kidney failure with tubular necrosis Arlyn Whitley MD May 01, 2018 10:49
[2018-05-01] MEDS ORDERED: CALCIUM GLUCONATE INJ 1 GM in SODIUM CHLORIDE 0.9% INJ 100 ML IV ONE (11:00)
[2018-05-01] MEDS: FUROSEMIDE 40 MG/4 ML VIAL IV PUSH SCH ×3 (11:15→23:43)
[2018-05-01] MEDS: ALBUMIN 25% INJ 100 ML IV SCH ×3 (11:15→23:43)
[2018-05-01 11:51] LABS: RETIC # 49.2 MIL/L (20.0-150.0); RETIC % 1.7 % (0.4-3.0)
[2018-05-01] MEDS ORDERED: METOPROLOL TARTRATE 25 MG TAB PO SCH (12:00)
[2018-05-01] MEDS ORDERED: DILTIAZEM HCL 25 MG/5 ML VIAL IV ONE ×2 (12:30→18:00)
[2018-05-01] MEDS: ALTEPLASE RECOMBINANT 2 MG VIAL OTHER SCH ×2 (12:42→15:33)
--- NOTE | 2018-05-01 13:42 | PD.ONC.PN ---
Subjective Subjective Remarks Afebrile overnight. Patient intubated, sedated. HR in 160s to 180s this morning. Objective Data Date Time Temp Pulse Resp B/P (MAP) Pulse Ox O2 Delivery O2 Flow Rate FiO2 05/01/18 12:19 98.4 155 18 126/65 97 05/01/18 11:33 99 40 05/01/18 10:05 98.9 90 18 129/67 99 05/01/18 08:30 100 40 05/01/18 08:00 12 05/01/18 07:00 104 136/74 (94) 05/01/18 04:00 40 05/01/18 04:00 98.0 100 18 125/76 (92) 97 138/74 (95) 05/01/18 03:58 97 40 05/01/18 00:00 45 05/01/18 00:00 98.3 96 18 126/85 (99) 98 133/70 (91) 04/30/18 23:52 98 40 04/30/18 23:00 96 18 133/69 (90) 99 04/30/18 22:00 94 18 133/70 (91) 98 04/30/18 21:00 93 18 135/71 (92) 99 04/30/18 20:02 99 40 04/30/18 20:00 98.0 93 18 125/80 (95) 99 137/73 (94) 04/30/18 20:00 93 137/73 (94) 04/30/18 20:00 55 04/30/18 18:00 96 04/30/18 16:00 98.8 94 18 140/73 (95) 100 04/30/18 16:00 94 140/73 (95) 04/30/18 16:00 55 04/30/18 16:00 94 04/30/18 15:20 100 46 04/30/18 14:00 92 05/01/18 05/01/18 05/01/18 07:00 15:00 23:00 Intake Total 862 ml 248 ml Output Total 200 ml 150.0 ml Balance 662 ml 98.0 ml Result Diagram: 05/01/18 0500 05/01/18 0500 Laboratory Results Laboratory Tests Test 04/30/18 18:35 04/30/18 19:50 05/01/18 05:00 05/01/18 09:52 Blood Urea Nitrogen 41 MG/DL 47 MG/DL Creatinine 1.90 MG/DL 1.99 MG/DL Random Glucose 167 MG/DL 165 MG/DL Total Protein 4.4 GM/DL 4.5 GM/DL Calcium Level 5.1 MG/DL 5.2 MG/DL Sodium Level 127 MEQ/L 127 MEQ/L Potassium Level 4.1 MEQ/L 4.1 MEQ/L Chloride Level 88 MEQ/L 86 MEQ/L Carbon Dioxide Level 19.0 MEQ/L 20.0 MEQ/L Anion Gap 20 MEQ/L 21 MEQ/L Estimat Glomerular Filtration Rate 36 ML/MIN 34 ML/MIN Protein Corrected Calcium 6.2 MG/DL 6.3 MG/DL White Blood Count 2.6 TH/MM3 2.6 TH/MM3 Red Blood Count 2.88 MIL/MM3 2.88 MIL/MM3 Hemoglobin 8.8 GM/DL 8.9 GM/DL Hematocrit 25.0 % 25.1 % Mean Corpuscular Volume 86.5 FL 87.0 FL Mean Corpuscular Hemoglobin 30.5 PG 30.9 PG Mean Corpuscular Hemoglobin Concent 35.2 % 35.5 % Red Cell Distribution Width 20.4 % 20.1 % Platelet Count 23 TH/MM3 15 TH/MM3 Mean Platelet Volume 8.3 FL 7.7 FL CBC Comment AUTO DIFF Differential Total Cells Counted 100 Neutrophils % (Manual) 86 % Band Neutrophils % 7 % Lymphocytes % 1 % Monocytes % 5 % Neutrophils # (Manual) 2.4 TH/MM3 Metamyelocytes 1 % Nucleated Red Blood Cells 1 /100 WBC Differential Comment FINAL DIFF MANUAL Dohle Bodies PRESENT Platelet Estimate RARE Platelet Morphology Comment NORMAL Ovalocytes Blood Smear Pathologist Review Reticulocyte Count 1.7 % Absolute Reticulocyte Count 49.2 MIL/L Haptoglobin 232 MG/DL Albumin 1.4 GM/DL Alkaline Phosphatase 232 U/L Aspartate Amino Transf (AST/SGOT) 69 U/L Alanine Aminotransferase (ALT/SGPT) 58 U/L Total Bilirubin 2.4 MG/DL Random Vancomycin Level 31.2 COMMENT Prothrombin Time 10.6 SEC Prothromb Time International Ratio 1.0 RATIO D-Dimer Quantitative (PE/DVT) 5.98 MG/L FEU Culture Results Microbiology Date/Time Source Procedure Growth Status 05/01/18 10:00 Sputum Endotracheal Gram Stain Pending Received 05/01/18 10:00 Sputum Endotracheal Sputum Culture Pending Received Administered Medications Medications (Trade) Dose Ordered Sig/Gigi Route PRN Reason Start Time Stop Time Status Last Admin Dose Admin Sodium Chloride (NS Flush) 2 ml UNSCH PRN IV FLUSH FLUSH AFTER USING IV ACCESS 04/26/18 17:45 04/29/18 20:59 Sodium Chloride (NS Flush) 2 ml BID IV FLUSH 04/26/18 21:00 05/01/18 08:29 Albuterol/ Ipratropium (Duoneb Neb) 1 ampule Q4HR NEB PRN INH SHORTNESS OF BREATH 04/26/18 17:45 05/01/18 08:09 Chlorhexidine Gluconate (Peridex 0.12% Liq) 15 ml BID@08,20 MT 04/26/18 20:00 05/01/18 08:31 Chlorhexidine Gluconate (Chlorhexidine 2% Cloth) 3 pack Taper DAILY@04 TOP 04/27/18 04:00 04/23/19 03:59 05/01/18 03:40 Insulin Aspart (NovoLOG SUPPLEMENTAL SCALE) 1 Q4HR SQ 04/26/18 20:00 05/01/18 12:00 Folic Acid (Folate) 1 mg DAILY PO 04/27/18 09:00 05/01/18 08:25 Filgrastim (Neupogen Inj) 480 mcg DAILY@14 SQ 04/27/18 14:00 04/30/18 14:05 Fentanyl Citrate 250 ml @ 5 mls/hr TITRATE PRN IV SEDATION 04/27/18 17:45 04/30/18 17:23 Midazolam HCl 50 ml @ 2 mls/hr TITRATE PRN IV SEDATION 04/27/18 17:45 04/30/18 02:31 Potassium Chloride 100 ml @ 25 mls/hr UNSCH PRN IV For Potassium 3.3 - 3.5 mEq/L 04/29/18 06:15 04/29/18 08:17 Cefepime HCl 1000 mg/Sodium Chloride 100 ml @ 200 mls/hr Q12H IV 04/30/18 13:00 05/01/18 00:07 Famotidine (Pepcid) 10 mg BID PO 04/30/18 21:00 05/01/18 08:25 Epoprostenol Sodium 17.5 ml/ Sodium Chloride 100 ml @ 5 mls/hr Q8H NEB 05/01/18 10:00 05/01/18 17:59 05/01/18 13:22 Metoprolol Tartrate (Lopressor) 25 mg Q12HR PO 05/01/18 12:00 05/01/18 11:15 Albumin Human 100 ml @ 60 mls/hr Q6HR IV 05/01/18 12:00 05/01/18 11:15 Furosemide (Lasix Inj) 60 mg Q6HR IV PUSH 05/01/18 12:00 05/01/18 11:15 Alteplase, Recombinant (Cathflo Activase Inj) 2 mg UNSCH OTHER 05/01/18 11:30 05/01/18 12:42 Objective Remarks GENERAL: intubated, sedated male, supine in bed. SKIN: Warm and dry. HEAD: Normocephalic. EYES: No scleral icterus. No injection or drainage. NECK: Supple, trachea midline. RIJ, no bleeding. LYMPHATIC: No adenopathy. CARDIOVASCULAR: +S1/S2, tachy RESPIRATORY: anterior keys with scattered rhonchi. GASTROINTESTINAL: Abdomen soft, non-tender, nondistended. EXTREMITIES: No cyanosis +anasarca. bullae noted in bilateral lower extremities , appears to be d/t edema. NEUROLOGICAL: intubated, sedated Assessment/Plan Assessment 67y/o with metastatic lung cancer, admitted with neutropenic fever, critically ill in C Plan 1. metastatic lung cancer: s/p treatment with carbo/alimta. recently started on immunotherapy as well. --metastatic brain lesions--pending radiation therapy. 2. respiratory failure: --++diffuse consolidation throughout the right lower lobe. --intubated, on multiple antibiotics. --off rotabed. 3. pancytopenia: continue Neupogen until WBC>5K. monitor hgb and platelets and transfuse as needed to maintain platelet count greater than 20K and hgb >7.5mg/ dL. --WBC= 2.6 today, will continue Neupogen --platelet count=15K, agree with 2 unit plt ordered. 4. history of pulmonary embolism: hold Lovenox until platelet count>50K Attending Statement The exam, history, and the medical decision-making described in the above note were completed with the assistance of the mid-level provider. I reviewed and agree with the findings presented. I attest that I had a [id number] encounter with the patient on the same day, and personally performed and documented my assessment and findings in the medical record Chelsie Luis May 01, 2018 13:42 Phan Driscoll MD May 01, 2018 22:04
[2018-05-01] MEDS: FILGRASTIM 480 MCG/1.6 ML VIAL SQ SCH (15:11)
[2018-05-01 16:19] LABS: HEMATOCRIT 23.4 % (39.0-51.0); HEMOGLOBIN 8.3 GM/DL (13.0-17.0); MEAN CELL VOLUME 86.8 FL (80.0-100.0); MEAN CORPUSCULAR HEMOGLOBIN 30.7 PG (27.0-34.0); MEAN CORPUSCULAR HGB CONC 35.3 % (32.0-36.0); MEAN PLATELET VOLUME 7.1 FL (7.0-11.0); PLATELET COUNT 34 TH/MM3 (150-450); RED CELL DISTRIBUTION WIDTH 20.8 % (11.6-17.2); WHITE BLOOD COUNT 3.3 TH/MM3 (4.0-11.0)
[2018-05-01] MEDS ORDERED: SODIUM CHLORIDE NEB SCH (18:00)
[2018-05-01] MEDS ORDERED: EPOPROSTENOL NEB SCH (18:00)
[2018-05-01] MEDS: METOPROLOL TARTRATE 25 MG TAB PO SCH (21:07)
--- NOTE | 2018-05-01 21:10 | RADRPT ---
EXAM DATE: 05/01/2018 8:59 PM EDT AGE/SEX: 67 years / Male INDICATIONS: Elevated liver functions. CLINICAL DATA: This is the patient's initial encounter. Patient reports that signs and symptoms have been present for 1 day and indicates a pain score of Nonresponsive. MEDICAL/SURGICAL HISTORY: Hypercholesterolemia. Metastatic lung adenocarcinoma to the spine and brain. Garcia's Esophagus. Dyspnea. . Circumcision. Vasectomy. Chemotherapy. Radiation therapy. L shi biopsy. Intubated. COMPARISON: No prior [facility] exams available for comparison. MEASUREMENTS: Liver:__ 14.9 cm. Common Bile Duct:___ 6mm. Right Kidney:___11.8 x 6.7 x 6.3 cm . Left Kidney:___11.8 x 5.6 x 6.4 cm . Spleen:___12.7 . Aorta: The proximal portion measures 2.2 cm maximal. FINDINGS: Liver: FINDINGS Portal Vein: Hepatopedal flow seen in portal vein. Common Duct: No intraluminal mass or stone visualized. Gallbladder: There is gallbladder wall thickening noted up to 6 mm. No stones are seen. Negative sono graphic Ochoa's sign. Pancreas: Not well visualized. Right Kidney: Normal in appearance. Left Kidney: 7 mm stone upper pole, nonobstructing. Ascites: FINDINGS Pleural Effusion: Bilateral Spleen: No focal lesion. Aorta: Non aneurysmal. IVC: Within normal limits CONCLUSION: 1. Small amount of ascites, bilateral pleural effusions. 2. Gallbladder wall thickening is noted which is nonspecific though may be related to the ascites. N o stones are seen. 3. Nonobstructing left renal calculus. Electronically signed by: Ramin Garcia MD 05/01/2018 9:08 PM EDT
[2018-05-01 21:59] LABS: BICARBONATE 23.1 MEQ/L (21.0-32.0); CALCIUM 5.3 MG/DL (8.5-10.1); CREATININE 2.21 MG/DL (0.60-1.30); MAGNESIUM 1.8 MG/DL (1.5-2.5)
[2018-05-01 22:16] LABS: TOTAL PROTEIN 4.9 GM/DL (6.4-8.2)
[2018-05-01 22:19] LABS: CALCIUM-PROTEIN CORRECTED 6.2 MG/DL (8.5-10.1)
[2018-05-02] VITALS (27 sets, daily range): BP systolic 101–131; BP diastolic 57–78; PULSE 72–147; RESP 18–19; TEMP 96.4–98.8; O2SAT 92–100
[2018-05-02] MEDS: CEFEPIME INJ 1,000 MG in SODIUM CHLORIDE 0.9% INJ 100 ML IV SCH ×2 (00:21→12:05)
[2018-05-02] MEDS: fentaNYL DRIP 250 ML IV PRN (01:45)
[2018-05-02] MEDS: CHLORHEXIDINE GLUCONATE 2 % 1 PACK (2 CLOTHS) TOP SCH ×2 (03:54→23:56)
[2018-05-02] MEDS: INSULIN ASPART SUPPLEMENTAL SCALE SQ SCH ×6 (03:55→23:56)
[2018-05-02] MEDS: ALBUMIN 25% INJ 100 ML IV SCH ×3 (06:01→18:33)
[2018-05-02] MEDS: FUROSEMIDE 40 MG/4 ML VIAL IV PUSH SCH ×3 (06:01→18:33)
[2018-05-02] MEDS: HYDROCORTISONE SOD SUCCINATE 100 MG VIAL IV PUSH SCH ×3 (06:01→20:45)
[2018-05-02 06:09] LABS: AUTOMATED NEUTROPHIL # 4.4 TH/MM3 (1.8-7.7); BASOPHIL % 0.4 % (0.0-2.0); EOSINOPHIL % 0.1 % (0.0-4.0); HEMATOCRIT 24.5 % (39.0-51.0); HEMOGLOBIN 8.6 GM/DL (13.0-17.0); LYMPH % 0.6 % (9.0-44.0); MEAN CELL VOLUME 87.7 FL (80.0-100.0); MEAN CORPUSCULAR HEMOGLOBIN 30.7 PG (27.0-34.0); MEAN CORPUSCULAR HGB CONC 35.1 % (32.0-36.0); MEAN PLATELET VOLUME 7.4 FL (7.0-11.0); MONO % 0.2 % (0.0-8.0); NEUT % 98.7 % (16.0-70.0); PLATELET COUNT 25 TH/MM3 (150-450); RED CELL DISTRIBUTION WIDTH 20.3 % (11.6-17.2); WHITE BLOOD COUNT 4.4 TH/MM3 (4.0-11.0)
[2018-05-02 06:42] LABS: ALBUMIN 2.1 GM/DL (3.4-5.0); BICARBONATE 22.7 MEQ/L (21.0-32.0); CALCIUM 5.3 MG/DL (8.5-10.1); CREATININE 2.25 MG/DL (0.60-1.30); TOTAL BILIRUBIN ADULT 2.9 MG/DL (0.2-1.0); TOTAL PROTEIN 5.1 GM/DL (6.4-8.2)
--- NOTE | 2018-05-02 06:51 | HHI.CCPN ---
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 Patient was picked up at oncology Center and was about to get a chemotherapy dose for his lung cancer. Paramedics found him in A. fib with RVR with a rate of 228 and a blood pressure of 50 systolic. He underwent cardioversion. He arrived to emergency department on 100% nonrebreather but remained hypoxemic. The rhythm in the emergency department was a sinus with occasional ectopic beats. The patient was complaining of shortness of breath and despite of high oxygen delivery he remained severely hypoxemic. He was intubated by ED attending for an acute hypoxemic respiratory failure. Denies chest pain or productive cough or fever. 04/27: Sedated, orally intubated on mechanical ventilation. Had runs of SVT/ rapid A. fib last night from which he was cardioverted. Hypotensive on pressors. 04/28: Remains sedated, orally intubated on mechanical ventilation on neuromuscular blockade. On Barrett-Synephrine/Levophed/low-dose vasopressin for pressor support. On fentanyl/Nimbex GTT and being started on Versed in preparation for prone ventilation. Platelet count dropped to 13,000. 2 units pheresed platelets ordered. Significantly positive fluid balance. Starting Lasix to attempt to keep an even fluid balance. Continues on inhaled Flolan. 04/29: remains in shock on vasopressors. prone. fio2 slightly improved. remains pancytopenic. 04/30 Patient remains on rotoprone bed. Off Levophed remains on Vasopressin 0.04, Sedated with Versed, Fentanyl infusions in addition he is on Nimbex drip. s/p transfusion 2u PRBC last night and 2u PLT during day yesterday. 05/01 Patient is off rotoprone bed. Sedated and intubated. On PRVC RR 18, TV 500, PEEP:8 and FIO2: 40%. s/p transfusion 1u PLT pheresis yesterday. 05/02 Patient is intubated and sedated with Fentanyl drip. He went into Afib with RVR given Lopressor and Cardizem during day. s/p 2u PLT pheresis yesterday. Renal function continue to worse with Cr: 2.21 last night with UOP:75ml in 12 hrs. Objective Vital Signs Date Time Temp Pulse Resp B/P (MAP) Pulse Ox O2 Delivery O2 Flow Rate FiO2 05/02/18 03:38 97 40 05/02/18 02:00 72 18 119/62 (81) 05/02/18 00:00 98.8 Intake and Output 05/02/18 05/02/18 05/03/18 08:00 16:00 00:00 Intake Total 752 ml Balance 752 ml Result Diagram: 05/02/18 0445 05/01/18 2100 Other Results Laboratory Tests Test 05/01/18 09:52 05/01/18 15:45 05/01/18 21:00 05/02/18 04:45 Prothrombin Time 10.6 SEC Prothromb Time International Ratio 1.0 RATIO D-Dimer Quantitative (PE/DVT) 5.98 MG/L FEU White Blood Count 3.3 TH/MM3 4.4 TH/MM3 Red Blood Count 2.70 MIL/MM3 2.80 MIL/MM3 Hemoglobin 8.3 GM/DL 8.6 GM/DL Hematocrit 23.4 % 24.5 % Mean Corpuscular Volume 86.8 FL 87.7 FL Mean Corpuscular Hemoglobin 30.7 PG 30.7 PG Mean Corpuscular Hemoglobin Concent 35.3 % 35.1 % Red Cell Distribution Width 20.8 % 20.3 % Platelet Count 34 TH/MM3 25 TH/MM3 Mean Platelet Volume 7.1 FL 7.4 FL Blood Urea Nitrogen 51 MG/DL Creatinine 2.21 MG/DL Random Glucose 108 MG/DL Total Protein 4.9 GM/DL Calcium Level 5.3 MG/DL Phosphorus Level 4.0 MG/DL Magnesium Level 1.8 MG/DL Sodium Level 127 MEQ/L Potassium Level 4.4 MEQ/L Chloride Level 87 MEQ/L Carbon Dioxide Level 23.1 MEQ/L Anion Gap 17 MEQ/L Estimat Glomerular Filtration Rate 30 ML/MIN Protein Corrected Calcium 6.2 MG/DL Neutrophils (%) (Auto) 98.7 % Lymphocytes (%) (Auto) 0.6 % Monocytes (%) (Auto) 0.2 % Eosinophils (%) (Auto) 0.1 % Basophils (%) (Auto) 0.4 % Neutrophils # (Auto) 4.4 TH/MM3 Lymphocytes # (Auto) 0.0 TH/MM3 Monocytes # (Auto) 0.0 TH/MM3 Eosinophils # (Auto) 0.0 TH/MM3 Basophils # (Auto) 0.0 TH/MM3 CBC Comment AUTO DIFF Urine Random Creatinine 29.0 MG/DL Urine Random Sodium 31 MEQ/L Imaging Last Impressions Abdomen Ultrasound 05/01/18 0000 Signed Impressions: CONCLUSION: 1. Small amount of ascites, bilateral pleural effusions. 2. Gallbladder wall thickening is noted which is nonspecific though may be rel ated to the ascites. No stones are seen. 3. Nonobstructing left renal calculus. Chest X-Ray 04/30/18 0500 Signed Impressions: CONCLUSION: No significant interval change. Head CT 04/26/18 0000 Signed Impressions: CONCLUSION: 1. No acute intracranial abnormality is identified. The small enhancing lesion s documented on the outside contrast enhanced brain MRI are too small to be vis ible with noncontrast CT imaging. 2. Chronic findings include mild generalized atrophy. CT Angiography 04/26/18 0000 Signed Impressions: CONCLUSION: 1. The previously seen right-sided pulmonary embolus has resolved. No emboli s een on the current exam. 2. Diffuse consolidation throughout the entire right lower lobe with sparing o f the anterior basilar segment. This is a new finding. Infectious etiology susp ected. 3. Left upper lobe pulmonary mass. Objective Remarks Patient is 67 yo critically ill intubated and sedated HEENT/ Neuro: Sedated, orally intubated, on neuromuscular blockade pallor present, no icterus, tongue/ mucosa moist. Conjunctival edema noted. Neck: Right IJ central line in place Chest/Pulm: on mech vent, difficult to assess lung keys due to prone therapy. equal chest rise. CVS: muffled heart sounds. tachycardic rate, regular rhythm. sinus. GI/abdomen: soft, nontender, nondistended. no guarding. rectal tube in place with brown stool. Extremities: warm bilaterally, bilateral edema Skin: Areas of ecchymosis over chest and abdominal wall noted. Neuro: Intubated A/P Assessment and Plan Acute Respiratory failure on mechanical ventilation Pneumonia ARDS Neutropenic sepsis Neuro: On Fentanyl infusion for sedation. Daily sedation vacation Monitor neuro status CV: Afib RVR s/p cardioversion On Lopressor 50mg Q12 Monitor HR and BP keep MAP>65mmHg For 2D echo to eval LV function Taper steroids- HC 50mg IV Q8 Patient is not a candidate for anticoagulation due to severe thrombocytopenia Pulm: Continue with vent support keep sats >92% On PRVC RR 18, TV 500, IT:1.0, PEEP:8, FIO2: 40% Bronchodilators, ICU vent bundle. Taper Flolan 30,000ng/ml at 5ml/hr. SBT daily as teresita SANAZ Monitor renal function, I/O's, avoid nephrotoxins US abdomen: Small amount of ascites, bilateral pleural effusions.Gallbladder wall thickening is noted. No stones are seen. Nonobstructing left renal calculus. Cr: 2.21 last night with UOP:75ml in 12 hrs Renal is following will likely need HD. On Lasix 60mg Q6 and Albumin per renal- Dr. Whitley GI:On tube feeds- Nepro with goal rate 40ml/hr On Pepcid 10mg PO BID for GI prophylaxis ID: s/p Septic shock Neutropenic sepsis Sputum 04/27: Acinetobacter Abx per ID on IV Cefepime -Consulted ID - Dr. Hensley following Monitor for signs of infections ( Fever, WBC) Follow up on sputum cx from 05/01 Heme: Metastatic lung adenocarcinoma with brain/bone metastases Anemia, thrombocytopenia Monitor CBC, coags s/p transfusion 2U PRBC and 2U PLT 04/29. s/p transfusion 1u PLT pheresis 04/30 s/p transfuse 2u PLT pheresis 05/01 PLT 25 today Heme is following, on Neupogen Endo: Hyperglycemia -Insulin sliding scale for glycemic control DVT GI prophylaxis -Rupert's and SCDs -IV Pepcid Palliative care is following patient was made no code DNR and family is leaning toward transiting to comfort care. Condition remains critical. Palliative care following. Patient remains full CODE STATUS at this time Critical Care: The total critical care time was 30minutes. Time to perform other separately billable procedures was not included in the critical care time. Carito Kinsey MD May 02, 2018 06:51
[2018-05-02 06:58] LABS: CALCIUM-PROTEIN CORRECTED 6.1 MG/DL (8.5-10.1)
[2018-05-02] MEDS: FAMOTIDINE 20 MG TAB PO SCH ×2 (08:14→20:45)
[2018-05-02] MEDS: METOPROLOL TARTRATE 25 MG TAB PO SCH ×2 (08:14→20:45)
[2018-05-02] MEDS: FOLIC ACID 1 MG TAB PO SCH (08:14)
[2018-05-02] MEDS: CHLORHEXIDINE 0.12% (ORAL KIT) 15 ML CUP MT SCH ×2 (08:15→20:45)
[2018-05-02] MEDS: SODIUM CHLORIDE 0.9% FLUSH 10 ML FLUSH IV FLUSH SCH ×2 (08:15→20:45)
[2018-05-02 08:22] LABS: BANDS 12 % (0-6); NEUTROPHIL # MANUAL DIFF 4.4 TH/MM3 (1.8-7.7); POLYS (SEG NEUTROPHILS) 88 % (16-70)
[2018-05-02] MEDS ORDERED: CALCIUM GLUCONATE INJ 2 GM in SODIUM CHLORIDE 0.9% INJ 100 ML IV ONE (09:00)
--- NOTE | 2018-05-02 09:55 | HHI.IDPN ---
Subjective Subjective Remarks Patient is a 67-year-old male with underlying metastatic lung cancer, adenocarcinoma, with metastases to the spine in the brain, brought into the hospital for evaluation of shortness of breath. He apparently was in the oncology center, and was scheduled to get chemotherapy when he became really short of breath. Paramedics was called and he was found to be in atrial fibrillation with RVR, and he was hypotensive. He underwent cardioversion, and remained hypoxic. He has now been intubated, and patient is currently hypotensive on multiple pressors including Barrett-Synephrine, Levophed, and vasopressin. He has had low-grade temps. He is neutropenic. His chest x-ray showing significant infiltrate on the right lung. Patient was recently hospitalized the first week of March and was diagnosed to have pulmonary embolism. He underwent CT on this admission and it showed resolution of the pulmonary embolism. Patient currently is intubated, on sedation, on the vent with FiO2 of 100%. He is currently in atrial fibrillation with a controlled rate. Patient has received vancomycin, Zosyn, and micafungin. I do not have any other information, but there was no mention of any GI or urinary complaints prior to admission. Infectious disease consultation has been requested to evaluate patient with sepsis, shock, and neutropenia from chemotherapy. Notes reviewed D/W RN Temps ok WBC improving BP ok Sedated on the vent, FiO2 at 0.4 UO decreasing and creatinine rising BC negative Sputum with pansensitive Acinetobacter Repeat sputum C/S pending CXR stable infiltrates Antibiotics Cefepime Current Medications Medications (Trade) Dose Ordered Sig/Gigi Route Start Time Stop Time Status Last Admin (NS Flush) 2 ml UNSCH PRN IV FLUSH 04/26/18 17:45 04/29/18 20:59 (NS Flush) 2 ml BID IV FLUSH 04/26/18 21:00 05/02/18 08:15 (Tylenol) 650 mg Q6H PRN PO 04/26/18 17:45 (Duoneb Neb) 1 ampule Q4HR NEB PRN INH 04/26/18 17:45 05/01/18 23:55 (Peridex 0.12% Liq) 15 ml BID@08,20 MT 04/26/18 20:00 05/02/18 08:15 [place] [place] 1 Q361D XX 04/26/18 17:45 (Chlorhexidine 2% Cloth) Taper DAILY@04 TOP 04/27/18 04:00 04/23/19 03:59 05/01/18 03:40 (Chlorhexidine 2% Cloth) 3 pack UNSCH PRN TOP 04/26/18 17:45 (NovoLOG SUPPLEMENTAL SCALE) 1 Q4HR SQ 04/26/18 20:00 05/01/18 16:00 (D50w (Vial) Inj) 25 ml UNSCH PRN IV 04/26/18 17:45 (Glucagon Inj) 1 mg UNSCH PRN IM/SQ 04/26/18 17:45 (Decadron) 4 mg BID PO 04/26/18 21:00 Future Hold (Folate) 1 mg DAILY PO 04/27/18 09:00 05/02/18 08:14 (Brethine Inj) 1 mg UNSCH PRN SQ 04/27/18 08:45 (Neupogen Inj) 480 mcg DAILY@14 SQ 04/27/18 14:00 05/01/18 15:11 Fentanyl Citrate 250 ml @ 5 mls/hr TITRATE PRN IV 04/27/18 17:45 05/02/18 01:45 Cefepime HCl 1000 mg/Sodium Chloride 100 ml @ 200 mls/hr Q12H IV 04/30/18 13:00 05/02/18 00:21 (Pepcid) 10 mg BID PO 04/30/18 21:00 05/02/18 08:14 (SoluCORTEF INJ) 50 mg Q8HR IV PUSH 05/01/18 14:00 05/02/18 06:01 Albumin Human 100 ml @ 60 mls/hr Q6HR IV 05/01/18 12:00 05/02/18 06:01 (Lasix Inj) 60 mg Q6HR IV PUSH 05/01/18 12:00 05/02/18 06:01 (Cathflo Activase Inj) 2 mg UNSCH OTHER 05/01/18 11:30 05/01/18 15:33 (Lopressor) 50 mg Q12HR PO 05/01/18 21:00 05/02/18 08:14 Calcium Gluconate 2 gm/Sodium Chloride 120 ml @ 120 mls/hr ONCE ONCE IV 05/02/18 09:00 05/02/18 09:59 05/02/18 09:09 Lines Line sites ok Port in place not accessed. 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 Hyperlipidemia GERD PE Lung biopsy Port placement Allergies: Coded Allergies: No Known Allergies (Verified Allergy, Unknown, 04/26/18) Objective . Vital Signs Date Time Temp Pulse Resp B/P (MAP) Pulse Ox O2 Delivery O2 Flow Rate FiO2 05/02/18 09:30 74 116/59 (78) 05/02/18 07:54 97 40 05/02/18 04:00 98.2 72 18 114/71 (85) 97 117/63 (81) 05/02/18 04:00 40 05/02/18 03:38 97 40 05/02/18 02:00 72 18 119/62 (81) 98 05/02/18 01:00 73 18 120/63 (82) 97 05/02/18 00:00 98.8 73 18 106/69 (81) 97 117/63 (81) 05/02/18 00:00 40 05/01/18 23:56 97 40 05/01/18 23:00 72 18 119/64 (82) 99 05/01/18 23:00 72 119/64 (82) 05/01/18 22:00 75 18 119/61 (80) 99 05/01/18 21:00 110 18 114/62 (79) 99 05/01/18 20:00 40 05/01/18 20:00 99.0 130 18 105/72 (83) 98 113/68 (83) 05/01/18 19:34 99 40 05/01/18 18:00 40 05/01/18 18:00 126 10 125/77 (93) 98 05/01/18 17:00 117 18 116/66 (83) 99 05/01/18 16:00 83 115/76 (89) 05/01/18 16:00 98.3 83 18 115/76 (89) 100 130/68 (88) 05/01/18 15:57 100 40 05/01/18 15:00 84 18 125/64 (84) 98 05/01/18 14:00 82 18 122/61 (81) 98 05/01/18 13:00 153 18 99/55 (70) 96 05/01/18 12:45 148 18 117/60 95 05/01/18 12:30 98.9 150 18 87/50 96 05/01/18 12:19 98.4 155 18 126/65 97 05/01/18 12:00 98.9 96 18 126/80 (95) 97 128/67 (87) 05/01/18 12:00 40 05/01/18 11:33 99 40 05/01/18 11:00 93 18 125/65 (85) 98 05/01/18 10:20 98.0 93 18 122/64 98 05/01/18 10:05 98.9 90 18 129/67 99 05/01/18 10:00 135 18 105/64 (78) 97 05/02/18 05/02/18 05/03/18 15:00 23:00 07:00 Output Total 100.0 ml Balance -100.0 ml Tube Feeding Residual Discard 100.0 ml . Laboratory Tests Test 04/30/18 13:05 04/30/18 19:50 05/01/18 05:00 05/01/18 15:45 Platelet Count 37 TH/MM3 23 TH/MM3 15 TH/MM3 34 TH/MM3 White Blood Count 2.6 TH/MM3 2.6 TH/MM3 3.3 TH/MM3 Red Blood Count 2.88 MIL/MM3 2.88 MIL/MM3 2.70 MIL/MM3 Hemoglobin 8.8 GM/DL 8.9 GM/DL 8.3 GM/DL Hematocrit 25.0 % 25.1 % 23.4 % Mean Corpuscular Volume 86.5 FL 87.0 FL 86.8 FL Mean Corpuscular Hemoglobin 30.5 PG 30.9 PG 30.7 PG Mean Corpuscular Hemoglobin Concent 35.2 % 35.5 % 35.3 % Red Cell Distribution Width 20.4 % 20.1 % 20.8 % Mean Platelet Volume 8.3 FL 7.7 FL 7.1 FL CBC Comment AUTO DIFF Differential Total Cells Counted 100 Neutrophils % (Manual) 86 % Band Neutrophils % 7 % Lymphocytes % 1 % Monocytes % 5 % Neutrophils # (Manual) 2.4 TH/MM3 Metamyelocytes 1 % Nucleated Red Blood Cells 1 /100 WBC Differential Comment FINAL DIFF MANUAL Dohle Bodies PRESENT Platelet Estimate RARE Platelet Morphology Comment NORMAL Ovalocytes Blood Smear Pathologist Review Reticulocyte Count 1.7 % Absolute Reticulocyte Count 49.2 MIL/L Haptoglobin 232 MG/DL Test 05/02/18 04:45 White Blood Count 4.4 TH/MM3 Red Blood Count 2.80 MIL/MM3 Hemoglobin 8.6 GM/DL Hematocrit 24.5 % Mean Corpuscular Volume 87.7 FL Mean Corpuscular Hemoglobin 30.7 PG Mean Corpuscular Hemoglobin Concent 35.1 % Red Cell Distribution Width 20.3 % Platelet Count 25 TH/MM3 Mean Platelet Volume 7.4 FL Neutrophils (%) (Auto) 98.7 % Lymphocytes (%) (Auto) 0.6 % Monocytes (%) (Auto) 0.2 % Eosinophils (%) (Auto) 0.1 % Basophils (%) (Auto) 0.4 % Neutrophils # (Auto) 4.4 TH/MM3 Lymphocytes # (Auto) 0.0 TH/MM3 Monocytes # (Auto) 0.0 TH/MM3 Eosinophils # (Auto) 0.0 TH/MM3 Basophils # (Auto) 0.0 TH/MM3 CBC Comment AUTO DIFF Differential Total Cells Counted 100 Neutrophils % (Manual) 88 % Band Neutrophils % 12 % Neutrophils # (Manual) 4.4 TH/MM3 Differential Comment FINAL DIFF MANUAL Platelet Estimate LOW Platelet Morphology Comment NORMAL Laboratory Tests Test 04/30/18 18:35 05/01/18 05:00 05/01/18 21:00 05/02/18 04:45 Blood Urea Nitrogen 41 MG/DL 47 MG/DL 51 MG/DL 53 MG/DL Creatinine 1.90 MG/DL 1.99 MG/DL 2.21 MG/DL 2.25 MG/DL Random Glucose 167 MG/DL 165 MG/DL 108 MG/DL 104 MG/DL Total Protein 4.4 GM/DL 4.5 GM/DL 4.9 GM/DL 5.1 GM/DL Calcium Level 5.1 MG/DL 5.2 MG/DL 5.3 MG/DL 5.3 MG/DL Sodium Level 127 MEQ/L 127 MEQ/L 127 MEQ/L 127 MEQ/L Potassium Level 4.1 MEQ/L 4.1 MEQ/L 4.4 MEQ/L 4.5 MEQ/L Chloride Level 88 MEQ/L 86 MEQ/L 87 MEQ/L 87 MEQ/L Carbon Dioxide Level 19.0 MEQ/L 20.0 MEQ/L 23.1 MEQ/L 22.7 MEQ/L Anion Gap 20 MEQ/L 21 MEQ/L 17 MEQ/L 17 MEQ/L Estimat Glomerular Filtration Rate 36 ML/MIN 34 ML/MIN 30 ML/MIN 29 ML/MIN Protein Corrected Calcium 6.2 MG/DL 6.3 MG/DL 6.2 MG/DL 6.1 MG/DL Albumin 1.4 GM/DL 2.1 GM/DL Alkaline Phosphatase 232 U/L 340 U/L Aspartate Amino Transf (AST/SGOT) 69 U/L 79 U/L Alanine Aminotransferase (ALT/SGPT) 58 U/L 55 U/L Total Bilirubin 2.4 MG/DL 2.9 MG/DL Phosphorus Level 4.0 MG/DL Magnesium Level 1.8 MG/DL Microbiology Date/Time Source Procedure Growth Status 05/01/18 10:00 Sputum Endotracheal Gram Stain - Final Resulted 05/01/18 10:00 Sputum Endotracheal Sputum Culture Pending Resulted Imaging Last Impressions Chest X-Ray 04/29/18 0000 Signed Impressions: CONCLUSION: Tubes and lines in good position. Persistent consolidation or atelectasis in the left upper lung and right base. Right effusion. Head CT 04/26/18 0000 Signed Impressions: CONCLUSION: 1. No acute intracranial abnormality is identified. The small enhancing lesion s documented on the outside contrast enhanced brain MRI are too small to be vis ible with noncontrast CT imaging. 2. Chronic findings include mild generalized atrophy. CT Angiography 04/26/18 0000 Signed Impressions: CONCLUSION: 1. The previously seen right-sided pulmonary embolus has resolved. No emboli s een on the current exam. 2. Diffuse consolidation throughout the entire right lower lobe with sparing o f the anterior basilar segment. This is a new finding. Infectious etiology susp ected. 3. Left upper lobe pulmonary mass. Physical Exam GENERAL: sedated on the vent, not in respiratory distress. SKIN: Cool and dry. Scattered ecchymoses and purpuric areas HEAD: Atraumatic. Normocephalic. No temporal wasting, or tenderness. EYES: [place] conjunctiva. No petechia or hemorrhage. Pupils equal, round and reactive to light. Has scleral edema. EARS, NOSE AND THROAT: Nose without bleeding or purulent nasal discharge. He is orally intubated. NECK: Trachea midline. Supple and not tender, no meningeal signs CARDIOVASCULAR: Irregular rate and rhythm. No murmurs, rubs or gallops heard RESPIRATORY: Has diffuse rhonchi. Port ok, not accessed ABDOMEN: Slightly distended, no reaction to palpation EXTREMITIES: Edematous. Purpuric areas and ecchymoses noted NEUROLOGICAL: Sedated PSYCHIATRIC: Unable to assess LINE: Port no evidence of infection. PIV ok Assessment & Plan Remarks Severe sepsis, present on admission, with septic shock - off pressors - FiO2 at .45 Pneumonia, R, C/S Acinetobacter (CAP, HCAP, Atypical) Acute resp failure on vent. Acute renal failure: sepsis, prerenal, meds - worsening Neutropenia post chemo, resolved Thrombocytopenia, post chemo Metastatic lung CA, adeno CA to brain and spine Atrial fib, RVR, S/P cardioversion, has controlled rate RECOMMENDATION Continue IV Cefepime Follow temp Monitor progress Renal following D/W Heather Burroughs MD May 02, 2018 09:55
[2018-05-02] MEDS ORDERED: SODIUM CHLOR 0.9% 250 ML INJ 250 ML IV ONE (10:00)
--- NOTE | 2018-05-02 11:14 | HHI.NPPN ---
Subjective History of Present Illness 67-year-old with advanced lung cancer and metastasis to brain, sepsis, acute renal, respiratory failure intubated Interval History No response to diuretic Objective Data Data 05/02/18 05/03/18 19:00 07:00 Output Total 100.0 ml Balance -100.0 ml Tube Feeding Residual Discard 100.0 ml Vital Signs Date Time Temp Pulse Resp B/P (MAP) Pulse Ox O2 Delivery O2 Flow Rate FiO2 05/02/18 09:30 74 116/59 (78) 05/02/18 09:00 75 18 113/57 (75) 95 05/02/18 08:00 97.8 75 19 113/57 (75) 97 05/02/18 08:00 40 05/02/18 07:54 97 40 05/02/18 04:00 98.2 72 18 114/71 (85) 97 117/63 (81) 05/02/18 04:00 40 05/02/18 03:38 97 40 05/02/18 02:00 72 18 119/62 (81) 98 05/02/18 01:00 73 18 120/63 (82) 97 05/02/18 00:00 98.8 73 18 106/69 (81) 97 117/63 (81) 05/02/18 00:00 40 05/01/18 23:56 97 40 05/01/18 23:00 72 18 119/64 (82) 99 05/01/18 23:00 72 119/64 (82) 05/01/18 22:00 75 18 119/61 (80) 99 05/01/18 21:00 110 18 114/62 (79) 99 05/01/18 20:00 40 05/01/18 20:00 99.0 130 18 105/72 (83) 98 113/68 (83) 05/01/18 19:34 99 40 05/01/18 18:00 40 05/01/18 18:00 126 10 125/77 (93) 98 05/01/18 17:00 117 18 116/66 (83) 99 05/01/18 16:00 83 115/76 (89) 05/01/18 16:00 98.3 83 18 115/76 (89) 100 130/68 (88) 05/01/18 15:57 100 40 05/01/18 15:00 84 18 125/64 (84) 98 05/01/18 14:00 82 18 122/61 (81) 98 05/01/18 13:00 153 18 99/55 (70) 96 05/01/18 12:45 148 18 117/60 95 05/01/18 12:30 98.9 150 18 87/50 96 05/01/18 12:19 98.4 155 18 126/65 97 05/01/18 12:00 98.9 96 18 126/80 (95) 97 128/67 (87) 05/01/18 12:00 40 05/01/18 11:33 99 40 -: 05/02/18 0445 05/02/18 0445 Physical Exam General Appearance: Well Developed Neck Neck Exam: Neck Supple Pulmonary Resp Exam: Crackles, Rhonchi, Decreased Bases Cardiology CV Exam: Tachycardia Gastrointestinal/Abdomen GI Exam: Soft, Bowel Sounds Hypoactive Extremeties Extremities Exam: Moderate Edema, Pitting Edema Assessment/Plan Problem List: (1) Acute renal failure ICD Codes: N17.9 - Acute kidney failure, unspecified Plan: It appears the patient was septic and was in shock from which he recovered off vasopressors, he is with acute kidney injury can be related to underlying sepsis, low blood pressure leading to acute tubular necrosis he also received dye study CT angiogram of the chest was done He does have critically low platelets, this was thought to be due to immunosuppression and sepsis Haptoglobin level is high, reticulocyte count is not elevated, schistocytes not elevated D-dimer is positive Possible DIC Calcium was replaced Oncology is following Given his advanced stage of cancer multiorgan failure he is a poor dialysis candidate Talk to intensive care Dr. Kinsey when available, spoke to Shavonne RN I spoke to Dr. 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 poor survival rate Ask him to get a second opinion to do dialysis if family wishes to do that, he will talk to palliative care (2) Thrombocytopenia ICD Codes: D69.6 - Thrombocytopenia, unspecified Plan: Patient has side effects of chemo/immunotherapy (3) Pneumonia ICD Codes: J18.9 - Pneumonia, unspecified organism Plan: Acinetobacter infection on cefepime (4) Adenocarcinoma, lung ICD Codes: C34.90 - Malignant neoplasm of unspecified part of unspecified bronchus or lung Plan: Advanced stage II with brain metastatic lesions (5) Acute respiratory failure with hypoxia ICD Codes: J96.01 - Acute respiratory failure with hypoxia Status: Acute Problem Qualifiers (1) Acute renal failure: Qualified Codes: N17.0 - Acute kidney failure with tubular necrosis Arlyn Whitley MD May 02, 2018 11:14
--- NOTE | 2018-05-02 14:25 | PD.ONC.PN ---
Subjective Subjective Remarks Afebrile Patient seen and examined around lunchtime Per DIRECTOR SALES his family wishes to continue aggressive care Patient became extremely tachycardic yesterday when vent weaning was attempted Patient was evaluated by nephrology- not a candidate for dialysis at this time Objective Data Date Time Temp Pulse Resp B/P (MAP) Pulse Ox O2 Delivery O2 Flow Rate FiO2 05/02/18 14:07 95 50 05/02/18 13:04 96 50 05/02/18 11:35 98.5 77 18 131/64 96 05/02/18 11:20 98.3 76 18 128/63 96 05/02/18 09:30 74 116/59 (78) 05/02/18 09:00 75 18 113/57 (75) 95 05/02/18 08:00 97.8 75 19 113/57 (75) 97 05/02/18 08:00 40 05/02/18 07:54 97 40 05/02/18 04:00 98.2 72 18 114/71 (85) 97 117/63 (81) 05/02/18 04:00 40 05/02/18 03:38 97 40 05/02/18 02:00 72 18 119/62 (81) 98 05/02/18 01:00 73 18 120/63 (82) 97 05/02/18 00:00 98.8 73 18 106/69 (81) 97 117/63 (81) 05/02/18 00:00 40 05/01/18 23:56 97 40 05/01/18 23:00 72 18 119/64 (82) 99 05/01/18 23:00 72 119/64 (82) 05/01/18 22:00 75 18 119/61 (80) 99 05/01/18 21:00 110 18 114/62 (79) 99 05/01/18 20:00 40 05/01/18 20:00 99.0 130 18 105/72 (83) 98 113/68 (83) 05/01/18 19:34 99 40 05/01/18 18:00 40 05/01/18 18:00 126 10 125/77 (93) 98 05/01/18 17:00 117 18 116/66 (83) 99 05/01/18 16:00 83 115/76 (89) 6/5/18 16:00 98.3 83 18 115/76 (89) 100 130/68 (88) 05/01/18 15:57 100 40 05/01/18 15:00 84 18 125/64 (84) 98 05/02/18 05/02/18 05/02/18 07:00 15:00 23:00 Intake Total 1256 ml 255 ml Output Total 75 ml 100.0 ml Balance 1181 ml 155.0 ml Result Diagram: 05/02/18 0445 05/02/18 0445 Laboratory Results Laboratory Tests Test 05/01/18 15:45 05/01/18 21:00 05/02/18 04:45 White Blood Count 3.3 TH/MM3 4.4 TH/MM3 Red Blood Count 2.70 MIL/MM3 2.80 MIL/MM3 Hemoglobin 8.3 GM/DL 8.6 GM/DL Hematocrit 23.4 % 24.5 % Mean Corpuscular Volume 86.8 FL 87.7 FL Mean Corpuscular Hemoglobin 30.7 PG 30.7 PG Mean Corpuscular Hemoglobin Concent 35.3 % 35.1 % Red Cell Distribution Width 20.8 % 20.3 % Platelet Count 34 TH/MM3 25 TH/MM3 Mean Platelet Volume 7.1 FL 7.4 FL Blood Urea Nitrogen 51 MG/DL 53 MG/DL Creatinine 2.21 MG/DL 2.25 MG/DL Random Glucose 108 MG/DL 104 MG/DL Total Protein 4.9 GM/DL 5.1 GM/DL Calcium Level 5.3 MG/DL 5.3 MG/DL Phosphorus Level 4.0 MG/DL Magnesium Level 1.8 MG/DL Sodium Level 127 MEQ/L 127 MEQ/L Potassium Level 4.4 MEQ/L 4.5 MEQ/L Chloride Level 87 MEQ/L 87 MEQ/L Carbon Dioxide Level 23.1 MEQ/L 22.7 MEQ/L Anion Gap 17 MEQ/L 17 MEQ/L Estimat Glomerular Filtration Rate 30 ML/MIN 29 ML/MIN Protein Corrected Calcium 6.2 MG/DL 6.1 MG/DL Neutrophils (%) (Auto) 98.7 % Lymphocytes (%) (Auto) 0.6 % Monocytes (%) (Auto) 0.2 % Eosinophils (%) (Auto) 0.1 % Basophils (%) (Auto) 0.4 % Neutrophils # (Auto) 4.4 TH/MM3 Lymphocytes # (Auto) 0.0 TH/MM3 Monocytes # (Auto) 0.0 TH/MM3 Eosinophils # (Auto) 0.0 TH/MM3 Basophils # (Auto) 0.0 TH/MM3 CBC Comment AUTO DIFF Differential Total Cells Counted 100 Neutrophils % (Manual) 88 % Band Neutrophils % 12 % Neutrophils # (Manual) 4.4 TH/MM3 Differential Comment FINAL DIFF MANUAL Platelet Estimate LOW Platelet Morphology Comment NORMAL Urine Random Creatinine 29.0 MG/DL Urine Random Sodium 31 MEQ/L Albumin 2.1 GM/DL Alkaline Phosphatase 340 U/L Aspartate Amino Transf (AST/SGOT) 79 U/L Alanine Aminotransferase (ALT/SGPT) 55 U/L Total Bilirubin 2.9 MG/DL Culture Results Microbiology Date/Time Source Procedure Growth Status 05/01/18 10:00 Sputum Endotracheal Gram Stain - Final Resulted 05/01/18 10:00 Sputum Culture - Preliminary Gram Negative Ric Resulted Administered Medications Medications (Trade) Dose Ordered Sig/Gigi Route PRN Reason Start Time Stop Time Status Last Admin Dose Admin Sodium Chloride (NS Flush) 2 ml UNSCH PRN IV FLUSH FLUSH AFTER USING IV ACCESS 04/26/18 17:45 04/29/18 20:59 Sodium Chloride (NS Flush) 2 ml BID IV FLUSH 04/26/18 21:00 05/02/18 08:15 Albuterol/ Ipratropium (Duoneb Neb) 1 ampule Q4HR NEB PRN INH SHORTNESS OF BREATH 04/26/18 17:45 05/01/18 23:55 Chlorhexidine Gluconate (Peridex 0.12% Liq) 15 ml BID@08,20 MT 04/26/18 20:00 05/02/18 08:15 Chlorhexidine Gluconate (Chlorhexidine 2% Cloth) Taper DAILY@04 TOP 04/27/18 04:00 04/23/19 03:59 05/01/18 03:40 Insulin Aspart (NovoLOG SUPPLEMENTAL SCALE) 1 Q4HR SQ 04/26/18 20:00 05/01/18 16:00 Folic Acid (Folate) 1 mg DAILY PO 04/27/18 09:00 05/02/18 08:14 Filgrastim (Neupogen Inj) 480 mcg DAILY@14 SQ 04/27/18 14:00 05/01/18 15:11 Fentanyl Citrate 250 ml @ 5 mls/hr TITRATE PRN IV SEDATION 04/27/18 17:45 05/02/18 01:45 Cefepime HCl 1000 mg/Sodium Chloride 100 ml @ 200 mls/hr Q12H IV 04/30/18 13:00 05/02/18 12:05 Famotidine (Pepcid) 10 mg BID PO 04/30/18 21:00 05/02/18 08:14 Hydrocortisone Sodium Succinate (SoluCORTEF INJ) 50 mg Q8HR IV PUSH 05/01/18 14:00 05/02/18 06:01 Albumin Human 100 ml @ 60 mls/hr Q6HR IV 05/01/18 12:00 05/02/18 12:04 Furosemide (Lasix Inj) 60 mg Q6HR IV PUSH 05/01/18 12:00 05/02/18 12:04 Alteplase, Recombinant (Cathflo Activase Inj) 2 mg UNSCH OTHER 05/01/18 11:30 05/01/18 15:33 Metoprolol Tartrate (Lopressor) 50 mg Q12HR PO 05/01/18 21:00 05/02/18 08:14 Objective Remarks GENERAL: Intubated, sedated male, supine in bed. SKIN: Warm and dry. HEAD: Normocephalic. EYES: No scleral icterus. No injection or drainage. NECK: Supple, trachea midline. RIJ, no bleeding. LYMPHATIC: No adenopathy. CARDIOVASCULAR: +S1/S2, tachy RESPIRATORY: Scattered rhonchi anteriorly. Mechanically ventilated. GASTROINTESTINAL: Abdomen soft, non-tender, nondistended. EXTREMITIES: Anasarca noted. Patient with seeping bilateral lower extremities NEUROLOGICAL: Intubated and sedated Assessment/Plan Assessment 67y/o with metastatic lung cancer, admitted with neutropenic fever, critically ill in C Plan 1. Continue Neupogen today. Will D/C when white blood cells greater than 5000. 2. Transfuse 1 unit platelets to keep level around 30,000. Transfuse to keep hemoglobin greater than 7.5. 3. Continue antibiotics per infectious disease. 4. Patient remains critically ill however will continue with supportive care. Attending Statement The exam, history, and the medical decision-making described in the above note were completed with the assistance of the mid-level provider. I reviewed and agree with the findings presented. I attest that I had a [id number] encounter with the patient on the same day, and personally performed and documented my assessment and findings in the medical record gravely ill, poor prognosis and chance of recovery unlikely family considering withdrawal of care Leilani Zazueta May 02, 2018 14:25 Phan Driscoll MD May 02, 2018 21:26
[2018-05-02] MEDS: FILGRASTIM 480 MCG/1.6 ML VIAL SQ SCH (14:26)
--- NOTE | 2018-05-02 17:21 | HHI.HCPN ---
Reason for visit a. To assist with evaluation and management of symptoms including: Shortness of breath, debility b. To assist medical decision maker(s) with: better understanding of current medical conditions; weighing benefits/burdens of medical treatment options; making medical treatment decisions. Subjective/Interval History Patient seen to follow-up on dyspnea, encephalopathy. Patient seen in the intensive care unit in critical condition with critically low platelets questionably due to immunosuppression and sepsis with positive d- dimer suspicious for DIC. 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 He remains on a ventilator, unresponsive requiring 50% FiO2 and 8.0 cm H2O of PEEP. He is not breathing over the ventilator. He is requiring increasing oxygen support. He is receiving 100 mcg/hr of fentanyl for comfort but is not responding to noxious stimuli or withdrawing to pain. He does not blink to threat. No plantar reflex response. His laboratory values indicate a platelet count of 25 , hemoglobin 8.6, hematocrit 24.5 and WBC 4.4. D-dimer is 5.98. He has multiple ecchymosis on all extremities. Chemistry shows sodium of 127, potassium 4.5, anion gap 17, chloride 87, BUN 53, creatinine 2.25, GFR 29, calcium 5.3, protein corrected calcium 6.1, total bilirubin 2.9, AST 79, alkaline phosphatase 340, total protein 5.1, albumin 2.1. . Family/friend interactions Contacted the children, Ambika Vasiliy and Belén and updated them as to the progression of multiorgan failure, poor prognosis and unsuitability for dialysis and likelihood of from hours to days secondary to kidney failure. He is oliguric with decreasing urine output with significant edema. We discussed the benefits and burdens of CPR and given the poor prognosis the children unanimously felt that CPR would be a far bigger burden than benefit and shows a DO NOT RESUSCITATE status. They are considering withdrawal of life support after our conversation and towards that and, consents will be placed on the chart for the family's signature, should that be their decision overnight. All 3 children are in route to [place] to be at their father's bedside for his impending passing. Information to allow access to the hospital after visiting hours has been communicated to the children. Contact information to palliative care has been provided. DO NOT RESUSCITATE order has been entered at their request. Discussed with Dr. Ng and updated him as to the family's current goals. . Advance Directives Living Will: Never completed Health Care Surrogate: Never completed Durable Power of Group Home Counselor: Never completed Advance Directive Specifics Health Care Surrogate(s): Patient is not capacitated to make his own health care decisions. No written advanced directives. Not legally . According to [place] statutes, health care proxy decision making falls to the majority of adult children, he has 3 children (2 daughters and 1 son). All 3 children want to serve as healthcare proxy decision makers: * Daughter-Ambika MartiVwzqe-[phone] * Son-Dez Fang Jr-[phone] * Daughter- Belén Hines- [phone] . Objective Vital Signs Date Time Temp Pulse Resp B/P (MAP) Pulse Ox O2 Delivery O2 Flow Rate FiO2 05/02/18 15:00 147 18 101/65 (77) 96 05/02/18 14:07 95 50 05/02/18 14:00 128 18 107/64 (78) 94 05/02/18 13:04 96 50 05/02/18 13:00 76 18 116/60 (78) 100 05/02/18 12:00 50 05/02/18 12:00 98.4 77 18 126/61 (82) 93 05/02/18 11:35 98.5 77 18 131/64 96 05/02/18 11:20 98.3 76 18 128/63 96 05/02/18 11:00 75 18 127/62 (83) 96 05/02/18 10:00 74 18 116/58 (77) 97 05/02/18 09:30 74 116/59 (78) 05/02/18 09:00 75 18 113/57 (75) 95 05/02/18 08:00 97.8 75 19 113/57 (75) 97 05/02/18 08:00 40 05/02/18 07:54 97 40 05/02/18 04:00 98.2 72 18 114/71 (85) 97 117/63 (81) 05/02/18 04:00 40 05/02/18 03:38 97 40 05/02/18 02:00 72 18 119/62 (81) 98 05/02/18 01:00 73 18 120/63 (82) 97 05/02/18 00:00 98.8 73 18 106/69 (81) 97 117/63 (81) 05/02/18 00:00 40 05/01/18 23:56 97 40 05/01/18 23:00 72 18 119/64 (82) 99 05/01/18 23:00 72 119/64 (82) 05/01/18 22:00 75 18 119/61 (80) 99 05/01/18 21:00 110 18 114/62 (79) 99 05/01/18 20:00 40 05/01/18 20:00 99.0 130 18 105/72 (83) 98 113/68 (83) 05/01/18 19:34 99 40 05/01/18 18:00 40 05/01/18 18:00 126 10 125/77 (93) 98 05/01/18 17:00 117 18 116/66 (83) 99 Intake & Output 05/02/18 05/02/18 07:00 19:00 Intake Total 1506 ml 255 ml Output Total 75 ml 100.0 ml Balance 1431 ml 155.0 ml Intake Oral 0 ml IV Total 1002 ml Tube Feeding 444 ml Platelets 255 ml Tube Irrigant 60 ml Output Urine Total 75 ml Tube Feeding Residual Discard 100.0 ml # Bowel Movements 0 Physical Exam CONSTITUTIONAL/GENERAL: This is an adequately nourished patient intubated and sedated TUBES/LINES/DRAINS: ETT, Parrish catheter, SCDs, bilateral upper extremity soft restraints, PIV, OG tube, [id number] right chest wall accessed SKIN: No jaundice, rashes, or lesions. Ecchymoses on all extremities. Dry scabs to bilateral knees. Skin cool to touch. Not diaphoretic. HEAD: Atraumatic. Normocephalic. EYES: Pupils equal and round and 2 mm, sluggishly reactive. No scleral icterus. Fundi not examined. ENT: Unable to assess hearing. No drainage noted to both nares. Moist oral mucosa. ETT in place NECK: Trachea midline. Supple. CARDIOVASCULAR: Irregular rhythm, heart rate 130's. no murmur. Peripheral pulses diminished. RESPIRATORY/CHEST: Mechanically ventilated with coarse rhonchi throughout all lung keys. GASTROINTESTINAL: Abdomen soft, nondistended. Hypoactive bowel sounds. Old G- tube clamped GENITOURINARY: Without palpable bladder distension. Parrish catheter in place draining minimal quantities of dark brown urine. MUSCULOSKELETAL: Extremities without clubbing or cyanosis, 2+ edema. No joint tenderness or effusion noted. No mottling or clubbing. NEUROLOGICAL: Intubated, sedated, currently on low-dose fentanyl infusion, not withdrawing to noxious stimuli, no plantar or corneal reflexes, no gag. PSYCHIATRIC: Unable to assess at this time. Diagnostic Tests Laboratory Laboratory Tests Test 04/29/18 16:45 04/29/18 19:00 04/30/18 04:40 04/30/18 09:20 Potassium Level 4.2 MEQ/L (3.5-5.1) 4.2 MEQ/L (3.5-5.1) White Blood Count 0.6 TH/MM3 (4.0-11.0) 1.3 TH/MM3 (4.0-11.0) Red Blood Count 2.10 MIL/MM3 (4.50-5.90) 2.88 MIL/MM3 (4.50-5.90) Hemoglobin 6.6 GM/DL (13.0-17.0) 8.8 GM/DL (13.0-17.0) Hematocrit 18.5 % (39.0-51.0) 24.9 % (39.0-51.0) Mean Corpuscular Volume 88.2 FL (80.0-100.0) 86.4 FL (80.0-100.0) Mean Corpuscular Hemoglobin 31.4 PG (27.0-34.0) 30.5 PG (27.0-34.0) Mean Corpuscular Hemoglobin Concent 35.6 % (32.0-36.0) 35.3 % (32.0-36.0) Red Cell Distribution Width 23.7 % (11.6-17.2) 20.1 % (11.6-17.2) Platelet Count 22 TH/MM3 (150-450) 16 TH/MM3 (150-450) Mean Platelet Volume 8.6 FL (7.0-11.0) 7.7 FL (7.0-11.0) Lactic Acid Level 2.9 mmol/L (0.4-2.0) 3.1 mmol/L (0.4-2.0) Blood Urea Nitrogen 37 MG/DL (7-18) Creatinine 1.72 MG/DL (0.60-1.30) Random Glucose 156 MG/DL (74-106) Total Protein 4.1 GM/DL (6.4-8.2) Albumin 1.4 GM/DL (3.4-5.0) Calcium Level 5.3 MG/DL (8.5-10.1) Alkaline Phosphatase 137 U/L (45-117) Aspartate Amino Transf (AST/SGOT) 53 U/L (15-37) Alanine Aminotransferase (ALT/SGPT) 53 U/L (12-78) Total Bilirubin 1.8 MG/DL (0.2-1.0) Sodium Level 126 MEQ/L (136-145) Chloride Level 86 MEQ/L (98-107) Carbon Dioxide Level 19.7 MEQ/L (21.0-32.0) Anion Gap 20 MEQ/L (5-15) Estimat Glomerular Filtration Rate 40 ML/MIN (>89) Protein Corrected Calcium 6.6 MG/DL (8.5-10.1) Random Vancomycin Level 34.1 COMMENT Blood Gas Puncture Site ART LINE Blood Gas Patient Temperature 98.6 Blood Gas HCO3 21 mmol/L (22-26) Blood Gas Base Excess -2.5 mmol/L (-2-2) Blood Gas Oxygen Saturation 96 % (90-100) Arterial Blood pH 7.46 (7.380-7.420) Arterial Blood Partial Pressure CO2 30 mmHg (38-42) Arterial Blood Partial Pressure O2 113 mmHg (61-120) Arterial Blood Oxygen Content 12.6 Vol % (12.0-20.0) Arterial Blood Carboxyhemoglobin 0.9 % (0-4) Arterial Blood Methemoglobin 1.4 % (0-2) Blood Gas Hemoglobin 9.1 G/DL (12.0-16.0) Oxygen Delivery Device VENTILATOR Blood Gas Ventilator Setting [id number]/[id number] Blood Gas Inspired Oxygen 45 % Test 04/30/18 13:05 04/30/18 18:35 04/30/18 19:50 05/01/18 05:00 Platelet Count 37 TH/MM3 (150-450) 23 TH/MM3 (150-450) 15 TH/MM3 (150-450) Blood Urea Nitrogen 41 MG/DL (7-18) 47 MG/DL (7-18) Creatinine 1.90 MG/DL (0.60-1.30) 1.99 MG/DL (0.60-1.30) Random Glucose 167 MG/DL (74-106) 165 MG/DL (74-106) Total Protein 4.4 GM/DL (6.4-8.2) 4.5 GM/DL (6.4-8.2) Calcium Level 5.1 MG/DL (8.5-10.1) 5.2 MG/DL (8.5-10.1) Sodium Level 127 MEQ/L (136-145) 127 MEQ/L (136-145) Potassium Level 4.1 MEQ/L (3.5-5.1) 4.1 MEQ/L (3.5-5.1) Chloride Level 88 MEQ/L (98-107) 86 MEQ/L (98-107) Carbon Dioxide Level 19.0 MEQ/L (21.0-32.0) 20.0 MEQ/L (21.0-32.0) Anion Gap 20 MEQ/L (5-15) 21 MEQ/L (5-15) Estimat Glomerular Filtration Rate 36 ML/MIN (>89) 34 ML/MIN (>89) Protein Corrected Calcium 6.2 MG/DL (8.5-10.1) 6.3 MG/DL (8.5-10.1) White Blood Count 2.6 TH/MM3 (4.0-11.0) 2.6 TH/MM3 (4.0-11.0) Red Blood Count 2.88 MIL/MM3 (4.50-5.90) 2.88 MIL/MM3 (4.50-5.90) Hemoglobin 8.8 GM/DL (13.0-17.0) 8.9 GM/DL (13.0-17.0) Hematocrit 25.0 % (39.0-51.0) 25.1 % (39.0-51.0) Mean Corpuscular Volume 86.5 FL (80.0-100.0) 87.0 FL (80.0-100.0) Mean Corpuscular Hemoglobin 30.5 PG (27.0-34.0) 30.9 PG (27.0-34.0) Mean Corpuscular Hemoglobin Concent 35.2 % (32.0-36.0) 35.5 % (32.0-36.0) Red Cell Distribution Width 20.4 % (11.6-17.2) 20.1 % (11.6-17.2) Mean Platelet Volume 8.3 FL (7.0-11.0) 7.7 FL (7.0-11.0) CBC Comment AUTO DIFF Differential Total Cells Counted 100 Neutrophils % (Manual) 86 % (16-70) Band Neutrophils % 7 % (0-6) Lymphocytes % 1 % (9-44) Monocytes % 5 % (0-8) Neutrophils # (Manual) 2.4 TH/MM3 (1.8-7.7) Metamyelocytes 1 % (0-1) Nucleated Red Blood Cells 1 /100 WBC (0-0) Differential Comment FINAL DIFF MANUAL Dohle Bodies PRESENT (NONE SEEN) Platelet Estimate RARE (NORMAL) Platelet Morphology Comment NORMAL (NORMAL) Ovalocytes (NORMAL) Blood Smear Pathologist Review Reticulocyte Count 1.7 % (0.4-3.0) Absolute Reticulocyte Count 49.2 MIL/L (20.0-150.0) Haptoglobin 232 MG/DL (30-200) Albumin 1.4 GM/DL (3.4-5.0) Alkaline Phosphatase 232 U/L (45-117) Aspartate Amino Transf (AST/SGOT) 69 U/L (15-37) Alanine Aminotransferase (ALT/SGPT) 58 U/L (12-78) Total Bilirubin 2.4 MG/DL (0.2-1.0) Random Vancomycin Level 31.2 COMMENT Test 05/01/18 09:52 05/01/18 15:45 05/01/18 21:00 05/02/18 04:45 Prothrombin Time 10.6 SEC (9.8-11.6) Prothromb Time International Ratio 1.0 RATIO D-Dimer Quantitative (PE/DVT) 5.98 MG/L FEU (0.00-0.50) White Blood Count 3.3 TH/MM3 (4.0-11.0) 4.4 TH/MM3 (4.0-11.0) Red Blood Count 2.70 MIL/MM3 (4.50-5.90) 2.80 MIL/MM3 (4.50-5.90) Hemoglobin 8.3 GM/DL (13.0-17.0) 8.6 GM/DL (13.0-17.0) Hematocrit 23.4 % (39.0-51.0) 24.5 % (39.0-51.0) Mean Corpuscular Volume 86.8 FL (80.0-100.0) 87.7 FL (80.0-100.0) Mean Corpuscular Hemoglobin 30.7 PG (27.0-34.0) 30.7 PG (27.0-34.0) Mean Corpuscular Hemoglobin Concent 35.3 % (32.0-36.0) 35.1 % (32.0-36.0) Red Cell Distribution Width 20.8 % (11.6-17.2) 20.3 % (11.6-17.2) Platelet Count 34 TH/MM3 (150-450) 25 TH/MM3 (150-450) Mean Platelet Volume 7.1 FL (7.0-11.0) 7.4 FL (7.0-11.0) Blood Urea Nitrogen 51 MG/DL (7-18) 53 MG/DL (7-18) Creatinine 2.21 MG/DL (0.60-1.30) 2.25 MG/DL (0.60-1.30) Random Glucose 108 MG/DL (74-106) 104 MG/DL (74-106) Total Protein 4.9 GM/DL (6.4-8.2) 5.1 GM/DL (6.4-8.2) Calcium Level 5.3 MG/DL (8.5-10.1) 5.3 MG/DL (8.5-10.1) Phosphorus Level 4.0 MG/DL (2.5-4.9) Magnesium Level 1.8 MG/DL (1.5-2.5) Sodium Level 127 MEQ/L (136-145) 127 MEQ/L (136-145) Potassium Level 4.4 MEQ/L (3.5-5.1) 4.5 MEQ/L (3.5-5.1) Chloride Level 87 MEQ/L (98-107) 87 MEQ/L (98-107) Carbon Dioxide Level 23.1 MEQ/L (21.0-32.0) 22.7 MEQ/L (21.0-32.0) Anion Gap 17 MEQ/L (5-15) 17 MEQ/L (5-15) Estimat Glomerular Filtration Rate 30 ML/MIN (>89) 29 ML/MIN (>89) Protein Corrected Calcium 6.2 MG/DL (8.5-10.1) 6.1 MG/DL (8.5-10.1) Neutrophils (%) (Auto) 98.7 % (16.0-70.0) Lymphocytes (%) (Auto) 0.6 % (9.0-44.0) Monocytes (%) (Auto) 0.2 % (0.0-8.0) Eosinophils (%) (Auto) 0.1 % (0.0-4.0) Basophils (%) (Auto) 0.4 % (0.0-2.0) Neutrophils # (Auto) 4.4 TH/MM3 (1.8-7.7) Lymphocytes # (Auto) 0.0 TH/MM3 (1.0-4.8) Monocytes # (Auto) 0.0 TH/MM3 (0-0.9) Eosinophils # (Auto) 0.0 TH/MM3 (0-0.4) Basophils # (Auto) 0.0 TH/MM3 (0-0.2) CBC Comment AUTO DIFF Differential Total Cells Counted 100 Neutrophils % (Manual) 88 % (16-70) Band Neutrophils % 12 % (0-6) Neutrophils # (Manual) 4.4 TH/MM3 (1.8-7.7) Differential Comment FINAL DIFF MANUAL Platelet Estimate LOW (NORMAL) Platelet Morphology Comment NORMAL (NORMAL) Urine Random Creatinine 29.0 MG/DL Urine Random Sodium 31 MEQ/L Albumin 2.1 GM/DL (3.4-5.0) Alkaline Phosphatase 340 U/L (45-117) Aspartate Amino Transf (AST/SGOT) 79 U/L (15-37) Alanine Aminotransferase (ALT/SGPT) 55 U/L (12-78) Total Bilirubin 2.9 MG/DL (0.2-1.0) Result Diagram: 05/02/1844405/02/18444 Microbiology Microbiology Date/Time Source Procedure Growth Status 05/01/18 10:00 Sputum Endotracheal Gram Stain - Final Resulted 05/01/18 10:00 Sputum Culture - Preliminary Gram Negative Ric Resulted Procedures 04/26/18-intubation . Assessment and Plan Disease Oriented Problem List: (1) Acute respiratory failure with hypoxia (2) Pneumonia (3) Adenocarcinoma, lung (4) Atrial fibrillation with RVR (5) GERD (gastroesophageal reflux disease) Symptom Scale: (1) Shortness of breath 0-10 Scale: Unable to quantify Comment: Patient has history of lung adenocarcinoma. Chest x-ray showing pneumonia. Currently intubated . 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 (3) Debility 0-10 Scale: Unable to quantify Comment: Progressive. . Pertinent Non-Medical Issues Psychosocial: Patient was born in [place], [place] and he lived most of his life in [place]. Patient moved to [place] in 2006. Patient has been 4 times and 3 times. His fourth many years ago. Patient has a significant other, whom he has lived with for the past 27 years. Patient his 3 adult children, 2 daughters and 1 son, Dez Perez Jr and Belén Hines. 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 Patient to use to wake for [employer] until beginning of 2016. He was recently working part-time in the [employer] until November 2016. No experience. Spiritual: Patient is [employer] Legal: Patient never completed advanced directives Ethical issues impacting care: No issues identified at this time. . Important Contacts * Daughter-Ambika MartiFwlio-[phone] * Son-Dez Fang Jr-[phone] * Daughter- Belén Hines- [phone] * Stepdaughter-Maryjane Mooney- [phone] * Significant other-Sayda Adamson-[phone] . Prognosis Mr. 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 Patient was brought by paramedics on 04/26/18 from an oncology center where he was about to receive chemotherapy for his lung cancer. When paramedics arrived patient was in atrial fibrillation with RVR with a rate of 228 and systolic blood pressure in the 50s. Patient was also found to be hyperglycemic with blood glucose in the 600s. Patient underwent cardioversion and was placed on 100% nonrebreather. Upon arrival to the emergency room patient was found to be hypoxic and was intubated and placed on mechanical ventilation. Patient is currently in neutropenic shock. Given multiple ongoing comorbidities, patient remains at very high risk for further complications and decline. . Code Status: No Code (At the request of the family due to progressive multi- system organ failure.) Plan I do not just family is in he remains * Legal decision maker: Patient is not capacitated to make his own health care decisions. No written advanced directives. Not legally . According to [place] statutes, health care proxy decision making falls to the majority of adult children. He has 2 daughters, Belén Hines and Ambika Marti and 1 son, Dez Fang, all 3 children want to serve as healthcare proxy decision makers. * DO NOT RESUSCITATE * Per my discussion with the 3 children today, they wish to convert to comfort measures as they do not wish their father to suffer any further. DO NOT RESUSCITATE order has been entered. Children are considering withdrawal of life support and withdrawal exhibits have been placed on the chart for completion if and when the family decides on that. SYMPTOMS: * Shortness of breath: Patient has stage IV adenocarcinoma of the lung. [facility] started patient on Flolan and planning on transferring patient onto a Roto prone bed. Patient is on antibiotics, Duonebs. He remains on the ventilator requiring 50% FiO2 and 8 PEEP. He is significantly tachycardic appearing to be in atrial fibrillation with rapid ventricular response with rates up to the 150s. Family has converted to comfort measures and is considering withdrawal of support at this time. * Encephalopathy: On 100 mcg an hour of fentanyl for comfort, not responding to noxious stimuli, not breathing over the vent, no blink to threat or plantar, corneal or gag reflexes. In addition to stage IV cancer with metastasis to the brain, he has low calcium and electrolyte derangement. Palliative care will continue to follow the patient during hospital course as condition evolves, to assist patient/decision-maker with understanding of their medical conditions, weighing benefits/burdens of treatment options, for clarification of goals of treatment. Additionally will assist with any symptoms of palliative concern Attestation To help prompt me to consider important information that might be impacting today's encounter and assessment, information from prior notes written by myself or my colleagues may have been "brought forward" into today's note. My signature on this note, however, is an attestation that I personally performed the exam, history, and/or decision-making noted today, and, unless otherwise indicated, the interactions with patient, family, and staff as well as the review of records all occurred today. I also attest that the listed assessment and stated plan reflect my best clinical judgment today based on the combination of historical information, prior notes, and today's exam/ interactions. When time spent is documented, it refers only to time spent today by the signer, or if indicated, combined time spent today by collaborating physician/nurse practitioner. . Eden Meehan May 02, 2018 17:21
--- NOTE | 2018-05-02 18:13 | ECHRPT ---
Indication: lv function CONCLUSIONS Wall thickness is measured at the upper limits of normal. The left ventricular systolic function is normal with an estimated ejection fraction in the range of 55-60%. The left atrial size is [id number] dilated. Mild mitral valve regurgitation. Trace aortic valve regurgitation. There is mild to moderate tricuspid valve regurgitation. The estimated pulmonary arterial pressure is 44 mmHg. BP: 125 / 76 HR: 100 Rhythm: MEASUREMENTS (Male / Female) Normal Values Technical Quality: 2D ECHO LV Diastolic Diameter PLAX 4.7 cm 4.2 - 5.9 / 3.9 - 5.3 cm LV Systolic Diameter PLAX 3.6 cm IVS Diastolic Thickness 1.3 cm 0.6 - 1.0 / 0.6 - 0.9 cm LVPW Diastolic Thickness 1.3 cm 0.6 - 1.0 / 0.6 - 0.9 cm LV Relative Wall Thickness 0.6 M-MODE Aortic Root Diameter MM 3.7 cm LA Systolic Diameter MM 4.6 cm LA Ao Ratio MM 1.2 AV Cusp Separation MM 1.7 cm DOPPLER Mitral E Point Velocity 86.9 cm/s Mitral A Point Velocity 91.2 cm/s Mitral E to A Ratio 1.0 LV E' Septal Velocity 7.6 cm/s Mitral E to LV E' Septal Ratio 11.4 TR Peak Velocity 291.0 cm/s TR Peak Gradient 33.9 mmHg Right Atrial Pressure 10.0 mmHg Pulmonary Artery Systolic Pressu 43.9 mmHg Right Ventricular Systolic Press 43.9 mmHg FINDINGS LEFT VENTRICLE Wall thickness is measured at the upper limits of normal. The left ventricular systolic function is normal with an estimated ejection fraction in the range of 55-60%. Normal left ventricular size. RIGHT VENTRICLE Normal right ventricular size and systolic function. LEFT ATRIUM The left atrial size is [id number] dilated. RIGHT ATRIUM The right atrial size is normal. ATRIAL SEPTUM Normal atrial septal thickness without atrial level shunting by limited color doppler interrogation. AORTA The aortic root and proximal ascending aorta are not well visualized. MITRAL VALVE Mild mitral valve regurgitation. Structurally normal mitral valve. AORTIC VALVE Trileaflet aortic valve. Trace aortic valve regurgitation. TRICUSPID VALVE Structurally normal tricuspid valve. There is mild to moderate tricuspid valve regurgitation. The estimated pulmonary arterial pressure is 43.9 mmHg. PULMONARY VALVE Trivial pulmonary valve regurgitation. VESSELS The inferior vena cava is normal in size. PERICARDIUM There is no pericardial effusion. Christiano Figueredo MD, FACC (Electronically Signed) Final Date:02 May 2018 18:12
[2018-05-03] VITALS (10 sets, daily range): BP systolic 118–135; BP diastolic 74–80; PULSE 73–128; RESP 18; TEMP 96.2–97; O2SAT 67–100
[2018-05-03] MEDS: ALBUMIN 25% INJ 100 ML IV SCH ×2 (00:02→05:00)
[2018-05-03] MEDS: FUROSEMIDE 40 MG/4 ML VIAL IV PUSH SCH ×2 (00:02→04:59)
[2018-05-03] MEDS: CALCIUM CHLORIDE INJ 1 GM in SODIUM CHLORIDE 0.9% INJ 100 ML IV SCH ×2 (00:02→07:58)
[2018-05-03] MEDS: CEFEPIME INJ 1,000 MG in SODIUM CHLORIDE 0.9% INJ 100 ML IV SCH (00:03)
[2018-05-03] MEDS: fentaNYL DRIP 250 ML IV PRN (01:20)
[2018-05-03] MEDS: INSULIN ASPART SUPPLEMENTAL SCALE SQ SCH ×2 (03:32→07:52)
[2018-05-03] MEDS: HYDROCORTISONE SOD SUCCINATE 100 MG VIAL IV PUSH SCH (05:00)
[2018-05-03 05:11] LABS: HEMATOCRIT 23.3 % (39.0-51.0); HEMOGLOBIN 8.1 GM/DL (13.0-17.0); MEAN CELL VOLUME 90.2 FL (80.0-100.0); MEAN CORPUSCULAR HEMOGLOBIN 31.2 PG (27.0-34.0); MEAN CORPUSCULAR HGB CONC 34.6 % (32.0-36.0); MEAN PLATELET VOLUME 6.9 FL (7.0-11.0); PLATELET COUNT 25 TH/MM3 (150-450); RED BLOOD COUNT 2.58 MIL/MM3 (4.50-5.90); RED CELL DISTRIBUTION WIDTH 20.6 % (11.6-17.2); WHITE BLOOD COUNT 3.1 TH/MM3 (4.0-11.0)
[2018-05-03 05:53] LABS: ALBUMIN 2.8 GM/DL (3.4-5.0); BICARBONATE 16.3 MEQ/L (21.0-32.0); CREATININE 2.34 MG/DL (0.60-1.30); TOTAL BILIRUBIN ADULT 4.6 MG/DL (0.2-1.0); TOTAL PROTEIN 5.5 GM/DL (6.4-8.2)
[2018-05-03 06:04] LABS: CALCIUM-PROTEIN CORRECTED 6.7 MG/DL (8.5-10.1)
[2018-05-03 07:30] LABS: BANDS 7 % (0-6); LYMPHOCYTES 1 % (9-44); MONOCYTES 7 % (0-8); NEUTROPHIL # MANUAL DIFF 2.9 TH/MM3 (1.8-7.7); POLYS (SEG NEUTROPHILS) 85 % (16-70)
[2018-05-03 07:32] LABS: TEARDROP RBCS 1+ (NORMAL)
[2018-05-03] MEDS: METOPROLOL TARTRATE 25 MG TAB PO SCH (07:53)
[2018-05-03] MEDS: FOLIC ACID 1 MG TAB PO SCH (07:53)
[2018-05-03] MEDS: FAMOTIDINE 20 MG TAB PO SCH (07:53)
[2018-05-03] MEDS: SODIUM CHLORIDE 0.9% FLUSH 10 ML FLUSH IV FLUSH SCH (07:54)
[2018-05-03] MEDS: CHLORHEXIDINE 0.12% (ORAL KIT) 15 ML CUP MT SCH (07:54)
[2018-05-03] MEDS ORDERED: fentaNYL DRIP 250 ML IV PRN (10:45)
[2018-05-03] MEDS ORDERED: HYOSCYAMINE 0.5 MG/ML AMP IV PUSH ONE (10:45)
[2018-05-03] MEDS ORDERED: LORazepam 2 MG/ML VIAL IV PUSH ONE ×2 (10:45→11:00)
--- NOTE | 2018-05-03 10:45 | HHI.CCPN ---
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 Patient was picked up at oncology Center and was about to get a chemotherapy dose for his lung cancer. Paramedics found him in A. fib with RVR with a rate of 228 and a blood pressure of 50 systolic. He underwent cardioversion. He arrived to emergency department on 100% nonrebreather but remained hypoxemic. The rhythm in the emergency department was a sinus with occasional ectopic beats. The patient was complaining of shortness of breath and despite of high oxygen delivery he remained severely hypoxemic. He was intubated by ED attending for an acute hypoxemic respiratory failure. Denies chest pain or productive cough or fever. 04/27: Sedated, orally intubated on mechanical ventilation. Had runs of SVT/ rapid A. fib last night from which he was cardioverted. Hypotensive on pressors. 04/28: Remains sedated, orally intubated on mechanical ventilation on neuromuscular blockade. On Barrett-Synephrine/Levophed/low-dose vasopressin for pressor support. On fentanyl/Nimbex GTT and being started on Versed in preparation for prone ventilation. Platelet count dropped to 13,000. 2 units pheresed platelets ordered. Significantly positive fluid balance. Starting Lasix to attempt to keep an even fluid balance. Continues on inhaled Flolan. 04/29: remains in shock on vasopressors. prone. fio2 slightly improved. remains pancytopenic. 04/30 Patient remains on rotoprone bed. Off Levophed remains on Vasopressin 0.04, Sedated with Versed, Fentanyl infusions in addition he is on Nimbex drip. s/p transfusion 2u PRBC last night and 2u PLT during day yesterday. 05/01 Patient is off rotoprone bed. Sedated and intubated. On PRVC RR 18, TV 500, PEEP:8 and FIO2: 40%. s/p transfusion 1u PLT pheresis yesterday. 05/02 Patient is intubated and sedated with Fentanyl drip. He went into Afib with RVR given Lopressor and Cardizem during day. s/p 2u PLT pheresis yesterday. Renal function continue to worse with Cr: 2.21 last night with UOP:75ml in 12 hrs. 05/03 Patient remains intubated and sedated. Family elected to transition to comfort care. Objective Vital Signs Date Time Temp Pulse Resp B/P (MAP) Pulse Ox O2 Delivery O2 Flow Rate FiO2 05/03/18 10:00 75 05/03/18 08:52 100 50 05/03/18 08:00 97.0 18 133/74 (93) Intake and Output 05/03/18 05/03/18 05/04/18 08:00 16:00 00:00 Intake Total 913 ml Output Total 35 ml Balance 878 ml Result Diagram: 05/03/18 0500 05/03/18 0500 Other Results Laboratory Tests Test 05/03/18 05:00 White Blood Count 3.1 TH/MM3 Red Blood Count 2.58 MIL/MM3 Hemoglobin 8.1 GM/DL Hematocrit 23.3 % Mean Corpuscular Volume 90.2 FL Mean Corpuscular Hemoglobin 31.2 PG Mean Corpuscular Hemoglobin Concent 34.6 % Red Cell Distribution Width 20.6 % Platelet Count 25 TH/MM3 Mean Platelet Volume 6.9 FL CBC Comment AUTO DIFF Differential Total Cells Counted 100 Neutrophils % (Manual) 85 % Band Neutrophils % 7 % Lymphocytes % 1 % Monocytes % 7 % Neutrophils # (Manual) 2.9 TH/MM3 Differential Comment FINAL DIFF MANUAL Platelet Estimate LOW Platelet Morphology Comment NORMAL Tear Drop Cells 1+ Blood Urea Nitrogen 64 MG/DL Creatinine 2.34 MG/DL Random Glucose 139 MG/DL Total Protein 5.5 GM/DL Albumin 2.8 GM/DL Calcium Level 6.0 MG/DL Alkaline Phosphatase 490 U/L Aspartate Amino Transf (AST/SGOT) 191 U/L Alanine Aminotransferase (ALT/SGPT) 91 U/L Total Bilirubin 4.6 MG/DL Sodium Level 127 MEQ/L Potassium Level 4.5 MEQ/L Chloride Level 86 MEQ/L Carbon Dioxide Level 16.3 MEQ/L Anion Gap 25 MEQ/L Estimat Glomerular Filtration Rate 28 ML/MIN Protein Corrected Calcium 6.7 MG/DL Imaging Last Impressions Abdomen Ultrasound 05/01/18 0000 Signed Impressions: CONCLUSION: 1. Small amount of ascites, bilateral pleural effusions. 2. Gallbladder wall thickening is noted which is nonspecific though may be rel ated to the ascites. No stones are seen. 3. Nonobstructing left renal calculus. Chest X-Ray 04/30/18 0500 Signed Impressions: CONCLUSION: No significant interval change. Head CT 04/26/18 0000 Signed Impressions: CONCLUSION: 1. No acute intracranial abnormality is identified. The small enhancing lesion s documented on the outside contrast enhanced brain MRI are too small to be vis ible with noncontrast CT imaging. 2. Chronic findings include mild generalized atrophy. CT Angiography 04/26/18 0000 Signed Impressions: CONCLUSION: 1. The previously seen right-sided pulmonary embolus has resolved. No emboli s een on the current exam. 2. Diffuse consolidation throughout the entire right lower lobe with sparing o f the anterior basilar segment. This is a new finding. Infectious etiology susp ected. 3. Left upper lobe pulmonary mass. Objective Remarks Patient is 67 yo critically ill intubated and sedated HEENT/ Neuro: Sedated, orally intubated, on neuromuscular blockade pallor present, no icterus, tongue/ mucosa moist. Conjunctival edema noted. Neck: Right IJ central line in place Chest/Pulm: on mech vent, difficult to assess lung keys due to prone therapy. equal chest rise. CVS: muffled heart sounds. tachycardic rate, regular rhythm. sinus. GI/abdomen: soft, nontender, nondistended. no guarding. rectal tube in place with brown stool. Extremities: warm bilaterally, bilateral edema Skin: Areas of ecchymosis over chest and abdominal wall noted. Neuro: Intubated A/P Assessment and Plan Acute Respiratory failure on mechanical ventilation Pneumonia ARDS Neutropenic sepsis Neuro: On Fentanyl infusion for sedation. Daily sedation vacation Monitor neuro status CV: Afib RVR s/p cardioversion On Lopressor 50mg Q12 Monitor HR and BP keep MAP>65mmHg Echo showed EF 55-60% HC 50mg IV Q8 Patient is not a candidate for anticoagulation due to severe thrombocytopenia Pulm: Continue with vent support keep sats >92% On PRVC RR 18, TV 500, IT:1.0, PEEP:8, FIO2: 40% Bronchodilators, ICU vent bundle. Taper Flolan 30,000ng/ml at 5ml/hr. SANAZ Monitor renal function, I/O's, avoid nephrotoxins US abdomen: Small amount of ascites, bilateral pleural effusions.Gallbladder wall thickening is noted. No stones are seen. Nonobstructing left renal calculus. Cr: 2.34 today Renal is following patient is not a candidate for HD per renal. On Lasix 60mg Q6 and Albumin per renal- Dr. Whitley GI:On tube feeds- Nepro with goal rate 40ml/hr On Pepcid 10mg PO BID for GI prophylaxis ID: s/p Septic shock Neutropenic sepsis Sputum 04/27: Acinetobacter Abx per ID on IV Cefepime -Consulted ID - Dr. Hensley following Monitor for signs of infections ( Fever, WBC) Follow up on sputum cx from 05/01 Heme: Metastatic lung adenocarcinoma with brain/bone metastases Anemia, thrombocytopenia Monitor CBC, coags s/p transfusion 2U PRBC and 2U PLT 04/29. s/p transfusion 1u PLT pheresis 04/30 s/p transfuse 2u PLT pheresis 05/01 PLT 25 Heme is following, on Neupogen Endo: Hyperglycemia -Insulin sliding scale for glycemic control DVT GI prophylaxis -Rupert's and SCDs -IV Pepcid Palliative care is following, family elected to transition to comfort care. Level 1 Carito Kinsey MD May 03, 2018 10:45
[2018-05-03] MEDS ORDERED: LORazepam 2 MG/ML VIAL IV PUSH SCH (11:00)
[2018-05-03] MEDS ORDERED: FUROSEMIDE 20 MG/2 ML VIAL IV PUSH PRN (11:15)
[2018-05-03] MEDS ORDERED: LORazepam 2 MG/ML VIAL IV PUSH PRN ×3 (11:15)
[2018-05-03] MEDS ORDERED: HYOSCYAMINE 0.5 MG/ML AMP IV PUSH PRN (11:15)
[2018-05-03] MEDS ORDERED: BISACODYL 10 MG SUPP RECTAL PRN (11:15)
[2018-05-03] MEDS ORDERED: ACETAMINOPHEN 650 MG SUPP RECTAL PRN (11:15)
[2018-05-03] MEDS ORDERED: HYDROmorphone HCL PF 2 MG/ML VIAL IV PUSH PRN ×2 (11:15)
[2018-05-03] MEDS ORDERED: HYDROmorphone HCL PF 2 MG/ML VIAL IV PUSH SCH (11:30)
--- NOTE | 2018-05-03 11:39 | HHI.HCPN ---
Reason for visit a. To assist with evaluation and management of symptoms including: Shortness of breath, pain b. To assist medical decision maker(s) with: better understanding of current medical conditions; weighing benefits/burdens of medical treatment options; making medical treatment decisions. Subjective/Interval History Patient seen to follow-up on dyspnea, pain. He remains intubated, mechanically ventilated on 50% FiO2, PEEP 8. He is not breathing over the vent or responding to noxious stimuli. His urinary output continues to dwindle and was 35 mL overnight. Sputum culture from 05/01 showing gram-negative rods pending final ID. He remains in a positive fluid balance and has significant edema. He remains on Flolan for respiratory support. Family has decided to withdraw ventilator support and patient will be treated for potential dyspnea with opiates and benzodiazepines. Patient has multiple invasive tubes, lines and catheters as potential sources of pain, to include bedbound status, restraints, metastatic cancer process and wounds. He has been receiving low-dose fentanyl via IV drip for pain. Due to patient's renal failure, fentanyl has been ordered for baseline pain management and Dilaudid has been ordered for breakthrough discomfort for mild, moderate and severe pain. Fentanyl drip will be initiated for pain management throughout the withdrawal process. . Family/friend interactions Family is present in the room and requesting withdrawal of life support to and their father suffering due to his very poor prognosis. Patient's 3 children, Ambika and her daughter, Belén and her and son Nicolas Talley and his are all at bedside and visibly very distraught. Anticipatory guidance regarding upcoming withdrawal of life support was provided and questions answered. Allowed for life review and time for children to discuss what their father meant to them, in celebration of his life. Clergy has been requested for support and reed worker, Parker Newton, came to the room to provide spiritual support to the family. Consent procedures were reviewed and signed. This was discussed with Dr. Bland and Dr. Ng who both agree that patient has an end-stage condition and is appropriate for discontinuation of aggressive services. This was discussed with the RN, Axel, orders reviewed and verified. Patient is a DO NOT RESUSCITATE status and will undergo ventilator withdrawal with comfort measures today. . Advance Directives Living Will: Never completed Health Care Surrogate: Never completed Durable Power of Presser Machine: Never completed Advance Directive Specifics Health Care Surrogate(s): Patient is not capacitated to make his own health care decisions. No written advanced directives. Not legally . According to [place] statutes, health care proxy decision making falls to the majority of adult children, he has 3 children (2 daughters and 1 son). All 3 children want to serve as healthcare proxy decision makers: * Daughter-Ambika MartiJxvjb-[phone] * Son-Dez Fang Jr-[phone] * Daughter- Belén Hines- [phone] . Objective Vital Signs Date Time Temp Pulse Resp B/P (MAP) Pulse Ox O2 Delivery O2 Flow Rate FiO2 05/03/18 10:00 75 05/03/18 08:52 100 50 05/03/18 08:00 97.0 74 18 133/74 (93) 99 05/03/18 08:00 50 05/03/18 08:00 75 05/03/18 06:00 73 05/03/18 04:48 98 50 05/03/18 04:00 75 05/03/18 04:00 50 05/03/18 04:00 96.3 75 18 135/75 (95) 99 05/03/18 02:04 98 50 05/03/18 02:00 127 05/03/18 00:00 128 05/03/18 00:00 96.2 128 18 118/80 (93) 98 Automatic Cuff 05/03/18 00:00 50 05/02/18 23:00 74 116/78 (91) 05/02/18 22:25 96 50 05/02/18 22:00 134 05/02/18 20:47 94 50 05/02/18 20:00 133 05/02/18 20:00 50 05/02/18 20:00 96.4 133 19 107/67 (80) 95 05/02/18 18:00 132 18 110/67 (81) 96 05/02/18 17:00 134 18 107/69 (82) 92 05/02/18 16:00 98.5 133 18 103/75 (84) 97 05/02/18 16:00 50 05/02/18 15:00 147 18 101/65 (77) 96 05/02/18 14:07 95 50 05/02/18 14:00 128 18 107/64 (78) 94 05/02/18 13:04 96 50 05/02/18 13:00 76 18 116/60 (78) 100 05/02/18 12:00 50 05/02/18 12:00 98.4 77 18 126/61 (82) 93 05/02/18 11:35 98.5 77 18 131/64 96 05/02/18 11:20 98.3 76 18 128/63 96 Intake & Output 05/03/18 05/03/18 07:00 19:00 Intake Total 913 ml Output Total 35 ml Balance 878 ml IV Total 526 ml Tube Feeding 312 ml Tube Irrigant 75 ml Output Urine Total 35 ml Stool Total 0 ml Gastric Drainage Total 0 ml Physical Exam CONSTITUTIONAL/GENERAL: This is an adequately nourished patient intubated and sedated TUBES/LINES/DRAINS: ETT, Parrish catheter, SCDs, bilateral upper extremity soft restraints, PIV, OG tube, [id number] right chest wall accessed SKIN: No jaundice, rashes, or lesions. Ecchymoses on all extremities. Dry scabs to bilateral knees. Skin cool to touch. Not diaphoretic. HEAD: Atraumatic. Normocephalic. EYES: Pupils equal and round and 2 mm, sluggishly reactive. No scleral icterus. Fundi not examined. ENT: Unable to assess hearing. No drainage noted to both nares. Moist oral mucosa. ETT in place NECK: Trachea midline. Supple. CARDIOVASCULAR: Irregular rhythm, heart rate 130's. no murmur. Peripheral pulses diminished. RESPIRATORY/CHEST: Mechanically ventilated with coarse rhonchi throughout all lung keys, mild basilar crackles. GASTROINTESTINAL: Abdomen soft, nondistended. Hypoactive bowel sounds. Old G- tube clamped GENITOURINARY: Without palpable bladder distension. Parrish catheter in place draining minimal quantities of dark brown urine. MUSCULOSKELETAL: Extremities without clubbing or cyanosis, 2+ edema. No joint tenderness or effusion noted. No mottling or clubbing. NEUROLOGICAL: Intubated, sedated, currently on low-dose fentanyl infusion, not withdrawing to noxious stimuli, no plantar or corneal reflexes, no gag. PSYCHIATRIC: Unable to assess at this time. . Diagnostic Tests Laboratory Laboratory Tests Test 04/30/18 13:05 6/4/18 18:35 04/30/18 19:50 05/01/18 05:00 Platelet Count 37 TH/MM3 (150-450) 23 TH/MM3 (150-450) 15 TH/MM3 (150-450) Blood Urea Nitrogen 41 MG/DL (7-18) 47 MG/DL (7-18) Creatinine 1.90 MG/DL (0.60-1.30) 1.99 MG/DL (0.60-1.30) Random Glucose 167 MG/DL (74-106) 165 MG/DL (74-106) Total Protein 4.4 GM/DL (6.4-8.2) 4.5 GM/DL (6.4-8.2) Calcium Level 5.1 MG/DL (8.5-10.1) 5.2 MG/DL (8.5-10.1) Sodium Level 127 MEQ/L (136-145) 127 MEQ/L (136-145) Potassium Level 4.1 MEQ/L (3.5-5.1) 4.1 MEQ/L (3.5-5.1) Chloride Level 88 MEQ/L (98-107) 86 MEQ/L (98-107) Carbon Dioxide Level 19.0 MEQ/L (21.0-32.0) 20.0 MEQ/L (21.0-32.0) Anion Gap 20 MEQ/L (5-15) 21 MEQ/L (5-15) Estimat Glomerular Filtration Rate 36 ML/MIN (>89) 34 ML/MIN (>89) Protein Corrected Calcium 6.2 MG/DL (8.5-10.1) 6.3 MG/DL (8.5-10.1) White Blood Count 2.6 TH/MM3 (4.0-11.0) 2.6 TH/MM3 (4.0-11.0) Red Blood Count 2.88 MIL/MM3 (4.50-5.90) 2.88 MIL/MM3 (4.50-5.90) Hemoglobin 8.8 GM/DL (13.0-17.0) 8.9 GM/DL (13.0-17.0) Hematocrit 25.0 % (39.0-51.0) 25.1 % (39.0-51.0) Mean Corpuscular Volume 86.5 FL (80.0-100.0) 87.0 FL (80.0-100.0) Mean Corpuscular Hemoglobin 30.5 PG (27.0-34.0) 30.9 PG (27.0-34.0) Mean Corpuscular Hemoglobin Concent 35.2 % (32.0-36.0) 35.5 % (32.0-36.0) Red Cell Distribution Width 20.4 % (11.6-17.2) 20.1 % (11.6-17.2) Mean Platelet Volume 8.3 FL (7.0-11.0) 7.7 FL (7.0-11.0) CBC Comment AUTO DIFF Differential Total Cells Counted 100 Neutrophils % (Manual) 86 % (16-70) Band Neutrophils % 7 % (0-6) Lymphocytes % 1 % (9-44) Monocytes % 5 % (0-8) Neutrophils # (Manual) 2.4 TH/MM3 (1.8-7.7) Metamyelocytes 1 % (0-1) Nucleated Red Blood Cells 1 /100 WBC (0-0) Differential Comment FINAL DIFF MANUAL Dohle Bodies PRESENT (NONE SEEN) Platelet Estimate RARE (NORMAL) Platelet Morphology Comment NORMAL (NORMAL) Ovalocytes (NORMAL) Blood Smear Pathologist Review Reticulocyte Count 1.7 % (0.4-3.0) Absolute Reticulocyte Count 49.2 MIL/L (20.0-150.0) Haptoglobin 232 MG/DL (30-200) Albumin 1.4 GM/DL (3.4-5.0) Alkaline Phosphatase 232 U/L (45-117) Aspartate Amino Transf (AST/SGOT) 69 U/L (15-37) Alanine Aminotransferase (ALT/SGPT) 58 U/L (12-78) Total Bilirubin 2.4 MG/DL (0.2-1.0) Random Vancomycin Level 31.2 COMMENT Test 05/01/18 09:52 05/01/18 15:45 05/01/18 21:00 05/02/18 04:45 Prothrombin Time 10.6 SEC (9.8-11.6) Prothromb Time International Ratio 1.0 RATIO D-Dimer Quantitative (PE/DVT) 5.98 MG/L FEU (0.00-0.50) White Blood Count 3.3 TH/MM3 (4.0-11.0) 4.4 TH/MM3 (4.0-11.0) Red Blood Count 2.70 MIL/MM3 (4.50-5.90) 2.80 MIL/MM3 (4.50-5.90) Hemoglobin 8.3 GM/DL (13.0-17.0) 8.6 GM/DL (13.0-17.0) Hematocrit 23.4 % (39.0-51.0) 24.5 % (39.0-51.0) Mean Corpuscular Volume 86.8 FL (80.0-100.0) 87.7 FL (80.0-100.0) Mean Corpuscular Hemoglobin 30.7 PG (27.0-34.0) 30.7 PG (27.0-34.0) Mean Corpuscular Hemoglobin Concent 35.3 % (32.0-36.0) 35.1 % (32.0-36.0) Red Cell Distribution Width 20.8 % (11.6-17.2) 20.3 % (11.6-17.2) Platelet Count 34 TH/MM3 (150-450) 25 TH/MM3 (150-450) Mean Platelet Volume 7.1 FL (7.0-11.0) 7.4 FL (7.0-11.0) Blood Urea Nitrogen 51 MG/DL (7-18) 53 MG/DL (7-18) Creatinine 2.21 MG/DL (0.60-1.30) 2.25 MG/DL (0.60-1.30) Random Glucose 108 MG/DL (74-106) 104 MG/DL (74-106) Total Protein 4.9 GM/DL (6.4-8.2) 5.1 GM/DL (6.4-8.2) Calcium Level 5.3 MG/DL (8.5-10.1) 5.3 MG/DL (8.5-10.1) Phosphorus Level 4.0 MG/DL (2.5-4.9) Magnesium Level 1.8 MG/DL (1.5-2.5) Sodium Level 127 MEQ/L (136-145) 127 MEQ/L (136-145) Potassium Level 4.4 MEQ/L (3.5-5.1) 4.5 MEQ/L (3.5-5.1) Chloride Level 87 MEQ/L (98-107) 87 MEQ/L (98-107) Carbon Dioxide Level 23.1 MEQ/L (21.0-32.0) 22.7 MEQ/L (21.0-32.0) Anion Gap 17 MEQ/L (5-15) 17 MEQ/L (5-15) Estimat Glomerular Filtration Rate 30 ML/MIN (>89) 29 ML/MIN (>89) Protein Corrected Calcium 6.2 MG/DL (8.5-10.1) 6.1 MG/DL (8.5-10.1) Neutrophils (%) (Auto) 98.7 % (16.0-70.0) Lymphocytes (%) (Auto) 0.6 % (9.0-44.0) Monocytes (%) (Auto) 0.2 % (0.0-8.0) Eosinophils (%) (Auto) 0.1 % (0.0-4.0) Basophils (%) (Auto) 0.4 % (0.0-2.0) Neutrophils # (Auto) 4.4 TH/MM3 (1.8-7.7) Lymphocytes # (Auto) 0.0 TH/MM3 (1.0-4.8) Monocytes # (Auto) 0.0 TH/MM3 (0-0.9) Eosinophils # (Auto) 0.0 TH/MM3 (0-0.4) Basophils # (Auto) 0.0 TH/MM3 (0-0.2) CBC Comment AUTO DIFF Differential Total Cells Counted 100 Neutrophils % (Manual) 88 % (16-70) Band Neutrophils % 12 % (0-6) Neutrophils # (Manual) 4.4 TH/MM3 (1.8-7.7) Differential Comment FINAL DIFF MANUAL Platelet Estimate LOW (NORMAL) Platelet Morphology Comment NORMAL (NORMAL) Urine Random Creatinine 29.0 MG/DL Urine Random Sodium 31 MEQ/L Albumin 2.1 GM/DL (3.4-5.0) Alkaline Phosphatase 340 U/L (45-117) Aspartate Amino Transf (AST/SGOT) 79 U/L (15-37) Alanine Aminotransferase (ALT/SGPT) 55 U/L (12-78) Total Bilirubin 2.9 MG/DL (0.2-1.0) Test 05/03/18 05:00 White Blood Count 3.1 TH/MM3 (4.0-11.0) Red Blood Count 2.58 MIL/MM3 (4.50-5.90) Hemoglobin 8.1 GM/DL (13.0-17.0) Hematocrit 23.3 % (39.0-51.0) Mean Corpuscular Volume 90.2 FL (80.0-100.0) Mean Corpuscular Hemoglobin 31.2 PG (27.0-34.0) Mean Corpuscular Hemoglobin Concent 34.6 % (32.0-36.0) Red Cell Distribution Width 20.6 % (11.6-17.2) Platelet Count 25 TH/MM3 (150-450) Mean Platelet Volume 6.9 FL (7.0-11.0) CBC Comment AUTO DIFF Differential Total Cells Counted 100 Neutrophils % (Manual) 85 % (16-70) Band Neutrophils % 7 % (0-6) Lymphocytes % 1 % (9-44) Monocytes % 7 % (0-8) Neutrophils # (Manual) 2.9 TH/MM3 (1.8-7.7) Differential Comment FINAL DIFF MANUAL Platelet Estimate LOW (NORMAL) Platelet Morphology Comment NORMAL (NORMAL) Tear Drop Cells 1+ (NORMAL) Blood Urea Nitrogen 64 MG/DL (7-18) Creatinine 2.34 MG/DL (0.60-1.30) Random Glucose 139 MG/DL (74-106) Total Protein 5.5 GM/DL (6.4-8.2) Albumin 2.8 GM/DL (3.4-5.0) Calcium Level 6.0 MG/DL (8.5-10.1) Alkaline Phosphatase 490 U/L (45-117) Aspartate Amino Transf (AST/SGOT) 191 U/L (15-37) Alanine Aminotransferase (ALT/SGPT) 91 U/L (12-78) Total Bilirubin 4.6 MG/DL (0.2-1.0) Sodium Level 127 MEQ/L (136-145) Potassium Level 4.5 MEQ/L (3.5-5.1) Chloride Level 86 MEQ/L (98-107) Carbon Dioxide Level 16.3 MEQ/L (21.0-32.0) Anion Gap 25 MEQ/L (5-15) Estimat Glomerular Filtration Rate 28 ML/MIN (>89) Protein Corrected Calcium 6.7 MG/DL (8.5-10.1) Result Diagram: 05/03/18 0500 05/03/18 0500 Microbiology Microbiology Date/Time Source Procedure Growth Status 05/01/18 10:00 Sputum Endotracheal Gram Stain - Final Resulted 05/01/18 10:00 Sputum Culture - Preliminary Gram Negative Ric Resulted Imaging Last Impressions Abdomen Ultrasound 05/01/18 0000 Signed Impressions: CONCLUSION: 1. Small amount of ascites, bilateral pleural effusions. 2. Gallbladder wall thickening is noted which is nonspecific though may be rel ated to the ascites. No stones are seen. 3. Nonobstructing left renal calculus. Chest X-Ray 04/30/18 0500 Signed Impressions: CONCLUSION: No significant interval change. Head CT 04/26/18 0000 Signed Impressions: CONCLUSION: 1. No acute intracranial abnormality is identified. The small enhancing lesion s documented on the outside contrast enhanced brain MRI are too small to be vis ible with noncontrast CT imaging. 2. Chronic findings include mild generalized atrophy. CT Angiography 04/26/18 0000 Signed Impressions: CONCLUSION: 1. The previously seen right-sided pulmonary embolus has resolved. No emboli s een on the current exam. 2. Diffuse consolidation throughout the entire right lower lobe with sparing o f the anterior basilar segment. This is a new finding. Infectious etiology susp ected. 3. Left upper lobe pulmonary mass. Procedures 04/26/18-intubation . Assessment and Plan Disease Oriented Problem List: (1) Acute respiratory failure with hypoxia (2) Pneumonia (3) Adenocarcinoma, lung (4) Atrial fibrillation with RVR (5) GERD (gastroesophageal reflux disease) Symptom Scale: (1) Shortness of breath 0-10 Scale: Unable to quantify Comment: Patient has history of lung adenocarcinoma. Chest x-ray showing pneumonia. Currently intubated . 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 (3) Debility 0-10 Scale: Unable to quantify Comment: Progressive. . Pertinent Non-Medical Issues Psychosocial: Patient was born in [place], [place] and he lived most of his life in [place]. Patient moved to [place] in 2006. Patient has been 4 times and 3 times. His fourth many years ago. Patient has a significant other, whom he has lived with for the past 27 years. Patient his 3 adult children, 2 daughters and 1 son, Dez Perez Jr and Belén Hines. 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 Patient to use to wake for [employer] until beginning of 2016. He was recently working part-time in [place] [employer] until November 2016. No experience. Spiritual: Patient is [employer] Legal: Patient never completed advanced directives Ethical issues impacting care: No issues identified at this time. . Important Contacts * Daughter-Ambika MartiTzajf-[phone] * Son-Dez Fang Jr-[phone] * Daughter- Belén Hines- [phone] * Stepdaughter-Maryjane Mooney- [phone] * Significant other-Sayda Adamson-[phone] . Prognosis Mr. 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 Patient was brought by paramedics on 04/26/18 from an oncology center where he was about to receive chemotherapy for his lung cancer. When paramedics arrived patient was in atrial fibrillation with RVR with a rate of 228 and systolic blood pressure in the 50s. Patient was also found to be hyperglycemic with blood glucose in the 600s. Patient underwent cardioversion and was placed on 100% nonrebreather. Upon arrival to the emergency room patient was found to be hypoxic and was intubated and placed on mechanical ventilation. Patient is currently in neutropenic shock. Given multiple ongoing comorbidities, patient remains at very high risk for further complications and decline. . Code Status: No Code (At the request of the family due to progressive multi- system organ failure.) Plan I do not just family is in he remains * Legal decision maker: Patient is not capacitated to make his own health care decisions. No written advanced directives. Not legally . According to [place] statutes, health care proxy decision making falls to the majority of adult children. He has 2 daughters, Belén Hines and Ambika Marti and 1 son, Dez Fang, all 3 children want to serve as healthcare proxy decision makers. * DO NOT RESUSCITATE * Per my discussion with the 3 children today, they wish to convert to comfort measures as they do not wish their father to suffer any further. DO NOT RESUSCITATE order has been entered. Children are considering withdrawal of life support and withdrawal exhibits have been placed on the chart for completion if and when the family decides on that. SYMPTOMS: * Shortness of breath: Patient has stage IV adenocarcinoma of the lung. [facility] started patient on Flolan and planning on transferring patient onto a Roto prone bed. Patient is on antibiotics, Duonebs. He remains on the ventilator requiring 50% FiO2 and 8 PEEP. He is significantly tachycardic appearing to be in atrial fibrillation with rapid ventricular response with rates up to the 150s. Family has converted to comfort measures and has requested withdrawal of life support. * Pain: He is at risk for pain from multiple sources to include invasive tubes, lines, restraints and catheters, as well as underlying metastatic cancer, renal failure and bedbound status. He has been maintained on low-dose fentanyl drip at 100 mcg/h. He is being withdrawn from life support and will be treated with fentanyl, Dilaudid and Ativan for uncomfortable symptoms. Palliative care will continue to follow the patient during hospital course as condition evolves, to assist patient/decision-maker with understanding of their medical conditions, weighing benefits/burdens of treatment options, for clarification of goals of treatment. Additionally will assist with any symptoms of palliative concern Attestation To help prompt me to consider important information that might be impacting today's encounter and assessment, information from prior notes written by myself or my colleagues may have been "brought forward" into today's note. My signature on this note, however, is an attestation that I personally performed the exam, history, and/or decision-making noted today, and, unless otherwise indicated, the interactions with patient, family, and staff as well as the review of records all occurred today. I also attest that the listed assessment and stated plan reflect my best clinical judgment today based on the combination of historical information, prior notes, and today's exam/ interactions. When time spent is documented, it refers only to time spent today by the signer, or if indicated, combined time spent today by collaborating physician/nurse practitioner. . Eden Meehan May 03, 2018 11:39 am
--- NOTE | 2018-05-03 15:28 | MD ---
cc: Carito Kinsey MD DATE OF DISCHARGE: 05/03/2018 SUMMARY HISTORY OF PRESENT ILLNESS AND HOSPITAL COURSE: The patient is a 67-year-old male with past medical history of metastatic lung cancer to the spine and brain who presented to [facility] ED on 04/26/2018 for shortness of breath. He was found to be in atrial fibrillation with RVR and hypotensive with a systolic blood pressure in the 50s. The patient underwent cardioversion. The patient was intubated and placed on full mechanical ventilation. He required pressor support to maintain MAP greater than 65 mmHg. Due to severe hypoxemia, the patient underwent prone ventilation. He also had pancytopenia requiring platelet transfusions. In addition, he had 2 units of packed red blood cells on 04/29/2018. The patient was sedated with fentanyl infusion while on mechanical ventilation. He had an echocardiogram which showed an EF of 55% to 60%. The patient was not a candidate for full anticoagulation for his atrial fibrillation due to severe thrombocytopenia with a platelet count less than 20. The patient also was started on Flolan. During his ICU stay, he had worsening in renal function and was seen by Dr. Whitley from nephrology service. The patient was not a candidate for hemodialysis per nephrology. He was treated with Lasix and albumin. Ultrasound of the abdomen, showed small amount of ascites, gallbladder wall thickening. No stones seen. Nonobstructing left renal calculus noted. Nutrition support was provided via tube feeds. He received Nepro at 40 mL an hour and was on Pepcid for GI prophylaxis. His sputum culture from 04/27/2018 showed Acinetobacter and the patient was on broad spectrum antibiotics per infectious disease service. Also, he was seen by hematology service and was on Neupogen for his leukopenia. Sliding scale insulin was provided for glycemic control. On 05/03/2018, palliative care met with the family, and they elected to transition to comfort care and withdrawal of life support. He on 05/03/2018. MD DEBORAH Barber/TYLER , 02:58 PM , 03:27 PM
== END 2018-05-03 12:15 | disposition expired | DRG 870 ==
LOC: NEPE 15:25 → NEDA 17:24 → HIMW 20:05 → HIME 04-28 08:20
PROVIDERS: ADMIT Internal Medicine Critical Care Medicine; ATTEND Internal Medicine Critical Care Medicine
PROC: 5A1955Z Respiratory Ventilation, Greater than 96 Consecutive Hours (ICD-10-PCS; principal; 2018-04-26)
PROC: 0BH17EZ Insertion of Endotracheal Airway into Trachea, Via Natural or Artificial Opening (ICD-10-PCS; 2018-04-26)
PROC: 02HV33Z Insertion of Infusion Device into Superior Vena Cava, Percutaneous Approach (ICD-10-PCS; 2018-04-27)
PROC: 30233R1 Transfusion of Nonautologous Platelets into Peripheral Vein, Percutaneous Approach (ICD-10-PCS; 2018-04-28)
PROC: 30233N1 Transfusion of Nonautologous Red Blood Cells into Peripheral Vein, Percutaneous Approach (ICD-10-PCS; 2018-04-29)
DX: A41.9 Sepsis, unspecified organism (principal); J96.01 Acute respiratory failure with hypoxia; N17.0 Acute kidney failure with tubular necrosis; R65.21 Severe sepsis with septic shock; J18.9 Pneumonia, unspecified organism; G93.40 Encephalopathy, unspecified; D61.810 Antineoplastic chemotherapy induced pancytopenia; C79.31 Secondary malignant neoplasm of brain; C79.51 Secondary malignant neoplasm of bone; C79.72 Secondary malignant neoplasm of left adrenal gland; C34.90 Malignant neoplasm of unspecified part of unspecified bronchus or lung; E87.2 Acidosis; I48.91 Unspecified atrial fibrillation; D70.3 Neutropenia due to infection; I49.49 Other premature depolarization; B96.89 Other specified bacterial agents as the cause of diseases classified elsewhere; K22.70 Barrett's esophagus without dysplasia; K21.9 Gastro-esophageal reflux disease without esophagitis; H91.90 Unspecified hearing loss, unspecified ear; E78.00 Pure hypercholesterolemia, unspecified; I10 Essential (primary) hypertension; R73.9 Hyperglycemia, unspecified; Z51.5 Encounter for palliative care; Z66 Do not resuscitate; R50.81 Fever presenting with conditions classified elsewhere; T45.1X5A Adverse effect of antineoplastic and immunosuppressive drugs, initial encounter; Y95 Nosocomial condition; F41.9 Anxiety disorder, unspecified; D63.0 Anemia in neoplastic disease; N20.0 Calculus of kidney; Z87.891 Personal history of nicotine dependence; Z86.711 Personal history of pulmonary embolism; Z92.3 Personal history of irradiation
CPT/HCPCS: 31500; 36430; 36556; 36600; 36620; 43753; 51702; 70450; 71045; 71275; 76700; 76937; 80048; 80053; 80202; 81001; 82550; 82552; 82570; 82805; 82948; 83010; 83605; 83690; 83735; 84100; 84132; 84155; 84300; 84484; 85007; 85027; 85044; 85049; 85379; 85384; 85610; 85730; 86850; 86900; 86901; 86920; 87040; 87070; 87077; 87086; 87186; 87205; 87449; 87641; 92960; 93005; 93306; 94002; 94003; 94640; 94799; 96365; 96368; 99292; J0153; J0330; J0456; J0610; J0692; J1160; J1325; J1442; J1650; J1720; J1815; J1940; J1980; J2060; J2185; J2248; J2250; J2370; J2543; J2997; J3010; J3370; J3475; J3480; J7030; J7040; J7050; J7060; P9016; P9035; P9045; P9047; Q9967